=== PATIENT | female | born 1950 | race Caucasian/White ===

== ENCOUNTER 2016-11-13 09:57 | Inpatient (IN) | payer MEDICARE, OTHER ==
[~2016-11-13] VITALS: Ht 162.6 cm; Wt 57.5 kg
[~2016-11-13 09:57] MED LIST: ESOM20CA PO; FURO40TA4 PO; LEVO100T96 PO; LIPA1CAP6 PO; POTA20TA96 PO; RANI150T5 PO; ULT50 PO
[2016-11-13] MEDS ORDERED: ONDANSETRON 4 MG INJ IV STA (10:35)
[2016-11-13] MEDS ORDERED: morphine 2 MG INJ IV STA (10:35)
[2016-11-13 11:01] LABS: HEMATOCRIT 30.7 % (37.0-47.0); HEMOGLOBIN 10.1 g/dl (12.0-16.0); MEAN CORPUSCULAR HEMOGLOBIN 28.5 pg (29.0-33.0); MEAN CORPUSCULAR HGB CONC 32.8 g/dl (32.0-37.0); MEAN CORPUSCULAR VOLUME 86.9 fl (82.0-101.0); MEAN PLATELET VOLUME 8.4 fl (7.4-10.4); PLATELET COUNT 119 10^3/UL (140-440); RED BLOOD COUNT 3.53 10^6/ul (4.20-5.40); RED CELL DISTRIBUTION WIDTH 18.9 % (11.5-14.5); UNCORRECTED WBC 20.5 10^3/ul (4.8-10.8); WHITE BLOOD COUNT 20.5 10^3/ul (4.8-10.8)
[2016-11-13 11:10] LABS: ALBUMIN 1.7 g/dl (3.3-4.9)
[2016-11-13 11:11] LABS: CHLORIDE 99 mmol/L (97-110); POTASSIUM 3.6 mmol/L (3.5-5.1); SODIUM 133 mmol/L (135-144)
[2016-11-13 11:12] LABS: INR 1.78; PARTIAL THROMBOPLASTIN TIME 35.1 Sec (25.0-35.0); PROTIME 20.9 Sec (12.2-14.2); PT RATIO 1.6
[2016-11-13 11:13] LABS: ALKALINE PHOSPHATASE 147 IU/L (42-121); ANION GAP 15 (8-16); ASPARTATE AMINO TRANSFERASE 36 IU/L (15-46); BILIRUBIN,INDIRECT 0.4 mg/dl (0-1.1); BILIRUBIN,TOTAL 0.4 mg/dl (0.2-1.3); BLOOD UREA NITROGEN 21 mg/dl (7-20); CARBON DIOXIDE 23 mmol/L (21-31); CREATININE 0.85 mg/dl (0.44-1.00); TOTAL PROTEIN 4.5 g/dl (6.1-8.1)
[2016-11-13 11:14] LABS: ALANINE AMINOTRANSFERASE 30 IU/L (13-69); CALCIUM 7.3 mg/dl (8.4-10.2); GLUCOSE 122 mg/dl (70-220)
[2016-11-13 11:16] LABS: CONDITION 1; LH ANALYZER COMMENTS 1; SUSPECT 1
[2016-11-13 11:46] LABS: LYMPHOCYTES # 0.2 10^3/ul (0.8-2.9); MONOCYTE # 0.4 10^3/ul (0.3-0.9); NEUTROPHIL # 18.5 10^3/ul (1.6-7.5)
[2016-11-13 11:47] LABS: ANISOCYTOSIS 2+; HYPOCHROMASIA 1+; PLATELET ESTIMATE PLT APPEAR DECREASED
[2016-11-13] MEDS ORDERED: LIDOCAINE 1% (MPF) 5 ML VIAL ONE (12:50)
[2016-11-13 13:41] LABS: FLUID GLUCOSE 108 mg/dl; FLUID TOTAL PROTEIN < 2.0 g/dl; FLUID TYPE PARACENTESIS FLUID
[2016-11-13 13:54] LABS: FLUID TYPE PARACENTHESIS
[2016-11-13 13:55] LABS: FLUID APPEARANCE SLIGHTLY CLOUDY; FLUID RBC EST 1+; FLUID WBC'S 218 /cmm
--- NOTE | 2016-11-13 14:22 | RADRPT ---
PROCEDURE: Ultrasound guided paracentesis. CLINICAL INDICATION: Ascites and shortness of breath. COMPARISON: No prior studies are available for comparison. TECHNIQUE: The risks, benefits, and alternatives were explained to the patient, including but not limited to bl eeding, infection, pain, visceral or vascular damage, shock, and . The patient understood the risks and the alternatives and wished to proceed with the procedure. Informed written consent was o btained. A procedural time out was performed. The patient's name, date of , and procedure to b e performed were verified. Utilizing ultrasound guidance, optimal location for entry to the peritoneal cavity was ascertained. The overlying skin was prepped and draped in the usual sterile fashion. Approximately 10 ml of 1% Xylocaine was injected locally for pain control. Using ultrasound guidance, an 8 German catheter wa s introduced into the peritoneal cavity in the right lower quadrant without difficulty. FINDINGS: Initial images demonstrate ascites. Approximately 2.8 liters of serous fluid was aspirated and sent for laboratory analysis. The patient tolerated the procedure well without complication. IMPRESSION: 1. Successful ultrasound-guided paracentesis. RPTAT: QQ .Jacob Smiley MD, Date Time Electronically viewed and signed by .Jacob Smiley MD, MD on 11/13/2016 14:22 .R/
[2016-11-13] MEDS ORDERED: VANCOMYCIN 1 GM (PMX) 250 ML IVPB SCH (14:30)
[2016-11-13] MEDS ORDERED: CEFTRIAXONE 1 GM/50 ML (PMX) 50 ML IVPB ONE (14:30)
--- NOTE | 2016-11-13 14:35 | RADRPT ---
PROCEDURE: XR Chest. CLINICAL INDICATION: chest pain, sepsis TECHNIQUE: Single frontal view of the chest was obtained COMPARISON: 11/02/2016 FINDINGS: The heart and mediastinum are within normal limits. There is a right chest wall port in place. There is elevation of the right diaphragm with right lower lobe atelectasis. The lungs are otherwise clear. There is no pleural effusion or pneumothorax. RPTAT: AA IMPRESSION: No acute disease. Unchanged elevation of the right diaphragm with right lower lobe atelectasis. .Addison Duncan MD, MD Date Time Electronically viewed and signed by .Addison Duncan MD, on 11/13/2016 14:35 .S/
[2016-11-13 14:43] LABS: FLUID LYMPHOCYTES 7 %; FLUID MONOCYTES 10 %
[2016-11-13 14:44] LABS: FLUID NEUTROPHILS 80 %
--- NOTE | 2016-11-13 14:56 | ERA ---
ER Documentation Chief Complaint Date/Time DATE: 11/13/16 TIME: 1030 Chief Complaint has back pain, ascites, hx of pancreatic CA HPI 65-year-old female presents to the emergency department with her family for evaluation of abdominal distention. Patient has history of pancreatic cancer. She had a recent therapeutic paracentesis at an outside facility. She returns to the emergency department today with her family complaining of increased fluid in her abdomen. This is causing her discomfort around her right flank. She reports no fevers, chills, difficulty breathing, urinary symptoms. She has no other complaints. She currently reports her discomfort is 0/10. She reports no melena vomiting or any other complaints. ROS All systems reviewed and are negative except as per history of present illness. Medications Home Meds Active Scripts Tramadol HCl (Tramadol HCl) 50 Mg Tablet, 50 MG PO Q4H Y for PAIN, #60 TAB 1 Refill Prov:NAINA MIRAMONTES 11/04/16 Reported Medications Furosemide* (Furosemide*) 40 Mg Tablet, 40 MG PO DAILY, TAB 11/01/16 Esomeprazole Mag Trihydrate (Nexium) 20 Mg Capsule.dr, 20 MG PO DAILY, #30 CAP 11/01/16 Potassium Chloride* (Potassium Chloride*) 20 Meq Tablet.er, 20 MEQ PO DAILY, TAB.SA 11/01/16 Ranitidine Hcl* (Ranitidine Hcl*) 150 Mg Tablet, 150 MG PO HS, #30 TAB 11/01/16 Levothyroxine Sodium* (Synthroid*) 100 Mcg Tablet, 100 MCG PO BEFORE BREAKFAST, #30 TAB 11/01/16 Bgvvkd-Irlzdjjj-Bsquamo* (Creon DR* 24,000) 24,000 L-76,000-120,000 Unit Capsule.dr, 1 CAP PO WITH MEALS, CAP 05/25/16 Discontinued Scripts Furosemide* (Furosemide*) 40 Mg Tablet, 40 MG PO BID DIURETICS, #90 TAB 1 Refill Prov:NAINA MIRAMONTES 11/04/16 Allergies Allergies: Coded Allergies: methylisothiazolinone (Verified Allergy, Unknown, 11/13/16) PMhx/Soc Medical and Surgical Hx: pt denies Medical Hx, pt denies Surgical Hx History of Surgery: Yes Anesthesia Reaction: No Hx Neurological Disorder: No Hx Respiratory Disorders: No Hx Cardiac Disorders: No Hx Psychiatric Problems: No Hx Miscellaneous Medical Probl: No Hx Alcohol Use: No Hx Substance Use: No Hx Tobacco Use: No Smoking Status: Never smoker FmHx Noncontributory for chief complaint Physical Exam Vitals Vital Signs Date Time Temp Pulse Resp B/P Pulse Ox O2 Delivery O2 Flow Rate FiO2 11/13/16 10:06 98.8 110 18 109/58 100 Physical Exam GENERAL: Patient is cachectic, chronically as well as acutely ill-appearing. HEENT: Pupils equal, round, and reactive to light. EOMI. There is no scleral icterus. Temporal muscles are wasted NECK: C-spine is soft and supple, there is no meningismus. There is no cervical lymphadenopathy. LUNGS: Clear to auscultation bilaterally. There are no rales, wheezes or rhonchi. HEART: Regular rate and rhythm, no murmurs, clicks, rubs or gallops. ABDOMEN: Soft and distended with a fluid wave consistent with ascites. No significant tenderness to palpation. No obvious masses. EXTREMITIES: There is no peripheral cyanosis or edema. No focal swelling or erythema. NEURO: The patient moves all four extremities with 5/5 strength. Cranial nerves II - XII are intact. Normal gait. Alert and oriented SKIN: There is no apparent rash or petechiae. HEME/LYMPHATIC: There is no evidence of excessive bruising or lymphedema. PSYCHIATRIC: The patient does not appear anxious or depressed. Result Diagram: 11/13/16 1043 11/13/16 1043 Results 24 hrs Laboratory Tests Test 11/13/16 10:43 11/13/16 12:15 Activated Partial Thromboplast Time 35.1Sec Alanine Aminotransferase (ALT/SGPT) 30IU/L Albumin 1.7g/dl Albumin/Globulin Ratio 0.60 Alkaline Phosphatase 147IU/L Anion Gap 15 Anisocytosis 2+ Aspartate Amino Transf (AST/SGOT) 36IU/L Band Neutrophils % 7.0% Basophils # 10^3/ul Basophils % % Blood Morphology Comment Blood Urea Nitrogen 21mg/dl Calcium Level 7.3mg/dl Carbon Dioxide Level 23mmol/L Chloride Level 99mmol/L Creatinine 0.85mg/dl Direct Bilirubin 0.00mg/dl Eosinophils # 10^3/ul Eosinophils % % Globulin 2.80g/dl Glucose Level 122mg/dl Hematocrit 30.7% Hemoglobin 10.1g/dl Hypochromasia 1+ INR International Normalized Ratio 1.78 Indirect Bilirubin 0.4mg/dl Lipase < 10U/L Lymphocytes # 0.210^3/ul Lymphocytes % 1.0% Mean Corpuscular Hemoglobin 28.5pg Mean Corpuscular Hemoglobin Concent 32.8g/dl Mean Corpuscular Volume 86.9fl Mean Platelet Volume 8.4fl Monocytes # 0.410^3/ul Monocytes % 2.0% Neutrophils # 18.510^3/ul Neutrophils % 90.0% Nucleated Red Blood Cells # 10^3/ul Nucleated Red Blood Cells % /100WBC Platelet Count 86984^3/UL Platelet Estimate PLT APPEAR DECREASED Potassium Level 3.6mmol/L Prothrombin Time 20.9Sec Prothrombin Time Ratio 1.6 Red Blood Count 3.5310^6/ul Red Cell Distribution Width 18.9% Sodium Level 133mmol/L Total Bilirubin 0.4mg/dl Total Protein 4.5g/dl White Blood Count 20.510^3/ul Body Fluid Appearance SLIGHTLY CLOUDY Body Fluid Color YELLOW Body Fluid Glucose 108mg/dl Body Fluid Lymphocytes (%) 7% Body Fluid Monocytes % 10% Body Fluid Neutrophils % 80% Body Fluid Other Cells (%) 3% Body Fluid RBC 1+ Body Fluid Total Protein < 2.0g/dl Body Fluid Type PARACENTESIS FLUID Body Fluid Volume 1000.0ml Body Fluid WBC 218/cmm Current Medications Medications (Trade) Dose Ordered Sig/Gabe Route PRN Reason Start Time Stop Time Status Last Admin Dose Admin Morphine Sulfate (morphine) 2 mg ONCE STAT IV 11/13/16 10:35 11/13/16 10:37 DC 11/13/16 11:03 Ondansetron HCl (Zofran Inj) 4 mg ONCE STAT IV 11/13/16 10:35 11/13/16 10:37 DC 11/13/16 11:03 Lidocaine 5 ml 5 ml STK-MED ONCE .ROUTE 11/13/16 12:50 11/13/16 12:51 DC Ceftriaxone Sodium 50 ml @ 100 mls/hr ONCE ONCE IVPB 11/13/16 14:30 11/13/16 14:59 Vancomycin HCl (Vancocin) 250 ml @ 125 mls/hr ONCE IVPB 11/13/16 14:30 11/13/16 16:29 Procedures/MDM Patient was taken to a room, seen and evaluated. Comfort measures were initiated. Diagnostic tests were ordered and reviewed. 3 LEAD RHYTHM STRIP: Normal sinus rhythm without ectopy 12 lead EKG interpreted by myself: Rate/rhythm: Normal sinus rhythm, low voltages [place]/intervals: Normal Ischemia: Nonspecific ST and T-wave changes with no ST elevation Impression: Nonspecific EKG RADIOLOGY: reviewed with the radiologist CONSULTATION: hospitalist was notified for admission REEVALUATION: Patient remained hemodynamically stable and felt much better after paracentesis MEDICAL DECISION MAKIN-year-old presents to the emergency department with ascites. Initially, this appeared to be a reaccumulation of what is likely her malignant ascites. However, she has an elevated white blood cell count of concern. No other source of infection with urinalysis pending. She shows no signs of pneumonia on clinical examination or chest x-ray. She does have an elevated white blood cell count on her peritoneal fluids and I am concerned may have a peritonitis related to either SBP, or the procedure. I have covered with antibiotics. Lactate and cultures of the urine and blood are pending. At this time, given her significant cachectic and ill appearance, she will require admission to the hospital for observation and monitoring, IV antibiotics, further review of her diagnostic tests as well as her cultures and further treatment. Departure Diagnosis: Primary Impression: Pancreatic cancer Additional Impressions: Ascites SBP (spontaneous bacterial peritonitis) SEVERINO JEAN Nov 13, 2016 14:56
[2016-11-13] MEDS ORDERED: ONDANSETRON 4 MG INJ IV PRN ×2 (15:30→16:00)
[2016-11-13] MEDS ORDERED: ACETAMINOPHEN 325 MG TAB PO PRN ×2 (15:30→16:00)
[2016-11-13] MEDS ORDERED: NITROGLYCERIN (SL) 0.4 MG TAB SL PRN (16:00)
[2016-11-13] MEDS ORDERED: NACL 0.9% 3 ML SYG IV SCH (16:00)
[2016-11-13] MEDS ORDERED: LORAZEPAM 2 MG INJ IV PRN (16:00)
[2016-11-13] MEDS ORDERED: hydrALAzine 20 MG INJ IV PRN (16:00)
[2016-11-13] MEDS ORDERED: morphine 2 MG INJ IV PRN (16:00)
[2016-11-13] MEDS ORDERED: DOCUSATE SODIUM 100 MG CAP PO PRN (16:00)
[2016-11-13] MEDS ORDERED: HYDROCODONE/APAP (5/325) TAB PO PRN (16:00)
[2016-11-13] MEDS ORDERED: ALBUTEROL/IPRATROPIUM (NEB) 3 ML AMP HHN PRN (16:00)
[2016-11-13] MEDS ORDERED: MAGNESIUM HYDROXIDE 30ML CUP PO PRN (16:00)
[2016-11-13] MEDS ORDERED: CEFOTAXIME 2 GM/50 ML (PMX) 50 ML IVPB SCH (16:00)
[2016-11-13] MEDS ORDERED: NA PHOSPHATE/BIPHOS 133 ML ENEMA PR PRN (16:00)
[2016-11-13 17:00] VITALS: TEMP 98.6
--- NOTE | 2016-11-13 17:30 | HP ---
DATE OF ADMISSION: 11/13/2016 CHIEF COMPLAINT: Abdominal distention. HISTORY OF PRESENT ILLNESS: A 65-year-old female with past medical history of pancreatic cancer, ad vanced locally, status post neoadjuvant FOLFIRINOX therapy x6, now followed at [facility], also, prior history of surgical resection attempt of the mass, anemia, high cholesterol, hypoth yroidism, type 2 diabetes, who presents with abdominal distention. The patient has also been having some very scant lower GI bleeding as well, but no fevers or chills. No diarrhea, no constipation. No headaches or dizziness or loss of consciousness. No hematuria or dysuria. She has been initial ly having difficulty urinating, but that occurred a few days ago, but now has been having adequate u rine output. Her last paracentesis was performed last Saturday at [facility] at [facility] and she sees a Dr. Bang there and has a scheduled appointment this Saturday for peritoneal catheter pl acement. In any event, when she came in today, she had a white count of 20,000 and she had a parac entesis performed by the ER staff today as well. There were concerns of SBP and she was given antib iotics as well. PAST MEDICAL HISTORY: As stated above. ALLERGIES: METHYLISOTHIAZOLINONE. HOME MEDICATIONS: Include: 1. Lasix 40 mg daily. 2. Tramadol 50 mg q.4h. p.r.n. 3. Potassium chloride 20 mEq daily. 4. Nexium [address] 24,000 one capsule p.o. with meals. 6. Ranitidine 150 mg at bedtime. 5. Synthroid 100 mcg before breakfast. PAST SURGICAL HISTORY: Whipple procedure, cholecystectomy, tubal ligation, and placement of duodena l stent. SOCIAL HISTORY: Negative for smoking, drinking, or IV drug abuse presently. FAMILY HISTORY: Noncontributory. PHYSICAL EXAMINATION: VITAL SIGNS: Temperature max 98.8, pulse 110, respirations 18, blood pressure 109/58, saturating 10 0% on room air. GENERAL: The patient is lying in bed, family members at the bedside. She is answering questions ap propriately. No acute distress. HEENT: Pupils equal, round, reactive to light. Extraocular muscles intact. There is no scleral ic terus, but there is some temporal muscle wasting as well. NECK: No thyromegaly. LUNGS: Clear to auscultation bilaterally. CARDIOVASCULAR: S1, S2 heard. No rubs or gallops. ABDOMEN: Soft and distended, positive fluid wave consistent with ascites, but nontender. No reboun d or guarding. MUSCULOSKELETAL: She has got 3+ pitting edema bilateral lower extremities to the knees. NEUROLOGIC: No focal deficits. PSYCHIATRIC: Normal mood and affect. LABORATORIES: WBC 20.5, hemoglobin 10.1, hematocrit 30.7, platelets 118. Sodium 133, potassium 3.6 , chloride 99, CO2 of 23, BUN 21, creatinine 0.85, glucose 122. IMAGING: Again, she had a chest x-ray today that shows no acute disease. Unchanged elevation of th e right diaphragm with right lower lobe atelectasis. Again, she had an ultrasound-guided paracentes is today where there was 2.8 liters of serous fluid removed and sent to the lab for analysis. ASSESSMENT AND PLAN: A 65-year-old female coming in with abdominal distention with signs of possibl e spontaneous bacterial peritonitis with a prior history of pancreatic cancer, presently followed at [facility] for treatment. 1. Abdominal distention again secondary to ascites and possible SBP given her elevated white blood cell count. We will put her on cefotaxime 2 grams IV q.8h., get an ID consult as well. Follow up f luid analysis studies including culture and amylase and other protein studies, glucose, LDH, WBC cou nt, etc. Check TSH, A1c and lipid panel as well. We will also get a GI consult as well. Zofran p. r.n. for nausea, vomiting. Petrolia p.r.n. abdominal pain. 2. Questionable lower GI bleed. Again, she is complaining of some very small amounts of dark stool over the last few days. Apparently, the family says she was scheduled to have an EGD and colonosco py at the [facility] at [facility] recently, but because of possible GI bleeding they waited on t his. Her hemoglobin today is 10.1. No signs of any current bleeding. We will check a stool occult test and get a GI consult as well. No signs of any overt upper or lower GI bleeding presently. 3. Metastatic pancreatic cancer. Again, continue to monitor for now. She has follow up with chemo therapy at [facility]. Continue Creon as well and tramadol. 4. Lower extremity swelling. Again, secondary to most likely the pancreatic cancer. Continue Lasi x for now. 5. High cholesterol. Check lipid panel. Continue to monitor for now. 6. Hypothyroidism. Continue to monitor for now. Consider checking thyroid studies and continue Sy nthroid. 7. Gastrointestinal prophylaxis. H2 chasity. 8. Deep venous thrombosis prophylaxis. Sequential compression devices. Dictated By: KENYON TURNER Conf#: [id number] DID#: [id number]
[2016-11-13] MEDS ORDERED: SOD CHLORIDE 0.9% 1,000 ML IV STA (17:45)
--- NOTE | 2016-11-13 19:31 | CONS ---
Date/Time of Note Date/Time of Note DATE: 11/13/16 TIME: 19:26 Assessment/Plan Assessment/Plan Additional Assessment/Plan Abdominal pain/nausea/vomiting, evaluate for UGIB versus SBP * Paracentesis as needed as needed * Review paracentesis culture and treat accordingly * Continue Lasix and add Aldactone BID * Stool OB 1 * Start PPI twice daily * Monitor H&H every 6 hours, transfuse 2 units for hemoglobin less than 7.5 * Request ID consult if culture positive * Further recommendations depend on clinical course Consultation Date/Type/Reason Admit Date/Time Type of Consultation: Gastroenterology Reason for Consultation Ascites Hx of Present Illness Patient presented to the ED today with complaints of diffuse upper abdominal pain, increase in abdominal girth, nausea, and nonbloody bilious vomiting 2 days. Patient also reports a few episodes of melena stools. Patient denies diarrhea, constipation, fevers, chills, SOB, syncope, or dizziness. Patient with history of pancreatic neoplasm and EGD with duodenal stent placement in May 2016. Patient currently being treated at [facility] for pancreatic cancer. Past Medical History Medical History: GI bleed, other (Pancreatic cancer) Past Surgical History Past Surgical Hx: other Social History Alcohol Use: none Smoking Status: Never smoker Exam/Review of Systems Vital Signs Vitals Vital Signs Date Time Temp Pulse Resp B/P Pulse Ox O2 Delivery O2 Flow Rate FiO2 11/13/16 19:15 86 18 91/58 100 Nasal Cannula 2.0 11/13/16 17:00 98.6 Exam Constitutional: alert, frail, oriented Psych: nl mood/affect Head: normocephalic Eyes: EOMI Respiratory: clear to auscultation, normal air movement Cardiovascular: regular rate and rhythm Gastrointestinal: soft, tender (Diffuse upper abdominal) Neurological: [employer] CONSULTANT II-XII intact Results Result Diagram: 11/13/16 1043 11/13/16 1043 Results 24 hrs Laboratory Tests Test 11/13/16 10:43 11/13/16 12:15 11/13/16 17:10 Activated Partial Thromboplast Time 35.1 H Alanine Aminotransferase (ALT/SGPT) 30 Albumin 1.7 L Albumin/Globulin Ratio 0.60 Alkaline Phosphatase 147 H Anion Gap 15 Anisocytosis 2+ Aspartate Amino Transf (AST/SGOT) 36 Band Neutrophils % 7.0 H Basophils # Basophils % Blood Morphology Comment Blood Urea Nitrogen 21 H Calcium Level 7.3 L Carbon Dioxide Level 23 Chloride Level 99 Creatinine 0.85 Direct Bilirubin 0.00 Eosinophils # Eosinophils % Globulin 2.80 Glucose Level 122 Hematocrit 30.7 L Hemoglobin 10.1 L Hypochromasia 1+ INR International Normalized Ratio 1.78 Indirect Bilirubin 0.4 Lipase < 10 L Lymphocytes # 0.2 L Lymphocytes % 1.0 L Mean Corpuscular Hemoglobin 28.5 L Mean Corpuscular Hemoglobin Concent 32.8 Mean Corpuscular Volume 86.9 Mean Platelet Volume 8.4 Monocytes # 0.4 Monocytes % 2.0 Neutrophils # 18.5 H Neutrophils % 90.0 H Nucleated Red Blood Cells # Nucleated Red Blood Cells % Platelet Count 119 #L Platelet Estimate PLT APPEAR DECREASED Potassium Level 3.6 Prothrombin Time 20.9 #H Prothrombin Time Ratio 1.6 Red Blood Count 3.53 L Red Cell Distribution Width 18.9 H Sodium Level 133 L Total Bilirubin 0.4 Total Protein 4.5 L White Blood Count 20.5 #H Body Fluid Appearance SLIGHTLY CLOUDY Body Fluid Color YELLOW Body Fluid Glucose 108 Body Fluid Lymphocytes (%) 7 Body Fluid Monocytes % 10 Body Fluid Neutrophils % 80 Body Fluid Other Cells (%) 3 Body Fluid RBC 1+ Body Fluid Total Protein < 2.0 Body Fluid Type PARACENTESIS FLUID Body Fluid Volume 1000.0 Body Fluid WBC 218 Lactic Acid Level 1.7 Medications Medications Current Medications Ondansetron HCl (Zofran Inj) 4 mg Q6H PRN IV NAUSEA AND/OR VOMITING; Start 11/13 at 16:00 Acetaminophen (Tylenol Tab) 650 mg Q6H PRN PO PAIN LEVEL 1-3 OR FEVER; Start at 16:00 Acetaminophen/ Hydrocodone Bitart ([place] (5/325)) 1 tab Q6H PRN PO MODERATE PAIN LEVEL 4-6; Start 11/13/16 at 16:00 Morphine Sulfate (morphine) 2 mg Q4H PRN IV SEVERE PAIN LEVEL 7-10; Start at 16:00 Docusate Sodium (Colace) 100 mg Q12H PRN PO CONSTIPATION; Start 11/13/16 at 16: 00 Magnesium Hydroxide (Milk Of Mag) 30 ml DAILY PRN PO CONSTIPATION; Start at 16:00 Sodium Biphosphate/ Sodium Phosphate (Fleet Enema) 133 ml DAILY PRN PA CONSTIPATION; Start 11/13/16 at 16:00 Lorazepam (Ativan) 0.5 mg Q6H PRN IV ANXIETY; Start 11/13/16 at 16:00 Hydralazine HCl (Apresoline) 10 mg Q6H PRN IV ELEVATED BLOOD PRESSURE; Start at 16:00 Clonidine (Catapres) 0.1 mg Q6H PRN PO ELEVATED BLOOD PRESSURE; Start 11/13/16 at 16:00 Nitroglycerin (Nitroglycerin (Sl Tab) 0.4 Mg) 1 tab Q5M PRN SL ANGINA; Start at 16:00 Furosemide (Lasix) 40 mg DAILY PO ; Start 11/14/16 at 09:00 Potassium Chloride (Klor-Con 20) 20 meq DAILY PO ; Start 11/14/16 at 09:00 Ranitidine HCl (Zantac) 150 mg HS PO ; Start 11/13/16 at 21:00 Tramadol HCl 50 mg 50 mg Q4H PRN PO PAIN; Start 11/13/16 at 16:00 Cefotaxime Sodium/ Dextrose (Claforan 2gm/50 ml (Pmx)) 50 ml @ 100 mls/hr Q8 IVPB ; Start 11/13/16 at 16:00 VIVI PEDERSON MD Nov 13, 2016 19:31
[2016-11-13 20:05] VITALS: BP 87/53; RESP 17
--- NOTE | 2016-11-13 21:30 | CONS ---
DATE OF ADMISSION: 11/13/2016 DATE OF CONSULTATION: 11/13/2016 TYPE OF CONSULTATION: Infectious disease. REASON FOR CONSULTATION: Antibiotic management. HISTORY OF PRESENT ILLNESS: 1. Kiki Sanchez is a 65-year-old female with a history of pancreatic cancer who comes in with a bdominal distention and is being seen for antibiotic management. She has pancreatic cancer advanced locally, status post neoadjuvant therapy with Folfirinox x6 courses. [facility] She had prior surgical resection attempt at the mass. 2. Hypercholesterolemia. 3. Hypothyroidism. 4. Adult-onset diabetes mellitus. 5. Anemia of chronic disease. She now presents to [facility] with abdominal distention. She has had very scant lower GI bleeding as well. No fever or chills. No hematuria or dysuria. She was having difficulty urinatin g that occurred a few days ago and now she has no problem. Her last paracentesis was performed last Saturday at [facility] and has a scheduled appointment for this Saturday for peritoneal ca theter placement. She came in today with a white count of 20,000 and she had a paracentesis perform ed by the ER. There were concerns for spontaneous bacterial peritonitis and she was given antibioti cs as well. PAST MEDICAL HISTORY AND OPERATIONS: As outlined. FAMILY HISTORY: Noncontributory. PAST SURGICAL HISTORY: Status post Whipple procedure, status post cholecystectomy, status post tuba l ligation, and placement of a duodenal stent. SOCIAL HISTORY: She does not smoke, drink, or abuse drugs. FAMILY HISTORY: Noncontributory. ALLERGIES: METHYLISOTHIAZOLINONE. PHYSICAL EXAMINATION: GENERAL: The patient is a well-developed, well-nourished female who appears chronically ill, in no acute distress. VITAL SIGNS: Stable. She is afebrile. SKIN: Without generalized rash. HEENT: Within normal limits. NECK: Supple. LYMPH NODES: None palpable. CHEST: Decreased breath sounds at the bases. HEART: Without murmur or gallop. ABDOMEN: Soft, distended. There is a positive fluid wave. She is nontender. There is no organosp lenomegaly or masses. No rebound or guarding. MUSCULOSKELETAL: She has 3+ pitting edema bilateral lower extremities to the knees. RECTAL AND GENITAL: Deferred. NEUROLOGIC: No focal neurological abnormalities. LABORATORY DATA: As noted, her white count was 20.5, H and H 10.1 and 30.7, platelet count 118. BU N and creatinine 21/0.85. Chest x-ray shows no acute disease. Elevation of the right diaphragm wit h right lower lobe atelectasis. Serous fluid, 2.8 L, were removed from her ascites and sent to the lab. She was seen in consultation by Dr. Cooley. She was placed on cefotaxime for possible SBP. A lkaline phosphatase 147, total protein 4.5, albumin 1.7. Paracentesis showed 218 white cells with 8 0% neutrophils, total protein was greater than 2. I do not have an LDH. IMPRESSION AND PLAN: Kiki Sanchez is a very unfortunate 65-year-old female with pancreatic canc er status post cholecystectomy and biliary stent placement, now comes in with possible spontaneous b acterial peritonitis. She is on ceftriaxone and will await her culture reports. I will dictate my findings to the hospitalist and to Dr. Cooley. Dictated By: FAB MEYER MD, JD/NILSA Conf#: [id number] DID#: [id number] CC: KATHLEEN CARDONA MD;*EndCC*
[2016-11-13] MEDS: RANITIDINE 150 MG TAB PO SCH (21:44)
[2016-11-13] MEDS: CREON (24K-76K-120K) 1 CAP PO SCH (21:44)
[2016-11-13 22:54] VITALS: BP 87/53; PULSE 84; RESP 17
[2016-11-13 22:59] VITALS: Ht 162.6 cm; Wt 57.5 kg
[2016-11-14] MEDS: CEFOTAXIME 2 GM in SOD CHLORIDE 0.9% 50 ML IVPB SCH ×2 (00:11→06:15)
[2016-11-14 05:42] LABS: CHOL/HDL RATIO 5.3 RATIO
[2016-11-14 06:13] LABS: THYROID STIMULATING HORMONE 21.3 MIU/L (0.465-4.680)
[2016-11-14] MEDS: LEVOTHYROXINE 100 MCG TAB PO SCH (06:15)
[2016-11-14 06:27] LABS: EOSINOPHILS % 0.2 % (0.0-7.0); HEMATOCRIT 31.8 % (37.0-47.0); HEMOGLOBIN 10.6 g/dl (12.0-16.0); LYMPHOCYTES # 0.2 10^3/ul (0.8-2.9); LYMPHOCYTES % 1.3 % (15.0-51.0); MEAN CORPUSCULAR HEMOGLOBIN 28.8 pg (29.0-33.0); MEAN CORPUSCULAR HGB CONC 33.3 g/dl (32.0-37.0); MEAN CORPUSCULAR VOLUME 86.4 fl (82.0-101.0); MONOCYTE # 1.2 10^3/ul (0.3-0.9); MONOCYTES % 6.8 % (0.0-11.0); NEUTROPHIL # 16.6 10^3/ul (1.6-7.5); NEUTROPHILS % 91.7 % (39.0-77.0); PLATELET COUNT 113 10^3/UL (140-440); RED BLOOD COUNT 3.67 10^6/ul (4.20-5.40); UNCORRECTED WBC 18.1 10^3/ul (4.8-10.8); WHITE BLOOD COUNT 18.1 10^3/ul (4.8-10.8)
[2016-11-14 06:41] LABS: CONDITION 1; LH ANALYZER COMMENTS 1; SUSPECT 1
[2016-11-14 07:02] LABS: POTASSIUM 3.5 mmol/L (3.5-5.1)
[2016-11-14 07:04] LABS: CREATININE 0.71 mg/dl (0.44-1.00)
[2016-11-14 07:05] LABS: CALCIUM 7.4 mg/dl (8.4-10.2); PHOSPHORUS 3.6 mg/dl (2.5-4.9)
[2016-11-14 07:06] LABS: MAGNESIUM 1.9 mg/dl (1.7-2.5)
[2016-11-14 07:42] VITALS: BP 99/57; RESP 16
[2016-11-14] MEDS: FUROSEMIDE 40 MG TAB PO SCH (09:00)
[2016-11-14] MEDS: CREON (24K-76K-120K) 1 CAP PO SCH ×3 (09:14→17:56)
[2016-11-14] MEDS: POTASSIUM CHLORIDE (SR) 20 MEQ TAB PO SCH (09:14)
--- NOTE | 2016-11-14 10:31 | PN ---
Date/Time of Note Date/Time of Note DATE: 11/14/16 TIME: 10:25 Assessment/Plan VTE Prophylaxis VTE Prophylaxis Intervention: SCD's Lines/Catheters IV Catheter Type (from Nrs): [id number] Assessment/Plan Chief Complaint/Hosp Course ASSESSMENT AND PLAN: 65-year-old female coming in with abdominal distention with signs of possible spontaneous bacterial peritonitis with a prior history of pancreatic cancer, presently followed at [facility] for treatment. 1. Abdominal distention - again secondary to ascites and possible SBP given her elevated white blood cell count. WBC slightly improved today (20 -> 18) - continue cefotaxime 2 grams IV q.8h., - f/u ID and GI rec's. - Follow up fluid analysis studies including culture and amylase and other protein studies, glucose, LDH, WBC count, etc. - F/u TSH, A1c and lipid panel as well. - f/u Zofran p.r.n. for nausea, vomiting. - [place] p.r.n. abdominal pain. 2. Questionable lower GI bleed. Again, she is complaining of some very small amounts of dark stool over the last few days. Apparently, the family says she was scheduled to have an EGD and colonoscopy at the [facility] at [facility] recently, but because of possible GI bleeding they waited on this. Her hemoglobin today is 10.1. No signs of any current bleeding. - f/u stool occult test, GI consult recs as well. No signs of any overt upper or lower GI bleeding presently. 3. Metastatic pancreatic cancer. She has follow up with chemotherapy at [facility]. - Continue Creon as well and tramadol. - Again, continue to monitor for now. 4. Lower extremity swelling. Again, secondary to most likely the pancreatic cancer. - Continue Lasix for now, add aldactone 5. High cholesterol - lipid panel. Continue to monitor for now. 6. Hypothyroidism. Continue to monitor for now. - f/u thyroid studies and continue Synthroid. 7. Gastrointestinal prophylaxis. H2 chasity. 8. Deep venous thrombosis prophylaxis. Sequential compression devices. Problems: Subjective 24 Hr Interval Summary Free Text/Dictation Pt has less abd pain. No fevers overnight. Seen by GI and ID teams. Exam/Review of Systems Vital Signs Vitals Vital Signs Date Time Temp Pulse Resp B/P Pulse Ox O2 Delivery O2 Flow Rate FiO2 11/14/16 07:42 98.3 98 16 99/57 99 11/13/16 22:54 Room Air 11/13/16 19:15 2.0 Intake and Output 11/13/16 11/13/16 11/14/16 15:00 23:00 07:00 Intake Total 350 ml Balance 350 ml Exam GENERAL: The patient is lying in bed, family members at the bedside. She is answering questions appropriately. No acute distress. HEENT: Pupils equal, round, reactive to light. Extraocular muscles intact. There is no scleral icterus, but there is some temporal muscle wasting as well. NECK: No thyromegaly. LUNGS: Clear to auscultation bilaterally. CARDIOVASCULAR: S1, S2 heard. No rubs or gallops. ABDOMEN: Soft and distended, positive fluid wave consistent with ascites, but nontender. No rebound or guarding. MUSCULOSKELETAL: She has got 2+ pitting edema bilateral lower extremities to the knees. NEUROLOGIC: No focal deficits. PSYCHIATRIC: Normal mood and affect. Results Result Diagram: 11/14/16 0450 11/14/16 0450 Results 24 hrs Laboratory Tests Test 11/13/16 10:43 11/13/16 12:15 11/13/16 16:00 11/13/16 17:10 Activated Partial Thromboplast Time 35.1 H Alanine Aminotransferase (ALT/SGPT) 30 Albumin 1.7 L Albumin/Globulin Ratio 0.60 Alkaline Phosphatase 147 H Anion Gap 15 Anisocytosis 2+ Aspartate Amino Transf (AST/SGOT) 36 Band Neutrophils % 7.0 H Basophils # Basophils % Blood Morphology Comment Blood Urea Nitrogen 21 H Calcium Level 7.3 L Carbon Dioxide Level 23 Chloride Level 99 Creatinine 0.85 Direct Bilirubin 0.00 Eosinophils # Eosinophils % Globulin 2.80 Glucose Level 122 Hematocrit 30.7 L Hemoglobin 10.1 L Hypochromasia 1+ INR International Normalized Ratio 1.78 Indirect Bilirubin 0.4 Lipase < 10 L Lymphocytes # 0.2 L Lymphocytes % 1.0 L Mean Corpuscular Hemoglobin 28.5 L Mean Corpuscular Hemoglobin Concent 32.8 Mean Corpuscular Volume 86.9 Mean Platelet Volume 8.4 Monocytes # 0.4 Monocytes % 2.0 Neutrophils # 18.5 H Neutrophils % 90.0 H Nucleated Red Blood Cells # Nucleated Red Blood Cells % Platelet Count 119 #L Platelet Estimate PLT APPEAR DECREASED Potassium Level 3.6 Prothrombin Time 20.9 #H Prothrombin Time Ratio 1.6 Red Blood Count 3.53 L Red Cell Distribution Width 18.9 H Sodium Level 133 L Total Bilirubin 0.4 Total Protein 4.5 L White Blood Count 20.5 #H Body Fluid Appearance SLIGHTLY CLOUDY Body Fluid Color YELLOW Body Fluid Glucose 108 Body Fluid Lymphocytes (%) 7 Body Fluid Monocytes % 10 Body Fluid Neutrophils % 80 Body Fluid Other Cells (%) 3 Body Fluid RBC 1+ Body Fluid Total Protein < 2.0 Body Fluid Type PARACENTESIS FLUID Body Fluid Volume 1000.0 Body Fluid WBC 218 Free Thyroxine 1.60 Lactic Acid Level 1.7 Test 11/14/16 04:50 Anion Gap 12 Basophils # 0.0 Basophils % 0.0 Blood Morphology Comment Blood Urea Nitrogen 20 Calcium Level 7.4 L Carbon Dioxide Level 23 Chloride Level 104 Cholesterol Level 86 L Cholesterol/HDL Ratio 5.3 Creatinine 0.71 Eosinophils # 0.0 Eosinophils % 0.2 Glucose Level 62 #L HDL Cholesterol 16 L Hematocrit 31.8 L Hemoglobin 10.6 L Hemoglobin A1c 5.1 LDL Cholesterol, Calculated 52 Lymphocytes # 0.2 L Lymphocytes % 1.3 L Magnesium Level 1.9 Mean Corpuscular Hemoglobin 28.8 L Mean Corpuscular Hemoglobin Concent 33.3 Mean Corpuscular Volume 86.4 Mean Platelet Volume 9.0 Monocytes # 1.2 H Monocytes % 6.8 Neutrophils # 16.6 H Neutrophils % 91.7 H Nucleated Red Blood Cells # 0.0 Nucleated Red Blood Cells % 0.0 Phosphorus Level 3.6 Platelet Count 113 L Potassium Level 3.5 Red Blood Count 3.67 L Red Cell Distribution Width 19.0 H Sodium Level 135 Thyroid Stimulating Hormone (TSH) 21.300 H Triglycerides Level 89 White Blood Count 18.1 H Medications Medications Current Medications Ondansetron HCl (Zofran Inj) 4 mg Q6H PRN IV NAUSEA AND/OR VOMITING; Start 11/13 at 16:00 Acetaminophen (Tylenol Tab) 650 mg Q6H PRN PO PAIN LEVEL 1-3 OR FEVER; Start at 16:00 Acetaminophen/ Hydrocodone Bitart ([place] (5/325)) 1 tab Q6H PRN PO MODERATE PAIN LEVEL 4-6; Start 11/13/16 at 16:00 Morphine Sulfate (morphine) 2 mg Q4H PRN IV SEVERE PAIN LEVEL 7-10 Last administered on 11/13/16 20:29; Admin Dose 2 MG; Start 11/13/16 at 16:00 Docusate Sodium (Colace) 100 mg Q12H PRN PO CONSTIPATION; Start 11/13/16 at 16: 00 Magnesium Hydroxide (Milk Of Mag) 30 ml DAILY PRN PO CONSTIPATION; Start at 16:00 Sodium Biphosphate/ Sodium Phosphate (Fleet Enema) 133 ml DAILY PRN [place] CONSTIPATION; Start 11/13/16 at 16:00 Lorazepam (Ativan) 0.5 mg Q6H PRN IV ANXIETY; Start 11/13/16 at 16:00 Hydralazine HCl (Apresoline) 10 mg Q6H PRN IV ELEVATED BLOOD PRESSURE; Start at 16:00 Clonidine (Catapres) 0.1 mg Q6H PRN PO ELEVATED BLOOD PRESSURE; Start 11/13/16 at 16:00 Nitroglycerin (Nitroglycerin (Sl Tab) 0.4 Mg) 1 tab Q5M PRN SL ANGINA; Start at 16:00 Furosemide (Lasix) 40 mg DAILY PO ; Start 11/14/16 at 09:00 Potassium Chloride (Klor-Con 20) 20 meq DAILY PO Last administered on 11/14/16 09:14; Admin Dose 20 MEQ; Start 11/14/16 at 09:00 Ranitidine HCl (Zantac) 150 mg HS PO Last administered on 11/13/16 21:44; Admin Dose 150 MG; Start 11/13/16 at 21:00 Tramadol HCl 50 mg 50 mg Q4H PRN PO PAIN; Start 11/13/16 at 16:00 Cefotaxime Sodium/ Sodium Chloride (Claforan/NS) 50 ml @ 100 mls/hr Q8 IVPB Last administered on 11/14/16 06:15; Admin Dose 100 MLS/HR; Start 11/13/16 at 22: 30 Pantoprazole (Protonix Iv) 40 mg BID@06,18 IV ; Start 11/14/16 at 18:00; Status KENYON ROSSI Nov 14, 2016 10:31
--- NOTE | 2016-11-14 12:08 | PN ---
DATE: 11/14/2016 SUBJECTIVE: No acute events overnight. The patient is alert, lying comfortably in bed, family at [facility]. No fevers. WBC 18.1, platelets 113, neutrophils 91.7, no bands. BUN 20, creatinine 0.71. MICROBIOLOGY: Blood culture growing gram-negative rods. ANTIMICROBIALS: Cefotaxime. PHYSICAL EXAMINATION: GENERAL: This is a fragile, cachectic elderly woman who is awake, in no distress. HEENT: Head atraumatic, normocephalic. Sclerae anicteric. Buccal mucosa dry. NECK: Supple, trachea midline. CHEST: Rise symmetrical. Breath sounds diminished to bases. HEART: S1, S2. ABDOMEN: Distended, soft. Bowel tones hypoactive. EXTREMITIES: Without cyanosis. ASSESSMENT: 1. Septicemia with blood culture growing gram-negative rods, possibly secondary to urinary tract in fection. 2. Status post Escherichia coli extended-spectrum beta-lactamase urinary tract infection in 10/2016 . 3. Ascites status post thoracentesis. So far, peritoneal fluid cultures are negative. 4. Diabetes. 5. Pancreatic CA, locally advanced. PLAN: We are going to change cefotaxime to imipenem. Await for blood culture results and peritonea l fluid cultures. Send urine for culture and follow gastroenterology recommendations. Above was di scussed with patient and family at bedside. Dictated By: MIKE BRYSON SALAD MAKER for F[employer] STOUT/NILSA Conf#: [id number] DID#: [id number]
[2016-11-14] MEDS: PANTOPRAZOLE 40 MG INJ IV SCH ×2 (12:15→17:56)
[2016-11-14] MEDS: SPIRONOLACTONE 50 MG TAB PO SCH ×2 (12:17→17:56)
[2016-11-14] MEDS: IMIPENEM-CILAST 500MG IV (PMX) 100 ML IVPB SCH ×2 (14:00→21:28)
--- NOTE | 2016-11-14 16:17 | CONS ---
Date/Time of Note Date/Time of Note DATE: 11/14/16 TIME: 16:13 Assessment/Plan Assessment/Plan Additional Assessment/Plan Abdominal pain/nausea/vomiting, evaluate for UGIB versus SBP * Paracentesis as needed as needed * Review paracentesis culture and treat accordingly * Continue Lasix and add Aldactone BID * Stool OB 1 * Start PPI twice daily * Monitor H&H every 6 hours, transfuse 2 units for hemoglobin less than 7.5 * Request ID consult if culture positive Further recommendations depend on clinical course Patient seen in collaboration with Dr. Cooley Consultation Date/Type/Reason Admit Date/Time Nov 13, 2016 at 15:10 Initial Consult Date Type of Consultation: Gastroenterology 24 HR Interval Summary Free Text/Dictation Patient states pain improved with paracentesis Tolerating soft diet Culture with no growth after 1 day Stool OB in process Exam/Review of Systems Vital Signs Vitals Vital Signs Date Time Temp Pulse Resp B/P Pulse Ox O2 Delivery O2 Flow Rate FiO2 11/14/16 07:42 98.3 98 16 99/57 99 11/14/16 07:40 21 11/13/16 22:54 Room Air 11/13/16 19:15 2.0 Intake and Output 11/13/16 11/13/16 11/14/16 15:00 23:00 07:00 Intake Total 350 ml Balance 350 ml Exam Constitutional: alert, frail, oriented Psych: nl mood/affect Head: normocephalic Eyes: EOMI Respiratory: clear to auscultation, normal air movement Cardiovascular: regular rate and rhythm Gastrointestinal: soft, tender (Diffuse upper abdominal) Neurological: MEMBER CERTIFICATION MANAGER II-XII intact Results Result Diagram: 11/14/16 0450 11/14/16 0450 Results 24 hrs Laboratory Tests Test 11/13/16 17:10 11/14/16 04:50 Lactic Acid Level 1.7 Anion Gap 12 Basophils # 0.0 Basophils % 0.0 Blood Morphology Comment Blood Urea Nitrogen 20 Calcium Level 7.4 L Carbon Dioxide Level 23 Chloride Level 104 Cholesterol Level 86 L Cholesterol/HDL Ratio 5.3 Creatinine 0.71 Eosinophils # 0.0 Eosinophils % 0.2 Glucose Level 62 #L HDL Cholesterol 16 L Hematocrit 31.8 L Hemoglobin 10.6 L Hemoglobin A1c 5.1 LDL Cholesterol, Calculated 52 Lymphocytes # 0.2 L Lymphocytes % 1.3 L Magnesium Level 1.9 Mean Corpuscular Hemoglobin 28.8 L Mean Corpuscular Hemoglobin Concent 33.3 Mean Corpuscular Volume 86.4 Mean Platelet Volume 9.0 Monocytes # 1.2 H Monocytes % 6.8 Neutrophils # 16.6 H Neutrophils % 91.7 H Nucleated Red Blood Cells # 0.0 Nucleated Red Blood Cells % 0.0 Phosphorus Level 3.6 Platelet Count 113 L Potassium Level 3.5 Red Blood Count 3.67 L Red Cell Distribution Width 19.0 H Sodium Level 135 Thyroid Stimulating Hormone (TSH) 21.300 H Triglycerides Level 89 White Blood Count 18.1 H Medications Medications Current Medications Ondansetron HCl (Zofran Inj) 4 mg Q6H PRN IV NAUSEA AND/OR VOMITING; Start 11/13 at 16:00 Acetaminophen (Tylenol Tab) 650 mg Q6H PRN PO PAIN LEVEL 1-3 OR FEVER; Start at 16:00 Acetaminophen/ Hydrocodone Bitart ([place] (5/325)) 1 tab Q6H PRN PO MODERATE PAIN LEVEL 4-6; Start 11/13/16 at 16:00 Morphine Sulfate (morphine) 2 mg Q4H PRN IV SEVERE PAIN LEVEL 7-10 Last administered on 11/13/16t 20:29; Admin Dose 2 MG; Start 11/13/16 at 16:00 Docusate Sodium (Colace) 100 mg Q12H PRN PO CONSTIPATION; Start 11/13/16 at 16: 00 Magnesium Hydroxide (Milk Of Mag) 30 ml DAILY PRN PO CONSTIPATION; Start at 16:00 Sodium Biphosphate/ Sodium Phosphate (Fleet Enema) 133 ml DAILY PRN [place] CONSTIPATION; Start 11/13/16 at 16:00 Lorazepam (Ativan) 0.5 mg Q6H PRN IV ANXIETY; Start 11/13/16 at 16:00 Hydralazine HCl (Apresoline) 10 mg Q6H PRN IV ELEVATED BLOOD PRESSURE; Start at 16:00 Clonidine (Catapres) 0.1 mg Q6H PRN PO ELEVATED BLOOD PRESSURE; Start 11/13/16 at 16:00 Nitroglycerin (Nitroglycerin (Sl Tab) 0.4 Mg) 1 tab Q5M PRN SL ANGINA; Start at 16:00 Furosemide (Lasix) 40 mg DAILY PO ; Start 11/14/16 at 09:00 Potassium Chloride (Klor-Con 20) 20 meq DAILY PO Last administered on 11/14/16 09:14; Admin Dose 20 MEQ; Start 11/14/16 at 09:00 Ranitidine HCl (Zantac) 150 mg HS PO Last administered on 11/13/16 21:44; Admin Dose 150 MG; Start 11/13/16 at 21:00 Tramadol HCl (Ultram) 50 mg Q4H PRN PO PAIN; Start 11/13/16 at 16:00 Pantoprazole 40 mg 40 mg BID@06,18 IV Last administered on 11/14/16 12:15; Admin Dose 40 MG; Start 11/14/16 at 11:00 Imipenem/ Cilastatin Sodium (Primaxin 500 Mg/ 100 ml (Pmx)) 100 ml @ 100 mls/ hr Q8 IVPB Last administered on 11/14/16 14:00; Admin Dose 100 MLS/HR; Start at 14:00 GILDARDO LAST Nov 14, 2016 16:16
[2016-11-14] MEDS: traMADol 50 MG TAB PO PRN (17:06)
[2016-11-14 17:52] LABS: ADD UMIC YES; URINE BILIRUBIN (Dip) NEGATIVE (NEGATIVE); URINE BLOOD (Dip) 2+ (NEGATIVE); URINE COLOR YELLOW (YELLOW); URINE GLUCOSE (Dip) NEGATIVE (NEGATIVE); URINE KETONES (Dip) NEGATIVE (NEGATIVE); URINE LEUKOCYTE ESTERASE (Dip) 1+ (NEGATIVE); URINE NITRITE (Dip) NEGATIVE (NEGATIVE); URINE TOTAL PROTEIN (Dip) NEGATIVE (NEGATIVE); URINE UROBILINOGEN (Dip) 0.2 E.U./dL (0.1-1.0)
[2016-11-14 18:03] LABS: SQUAMOUS EPITHELIAL CELL,UR RARE; URINE RBCS 0-2 /HPF (0)
[2016-11-14 19:45] VITALS: BP 100/57; RESP 20
[2016-11-14] MEDS: RANITIDINE 150 MG TAB PO SCH (21:29)
[2016-11-15] MEDS: traMADol 50 MG TAB PO PRN (04:57)
[2016-11-15] MEDS: SPIRONOLACTONE 50 MG TAB PO SCH ×2 (06:22→18:13)
[2016-11-15] MEDS: PANTOPRAZOLE 40 MG INJ IV SCH ×2 (06:22→18:17)
[2016-11-15] MEDS: IMIPENEM-CILAST 500MG IV (PMX) 100 ML IVPB SCH ×3 (06:22→21:15)
[2016-11-15] MEDS: LEVOTHYROXINE 100 MCG TAB PO SCH ×2 (06:22→09:11)
[2016-11-15 07:33] LABS: EOSINOPHILS # 0.1 10^3/ul (0.0-0.5); EOSINOPHILS % 0.3 % (0.0-7.0); HEMATOCRIT 30.3 % (37.0-47.0); HEMOGLOBIN 10.2 g/dl (12.0-16.0); LYMPHOCYTES # 0.4 10^3/ul (0.8-2.9); LYMPHOCYTES % 2.3 % (15.0-51.0); MEAN CORPUSCULAR HEMOGLOBIN 28.9 pg (29.0-33.0); MEAN CORPUSCULAR HGB CONC 33.6 g/dl (32.0-37.0); MEAN CORPUSCULAR VOLUME 85.9 fl (82.0-101.0); MEAN PLATELET VOLUME 8.9 fl (7.4-10.4); MONOCYTE # 1.5 10^3/ul (0.3-0.9); MONOCYTES % 8.8 % (0.0-11.0); NEUTROPHIL # 15.2 10^3/ul (1.6-7.5); NEUTROPHILS % 88.6 % (39.0-77.0); PLATELET COUNT 109 10^3/UL (140-440); RED BLOOD COUNT 3.53 10^6/ul (4.20-5.40); RED CELL DISTRIBUTION WIDTH 18.7 % (11.5-14.5); UNCORRECTED WBC 17.2 10^3/ul (4.8-10.8); WHITE BLOOD COUNT 17.2 10^3/ul (4.8-10.8)
[2016-11-15 08:03] VITALS: BP 109/68; RESP 20
[2016-11-15 08:07] LABS: CONDITION 1; LH ANALYZER COMMENTS 1; POTASSIUM 3.7 mmol/L (3.5-5.1); SUSPECT 1
[2016-11-15 08:10] LABS: CREATININE 0.72 mg/dl (0.44-1.00)
[2016-11-15] MEDS: POTASSIUM CHLORIDE (SR) 20 MEQ TAB PO SCH (09:11)
[2016-11-15] MEDS: CREON (24K-76K-120K) 1 CAP PO SCH ×3 (09:11→18:13)
[2016-11-15] MEDS: FUROSEMIDE 40 MG TAB PO SCH (09:11)
--- NOTE | 2016-11-15 09:51 | PN ---
Date/Time of Note Date/Time of Note DATE: 11/15/16 TIME: 09:44 Assessment/Plan VTE Prophylaxis VTE Prophylaxis Intervention: SCD's Lines/Catheters IV Catheter Type (from Nrsg): [place] Assessment/Plan Chief Complaint/Hosp Course ASSESSMENT AND PLAN: 65-year-old female coming in with abdominal distention with signs of possible spontaneous bacterial peritonitis with a prior history of pancreatic cancer, presently followed at [facility] for treatment. 1. Abdominal distention - again secondary to ascites and possible SBP given her elevated white blood cell count. WBC improving, but still elevated (20 -> 18 ->17). Blood cx + gram (-) rods as well (pt has Hx of prior ESBL ecoli infx in past) - continue Imipenim per ID rec's, f/u final blood cx results - f/u ID and GI rec's. - Follow up fluid analysis studies including culture and amylase and other protein studies, glucose, LDH, WBC count, etc. - f/u Zofran p.r.n. for nausea, vomiting. - [place] p.r.n. abdominal pain. - aldactone and lasix 2. Questionable lower GI bleed. Again, she is complaining of some very small amounts of dark stool over the last few days. Apparently, the family says she was scheduled to have an EGD and colonoscopy at the [facility] at [facility] recently, but because of possible GI bleeding they waited on this. Her hemoglobin today is 10.1. No signs of any current bleeding. Occult test is positive. - f/u GI consult recs as well - pt may need colonscopy 3. Metastatic pancreatic cancer. She has follow up with chemotherapy at [facility]. - Continue Creon as well and tramadol. - Again, continue to monitor for now. 4. Lower extremity swelling. Again, secondary to most likely the pancreatic cancer + ascities - Continue Lasix + aldactone 5. High cholesterol - lipid panel. Continue to monitor for now. 6. Hypothyroidism. Continue to monitor for now. - f/u thyroid studies and continue Synthroid. 7. Gastrointestinal prophylaxis. H2 chasity. 8. Deep venous thrombosis prophylaxis. Sequential compression devices. Problems: Subjective 24 Hr Interval Summary Free Text/Dictation Pt has less abd pain, n/v. Seen by GI and ID teams. Exam/Review of Systems Vital Signs Vitals Vital Signs Date Time Temp Pulse Resp B/P Pulse Ox O2 Delivery O2 Flow Rate FiO2 11/15/16 08:03 98.2 77 20 109/68 95 11/14/16 07:40 21 11/13/16 22:54 Room Air 11/13/16 19:15 2.0 Intake and Output 11/14/16 11/14/16 11/15/16 15:00 23:00 07:00 Intake Total 680 ml 300 ml Output Total 400 ml Balance 680 ml -100 ml Exam GENERAL: The patient is lying in bed, family members at the bedside. She is answering questions appropriately. No acute distress. HEENT: Pupils equal, round, reactive to light. Extraocular muscles intact. There is no scleral icterus, but there is some temporal muscle wasting as well. NECK: No thyromegaly. LUNGS: Clear to auscultation bilaterally. CARDIOVASCULAR: S1, S2 heard. No rubs or gallops. ABDOMEN: Soft and distended, positive fluid wave consistent with ascites, but nontender. No rebound or guarding. MUSCULOSKELETAL: 2+ pitting edema bilateral lower extremities to the knees. NEUROLOGIC: No focal deficits. PSYCHIATRIC: Normal mood and affect. Results Result Diagram: 11/15/16 0659 11/15/16 0659 Results 24 hrs Laboratory Tests Test 11/15/16 06:59 Anion Gap 11 Basophils # Pending Basophils % Pending Blood Morphology Comment Blood Urea Nitrogen 19 Calcium Level 7.0 L Carbon Dioxide Level 22 Chloride Level 102 Creatinine 0.72 Eosinophils # Pending Eosinophils % Pending Glucose Level 76 Hematocrit 30.3 L Hemoglobin 10.2 L Lymphocytes # Pending Lymphocytes % Pending Mean Corpuscular Hemoglobin 28.9 L Mean Corpuscular Hemoglobin Concent 33.6 Mean Corpuscular Volume 85.9 Mean Platelet Volume 8.9 Monocytes # Pending Monocytes % Pending Neutrophils # Pending Neutrophils % Pending Nucleated Red Blood Cells # Pending Nucleated Red Blood Cells % Pending Platelet Count 109 L Potassium Level 3.7 Red Blood Count 3.53 L Red Cell Distribution Width 18.7 H Sodium Level 131 L White Blood Count 17.2 H Medications Medications Current Medications Ondansetron HCl (Zofran Inj) 4 mg Q6H PRN IV NAUSEA AND/OR VOMITING; Start 11/13 at 16:00 Acetaminophen (Tylenol Tab) 650 mg Q6H PRN PO PAIN LEVEL 1-3 OR FEVER; Start at 16:00 Acetaminophen/ Hydrocodone Bitart ([place] (5/325)) 1 tab Q6H PRN PO MODERATE PAIN LEVEL 4-6; Start 11/13/16 at 16:00 Morphine Sulfate (morphine) 2 mg Q4H PRN IV SEVERE PAIN LEVEL 7-10 Last administered on 11/13/16 20:29; Admin Dose 2 MG; Start 11/13/16 at 16:00 Docusate Sodium (Colace) 100 mg Q12H PRN PO CONSTIPATION; Start 11/13/16 at 16: 00 Magnesium Hydroxide (Milk Of Mag) 30 ml DAILY PRN PO CONSTIPATION; Start at 16:00 Sodium Biphosphate/ Sodium Phosphate (Fleet Enema) 133 ml DAILY PRN [place] CONSTIPATION; Start 11/13/16 at 16:00 Lorazepam (Ativan) 0.5 mg Q6H PRN IV ANXIETY; Start 11/13/16 at 16:00 Hydralazine HCl (Apresoline) 10 mg Q6H PRN IV ELEVATED BLOOD PRESSURE; Start at 16:00 Clonidine (Catapres) 0.1 mg Q6H PRN PO ELEVATED BLOOD PRESSURE; Start 11/13/16 at 16:00 Nitroglycerin (Nitroglycerin (Sl Tab) 0.4 Mg) 1 tab Q5M PRN SL ANGINA; Start at 16:00 Furosemide (Lasix) 40 mg DAILY PO Last administered on 11/15/16 09:11; Admin Dose 40 MG; Start 11/14/16 at 09:00 Potassium Chloride (Klor-Con 20) 20 meq DAILY PO Last administered on 11/15/16 09:11; Admin Dose 20 MEQ; Start 11/14/16 at 09:00 Ranitidine HCl (Zantac) 150 mg HS PO Last administered on 11/14/16 21:29; Admin Dose 150 MG; Start 11/13/16 at 21:00 Tramadol HCl (Ultram) 50 mg Q4H PRN PO PAIN Last administered on 11/15/16 04:57 ; Admin Dose 50 MG; Start 11/13/16 at 16:00 Pantoprazole 40 mg 40 mg BID@18 IV Last administered on 11/15/16 06:22; Admin Dose 40 MG; Start 11/14/16 at 11:00 Imipenem/ Cilastatin Sodium (Primaxin 500 Mg/ 100 ml (Pmx)) 100 ml @ 100 mls/ hr Q8 IVPB Last administered on 11/15/16 06:22; Admin Dose 100 MLS/HR; Start at 14:00 KENYON OROZCO Nov 15, 2016 09:50
--- NOTE | 2016-11-15 12:30 | CONS ---
Date/Time of Note Date/Time of Note DATE: 11/15/16 TIME: 12:28 Consult Date/Type/Reason Admit Date/Time Nov 13, 2016 at 15:10 Initial Consult Date Type of Consultation: ID Subjective no acute changes, sleeping, nad, no fevers Objective Vital Signs Date Time Temp Pulse Resp B/P Pulse Ox O2 Delivery O2 Flow Rate FiO2 11/15/16 08:03 98.2 77 20 109/68 95 11/14/16 07:40 21 11/13/16 22:54 Room Air 11/13/16 19:15 2.0 Intake and Output 11/14/16 11/14/16 11/15/16 15:00 23:00 07:00 Intake Total 680 ml 300 ml Output Total 400 ml Balance 680 ml -100 ml Results/Medications Result Diagram: 11/15/16 0659 11/15/16 0659 Results 24 hrs Laboratory Tests Test 11/15/16 06:59 Anion Gap 11 Basophils # 0.0 Basophils % 0.0 Blood Morphology Comment Blood Urea Nitrogen 19 Calcium Level 7.0 L Carbon Dioxide Level 22 Chloride Level 102 Creatinine 0.72 Differential Comment AUTO w/SCAN Eosinophils # 0.1 Eosinophils % 0.3 Glucose Level 76 Hematocrit 30.3 L Hemoglobin 10.2 L Lymphocytes # 0.4 L Lymphocytes % 2.3 L Mean Corpuscular Hemoglobin 28.9 L Mean Corpuscular Hemoglobin Concent 33.6 Mean Corpuscular Volume 85.9 Mean Platelet Volume 8.9 Monocytes # 1.5 H Monocytes % 8.8 Neutrophils # 15.2 H Neutrophils % 88.6 H Nucleated Red Blood Cells # 0.0 Nucleated Red Blood Cells % 0.0 Platelet Count 109 L Potassium Level 3.7 Red Blood Count 3.53 L Red Cell Distribution Width 18.7 H Sodium Level 131 L White Blood Count 17.2 H Medications Current Medications Ondansetron HCl (Zofran Inj) 4 mg Q6H PRN IV NAUSEA AND/OR VOMITING; Start 11/13 at 16:00 Acetaminophen (Tylenol Tab) 650 mg Q6H PRN PO PAIN LEVEL 1-3 OR FEVER; Start at 16:00 Acetaminophen/ Hydrocodone Bitart ([place] (5/325)) 1 tab Q6H PRN PO MODERATE PAIN LEVEL 4-6; Start 11/13/16 at 16:00 Morphine Sulfate (morphine) 2 mg Q4H PRN IV SEVERE PAIN LEVEL 7-10 Last administered on 11/13/16 20:29; Admin Dose 2 MG; Start 11/13/16 at 16:00 Docusate Sodium (Colace) 100 mg Q12H PRN PO CONSTIPATION; Start 11/13/16 at 16: 00 Magnesium Hydroxide (Milk Of Mag) 30 ml DAILY PRN PO CONSTIPATION; Start at 16:00 Sodium Biphosphate/ Sodium Phosphate (Fleet Enema) 133 ml DAILY PRN [place] CONSTIPATION; Start 11/13/16 at 16:00 Lorazepam (Ativan) 0.5 mg Q6H PRN IV ANXIETY; Start 11/13/16 at 16:00 Hydralazine HCl (Apresoline) 10 mg Q6H PRN IV ELEVATED BLOOD PRESSURE; Start at 16:00 Clonidine (Catapres) 0.1 mg Q6H PRN PO ELEVATED BLOOD PRESSURE; Start 11/13/16 at 16:00 Nitroglycerin (Nitroglycerin (Sl Tab) 0.4 Mg) 1 tab Q5M PRN SL ANGINA; Start at 16:00 Furosemide (Lasix) 40 mg DAILY PO Last administered on 11/15/16 09:11; Admin Dose 40 MG; Start 11/14/16 at 09:00 Potassium Chloride (Klor-Con 20) 20 meq DAILY PO Last administered on 11/15/16 09:11; Admin Dose 20 MEQ; Start 11/14/16 at 09:00 Ranitidine HCl (Zantac) 150 mg HS PO Last administered on 11/14/16 21:29; Admin Dose 150 MG; Start 11/13/16 at 21:00 Tramadol HCl (Ultram) 50 mg Q4H PRN PO PAIN Last administered on 11/15/16 04:57 ; Admin Dose 50 MG; Start 11/13/16 at 16:00 Pantoprazole 40 mg 40 mg BID@06,18 IV Last administered on 11/15/16 06:22; Admin Dose 40 MG; Start 11/14/16 at 11:00 Imipenem/ Cilastatin Sodium (Primaxin 500 Mg/ 100 ml (Pmx)) 100 ml @ 100 mls/ hr Q8 IVPB Last administered on 11/15/16 06:22; Admin Dose 100 MLS/HR; Start at 14:00 Assessment/Plan Chief Complaint/Hosp Course MICROBIOLOGY: Blood culture growing gram-negative rods. ANTIMICROBIALS: Primaxin PHYSICAL EXAMINATION: GENERAL: This is a fragile, cachectic elderly woman who is awake, in no distress. HEENT: Head atraumatic, normocephalic. Sclerae anicteric. Buccal mucosa dry. NECK: Supple, trachea midline. CHEST: Rise symmetrical. Breath sounds diminished to bases. HEART: S1, S2. ABDOMEN: Distended, soft. Bowel tones hypoactive. EXTREMITIES: Without cyanosis. ASSESSMENT: 1. Bacteremia with blood culture growing gram-negative rods, possibly secondary to urinary tract infection. 2. Status post Escherichia coli extended-spectrum beta-lactamase urinary tract infection in 10/2016. 3. Ascites status post thoracentesis. So far, peritoneal fluid cultures are negative. 4. Diabetes. 5. Pancreatic CA, locally advanced. PLAN: Clinically stable, continue abx, f/u final cx's, GI rec-s DW staff Problems: MIKE BRYSON NP Nov 15, 2016 12:30
--- NOTE | 2016-11-15 15:37 | CONS ---
Date/Time of Note Date/Time of Note DATE: 11/15/16 TIME: 15:30 Assessment/Plan Assessment/Plan Additional Assessment/Plan Abdominal pain/nausea/vomiting, evaluate for UGIB versus SBP * Paracentesis as needed as needed * Review paracentesis culture and treat accordingly, currently negative for AFB * Continue Lasix and add Aldactone BID * Stool OB positive * Continue PPI twice daily * Monitor H&H every 6 hours, transfuse 2 units for hemoglobin less than 7.5 * ID following Hx of Metastatic pancreatic cancer. * s/p EGD 06/06/2016: IMPRESSION: Duodenal obstruction bridged with 10 x 120-mm duodenal wall stent proximal opening in gastric antrum distal opening and 3rd portion of the duodenum. 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 Further recommendations depend on clinical course Patient seen in collaboration with Dr. Cooley Consultation Date/Type/Reason Admit Date/Time Nov 13, 2016 at 15:10 Type of Consultation: Gastroenterology Reason for Consultation Abdominal distention 24 HR Interval Summary Free Text/Dictation Tolerating diet, but little p.o. intake Stool OB positive, will continue to monitor, no procedures planned Complaints of additional abdominal girth, will order repeat ultrasound Exam/Review of Systems Vital Signs Vitals Vital Signs Date Time Temp Pulse Resp B/P Pulse Ox O2 Delivery O2 Flow Rate FiO2 11/15/16 08:03 98.2 77 20 109/68 95 11/14/16 07:40 21 11/13/16 22:54 Room Air 11/13/16 19:15 2.0 Intake and Output 11/14/16 11/14/16 11/15/16 15:00 23:00 07:00 Intake Total 680 ml 300 ml Output Total 400 ml Balance 680 ml -100 ml Exam Constitutional: alert, frail, oriented Psych: nl mood/affect Head: normocephalic Eyes: EOMI Respiratory: clear to auscultation, normal air movement Cardiovascular: regular rate and rhythm Gastrointestinal: soft, tender (Diffuse upper abdominal) Neurological: SUPPLEMENTAL NURSE II-XII intact Results Result Diagram: 11/15/16 0659 11/15/16 0659 Results 24 hrs Laboratory Tests Test 11/15/16 06:59 Anion Gap 11 Basophils # 0.0 Basophils % 0.0 Blood Morphology Comment Blood Urea Nitrogen 19 Calcium Level 7.0 L Carbon Dioxide Level 22 Chloride Level 102 Creatinine 0.72 Differential Comment AUTO w/SCAN Eosinophils # 0.1 Eosinophils % 0.3 Glucose Level 76 Hematocrit 30.3 L Hemoglobin 10.2 L Lymphocytes # 0.4 L Lymphocytes % 2.3 L Mean Corpuscular Hemoglobin 28.9 L Mean Corpuscular Hemoglobin Concent 33.6 Mean Corpuscular Volume 85.9 Mean Platelet Volume 8.9 Monocytes # 1.5 H Monocytes % 8.8 Neutrophils # 15.2 H Neutrophils % 88.6 H Nucleated Red Blood Cells # 0.0 Nucleated Red Blood Cells % 0.0 Platelet Count 109 L Potassium Level 3.7 Red Blood Count 3.53 L Red Cell Distribution Width 18.7 H Sodium Level 131 L White Blood Count 17.2 H Medications Medications Current Medications Ondansetron HCl (Zofran Inj) 4 mg Q6H PRN IV NAUSEA AND/OR VOMITING; Start 11/13 at 16:00 Acetaminophen (Tylenol Tab) 650 mg Q6H PRN PO PAIN LEVEL 1-3 OR FEVER; Start at 16:00 Acetaminophen/ Hydrocodone Bitart ([place] (5/325)) 1 tab Q6H PRN PO MODERATE PAIN LEVEL 4-6; Start 11/13/16 at 16:00 Morphine Sulfate (morphine) 2 mg Q4H PRN IV SEVERE PAIN LEVEL 7-10 Last administered on 11/13/16t 20:29; Admin Dose 2 MG; Start 11/13/16 at 16:00 Docusate Sodium (Colace) 100 mg Q12H PRN PO CONSTIPATION; Start 11/13/16 at 16: 00 Magnesium Hydroxide (Milk Of Mag) 30 ml DAILY PRN PO CONSTIPATION; Start at 16:00 Sodium Biphosphate/ Sodium Phosphate (Fleet Enema) 133 ml DAILY PRN [place] CONSTIPATION; Start 11/13/16 at 16:00 Lorazepam (Ativan) 0.5 mg Q6H PRN IV ANXIETY; Start 11/13/16 at 16:00 Hydralazine HCl (Apresoline) 10 mg Q6H PRN IV ELEVATED BLOOD PRESSURE; Start at 16:00 Clonidine (Catapres) 0.1 mg Q6H PRN PO ELEVATED BLOOD PRESSURE; Start 11/13/16 at 16:00 Nitroglycerin (Nitroglycerin (Sl Tab) 0.4 Mg) 1 tab Q5M PRN SL ANGINA; Start at 16:00 Furosemide (Lasix) 40 mg DAILY PO Last administered on 11/15/16 09:11; Admin Dose 40 MG; Start 11/14/16 at 09:00 Potassium Chloride (Klor-Con 20) 20 meq DAILY PO Last administered on 11/15/16 09:11; Admin Dose 20 MEQ; Start 11/14/16 at 09:00 Ranitidine HCl (Zantac) 150 mg HS PO Last administered on 11/14/16 21:29; Admin Dose 150 MG; Start 11/13/16 at 21:00 Tramadol HCl (Ultram) 50 mg Q4H PRN PO PAIN Last administered on 11/15/16 04:57 ; Admin Dose 50 MG; Start 11/13/16 at 16:00 Pantoprazole 40 mg 40 mg BID@06,18 IV Last administered on 11/15/16 06:22; Admin Dose 40 MG; Start 11/14/16 at 11:00 Imipenem/ Cilastatin Sodium (Primaxin 500 Mg/ 100 ml (Pmx)) 100 ml @ 100 mls/ hr Q8 IVPB Last administered on 11/15/16 14:52; Admin Dose 100 MLS/HR; Start at 14:00 GILDARDO LAST Nov 15, 2016 15:37
--- NOTE | 2016-11-15 17:41 | RADRPT ---
PROCEDURE: US Abdomen (limited). CLINICAL INDICATION: Abdominal pain and distension. TECHNIQUE: Multiple real-time longitudinal and transverse images of the four quadrants of the abdo men were acquired utilizing a curved array transducer. Images were reviewed on a high-resolution PAC S workstation. COMPARISON: Images from paracentesis dated 11/13/2016. FINDINGS: There is moderate ascites throughout the abdomen and pelvis. IMPRESSION: 1. Moderate ascites throughout the abdomen and pelvis. RPTAT: QQ .Jacob Smiley MD, MD Date Time Electronically viewed and signed by .Jacob Smiley MD, on 11/15/2016 17:40 .R/
[2016-11-15 20:10] VITALS: BP 138/71; RESP 16
[2016-11-15] MEDS: RANITIDINE 150 MG TAB PO SCH (21:15)
[2016-11-16] MEDS: IMIPENEM-CILAST 500MG IV (PMX) 100 ML IVPB SCH ×3 (05:48→21:40)
[2016-11-16] MEDS: PANTOPRAZOLE 40 MG INJ IV SCH ×2 (05:48→17:11)
[2016-11-16] MEDS: SPIRONOLACTONE 50 MG TAB PO SCH ×2 (05:48→17:11)
[2016-11-16 07:06] LABS: EOSINOPHILS # 0.1 10^3/ul (0.0-0.5); EOSINOPHILS % 0.3 % (0.0-7.0); HEMATOCRIT 30.7 % (37.0-47.0); HEMOGLOBIN 10.3 g/dl (12.0-16.0); LYMPHOCYTES # 0.4 10^3/ul (0.8-2.9); LYMPHOCYTES % 2.2 % (15.0-51.0); MEAN CORPUSCULAR HEMOGLOBIN 29.1 pg (29.0-33.0); MEAN CORPUSCULAR HGB CONC 33.7 g/dl (32.0-37.0); MEAN CORPUSCULAR VOLUME 86.3 fl (82.0-101.0); MEAN PLATELET VOLUME 8.8 fl (7.4-10.4); MONOCYTE # 2.2 10^3/ul (0.3-0.9); MONOCYTES % 11.2 % (0.0-11.0); NEUTROPHIL # 16.6 10^3/ul (1.6-7.5); NEUTROPHILS % 86.3 % (39.0-77.0); PLATELET COUNT 118 10^3/UL (140-440); RED BLOOD COUNT 3.55 10^6/ul (4.20-5.40); RED CELL DISTRIBUTION WIDTH 18.8 % (11.5-14.5); UNCORRECTED WBC 19.2 10^3/ul (4.8-10.8); WHITE BLOOD COUNT 19.2 10^3/ul (4.8-10.8)
[2016-11-16 07:20] LABS: CONDITION 1; LH ANALYZER COMMENTS 1; SUSPECT 1
[2016-11-16 07:24] LABS: POTASSIUM 3.9 mmol/L (3.5-5.1)
[2016-11-16 07:27] LABS: CREATININE 0.67 mg/dl (0.44-1.00)
[2016-11-16] MEDS: traMADol 50 MG TAB PO PRN ×2 (07:33→21:45)
[2016-11-16 07:59] VITALS: BP 108/56; RESP 16
[2016-11-16] MEDS: POTASSIUM CHLORIDE (SR) 20 MEQ TAB PO SCH (08:22)
[2016-11-16] MEDS: FUROSEMIDE 40 MG TAB PO SCH (08:22)
[2016-11-16] MEDS: CREON (24K-76K-120K) 1 CAP PO SCH ×3 (08:22→17:11)
--- NOTE | 2016-11-16 11:03 | PN ---
Date/Time of Note Date/Time of Note DATE: 11/16/16 TIME: 10:56 Assessment/Plan VTE Prophylaxis VTE Prophylaxis Intervention: SCD's Lines/Catheters IV Catheter Type (from Nrs): Saline Lock Assessment/Plan Chief Complaint/Hosp Course ASSESSMENT AND PLAN: 65-year-old female coming in with abdominal distention with signs of possible spontaneous bacterial peritonitis with a prior history of pancreatic cancer, presently followed at [facility] for treatment. 1. Abdominal distention - again secondary to ascites and possible SBP given her elevated white blood cell count. WBC improving, but still elevated (20 -> 18 ->17). Blood cx +for 2/2 bottles ESBL ecoli infx (has had this in the past as well) - continue Imipenim per ID rec's - f/u ID and GI rec's. - Follow up fluid analysis studies including culture and amylase and other protein studies, glucose, LDH, WBC count, etc. - f/u Zofran p.r.n. for nausea, vomiting. - [place] p.r.n. abdominal pain. - aldactone and lasix 2. Questionable lower GI bleed. Again, she is complaining of some very small amounts of dark stool over the last few days. Apparently, the family says she was scheduled to have an EGD and colonoscopy at the [facility] at [facility] recently, but because of possible GI bleeding they waited on this. Her hemoglobin today is 10.1. No signs of any current bleeding. Occult test is positive. - f/u GI consult recs as well - EGD results from May 2016 noted. 3. Metastatic pancreatic cancer. She has follow up with chemotherapy at [facility]. - Continue Creon as well and tramadol. - Again, continue to monitor for now. 4. Lower extremity swelling. Again, secondary to most likely the pancreatic cancer + ascities - Continue Lasix + aldactone 5. High cholesterol - lipid panel. Continue to monitor for now. 6. Hypothyroidism. Continue to monitor for now. - f/u thyroid studies and continue Synthroid. 7. Gastrointestinal prophylaxis. H2 chasity. 8. Deep venous thrombosis prophylaxis. Sequential compression devices. Problems: Subjective 24 Hr Interval Summary Free Text/Dictation No acute events overnight, seen by GI and ID teams. No fevers. + blood cx for ESBL ecoli, on abx. Exam/Review of Systems Vital Signs Vitals Vital Signs Date Time Temp Pulse Resp B/P Pulse Ox O2 Delivery O2 Flow Rate FiO2 11/16/16 07:59 98.1 84 16 108/56 94 11/14/16 07:40 21 11/13/16 22:54 Room Air 11/13/16 19:15 2.0 Intake and Output 11/15/16 11/15/16 11/16/16 15:00 23:00 07:00 Intake Total 100 ml 1160 ml 700 ml Output Total 400 ml Balance 100 ml 760 ml 700 ml Exam GENERAL: The patient is lying in bed, family members at the bedside. She is answering questions appropriately. No acute distress. HEENT: Pupils equal, round, reactive to light. Extraocular muscles intact. There is no scleral icterus, but there is some temporal muscle wasting as well. NECK: No thyromegaly. LUNGS: Clear to auscultation bilaterally. CARDIOVASCULAR: S1, S2 heard. No rubs or gallops. ABDOMEN: Soft and distended, positive fluid wave consistent with ascites, but nontender. No rebound or guarding. MUSCULOSKELETAL: 2+ pitting edema bilateral lower extremities to the knees. NEUROLOGIC: No focal deficits. PSYCHIATRIC: Normal mood and affect. Results Result Diagram: 11/16/16 0625 11/16/16 0625 Results 24 hrs Laboratory Tests Test 11/16/16 06:25 Anion Gap 10 Basophils # 0.0 Basophils % 0.0 Blood Morphology Comment Blood Urea Nitrogen 17 Calcium Level 7.0 L Carbon Dioxide Level 22 Chloride Level 101 Creatinine 0.67 Eosinophils # 0.1 Eosinophils % 0.3 Glucose Level 78 Hematocrit 30.7 L Hemoglobin 10.3 L Lymphocytes # 0.4 L Lymphocytes % 2.2 L Mean Corpuscular Hemoglobin 29.1 Mean Corpuscular Hemoglobin Concent 33.7 Mean Corpuscular Volume 86.3 Mean Platelet Volume 8.8 Monocytes # 2.2 H Monocytes % 11.2 H Neutrophils # 16.6 H Neutrophils % 86.3 H Nucleated Red Blood Cells # 0.0 Nucleated Red Blood Cells % 0.0 Platelet Count 118 L Potassium Level 3.9 Red Blood Count 3.55 L Red Cell Distribution Width 18.8 H Sodium Level 129 L White Blood Count 19.2 H Medications Medications Current Medications Ondansetron HCl (Zofran Inj) 4 mg Q6H PRN IV NAUSEA AND/OR VOMITING; Start 11/13 at 16:00 Acetaminophen (Tylenol Tab) 650 mg Q6H PRN PO PAIN LEVEL 1-3 OR FEVER; Start at 16:00 Acetaminophen/ Hydrocodone Bitart ([place] (5/325)) 1 tab Q6H PRN PO MODERATE PAIN LEVEL 4-6; Start 11/13/16 at 16:00 Morphine Sulfate (morphine) 2 mg Q4H PRN IV SEVERE PAIN LEVEL 7-10 Last administered on 11/13/16 20:29; Admin Dose 2 MG; Start 11/13/16 at 16:00 Docusate Sodium (Colace) 100 mg Q12H PRN PO CONSTIPATION; Start 11/13/16 at 16: 00 Magnesium Hydroxide (Milk Of Mag) 30 ml DAILY PRN PO CONSTIPATION; Start at 16:00 Sodium Biphosphate/ Sodium Phosphate (Fleet Enema) 133 ml DAILY PRN [place] CONSTIPATION; Start 11/13/16 at 16:00 Lorazepam (Ativan) 0.5 mg Q6H PRN IV ANXIETY; Start 11/13/16 at 16:00 Hydralazine HCl (Apresoline) 10 mg Q6H PRN IV ELEVATED BLOOD PRESSURE; Start at 16:00 Clonidine (Catapres) 0.1 mg Q6H PRN PO ELEVATED BLOOD PRESSURE; Start 11/13/16 at 16:00 Nitroglycerin (Nitroglycerin (Sl Tab) 0.4 Mg) 1 tab Q5M PRN SL ANGINA; Start at 16:00 Furosemide (Lasix) 40 mg DAILY PO Last administered on 11/16/16 08:22; Admin Dose 40 MG; Start 11/14/16 at 09:00 Potassium Chloride (Klor-Con 20) 20 meq DAILY PO Last administered on 11/16/16 08:22; Admin Dose 20 MEQ; Start 11/14/16 at 09:00 Ranitidine HCl (Zantac) 150 mg HS PO Last administered on 11/15/16 21:15; Admin Dose 150 MG; Start 11/13/16 at 21:00 Tramadol HCl (Ultram) 50 mg Q4H PRN PO PAIN Last administered on 11/16/16 07:33 ; Admin Dose 50 MG; Start 11/13/16 at 16:00 Pantoprazole 40 mg 40 mg BID@06,18 IV Last administered on 11/16/16 05:48; Admin Dose 40 MG; Start 11/14/16 at 11:00 Imipenem/ Cilastatin Sodium (Primaxin 500 Mg/ 100 ml (Pmx)) 100 ml @ 100 mls/ hr Q8 IVPB Last administered on 11/16/16 05:48; Admin Dose 100 MLS/HR; Start at 14:00 KENYON OROZCO Nov 16, 2016 11:03
--- NOTE | 2016-11-16 13:36 | CONS ---
Date/Time of Note Date/Time of Note DATE: 11/16/16 TIME: 13:34 Consult Date/Type/Reason Admit Date/Time Nov 13, 2016 at 15:10 Type of Consultation: ID Subjective awake, feels better, no fevers, nad Objective Vital Signs Date Time Temp Pulse Resp B/P Pulse Ox O2 Delivery O2 Flow Rate FiO2 11/16/16 07:59 98.1 84 16 108/56 94 11/14/16 07:40 21 11/13/16 22:54 Room Air 11/13/16 19:15 2.0 Intake and Output 11/15/16 11/15/16 11/16/16 15:00 23:00 07:00 Intake Total 100 ml 1160 ml 700 ml Output Total 400 ml Balance 100 ml 760 ml 700 ml Results/Medications Result Diagram: 11/16/1625 11/16/16 0625 Results 24 hrs Laboratory Tests Test 11/16/16 06:25 Anion Gap 10 Basophils # 0.0 Basophils % 0.0 Blood Morphology Comment Blood Urea Nitrogen 17 Calcium Level 7.0 L Carbon Dioxide Level 22 Chloride Level 101 Creatinine 0.67 Eosinophils # 0.1 Eosinophils % 0.3 Glucose Level 78 Hematocrit 30.7 L Hemoglobin 10.3 L Lymphocytes # 0.4 L Lymphocytes % 2.2 L Mean Corpuscular Hemoglobin 29.1 Mean Corpuscular Hemoglobin Concent 33.7 Mean Corpuscular Volume 86.3 Mean Platelet Volume 8.8 Monocytes # 2.2 H Monocytes % 11.2 H Neutrophils # 16.6 H Neutrophils % 86.3 H Nucleated Red Blood Cells # 0.0 Nucleated Red Blood Cells % 0.0 Platelet Count 118 L Potassium Level 3.9 Red Blood Count 3.55 L Red Cell Distribution Width 18.8 H Sodium Level 129 L White Blood Count 19.2 H Medications Current Medications Ondansetron HCl (Zofran Inj) 4 mg Q6H PRN IV NAUSEA AND/OR VOMITING; Start 11/13 at 16:00 Acetaminophen (Tylenol Tab) 650 mg Q6H PRN PO PAIN LEVEL 1-3 OR FEVER; Start at 16:00 Acetaminophen/ Hydrocodone Bitart ([place] (5/325)) 1 tab Q6H PRN PO MODERATE PAIN LEVEL 4-6; Start 11/13/16 at 16:00 Morphine Sulfate (morphine) 2 mg Q4H PRN IV SEVERE PAIN LEVEL 7-10 Last administered on 11/13/16 20:29; Admin Dose 2 MG; Start 11/13/16 at 16:00 Docusate Sodium (Colace) 100 mg Q12H PRN PO CONSTIPATION; Start 11/13/16 at 16: 00 Magnesium Hydroxide (Milk Of Mag) 30 ml DAILY PRN PO CONSTIPATION; Start at 16:00 Sodium Biphosphate/ Sodium Phosphate (Fleet Enema) 133 ml DAILY PRN [place] CONSTIPATION; Start 11/13/16 at 16:00 Lorazepam (Ativan) 0.5 mg Q6H PRN IV ANXIETY; Start 11/13/16 at 16:00 Hydralazine HCl (Apresoline) 10 mg Q6H PRN IV ELEVATED BLOOD PRESSURE; Start at 16:00 Clonidine (Catapres) 0.1 mg Q6H PRN PO ELEVATED BLOOD PRESSURE; Start 11/13/16 at 16:00 Nitroglycerin (Nitroglycerin (Sl Tab) 0.4 Mg) 1 tab Q5M PRN SL ANGINA; Start at 16:00 Furosemide (Lasix) 40 mg DAILY PO Last administered on 11/16/16 08:22; Admin Dose 40 MG; Start 11/14/16 at 09:00 Potassium Chloride (Klor-Con 20) 20 meq DAILY PO Last administered on 11/16/16 08:22; Admin Dose 20 MEQ; Start 11/14/16 at 09:00 Ranitidine HCl (Zantac) 150 mg HS PO Last administered on 11/15/16 21:15; Admin Dose 150 MG; Start 11/13/16 at 21:00 Tramadol HCl (Ultram) 50 mg Q4H PRN PO PAIN Last administered on 11/16/16 07:33 ; Admin Dose 50 MG; Start 11/13/16 at 16:00 Pantoprazole 40 mg 40 mg BID@06,18 IV Last administered on 11/16/16 05:48; Admin Dose 40 MG; Start 11/14/16 at 11:00 Imipenem/ Cilastatin Sodium (Primaxin 500 Mg/ 100 ml (Pmx)) 100 ml @ 100 mls/ hr Q8 IVPB Last administered on 11/16/16 05:48; Admin Dose 100 MLS/HR; Start at 14:00 Assessment/Plan Chief Complaint/Hosp Course MICROBIOLOGY: Blood culture growing E coli ESBL, urine cx growing gram- negative rods. ANTIMICROBIALS: Primaxin PHYSICAL EXAMINATION: GENERAL: This is a fragile, cachectic elderly woman who is awake, in no distress. HEENT: Head atraumatic, normocephalic. Sclerae anicteric. Buccal mucosa dry. NECK: Supple, trachea midline. CHEST: Rise symmetrical. Breath sounds diminished to bases. HEART: S1, S2. ABDOMEN: Distended, soft. Bowel tones hypoactive. EXTREMITIES: Without cyanosis. ASSESSMENT: 1. E coli ESBL bacteremia secondary to urinary tract infection. 2. Status post Escherichia coli extended-spectrum beta-lactamase urinary tract infection in 10/2016. 3. Ascites status post thoracentesis. So far, peritoneal fluid cultures are negative. 4. Diabetes. 5. Pancreatic CA, locally advanced. PLAN: Clinically stable, continue abx, check PVR and straight cath prn LANE staff Problems: MIKE BRYSON NP Nov 16, 2016 13:35
[2016-11-16 19:00] VITALS: BP 104/55; RESP 16
[2016-11-16] MEDS: RANITIDINE 150 MG TAB PO SCH (21:40)
[2016-11-17] MEDS: PANTOPRAZOLE 40 MG INJ IV SCH ×2 (05:54→18:32)
[2016-11-17] MEDS: SPIRONOLACTONE 50 MG TAB PO SCH ×2 (05:55→18:32)
[2016-11-17] MEDS: IMIPENEM-CILAST 500MG IV (PMX) 100 ML IVPB SCH (05:55)
[2016-11-17] MEDS: LEVOTHYROXINE 100 MCG TAB PO SCH (06:01)
[2016-11-17] MEDS: traMADol 50 MG TAB PO PRN ×2 (06:02→20:21)
[2016-11-17 07:26] VITALS: BP 107/62; RESP 18
[2016-11-17 07:53] LABS: EOSINOPHILS # 0.1 10^3/ul (0.0-0.5); EOSINOPHILS % 0.7 % (0.0-7.0); HEMOGLOBIN 10.1 g/dl (12.0-16.0); LYMPHOCYTES # 0.5 10^3/ul (0.8-2.9); LYMPHOCYTES % 3.9 % (15.0-51.0); MEAN CORPUSCULAR HGB CONC 33.8 g/dl (32.0-37.0); MEAN CORPUSCULAR VOLUME 85.7 fl (82.0-101.0); MEAN PLATELET VOLUME 8.8 fl (7.4-10.4); MONOCYTE # 2.2 10^3/ul (0.3-0.9); MONOCYTES % 16.1 % (0.0-11.0); NEUTROPHILS % 79.3 % (39.0-77.0); PLATELET COUNT 136 10^3/UL (140-440); UNCORRECTED WBC 13.8 10^3/ul (4.8-10.8); WHITE BLOOD COUNT 13.8 10^3/ul (4.8-10.8)
[2016-11-17 07:55] LABS: CONDITION 1; LH ANALYZER COMMENTS 1
[2016-11-17 08:09] LABS: POTASSIUM 4.1 mmol/L (3.5-5.1)
[2016-11-17 08:12] LABS: CALCIUM 6.8 mg/dl (8.4-10.2); CREATININE 0.63 mg/dl (0.44-1.00)
[2016-11-17] MEDS: FUROSEMIDE 40 MG TAB PO SCH (08:19)
[2016-11-17] MEDS: CREON (24K-76K-120K) 1 CAP PO SCH ×3 (08:19→18:32)
[2016-11-17] MEDS: POTASSIUM CHLORIDE (SR) 20 MEQ TAB PO SCH (08:20)
--- NOTE | 2016-11-17 10:05 | CONS ---
Date/Time of Note Date/Time of Note DATE: 11/17/16 TIME: 10:02 Assessment/Plan Assessment/Plan Additional Assessment/Plan Abdominal pain/nausea/vomiting, evaluate for UGIB versus SBP * Paracentesis as needed as needed * Review paracentesis culture and treat accordingly, currently negative for AFB * Continue Lasix and add Aldactone BID * Stool OB positive, hemoglobin stable, no EGD planned * Continue PPI twice daily * Monitor H&H every 6 hours, transfuse 2 units for hemoglobin less than 7.5 * ID following Hx of Metastatic pancreatic cancer. * s/p EGD 06/06/2016: IMPRESSION: Duodenal obstruction bridged with 10 x 120-mm duodenal wall stent proximal opening in gastric antrum distal opening and 3rd portion of the duodenum. 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 Recommendations depend on clinical course Patient seen in collaboration with Dr. Cooley Consultation Date/Type/Reason Admit Date/Time Nov 13, 2016 at 15:10 Type of Consultation: Gastroenterology Reason for Consultation Ascites 24 HR Interval Summary Free Text/Dictation Patient reports less abdominal pain after straight cath No growth from paracentesis fluid Moderate ascites on ultrasound but patient asymptomatic Continue Lasix and start Aldactone 50mg twice daily Exam/Review of Systems Vital Signs Vitals Vital Signs Date Time Temp Pulse Resp B/P Pulse Ox O2 Delivery O2 Flow Rate FiO2 11/17/16 07:26 97.8 81 18 107/62 100 11/14/16 07:40 21 11/13/16 22:54 Room Air 11/13/16 19:15 2.0 Intake and Output 11/16/16 11/16/16 11/17/16 15:00 23:00 07:00 Intake Total 1520 ml 440 ml Output Total 1150 ml 450 ml Balance 370 ml -10 ml Exam Constitutional: alert, frail, oriented Psych: nl mood/affect Head: normocephalic Eyes: EOMI Respiratory: clear to auscultation, normal air movement Cardiovascular: regular rate and rhythm Gastrointestinal: soft, non-tender Neurological: BLANKET WASHER II-XII intact Results Result Diagram: 11/17/16 0707 11/17/16 0707 Results 24 hrs Laboratory Tests Test 11/17/16 07:07 Anion Gap 12 Basophils # 0.0 Basophils % 0.0 Blood Morphology Comment Blood Urea Nitrogen 14 Calcium Level 6.8 L Carbon Dioxide Level 23 Chloride Level 98 Creatinine 0.63 Eosinophils # 0.1 Eosinophils % 0.7 Glucose Level 76 Hematocrit 30.0 L Hemoglobin 10.1 L Lymphocytes # 0.5 L Lymphocytes % 3.9 L Mean Corpuscular Hemoglobin 29.0 Mean Corpuscular Hemoglobin Concent 33.8 Mean Corpuscular Volume 85.7 Mean Platelet Volume 8.8 Monocytes # 2.2 H Monocytes % 16.1 H Neutrophils # 11.0 H Neutrophils % 79.3 H Nucleated Red Blood Cells # 0.0 Nucleated Red Blood Cells % 0.0 Platelet Count 136 L Potassium Level 4.1 Red Blood Count 3.50 L Red Cell Distribution Width 19.0 H Sodium Level 129 L White Blood Count 13.8 #H Medications Medications Current Medications Ondansetron HCl (Zofran Inj) 4 mg Q6H PRN IV NAUSEA AND/OR VOMITING; Start 11/13 at 16:00 Acetaminophen (Tylenol Tab) 650 mg Q6H PRN PO PAIN LEVEL 1-3 OR FEVER; Start at 16:00 Acetaminophen/ Hydrocodone Bitart ([place] (5/325)) 1 tab Q6H PRN PO MODERATE PAIN LEVEL 4-6; Start 11/13/16 at 16:00 Morphine Sulfate (morphine) 2 mg Q4H PRN IV SEVERE PAIN LEVEL 7-10 Last administered on 11/13/16t 20:29; Admin Dose 2 MG; Start 11/13/16 at 16:00 Docusate Sodium (Colace) 100 mg Q12H PRN PO CONSTIPATION; Start 11/13/16 at 16: 00 Magnesium Hydroxide (Milk Of Mag) 30 ml DAILY PRN PO CONSTIPATION; Start at 16:00 Sodium Biphosphate/ Sodium Phosphate (Fleet Enema) 133 ml DAILY PRN [place] CONSTIPATION; Start 11/13/16 at 16:00 Lorazepam (Ativan) 0.5 mg Q6H PRN IV ANXIETY; Start 11/13/16 at 16:00 Hydralazine HCl (Apresoline) 10 mg Q6H PRN IV ELEVATED BLOOD PRESSURE; Start at 16:00 Clonidine (Catapres) 0.1 mg Q6H PRN PO ELEVATED BLOOD PRESSURE; Start 11/13/16 at 16:00 Nitroglycerin (Nitroglycerin (Sl Tab) 0.4 Mg) 1 tab Q5M PRN SL ANGINA; Start at 16:00 Furosemide (Lasix) 40 mg DAILY PO Last administered on 11/17/16 08:19; Admin Dose 40 MG; Start 11/14/16 at 09:00 Potassium Chloride (Klor-Con 20) 20 meq DAILY PO Last administered on 11/17/16 08:20; Admin Dose 20 MEQ; Start 11/14/16 at 09:00 Ranitidine HCl (Zantac) 150 mg HS PO Last administered on 11/16/16 21:40; Admin Dose 150 MG; Start 11/13/16 at 21:00 Tramadol HCl (Ultram) 50 mg Q4H PRN PO PAIN Last administered on 11/17/16 06:02 ; Admin Dose 50 MG; Start 11/13/16 at 16:00 Pantoprazole 40 mg 40 mg BID@06,18 IV Last administered on 11/17/16 05:54; Admin Dose 40 MG; Start 11/14/16 at 11:00 Imipenem/ Cilastatin Sodium (Primaxin 500 Mg/ 100 ml (Pmx)) 100 ml @ 100 mls/ hr Q8 IVPB Last administered on 11/17/16 05:55; Admin Dose 100 MLS/HR; Start at 14:00 GILDARDO LAST Nov 17, 2016 10:05
--- NOTE | 2016-11-17 13:23 | PN ---
Date/Time of Note Date/Time of Note DATE: 11/17/16 TIME: 13:20 Assessment/Plan VTE Prophylaxis VTE Prophylaxis Intervention: SCD's Lines/Catheters IV Catheter Type (from Nrs): Saline Lock Urinary Cath still in place: Yes Reason Cath still needed: urinary retention Assessment/Plan Chief Complaint/Hosp Course ASSESSMENT AND PLAN: 65-year-old female coming in with abdominal distention with signs of possible spontaneous bacterial peritonitis with a prior history of pancreatic cancer, presently followed at [facility] for treatment. 1. Abdominal distention - again secondary to ascites and possible SBP given her elevated white blood cell count. WBC improving, but still elevated (20 -> 18 ->17). Blood cx +for 2/2 bottles ESBL ecoli infx, as well as Ucx this admission (has had this in the past as well) - continue Imipenim per ID rec's- per them will need 2 wks treatment, consider PICC placement. - f/u ID and GI rec's. - Follow up fluid analysis studies including culture and amylase and other protein studies, glucose, LDH, WBC count, etc. - f/u Zofran p.r.n. for nausea, vomiting. - [place] p.r.n. abdominal pain. - aldactone and lasix 2. Questionable lower GI bleed. Again, she is complaining of some very small amounts of dark stool over the last few days. Apparently, the family says she was scheduled to have an EGD and colonoscopy at the [facility] at [facility] recently, but because of possible GI bleeding they waited on this. Her hemoglobin today is 10.1. No signs of any current bleeding. Occult test is positive. - f/u GI consult recs as well - EGD results from May 2016 noted - monitor for now. 3. Metastatic pancreatic cancer. She has follow up with chemotherapy at [facility]. - Continue Creon as well and tramadol. - Again, continue to monitor for now. 4. Lower extremity swelling. Again, secondary to most likely the pancreatic cancer + ascities - Continue Lasix + aldactone 5. High cholesterol - lipid panel. Continue to monitor for now. 6. Hypothyroidism. Continue to monitor for now. - f/u thyroid studies and continue Synthroid. 7. Gastrointestinal prophylaxis. H2 chasity. 8. Deep venous thrombosis prophylaxis. Sequential compression devices. Problems: Subjective 24 Hr Interval Summary Free Text/Dictation Pt had some PVR yesterday, [place] inserted. WBC improved today, no acute events overnight. Exam/Review of Systems Vital Signs Vitals Vital Signs Date Time Temp Pulse Resp B/P Pulse Ox O2 Delivery O2 Flow Rate FiO2 11/17/16 07:26 97.8 81 18 107/62 100 11/14/16 07:40 21 11/13/16 22:54 Room Air 11/13/16 19:15 2.0 Intake and Output 11/16/16 11/16/16 11/17/16 15:00 23:00 07:00 Intake Total 1520 ml 440 ml Output Total 1150 ml 450 ml Balance 370 ml -10 ml Exam GENERAL: The patient is sitting up in bed, friend at bedside. She is answering questions appropriately. No acute distress. HEENT: Pupils equal, round, reactive to light. Extraocular muscles intact. There is no scleral icterus, but there is some temporal muscle wasting as well. NECK: No thyromegaly. LUNGS: Clear to auscultation bilaterally. CARDIOVASCULAR: S1, S2 heard. No rubs or gallops. ABDOMEN: Soft and distended, positive fluid wave consistent with ascites, but nontender. No rebound or guarding. MUSCULOSKELETAL: 2+ pitting edema bilateral lower extremities to the knees. NEUROLOGIC: No focal deficits. PSYCHIATRIC: Normal mood and affect. Results Result Diagram: 11/17/1670611/17/16 0707 Results 24 hrs Laboratory Tests Test 11/17/16 07:07 Anion Gap 12 Basophils # 0.0 Basophils % 0.0 Blood Morphology Comment Blood Urea Nitrogen 14 Calcium Level 6.8 L Carbon Dioxide Level 23 Chloride Level 98 Creatinine 0.63 Eosinophils # 0.1 Eosinophils % 0.7 Glucose Level 76 Hematocrit 30.0 L Hemoglobin 10.1 L Lymphocytes # 0.5 L Lymphocytes % 3.9 L Mean Corpuscular Hemoglobin 29.0 Mean Corpuscular Hemoglobin Concent 33.8 Mean Corpuscular Volume 85.7 Mean Platelet Volume 8.8 Monocytes # 2.2 H Monocytes % 16.1 H Neutrophils # 11.0 H Neutrophils % 79.3 H Nucleated Red Blood Cells # 0.0 Nucleated Red Blood Cells % 0.0 Platelet Count 136 L Potassium Level 4.1 Red Blood Count 3.50 L Red Cell Distribution Width 19.0 H Sodium Level 129 L White Blood Count 13.8 #H Medications Medications Current Medications Ondansetron HCl (Zofran Inj) 4 mg Q6H PRN IV NAUSEA AND/OR VOMITING; Start 11/13 at 16:00 Acetaminophen (Tylenol Tab) 650 mg Q6H PRN PO PAIN LEVEL 1-3 OR FEVER; Start at 16:00 Acetaminophen/ Hydrocodone Bitart ([place] (5/325)) 1 tab Q6H PRN PO MODERATE PAIN LEVEL 4-6; Start 11/13/16 at 16:00 Morphine Sulfate (morphine) 2 mg Q4H PRN IV SEVERE PAIN LEVEL 7-10 Last administered on 11/13/16 20:29; Admin Dose 2 MG; Start 11/13/16 at 16:00 Docusate Sodium (Colace) 100 mg Q12H PRN PO CONSTIPATION; Start 11/13/16 at 16: 00 Magnesium Hydroxide (Milk Of Mag) 30 ml DAILY PRN PO CONSTIPATION; Start at 16:00 Sodium Biphosphate/ Sodium Phosphate (Fleet Enema) 133 ml DAILY PRN [place] CONSTIPATION; Start 11/13/16 at 16:00 Lorazepam (Ativan) 0.5 mg Q6H PRN IV ANXIETY; Start 11/13/16 at 16:00 Hydralazine HCl (Apresoline) 10 mg Q6H PRN IV ELEVATED BLOOD PRESSURE; Start at 16:00 Clonidine (Catapres) 0.1 mg Q6H PRN PO ELEVATED BLOOD PRESSURE; Start 11/13/16 at 16:00 Nitroglycerin (Nitroglycerin (Sl Tab) 0.4 Mg) 1 tab Q5M PRN SL ANGINA; Start at 16:00 Furosemide (Lasix) 40 mg DAILY PO Last administered on 11/17/16 08:19; Admin Dose 40 MG; Start 11/14/16 at 09:00 Potassium Chloride (Klor-Con 20) 20 meq DAILY PO Last administered on 11/17/16 08:20; Admin Dose 20 MEQ; Start 11/14/16 at 09:00 Tramadol HCl (Ultram) 50 mg Q4H PRN PO PAIN Last administered on 11/17/16 06:02 ; Admin Dose 50 MG; Start 11/13/16 at 16:00 Pantoprazole 40 mg 40 mg BID@06,18 IV Last administered on 11/17/16 05:54; Admin Dose 40 MG; Start 11/14/16 at 11:00 Imipenem/ Cilastatin Sodium (Primaxin 500 Mg/ 100 ml (Pmx)) 100 ml @ 100 mls/ hr Q8 IVPB Last administered on 11/17/16 05:55; Admin Dose 100 MLS/HR; Start at 14:00 KENYON OROZCO Nov 17, 2016 13:23
[2016-11-17] MEDS ORDERED: LIDOCAINE 1% (MDV) 20 ML INJ SC ONE (13:30)
--- NOTE | 2016-11-17 14:00 | CONS ---
Date/Time of Note Date/Time of Note DATE: 11/17/16 TIME: 13:58 Consult Date/Type/Reason Admit Date/Time Nov 13, 2016 at 15:10 Type of Consultation: ID Subjective alert, feels good, no fevers nad Objective Vital Signs Date Time Temp Pulse Resp B/P Pulse Ox O2 Delivery O2 Flow Rate FiO2 11/17/16 07:26 97.8 81 18 107/62 100 11/14/16 07:40 21 11/13/16 22:54 Room Air 11/13/16 19:15 2.0 Intake and Output 11/16/16 11/16/16 11/17/16 15:00 23:00 07:00 Intake Total 1520 ml 440 ml Output Total 1150 ml 450 ml Balance 370 ml -10 ml Results/Medications Result Diagram: 11/17/16 0707 11/17/16 0707 Results 24 hrs Laboratory Tests Test 11/17/16 07:07 Anion Gap 12 Basophils # 0.0 Basophils % 0.0 Blood Morphology Comment Blood Urea Nitrogen 14 Calcium Level 6.8 L Carbon Dioxide Level 23 Chloride Level 98 Creatinine 0.63 Eosinophils # 0.1 Eosinophils % 0.7 Glucose Level 76 Hematocrit 30.0 L Hemoglobin 10.1 L Lymphocytes # 0.5 L Lymphocytes % 3.9 L Mean Corpuscular Hemoglobin 29.0 Mean Corpuscular Hemoglobin Concent 33.8 Mean Corpuscular Volume 85.7 Mean Platelet Volume 8.8 Monocytes # 2.2 H Monocytes % 16.1 H Neutrophils # 11.0 H Neutrophils % 79.3 H Nucleated Red Blood Cells # 0.0 Nucleated Red Blood Cells % 0.0 Platelet Count 136 L Potassium Level 4.1 Red Blood Count 3.50 L Red Cell Distribution Width 19.0 H Sodium Level 129 L White Blood Count 13.8 #H Medications Current Medications Ondansetron HCl (Zofran Inj) 4 mg Q6H PRN IV NAUSEA AND/OR VOMITING; Start 11/13 at 16:00 Acetaminophen (Tylenol Tab) 650 mg Q6H PRN PO PAIN LEVEL 1-3 OR FEVER; Start at 16:00 Acetaminophen/ Hydrocodone Bitart ([place] (5/325)) 1 tab Q6H PRN PO MODERATE PAIN LEVEL 4-6; Start 11/13/16 at 16:00 Morphine Sulfate (morphine) 2 mg Q4H PRN IV SEVERE PAIN LEVEL 7-10 Last administered on 11/13/16 20:29; Admin Dose 2 MG; Start 11/13/16 at 16:00 Docusate Sodium (Colace) 100 mg Q12H PRN PO CONSTIPATION; Start 11/13/16 at 16: 00 Magnesium Hydroxide (Milk Of Mag) 30 ml DAILY PRN PO CONSTIPATION; Start at 16:00 Sodium Biphosphate/ Sodium Phosphate (Fleet Enema) 133 ml DAILY PRN [place] CONSTIPATION; Start 11/13/16 at 16:00 Lorazepam (Ativan) 0.5 mg Q6H PRN IV ANXIETY; Start 11/13/16 at 16:00 Hydralazine HCl (Apresoline) 10 mg Q6H PRN IV ELEVATED BLOOD PRESSURE; Start at 16:00 Clonidine (Catapres) 0.1 mg Q6H PRN PO ELEVATED BLOOD PRESSURE; Start 11/13/16 at 16:00 Nitroglycerin (Nitroglycerin (Sl Tab) 0.4 Mg) 1 tab Q5M PRN SL ANGINA; Start at 16:00 Furosemide (Lasix) 40 mg DAILY PO Last administered on 11/17/16 08:19; Admin Dose 40 MG; Start 11/14/16 at 09:00 Potassium Chloride (Klor-Con 20) 20 meq DAILY PO Last administered on 11/17/16 08:20; Admin Dose 20 MEQ; Start 11/14/16 at 09:00 Tramadol HCl (Ultram) 50 mg Q4H PRN PO PAIN Last administered on 11/17/16 06:02 ; Admin Dose 50 MG; Start 11/13/16 at 16:00 Pantoprazole 40 mg 40 mg BID@06,18 IV Last administered on 11/17/16 05:54; Admin Dose 40 MG; Start 11/14/16 at 11:00 Imipenem/ Cilastatin Sodium (Primaxin 500 Mg/ 100 ml (Pmx)) 100 ml @ 100 mls/ hr Q8 IVPB Last administered on 11/17/16 05:55; Admin Dose 100 MLS/HR; Start at 14:00 Assessment/Plan Chief Complaint/Hosp Course MICROBIOLOGY: Blood and urine culture growing E coli ESBL ANTIMICROBIALS: Primaxin PHYSICAL EXAMINATION: GENERAL: This is a fragile, cachectic elderly woman who is awake, in no distress. HEENT: Head atraumatic, normocephalic. Sclerae anicteric. Buccal mucosa dry. NECK: Supple, trachea midline. CHEST: Rise symmetrical. Breath sounds diminished to bases. HEART: S1, S2. ABDOMEN: Distended, soft. Bowel tones hypoactive. EXTREMITIES: Without cyanosis. ASSESSMENT: 1. E coli ESBL bacteremia secondary to urinary tract infection. 2. Status post Escherichia coli extended-spectrum beta-lactamase urinary tract infection in 10/2016. 3. Ascites status post paracentesis==>peritoneal fluid cultures are negative. 4. Diabetes. 5. Pancreatic CA, locally advanced. 6. Urinary retention PLAN: Clinically stable, change abx to Invanz, repeat bld cx, start Flomax, anticipate treating with [address] weeks IV abx [address] [facility] Problems: MIKE BRYSON NP Nov 17, 2016 14:00
[2016-11-17] MEDS: ERTAPENEM SODIUM 1 GM in SOD CHLORIDE 0.9% 100 ML IVPB SCH (15:43)
[2016-11-17 20:16] VITALS: BP 105/60; RESP 18
[2016-11-17] MEDS: TAMSULOSIN (SR) 0.4 MG CAP PO SCH (20:21)
[2016-11-18] MEDS: LEVOTHYROXINE 100 MCG TAB PO SCH (06:04)
[2016-11-18] MEDS: SPIRONOLACTONE 50 MG TAB PO SCH ×2 (06:04→18:23)
[2016-11-18] MEDS: PANTOPRAZOLE 40 MG INJ IV SCH ×2 (06:04→18:22)
[2016-11-18] MEDS: traMADol 50 MG TAB PO PRN ×2 (06:07→20:05)
[2016-11-18 07:14] VITALS: BP 96/55; RESP 20
--- NOTE | 2016-11-18 08:06 | CONS ---
Date/Time of Note Date/Time of Note DATE: 11/18/16 TIME: 08:05 Assessment/Plan Assessment/Plan Additional Assessment/Plan Abdominal pain/nausea/vomiting, evaluate for UGIB versus SBP * Paracentesis as needed as needed * Review paracentesis culture and treat accordingly, currently negative for AFB * Continue Lasix and add Aldactone BID * Stool OB positive, hemoglobin stable, no EGD planned * Continue PPI twice daily * Monitor H&H every 6 hours, transfuse 2 units for hemoglobin less than 7.5 * ID following Hx of Metastatic pancreatic cancer. * s/p EGD 06/06/2016: IMPRESSION: Duodenal obstruction bridged with 10 x 120-mm duodenal wall stent proximal opening in gastric antrum distal opening and 3rd portion of the duodenum. 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 Recommendations depend on clinical course Patient seen in collaboration with Dr. Cooley Consultation Date/Type/Reason Admit Date/Time Nov 13, 2016 at 15:10 Type of Consultation: ID 24 HR Interval Summary Free Text/Dictation Tolerating diet Denies nausea, vomiting, abdominal pain Exam/Review of Systems Vital Signs Vitals Vital Signs Date Time Temp Pulse Resp B/P Pulse Ox O2 Delivery O2 Flow Rate FiO2 11/18/16 07:14 98.4 97 20 96/55 100 11/14/16 07:40 21 Intake and Output 11/17/16 11/17/16 11/18/16 15:00 23:00 07:00 Intake Total 1120 ml 720 ml Output Total 1100 ml 1400 ml Balance 20 ml -680 ml Exam Constitutional: alert, frail, oriented Psych: nl mood/affect Head: normocephalic Eyes: EOMI Respiratory: clear to auscultation, normal air movement Cardiovascular: regular rate and rhythm Gastrointestinal: soft, non-tender Neurological: NORMALIZER II-XII intact Results Result Diagram: 11/17/16 0707 11/17/16 0707 Medications Medications Current Medications Ondansetron HCl (Zofran Inj) 4 mg Q6H PRN IV NAUSEA AND/OR VOMITING; Start 11/13 at 16:00 Acetaminophen (Tylenol Tab) 650 mg Q6H PRN PO PAIN LEVEL 1-3 OR FEVER; Start at 16:00 Acetaminophen/ Hydrocodone Bitart ([place] (5/325)) 1 tab Q6H PRN PO MODERATE PAIN LEVEL 4-6; Start 11/13/16 at 16:00 Morphine Sulfate (morphine) 2 mg Q4H PRN IV SEVERE PAIN LEVEL 7-10 Last administered on 11/13/16 20:29; Admin Dose 2 MG; Start 11/13/16 at 16:00 Docusate Sodium (Colace) 100 mg Q12H PRN PO CONSTIPATION; Start 11/13/16 at 16: 00 Magnesium Hydroxide (Milk Of Mag) 30 ml DAILY PRN PO CONSTIPATION; Start at 16:00 Sodium Biphosphate/ Sodium Phosphate (Fleet Enema) 133 ml DAILY PRN [place] CONSTIPATION; Start 11/13/16 at 16:00 Lorazepam (Ativan) 0.5 mg Q6H PRN IV ANXIETY; Start 11/13/16 at 16:00 Hydralazine HCl (Apresoline) 10 mg Q6H PRN IV ELEVATED BLOOD PRESSURE; Start at 16:00 Clonidine (Catapres) 0.1 mg Q6H PRN PO ELEVATED BLOOD PRESSURE; Start 11/13/16 at 16:00 Nitroglycerin (Nitroglycerin (Sl Tab) 0.4 Mg) 1 tab Q5M PRN SL ANGINA; Start at 16:00 Furosemide (Lasix) 40 mg DAILY PO Last administered on 11/17/16 08:19; Admin Dose 40 MG; Start 11/14/16 at 09:00 Potassium Chloride (Klor-Con 20) 20 meq DAILY PO Last administered on 11/17/16 08:20; Admin Dose 20 MEQ; Start 11/14/16 at 09:00 Tramadol HCl (Ultram) 50 mg Q4H PRN PO PAIN Last administered on 11/18/16 06:07 ; Admin Dose 50 MG; Start 11/13/16 at 16:00 Pantoprazole 40 mg 40 mg BID@06,18 IV Last administered on 11/18/16 06:04; Admin Dose 40 MG; Start 11/14/16 at 11:00 Ertapenem/Sodium Chloride (Invanz/NS) 100 ml @ 200 mls/hr Q24H IVPB Last administered on 11/17/16 15:43; Admin Dose 200 MLS/HR; Start 11/17/16 at 15:30 Tamsulosin HCl (Flomax) 0.4 mg HS PO Last administered on 11/17/16 20:21; Admin Dose 0.4 MG; Start 11/17/16 at 21:00 GILDARDO LAST Nov 18, 2016 08:05
[2016-11-18 08:19] LABS: BASOPHILS % 0.4 % (0.0-2.0); EOSINOPHILS # 0.1 10^3/ul (0.0-0.5); EOSINOPHILS % 0.9 % (0.0-7.0); HEMATOCRIT 29.1 % (37.0-47.0); HEMOGLOBIN 9.9 g/dl (12.0-16.0); LYMPHOCYTES # 0.5 10^3/ul (0.8-2.9); LYMPHOCYTES % 4.9 % (15.0-51.0); MEAN CORPUSCULAR HGB CONC 34.1 g/dl (32.0-37.0); MEAN PLATELET VOLUME 8.2 fl (7.4-10.4); MONOCYTE # 1.4 10^3/ul (0.3-0.9); MONOCYTES % 13.5 % (0.0-11.0); NEUTROPHIL # 8.5 10^3/ul (1.6-7.5); NEUTROPHILS % 80.3 % (39.0-77.0); PLATELET COUNT 166 10^3/UL (140-440); RED BLOOD COUNT 3.42 10^6/ul (4.20-5.40); RED CELL DISTRIBUTION WIDTH 18.4 % (11.5-14.5); UNCORRECTED WBC 10.6 10^3/ul (4.8-10.8); WHITE BLOOD COUNT 10.6 10^3/ul (4.8-10.8)
[2016-11-18 08:25] LABS: POTASSIUM 4.5 mmol/L (3.5-5.1)
[2016-11-18 08:27] LABS: CONDITION 1; LH ANALYZER COMMENTS 1
[2016-11-18 08:28] LABS: CREATININE 0.62 mg/dl (0.44-1.00)
[2016-11-18 08:29] LABS: CALCIUM 6.9 mg/dl (8.4-10.2)
[2016-11-18] MEDS: FUROSEMIDE 40 MG TAB PO SCH (08:30)
[2016-11-18] MEDS: POTASSIUM CHLORIDE (SR) 20 MEQ TAB PO SCH (08:30)
[2016-11-18] MEDS: CREON (24K-76K-120K) 1 CAP PO SCH ×3 (08:30→18:23)
--- NOTE | 2016-11-18 09:20 | PN ---
Date/Time of Note Date/Time of Note DATE: 11/18/16 TIME: 09:15 Assessment/Plan VTE Prophylaxis VTE Prophylaxis Intervention: SCD's Lines/Catheters IV C[facility]ter Type (from [facility] Urinary Cath still in place: No Assessment/Plan Chief Complaint/Hosp Course ASSESSMENT AND PLAN: 65-year-old female coming in with abdominal distention with signs of possible spontaneous bacterial peritonitis with a prior history of pancreatic cancer, presently followed at [facility] for treatment. 1. Abdominal distention - again secondary to ascites and possible SBP given her elevated white blood cell count. WBC improving, (20 -> 18 ->17 ->10). Blood cx +for 2/2 bottles ESBL ecoli infx, as well as Ucx this admission (has had this in the past as well) - continue Imipenem per ID rec's- per them will need 2 wks treatment, awaiting PICC placement. - f/u ID and GI rec's. - Follow up fluid analysis studies including culture and amylase and other protein studies, glucose, LDH, WBC count, etc. - f/u Zofran p.r.n. for nausea, vomiting. - [place] p.r.n. abdominal pain. - Aldactone and lasix 2. Questionable lower GI bleed. Again, she is complaining of some very small amounts of dark stool over the last few days. Apparently, the family says she was scheduled to have an EGD and colonoscopy at the [facility] at [facility] recently, but because of possible GI bleeding they waited on this. Her hemoglobin today is 10.1. No signs of any current bleeding. Occult test is positive. - f/u GI consult recs as well - EGD results from May 2016 noted - monitor for now. - per GI, no EGD planned for now 3. Metastatic pancreatic cancer. She has follow up with chemotherapy at [facility]. - Continue Creon as well and tramadol. - Again, continue to monitor for now. 4. Lower extremity swelling. Again, secondary to most likely the pancreatic cancer + ascities - Continue Lasix + aldactone 5. High cholesterol - lipid panel. Continue to monitor for now. 6. Hypothyroidism. Continue to monitor for now. - f/u thyroid studies and continue Synthroid. 7. Gastrointestinal prophylaxis. H2 chasity. 8. Deep venous thrombosis prophylaxis. Sequential compression devices. Problems: Subjective 24 Hr Interval Summary Free Text/Dictation Pt still waiting for PICC placement. No acute events overnight. Exam/Review of Systems Vital Signs Vitals Vital Signs Date Time Temp Pulse Resp B/P Pulse Ox O2 Delivery O2 Flow Rate FiO2 11/18/16 07:14 98.4 97 20 96/55 100 11/14/16 07:40 21 Intake and Output 11/17/16 11/17/16 11/18/16 15:00 23:00 07:00 Intake Total 1120 ml 720 ml Output Total 1100 ml 1400 ml Balance 20 ml -680 ml Exam GENERAL: The patient is sleeping, no acute distress. HEENT: Pupils equal, round, reactive to light. Extraocular muscles intact. There is no scleral icterus, but there is some temporal muscle wasting as well. NECK: No thyromegaly. LUNGS: Clear to auscultation bilaterally. CARDIOVASCULAR: S1, S2 heard. No rubs or gallops. ABDOMEN: Soft and distended, positive fluid wave consistent with ascites, but nontender. No rebound or guarding. MUSCULOSKELETAL: 2+ pitting edema bilateral lower extremities to the knees. NEUROLOGIC: No focal deficits. PSYCHIATRIC: Normal mood and affect. Results Result Diagram: 11/18/16 0745 11/18/16 0745 Results 24 hrs Laboratory Tests Test 11/18/16 07:45 Anion Gap 12 Basophils # 0.0 Basophils % 0.4 Blood Morphology Comment Blood Urea Nitrogen 12 Calcium Level 6.9 L Carbon Dioxide Level 23 Chloride Level 97 Creatinine 0.62 Eosinophils # 0.1 Eosinophils % 0.9 Glucose Level 88 Hematocrit 29.1 L Hemoglobin 9.9 L Lymphocytes # 0.5 L Lymphocytes % 4.9 L Mean Corpuscular Hemoglobin 29.0 Mean Corpuscular Hemoglobin Concent 34.1 Mean Corpuscular Volume 85.0 Mean Platelet Volume 8.2 Monocytes # 1.4 H Monocytes % 13.5 H Neutrophils # 8.5 H Neutrophils % 80.3 H Nucleated Red Blood Cells # 0.0 Nucleated Red Blood Cells % 0.0 Platelet Count 166 # Potassium Level 4.5 Red Blood Count 3.42 L Red Cell Distribution Width 18.4 H Sodium Level 127 L White Blood Count 10.6 # Medications Medications Current Medications Ondansetron HCl (Zofran Inj) 4 mg Q6H PRN IV NAUSEA AND/OR VOMITING; Start 11/13 at 16:00 Acetaminophen (Tylenol Tab) 650 mg Q6H PRN PO PAIN LEVEL 1-3 OR FEVER; Start at 16:00 Acetaminophen/ Hydrocodone Bitart ([place] (5/325)) 1 tab Q6H PRN PO MODERATE PAIN LEVEL 4-6; Start 11/13/16 at 16:00 Morphine Sulfate (morphine) 2 mg Q4H PRN IV SEVERE PAIN LEVEL 7-10 Last administered on 11/13/16 20:29; Admin Dose 2 MG; Start 11/13/16 at 16:00 Docusate Sodium (Colace) 100 mg Q12H PRN PO CONSTIPATION; Start 11/13/16 at 16: 00 Magnesium Hydroxide (Milk Of Mag) 30 ml DAILY PRN PO CONSTIPATION; Start at 16:00 Sodium Biphosphate/ Sodium Phosphate (Fleet Enema) 133 ml DAILY PRN [place] CONSTIPATION; Start 11/13/16 at 16:00 Lorazepam (Ativan) 0.5 mg Q6H PRN IV ANXIETY; Start 11/13/16 at 16:00 Hydralazine HCl (Apresoline) 10 mg Q6H PRN IV ELEVATED BLOOD PRESSURE; Start at 16:00 Clonidine (Catapres) 0.1 mg Q6H PRN PO ELEVATED BLOOD PRESSURE; Start 11/13/16 at 16:00 Nitroglycerin (Nitroglycerin (Sl Tab) 0.4 Mg) 1 tab Q5M PRN SL ANGINA; Start at 16:00 Furosemide (Lasix) 40 mg DAILY PO Last administered on 11/18/16 08:30; Admin Dose 40 MG; Start 11/14/16 at 09:00 Potassium Chloride (Klor-Con 20) 20 meq DAILY PO Last administered on 11/18/16 08:30; Admin Dose 20 MEQ; Start 11/14/16 at 09:00 Tramadol HCl (Ultram) 50 mg Q4H PRN PO PAIN Last administered on 11/18/16 06:07 ; Admin Dose 50 MG; Start 11/13/16 at 16:00 Pantoprazole 40 mg 40 mg BID@,18 IV Last administered on 11/18/16 06:04; Admin Dose 40 MG; Start 11/14/16 at 11:00 Ertapenem/Sodium Chloride (Invanz/NS) 100 ml @ 200 mls/hr Q24H IVPB Last administered on 11/17/16 15:43; Admin Dose 200 MLS/HR; Start 11/17/16 at 15:30 Tamsulosin HCl (Flomax) 0.4 mg HS PO Last administered on 11/17/16 20:21; Admin Dose 0.4 MG; Start 11/17/16 at 21:00 KENYON OROZCO Nov 18, 2016 09:20
--- NOTE | 2016-11-18 14:04 | CONS ---
Date/Time of Note Date/Time of Note DATE: 11/18/16 TIME: 14:02 Consult Date/Type/Reason Admit Date/Time Nov 13, 2016 at 15:10 Type of Consultation: ID Subjective no acute changes, no fevers, sleeping, family at bedside, nad Objective Vital Signs Date Time Temp Pulse Resp B/P Pulse Ox O2 Delivery O2 Flow Rate FiO2 11/18/16 07:14 98.4 97 20 96/55 100 11/14/16 07:40 21 Intake and Output 11/17/16 11/17/16 11/18/16 15:00 23:00 07:00 Intake Total 1120 ml 720 ml Output Total 1100 ml 1400 ml Balance 20 ml -680 ml Results/Medications Result Diagram: 11/18/1645 11/18/16 0745 Results 24 hrs Laboratory Tests Test 11/18/16 07:45 Anion Gap 12 Basophils # 0.0 Basophils % 0.4 Blood Morphology Comment Blood Urea Nitrogen 12 Calcium Level 6.9 L Carbon Dioxide Level 23 Chloride Level 97 Creatinine 0.62 Eosinophils # 0.1 Eosinophils % 0.9 Glucose Level 88 Hematocrit 29.1 L Hemoglobin 9.9 L Lymphocytes # 0.5 L Lymphocytes % 4.9 L Mean Corpuscular Hemoglobin 29.0 Mean Corpuscular Hemoglobin Concent 34.1 Mean Corpuscular Volume 85.0 Mean Platelet Volume 8.2 Monocytes # 1.4 H Monocytes % 13.5 H Neutrophils # 8.5 H Neutrophils % 80.3 H Nucleated Red Blood Cells # 0.0 Nucleated Red Blood Cells % 0.0 Platelet Count 166 # Potassium Level 4.5 Red Blood Count 3.42 L Red Cell Distribution Width 18.4 H Sodium Level 127 L White Blood Count 10.6 # Medications Current Medications Ondansetron HCl (Zofran Inj) 4 mg Q6H PRN IV NAUSEA AND/OR VOMITING; Start 11/13 at 16:00 Acetaminophen (Tylenol Tab) 650 mg Q6H PRN PO PAIN LEVEL 1-3 OR FEVER; Start at 16:00 Acetaminophen/ Hydrocodone Bitart ([place] (5/325)) 1 tab Q6H PRN PO MODERATE PAIN LEVEL 4-6; Start 11/13/16 at 16:00 Morphine Sulfate (morphine) 2 mg Q4H PRN IV SEVERE PAIN LEVEL 7-10 Last administered on 11/13/16 20:29; Admin Dose 2 MG; Start 11/13/16 at 16:00 Docusate Sodium (Colace) 100 mg Q12H PRN PO CONSTIPATION; Start 11/13/16 at 16: 00 Magnesium Hydroxide (Milk Of Mag) 30 ml DAILY PRN PO CONSTIPATION; Start at 16:00 Sodium Biphosphate/ Sodium Phosphate (Fleet Enema) 133 ml DAILY PRN [place] CONSTIPATION; Start 11/13/16 at 16:00 Lorazepam (Ativan) 0.5 mg Q6H PRN IV ANXIETY; Start 11/13/16 at 16:00 Hydralazine HCl (Apresoline) 10 mg Q6H PRN IV ELEVATED BLOOD PRESSURE; Start at 16:00 Clonidine (Catapres) 0.1 mg Q6H PRN PO ELEVATED BLOOD PRESSURE; Start 11/13/16 at 16:00 Nitroglycerin (Nitroglycerin (Sl Tab) 0.4 Mg) 1 tab Q5M PRN SL ANGINA; Start at 16:00 Furosemide (Lasix) 40 mg DAILY PO Last administered on 11/18/16 08:30; Admin Dose 40 MG; Start 11/14/16 at 09:00 Potassium Chloride (Klor-Con 20) 20 meq DAILY PO Last administered on 11/18/16 08:30; Admin Dose 20 MEQ; Start 11/14/16 at 09:00 Tramadol HCl (Ultram) 50 mg Q4H PRN PO PAIN Last administered on 11/18/16 06:07 ; Admin Dose 50 MG; Start 11/13/16 at 16:00 Pantoprazole 40 mg 40 mg BID@06,18 IV Last administered on 11/18/16 06:04; Admin Dose 40 MG; Start 11/14/16 at 11:00 Ertapenem/Sodium Chloride (Invanz/NS) 100 ml @ 200 mls/hr Q24H IVPB Last administered on 11/17/16 15:43; Admin Dose 200 MLS/HR; Start 11/17/16 at 15:30 Tamsulosin HCl (Flomax) 0.4 mg HS PO Last administered on 11/17/16 20:21; Admin Dose 0.4 MG; Start 11/17/16 at 21:00 Assessment/Plan Chief Complaint/Hosp Course MICROBIOLOGY: Blood and urine culture growing E coli ESBL ANTIMICROBIALS: [place] PHYSICAL EXAMINATION: GENERAL: This is a fragile, cachectic elderly woman who is in no distress. HEENT: Head atraumatic, normocephalic. Sclerae anicteric. Buccal mucosa dry. NECK: Supple, trachea midline. CHEST: Rise symmetrical. Breath sounds diminished to bases. HEART: S1, S2. ABDOMEN: Distended, soft. Bowel tones hypoactive. EXTREMITIES: Without cyanosis. ASSESSMENT: 1. E coli ESBL bacteremia secondary to urinary tract infection. 2. Status post Escherichia coli extended-spectrum beta-lactamase urinary tract infection in 10/2016. 3. Ascites status post paracentesis==>peritoneal fluid cultures are negative. 4. Diabetes. 5. Pancreatic CA, locally advanced. 6. Urinary retention PLAN: Clinically stable, pending repeat bld cx, pending dc planning, abx for 2 weeks ==> Candace Fuller Problems: MIKE BRYSON NP Nov 18, 2016 14:04
[2016-11-18] MEDS: ERTAPENEM SODIUM 1 GM in SOD CHLORIDE 0.9% 100 ML IVPB SCH (16:50)
--- NOTE | 2016-11-18 18:23 | RADRPT ---
PROCEDURE: US guidance for PICC line CLINICAL INDICATION: PICC line placement TECHNIQUE: Multiple real-time images were acquired of the patient's arm utilizing a high resolutio n transducer. This was performed by the PICC line nurse for venous access. COMPARISON: None FINDINGS: Ultrasound guidance for PICC line placement. IMPRESSION: Ultrasound guidance for PICC line placement. RPTAT: AA .Addison Duncan MD, MD Date Time Electronically viewed and signed by .Addison Duncan MD, on 11/18/2016 18:23 .S/
--- NOTE | 2016-11-18 18:53 | RADRPT ---
PROCEDURE: XR Chest. CLINICAL INDICATION: PICC placement TECHNIQUE: Single frontal view of the chest was obtained COMPARISON: 11/13/2016 FINDINGS: There is interval placement of a left PICC with the tip appearing to curve into the azygos vein. The heart and mediastinum are within normal limits. There is a right chest wall port in place. There is elevation of the right diaphragm with right lower lobe atelectasis. The lungs are otherwise berenice ar. There is no pleural effusion or pneumothorax. IMPRESSION: 1. Interval placement of left PICC with the tip appearing to extend into the azygos vein. 2. Unchanged elevation of the right diaphragm with right lower lobe atelectasis. RPTAT: QQ .Giorgio López MD, MD Date Time Electronically viewed and signed by .Giorgio López MD, on 11/18/2016 18:53 .A/
--- NOTE | 2016-11-18 18:57 | RADRPT ---
PROCEDURE: XR Chest. CLINICAL INDICATION: PICC placement TECHNIQUE: Single frontal view of the chest was obtained COMPARISON: 11/18/2016 at 05:43 p.m. FINDINGS: There is interval adjustment of the left PICC with the tip now in the superior vena cava. The hear t and mediastinum are within normal limits. There is a right chest wall port in place. There is e levation of the right diaphragm with right lower lobe atelectasis. The lungs are otherwise clear. There is no pleural effusion or pneumothorax. IMPRESSION: 1. Interval adjustment of the left PICC with the tip mal in the superior vena cava. 2. Right Port-A-Cath tip within right atrium, possibly extending into the tricuspid valve. Recomme nd retraction by approximately 4-5 cm. 2. Unchanged elevation of the right diaphragm with right lower lobe atelectasis. RPTAT: QQ .Giorgio López MD, MD Date Time Electronically viewed and signed by .Giorgio López MD, on 11/18/2016 18:57 .A/
[2016-11-18 19:53] VITALS: BP 99/59; RESP 16
[2016-11-18] MEDS: TAMSULOSIN (SR) 0.4 MG CAP PO SCH (20:05)
[2016-11-19 06:10] LABS: BASOPHILS % 0.2 % (0.0-2.0); EOSINOPHILS # 0.1 10^3/ul (0.0-0.5); EOSINOPHILS % 0.6 % (0.0-7.0); HEMOGLOBIN 8.5 g/dl (12.0-16.0); LYMPHOCYTES # 0.6 10^3/ul (0.8-2.9); LYMPHOCYTES % 6.6 % (15.0-51.0); MEAN CORPUSCULAR HEMOGLOBIN 28.9 pg (29.0-33.0); MEAN CORPUSCULAR HGB CONC 33.9 g/dl (32.0-37.0); MEAN CORPUSCULAR VOLUME 85.2 fl (82.0-101.0); MONOCYTES % 11.1 % (0.0-11.0); NEUTROPHIL # 7.5 10^3/ul (1.6-7.5); NEUTROPHILS % 81.5 % (39.0-77.0); PLATELET COUNT 198 10^3/UL (140-440); RED BLOOD COUNT 2.94 10^6/ul (4.20-5.40); RED CELL DISTRIBUTION WIDTH 18.5 % (11.5-14.5); UNCORRECTED WBC 9.1 10^3/ul (4.8-10.8); WHITE BLOOD COUNT 9.1 10^3/ul (4.8-10.8)
[2016-11-19 06:14] LABS: CONDITION 1; LH ANALYZER COMMENTS 1
[2016-11-19] MEDS: traMADol 50 MG TAB PO PRN ×2 (06:17→20:57)
[2016-11-19] MEDS: PANTOPRAZOLE 40 MG INJ IV SCH ×2 (06:17→17:34)
[2016-11-19] MEDS: LEVOTHYROXINE 100 MCG TAB PO SCH (06:17)
[2016-11-19 06:20] LABS: POTASSIUM 4.7 mmol/L (3.5-5.1)
[2016-11-19 06:22] LABS: CREATININE 0.69 mg/dl (0.44-1.00)
[2016-11-19] MEDS: SPIRONOLACTONE 50 MG TAB PO SCH ×2 (06:46→17:46)
[2016-11-19 07:44] VITALS: BP 112/67; RESP 20
[2016-11-19 08:30] VITALS: BP 94/62; PULSE 116
[2016-11-19] MEDS: POTASSIUM CHLORIDE (SR) 20 MEQ TAB PO SCH (08:32)
[2016-11-19] MEDS: CREON (24K-76K-120K) 1 CAP PO SCH ×3 (08:32→17:36)
[2016-11-19 10:31] VITALS: BP 96/62; PULSE 99
[2016-11-19] MEDS: FUROSEMIDE 40 MG TAB PO SCH (10:31)
--- NOTE | 2016-11-19 11:24 | CONS ---
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 * s/p EGD 06/06/2016: IMPRESSION: Duodenal obstruction bridged with 10 x 120-mm duodenal wall stent proximal opening in gastric antrum distal opening and 3rd portion of the duodenum. 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 Recommendations depend on clinical course Patient seen in collaboration with Dr. Cooley Consultation Date/Type/Reason Admit Date/Time Nov 13, 2016 at 15:10 Type of Consultation: Gastroenterology Reason for Consultation Ascites 24 HR Interval Summary Free Text/Dictation Patient reporting left side abdominal pain and increased abdominal girth Request repeat paracentesis Exam/Review of Systems Vital Signs Vitals Vital Signs Date Time Temp Pulse Resp B/P Pulse Ox O2 Delivery O2 Flow Rate FiO2 11/19/16 10:31 99 96/62 11/19/16 07:44 98.5 20 96 Intake and Output 11/18/16 11/18/16 11/19/16 15:00 23:00 07:00 Intake Total 1320 ml 780 ml Output Total 1050 ml Balance 270 ml 780 ml Exam Constitutional: alert, frail, oriented Psych: nl mood/affect Head: normocephalic Eyes: EOMI Respiratory: clear to auscultation, normal air movement Cardiovascular: regular rate and rhythm Gastrointestinal: soft, non-tender Neurological: SOLID WASTE COLLECTOR II-XII intact Results Result Diagram: 11/19/16 0524 11/19/16 0524 Results 24 hrs Laboratory Tests Test 11/19/16 05:24 Anion Gap 11 Basophils # 0.0 Basophils % 0.2 Blood Morphology Comment Blood Urea Nitrogen 12 Calcium Level 7.0 L Carbon Dioxide Level 24 Chloride Level 97 Creatinine 0.69 Eosinophils # 0.1 Eosinophils % 0.6 Glucose Level 79 Hematocrit 25.0 L Hemoglobin 8.5 L Lymphocytes # 0.6 L Lymphocytes % 6.6 L Mean Corpuscular Hemoglobin 28.9 L Mean Corpuscular Hemoglobin Concent 33.9 Mean Corpuscular Volume 85.2 Mean Platelet Volume 8.0 Monocytes # 1.0 H Monocytes % 11.1 H Neutrophils # 7.5 Neutrophils % 81.5 H Nucleated Red Blood Cells # 0.0 Nucleated Red Blood Cells % 0.0 Platelet Count 198 Potassium Level 4.7 Red Blood Count 2.94 L Red Cell Distribution Width 18.5 H Sodium Level 127 L White Blood Count 9.1 Medications Medications Current Medications Ondansetron HCl (Zofran Inj) 4 mg Q6H PRN IV NAUSEA AND/OR VOMITING; Start 11/13 at 16:00 Acetaminophen (Tylenol Tab) 650 mg Q6H PRN PO PAIN LEVEL 1-3 OR FEVER; Start at 16:00 Acetaminophen/ Hydrocodone Bitart ([place] (5/325)) 1 tab Q6H PRN PO MODERATE PAIN LEVEL 4-6; Start 11/13/16 at 16:00 Morphine Sulfate (morphine) 2 mg Q4H PRN IV SEVERE PAIN LEVEL 7-10 Last administered on 11/13/16t 20:29; Admin Dose 2 MG; Start 11/13/16 at 16:00 Docusate Sodium (Colace) 100 mg Q12H PRN PO CONSTIPATION; Start 11/13/16 at 16: 00 Magnesium Hydroxide (Milk Of Mag) 30 ml DAILY PRN PO CONSTIPATION; Start at 16:00 Sodium Biphosphate/ Sodium Phosphate (Fleet Enema) 133 ml DAILY PRN [place] CONSTIPATION; Start 11/13/16 at 16:00 Lorazepam (Ativan) 0.5 mg Q6H PRN IV ANXIETY; Start 11/13/16 at 16:00 Hydralazine HCl (Apresoline) 10 mg Q6H PRN IV ELEVATED BLOOD PRESSURE; Start at 16:00 Clonidine (Catapres) 0.1 mg Q6H PRN PO ELEVATED BLOOD PRESSURE; Start 11/13/16 at 16:00 Nitroglycerin (Nitroglycerin (Sl Tab) 0.4 Mg) 1 tab Q5M PRN SL ANGINA; Start at 16:00 Furosemide (Lasix) 40 mg DAILY PO Last administered on 11/19/16 10:31; Admin Dose 40 MG; Start 11/14/16 at 09:00 Potassium Chloride (Klor-Con 20) 20 meq DAILY PO Last administered on 11/19/16 08:32; Admin Dose 20 MEQ; Start 11/14/16 at 09:00 Tramadol HCl (Ultram) 50 mg Q4H PRN PO PAIN Last administered on 11/19/16 06:17 ; Admin Dose 50 MG; Start 11/13/16 at 16:00 Pantoprazole 40 mg 40 mg BID@06,18 IV Last administered on 11/19/16 06:17; Admin Dose 40 MG; Start 11/14/16 at 11:00 Ertapenem/Sodium Chloride (Invanz/NS) 100 ml @ 200 mls/hr Q24H IVPB Last administered on 11/18/16 16:50; Admin Dose 200 MLS/HR; Start 11/17/16 at 15:30 Tamsulosin HCl (Flomax) 0.4 mg HS PO Last administered on 11/18/16 20:05; Admin Dose 0.4 MG; Start 11/17/16 at 21:00 GILDARDO LAST Nov 19, 2016 11:24
--- NOTE | 2016-11-19 11:46 | CONS ---
Date/Time of Note Date/Time of Note DATE: 11/19/16 TIME: 11:44 Consult Date/Type/Reason Admit Date/Time Nov 13, 2016 at 15:10 Type of Consultation: ID Subjective alert, feels good, no fevers, nad Objective Vital Signs Date Time Temp Pulse Resp B/P Pulse Ox O2 Delivery O2 Flow Rate FiO2 11/19/16 10:31 99 96/62 11/19/16 07:44 98.5 20 96 Intake and Output 11/18/16 11/18/16 11/19/16 15:00 23:00 07:00 Intake Total 1320 ml 780 ml Output Total 1050 ml Balance 270 ml 780 ml Results/Medications Result Diagram: 11/19/1624 11/19/1624 Results 24 hrs Laboratory Tests Test 11/19/16 05:24 Anion Gap 11 Basophils # 0.0 Basophils % 0.2 Blood Morphology Comment Blood Urea Nitrogen 12 Calcium Level 7.0 L Carbon Dioxide Level 24 Chloride Level 97 Creatinine 0.69 Eosinophils # 0.1 Eosinophils % 0.6 Glucose Level 79 Hematocrit 25.0 L Hemoglobin 8.5 L Lymphocytes # 0.6 L Lymphocytes % 6.6 L Mean Corpuscular Hemoglobin 28.9 L Mean Corpuscular Hemoglobin Concent 33.9 Mean Corpuscular Volume 85.2 Mean Platelet Volume 8.0 Monocytes # 1.0 H Monocytes % 11.1 H Neutrophils # 7.5 Neutrophils % 81.5 H Nucleated Red Blood Cells # 0.0 Nucleated Red Blood Cells % 0.0 Platelet Count 198 Potassium Level 4.7 Red Blood Count 2.94 L Red Cell Distribution Width 18.5 H Sodium Level 127 L White Blood Count 9.1 Medications Current Medications Ondansetron HCl (Zofran Inj) 4 mg Q6H PRN IV NAUSEA AND/OR VOMITING; Start 11/13 at 16:00 Acetaminophen (Tylenol Tab) 650 mg Q6H PRN PO PAIN LEVEL 1-3 OR FEVER; Start at 16:00 Acetaminophen/ Hydrocodone Bitart ([place] (5/325)) 1 tab Q6H PRN PO MODERATE PAIN LEVEL 4-6; Start 11/13/16 at 16:00 Morphine Sulfate (morphine) 2 mg Q4H PRN IV SEVERE PAIN LEVEL 7-10 Last administered on 11/13/16t 20:29; Admin Dose 2 MG; Start 11/13/16 at 16:00 Docusate Sodium (Colace) 100 mg Q12H PRN PO CONSTIPATION; Start 11/13/16 at 16: 00 Magnesium Hydroxide (Milk Of Mag) 30 ml DAILY PRN PO CONSTIPATION; Start at 16:00 Sodium Biphosphate/ Sodium Phosphate (Fleet Enema) 133 ml DAILY PRN [place] CONSTIPATION; Start 11/13/16 at 16:00 Lorazepam (Ativan) 0.5 mg Q6H PRN IV ANXIETY; Start 11/13/16 at 16:00 Hydralazine HCl (Apresoline) 10 mg Q6H PRN IV ELEVATED BLOOD PRESSURE; Start at 16:00 Clonidine (Catapres) 0.1 mg Q6H PRN PO ELEVATED BLOOD PRESSURE; Start 11/13/16 at 16:00 Nitroglycerin (Nitroglycerin (Sl Tab) 0.4 Mg) 1 tab Q5M PRN SL ANGINA; Start at 16:00 Furosemide (Lasix) 40 mg DAILY PO Last administered on 11/19/16 10:31; Admin Dose 40 MG; Start 11/14/16 at 09:00 Potassium Chloride (Klor-Con 20) 20 meq DAILY PO Last administered on 11/19/16 08:32; Admin Dose 20 MEQ; Start 11/14/16 at 09:00 Tramadol HCl (Ultram) 50 mg Q4H PRN PO PAIN Last administered on 11/19/16 06:17 ; Admin Dose 50 MG; Start 11/13/16 at 16:00 Pantoprazole 40 mg 40 mg BID@06,18 IV Last administered on 11/19/16 06:17; Admin Dose 40 MG; Start 11/14/16 at 11:00 Ertapenem/Sodium Chloride (Invanz/NS) 100 ml @ 200 mls/hr Q24H IVPB Last administered on 11/18/16 16:50; Admin Dose 200 MLS/HR; Start 11/17/16 at 15:30 Tamsulosin HCl (Flomax) 0.4 mg HS PO Last administered on 11/18/16 20:05; Admin Dose 0.4 MG; Start 11/17/16 at 21:00 Assessment/Plan Chief Complaint/Hosp Course MICROBIOLOGY: Blood and urine culture growing E coli ESBL ANTIMICROBIALS: Candace PHYSICAL EXAMINATION: GENERAL: This is a fragile, cachectic elderly woman who is in no distress. HEENT: Head atraumatic, normocephalic. Sclerae anicteric. Buccal mucosa dry. NECK: Supple, trachea midline. CHEST: Rise symmetrical. Breath sounds diminished to bases. HEART: S1, S2. ABDOMEN: Distended, soft. Bowel tones hypoactive. EXTREMITIES: Without cyanosis. ASSESSMENT: 1. E coli ESBL bacteremia secondary to urinary tract infection. 2. Status post Escherichia coli extended-spectrum beta-lactamase urinary tract infection in 10/2016. 3. Ascites status post paracentesis==>peritoneal fluid cultures are negative. 4. Diabetes. 5. Pancreatic CA, locally advanced. 6. Urinary retention PLAN: Clinically stable, s/p PICC, pending dc planning, abx for 9 more days == > Candace SHERMAN staff/pt/family Problems: MIKE BRYSON NP Nov 19, 2016 11:45
[2016-11-19] MEDS ORDERED: SOD CHLORIDE 0.9% 250 ML IV* ONE (12:38)
--- NOTE | 2016-11-19 16:02 | RADRPT ---
PROCEDURE: US Abdomen (limited). CLINICAL INDICATION: Abdominal pain and distension. TECHNIQUE: Multiple real-time longitudinal and transverse images of the four quadrants of the abdo men were acquired utilizing a curved array transducer. Images were reviewed on a high-resolution PAC S workstation. COMPARISON: None FINDINGS: There is a small amount of ascites throughout the 4 quadrants of the abdomen. There is not of free fluid to safely aspirate. Paracentesis was not performed. IMPRESSION: 1. Small amount of ascites. Paracentesis was not performed. RPTAT: QQ .Jacob Smiley MD, MD Date Time Electronically viewed and signed by .Jacob Smiley MD, on 11/19/2016 16:02 .R/
[2016-11-19] MEDS: ERTAPENEM SODIUM 1 GM in SOD CHLORIDE 0.9% 100 ML IVPB SCH (16:27)
--- NOTE | 2016-11-19 17:02 | PN ---
Date/Time of Note Date/Time of Note DATE: 11/19/16 TIME: 16:44 Assessment/Plan VTE Prophylaxis VTE Prophylaxis Intervention: SCD's Lines/Catheters IV Catheter Type (from Nrsg): PICC Line Central line still needed: Yes Urinary Cath still in place: No Assessment/Plan Assessment/Plan 5-year-old female coming in with abdominal distention and discomfortwith signs of possible spontaneous bacterial peritonitis with a prior history of pancreatic cancer, presently followed at [facility] for treatment. 1. Recurrent Ascites - Ascites is likely malignant in origin / Patient is requiring recurrent paracentesis / Ascitic fluid cultures have been negative so far - Patient has been offered option of a permanent catheter at cancer center, and family will followup on this at discharge. - Continue Aldactone and lasix 2. ESBL Ecoli UTI and bacteremia: -PICC line placed / patient is to complete 2weeks of Invanz therapy 3. Recurrent anemia 2/ 2 GI bleed: chronic and likely 2/2 to mass -s/p EGD 06/06/2016: IMPRESSION: Duodenal obstruction bridged with 10 x 120- mm duodenal wall stent proximal opening in gastric antrum distal opening and 3rd portion of the duodenum -No further acute intervention per GI / serial hgb monitoring / transfuse PRN 4. Metastatic pancreatic cancer. - currently cared for at [facility] and is on chemo (she has had radiation in the past) - Continue Creon as well and tramadol. 4. Lower extremity swelling. Again, secondary to most likely the pancreatic cancer + ascites - Continue Lasix + aldactone -hypoalbuminemia noted / replace 5. High cholesterol - cont statin 6. Hypothyroidism - continue Synthroid. 7. Chronic cachexia / malnutrition from cancer and chemo dietary supplementation DISPO: Possible d/c in am when better optimized for close outpt monitoring at [facility]. Gastrointestinal prophylaxis. H2 chasity. Deep venous thrombosis prophylaxis. Sequential compression devices. Subjective 24 Hr Interval Summary Free Text/Dictation Patient seen and examined. no new issues, abd pain and distention improved Planned for repeat Paracentesis today per GI Exam/Review of Systems Vital Signs Vitals Vital Signs Date Time Temp Pulse Resp B/P Pulse Ox O2 Delivery O2 Flow Rate FiO2 11/19/16 10:31 99 96/62 11/19/16 07:44 98.5 20 96 Intake and Output 11/18/16 11/18/16 11/19/16 15:00 23:00 07:00 Intake Total 1320 ml 780 ml Output Total 1050 ml Balance 270 ml 780 ml Exam GENERAL: The patient is in no acute distress / cachectic from chronic disease HEENT: Pupils equal, round, reactive to light. Extraocular muscles intact. There is no scleral icterus NECK: No thyromegaly. LUNGS: Clear to auscultation bilaterally. CARDIOVASCULAR: S1, S2 heard. No rubs or gallops. ABDOMEN: Soft and still moderately distended, positive fluid wave consistent with ascites, but nontender. No rebound or guarding. MUSCULOSKELETAL: 2+ pitting edema bilateral lower extremities to the knees. chronic msc wasting NEUROLOGIC: No focal deficits. PSYCHIATRIC: calm Results Result Diagram: 11/19/16 0511/19/16 0524 Results 24 hrs Laboratory Tests Test 11/19/16 05:24 Anion Gap 11 Basophils # 0.0 Basophils % 0.2 Blood Morphology Comment Blood Urea Nitrogen 12 Calcium Level 7.0 L Carbon Dioxide Level 24 Chloride Level 97 Creatinine 0.69 Eosinophils # 0.1 Eosinophils % 0.6 Glucose Level 79 Hematocrit 25.0 L Hemoglobin 8.5 L Lymphocytes # 0.6 L Lymphocytes % 6.6 L Mean Corpuscular Hemoglobin 28.9 L Mean Corpuscular Hemoglobin Concent 33.9 Mean Corpuscular Volume 85.2 Mean Platelet Volume 8.0 Monocytes # 1.0 H Monocytes % 11.1 H Neutrophils # 7.5 Neutrophils % 81.5 H Nucleated Red Blood Cells # 0.0 Nucleated Red Blood Cells % 0.0 Platelet Count 198 Potassium Level 4.7 Red Blood Count 2.94 L Red Cell Distribution Width 18.5 H Sodium Level 127 L White Blood Count 9.1 Medications Medications Current Medications Ondansetron HCl (Zofran Inj) 4 mg Q6H PRN IV NAUSEA AND/OR VOMITING; Start 11/13 at 16:00 Acetaminophen (Tylenol Tab) 650 mg Q6H PRN PO PAIN LEVEL 1-3 OR FEVER; Start at 16:00 Acetaminophen/ Hydrocodone Bitart ([place] (5/325)) 1 tab Q6H PRN PO MODERATE PAIN LEVEL 4-6; Start 11/13/16 at 16:00 Morphine Sulfate (morphine) 2 mg Q4H PRN IV SEVERE PAIN LEVEL 7-10 Last administered on 11/13/16 20:29; Admin Dose 2 MG; Start 11/13/16 at 16:00 Docusate Sodium (Colace) 100 mg Q12H PRN PO CONSTIPATION; Start 11/13/16 at 16: 00 Magnesium Hydroxide (Milk Of Mag) 30 ml DAILY PRN PO CONSTIPATION; Start at 16:00 Sodium Biphosphate/ Sodium Phosphate (Fleet Enema) 133 ml DAILY PRN [place] CONSTIPATION; Start 11/13/16 at 16:00 Lorazepam (Ativan) 0.5 mg Q6H PRN IV ANXIETY; Start 11/13/16 at 16:00 Hydralazine HCl (Apresoline) 10 mg Q6H PRN IV ELEVATED BLOOD PRESSURE; Start at 16:00 Clonidine (Catapres) 0.1 mg Q6H PRN PO ELEVATED BLOOD PRESSURE; Start 11/13/16 at 16:00 Nitroglycerin (Nitroglycerin (Sl Tab) 0.4 Mg) 1 tab Q5M PRN SL ANGINA; Start at 16:00 Furosemide (Lasix) 40 mg DAILY PO Last administered on 11/19/16 10:31; Admin Dose 40 MG; Start 11/14/16 at 09:00 Potassium Chloride (Klor-Con 20) 20 meq DAILY PO Last administered on 11/19/16 08:32; Admin Dose 20 MEQ; Start 11/14/16 at 09:00 Tramadol HCl (Ultram) 50 mg Q4H PRN PO PAIN Last administered on 11/19/16 06:17 ; Admin Dose 50 MG; Start 11/13/16 at 16:00 Pantoprazole 40 mg 40 mg BID@06,18 IV Last administered on 11/19/16 06:17; Admin Dose 40 MG; Start 11/14/16 at 11:00 Ertapenem/Sodium Chloride (Invanz/NS) 100 ml @ 200 mls/hr Q24H IVPB Last administered on 11/19/16 16:27; Admin Dose 200 MLS/HR; Start 11/17/16 at 15:30 Tamsulosin HCl (Flomax) 0.4 mg HS PO Last administered on 11/18/16 20:05; Admin Dose 0.4 MG; Start 11/17/16 at 21:00 NARAYAN GOLDMAN Nov 19, 2016 16:56
[2016-11-19] MEDS: ALBUMIN HUMAN 25% 100 ML IV SCH (17:36)
[2016-11-19 17:46] VITALS: BP 97/64; PULSE 95
[2016-11-19 20:09] VITALS: BP 93/58; RESP 18
[2016-11-19] MEDS: TAMSULOSIN (SR) 0.4 MG CAP PO SCH (20:57)
[2016-11-20] MEDS: ALBUMIN HUMAN 25% 100 ML IV SCH ×2 (01:45→08:41)
[2016-11-20] MEDS: traMADol 50 MG TAB PO PRN ×2 (01:50→18:29)
[2016-11-20] MEDS: SPIRONOLACTONE 50 MG TAB PO SCH ×2 (06:00→18:00)
[2016-11-20] MEDS: LEVOTHYROXINE 100 MCG TAB PO SCH (06:03)
[2016-11-20] MEDS: PANTOPRAZOLE 40 MG INJ IV SCH ×2 (06:03→18:21)
[2016-11-20 06:44] LABS: BASOPHILS % 0.4 % (0.0-2.0); EOSINOPHILS # 0.1 10^3/ul (0.0-0.5); EOSINOPHILS % 0.8 % (0.0-7.0); HEMATOCRIT 19.9 % (37.0-47.0); LYMPHOCYTES # 0.4 10^3/ul (0.8-2.9); LYMPHOCYTES % 6.4 % (15.0-51.0); MEAN CORPUSCULAR HGB CONC 33.9 g/dl (32.0-37.0); MEAN CORPUSCULAR VOLUME 85.7 fl (82.0-101.0); MEAN PLATELET VOLUME 7.6 fl (7.4-10.4); MONOCYTE # 0.8 10^3/ul (0.3-0.9); MONOCYTES % 11.9 % (0.0-11.0); NEUTROPHIL # 5.5 10^3/ul (1.6-7.5); NEUTROPHILS % 80.5 % (39.0-77.0); PLATELET COUNT 184 10^3/UL (140-440); RED BLOOD COUNT 2.33 10^6/ul (4.20-5.40); RED CELL DISTRIBUTION WIDTH 18.6 % (11.5-14.5); UNCORRECTED WBC 6.8 10^3/ul (4.8-10.8); WHITE BLOOD COUNT 6.8 10^3/ul (4.8-10.8)
[2016-11-20 06:50] LABS: CONDITION 1; HEMOGLOBIN 6.8 g/dl (12.0-16.0); LH ANALYZER COMMENTS 1
[2016-11-20 06:52] LABS: POTASSIUM 4.4 mmol/L (3.5-5.1)
[2016-11-20 06:55] LABS: CREATININE 0.66 mg/dl (0.44-1.00)
[2016-11-20 06:56] LABS: CALCIUM 7.5 mg/dl (8.4-10.2)
[2016-11-20 07:34] VITALS: BP 89/55; RESP 18
[2016-11-20 08:20] LABS: BASOPHILS % 0.1 % (0.0-2.0); EOSINOPHILS # 0.1 10^3/ul (0.0-0.5); EOSINOPHILS % 0.8 % (0.0-7.0); HEMATOCRIT 20.3 % (37.0-47.0); HEMOGLOBIN 7.1 g/dl (12.0-16.0); LYMPHOCYTES # 0.5 10^3/ul (0.8-2.9); LYMPHOCYTES % 6.9 % (15.0-51.0); MEAN CORPUSCULAR HEMOGLOBIN 29.5 pg (29.0-33.0); MEAN CORPUSCULAR HGB CONC 34.7 g/dl (32.0-37.0); MEAN CORPUSCULAR VOLUME 85.1 fl (82.0-101.0); MEAN PLATELET VOLUME 7.6 fl (7.4-10.4); MONOCYTE # 0.8 10^3/ul (0.3-0.9); MONOCYTES % 11.6 % (0.0-11.0); NEUTROPHIL # 5.4 10^3/ul (1.6-7.5); NEUTROPHILS % 80.6 % (39.0-77.0); PLATELET COUNT 188 10^3/UL (140-440); RED BLOOD COUNT 2.39 10^6/ul (4.20-5.40); RED CELL DISTRIBUTION WIDTH 19.1 % (11.5-14.5); UNCORRECTED WBC 6.7 10^3/ul (4.8-10.8); WHITE BLOOD COUNT 6.7 10^3/ul (4.8-10.8)
[2016-11-20 08:28] LABS: CONDITION 1; LH ANALYZER COMMENTS 1
[2016-11-20] MEDS: CREON (24K-76K-120K) 1 CAP PO SCH ×3 (08:40→18:21)
[2016-11-20] MEDS: FUROSEMIDE 40 MG TAB PO SCH (08:40)
[2016-11-20] MEDS: POTASSIUM CHLORIDE (SR) 20 MEQ TAB PO SCH (08:40)
[2016-11-20] MEDS ORDERED: LIPA1CAP6 PO (11:32)
[2016-11-20] MEDS ORDERED: FURO40TA4 PO (11:32)
[2016-11-20] MEDS ORDERED: SPIR25TA76 PO (11:32)
[2016-11-20] MEDS ORDERED: DOCU-144 PO (11:34)
[2016-11-20] MEDS ORDERED: ULT50 PO (11:34)
[2016-11-20] MEDS ORDERED: ERTA1VIA IV (11:34)
[2016-11-20] MEDS ORDERED: FUROSEMIDE 20 MG INJ IV SCH (12:00)
[2016-11-20 12:19] LABS: INR 1.62; PROTIME 19.4 Sec (12.2-14.2); PT RATIO 1.5
[2016-11-20 12:20] LABS: PARTIAL THROMBOPLASTIN TIME 35.3 Sec (25.0-35.0)
--- NOTE | 2016-11-20 13:15 | CONS ---
Date/Time of Note Date/Time of Note DATE: 11/20/16 TIME: 13:14 Consult Date/Type/Reason Admit Date/Time Nov 13, 2016 at 15:10 Type of Consultation: ID Subjective no acute changes, alert, eating lunch, no fevers, nad Objective Vital Signs Date Time Temp Pulse Resp B/P Pulse Ox O2 Delivery O2 Flow Rate FiO2 11/20/16 07:34 97.1 91 18 89/55 98 Intake and Output 11/19/16 11/19/16 11/20/16 15:00 23:00 07:00 Intake Total 1470 ml 780 ml Output Total 3 ml Balance 1470 ml 777 ml Results/Medications Result Diagram: 11/20/16 0715 11/20/16 0601 Results 24 hrs Laboratory Tests Test 11/20/16 06:01 11/20/16 07:15 11/20/16 12:00 Anion Gap 11 Basophils # 0.0 0.0 Basophils % 0.4 0.1 Blood Morphology Comment Blood Urea Nitrogen 10 Calcium Level 7.5 L Carbon Dioxide Level 25 Chloride Level 96 L Creatinine 0.66 Eosinophils # 0.1 0.1 Eosinophils % 0.8 0.8 Glucose Level 70 Hematocrit 19.9 #L 20.3 L Hemoglobin 6.8 *L 7.1 L Lymphocytes # 0.4 L 0.5 L Lymphocytes % 6.4 L 6.9 L Mean Corpuscular Hemoglobin 29.0 29.5 Mean Corpuscular Hemoglobin Concent 33.9 34.7 Mean Corpuscular Volume 85.7 85.1 Mean Platelet Volume 7.6 7.6 Monocytes # 0.8 0.8 Monocytes % 11.9 H 11.6 H Neutrophils # 5.5 5.4 Neutrophils % 80.5 H 80.6 H Nucleated Red Blood Cells # 0.0 0.0 Nucleated Red Blood Cells % 0.0 0.0 Platelet Count 184 188 Potassium Level 4.4 Red Blood Count 2.33 #L 2.39 L Red Cell Distribution Width 18.6 H 19.1 H Sodium Level 128 L White Blood Count 6.8 # 6.7 Activated Partial Thromboplast Time 35.3 H INR International Normalized Ratio 1.62 Prothrombin Time 19.4 H Prothrombin Time Ratio 1.5 Medications Current Medications Ondansetron HCl (Zofran Inj) 4 mg Q6H PRN IV NAUSEA AND/OR VOMITING; Start 11/13 at 16:00 Acetaminophen (Tylenol Tab) 650 mg Q6H PRN PO PAIN LEVEL 1-3 OR FEVER; Start at 16:00 Acetaminophen/ Hydrocodone Bitart ([place] (5/325)) 1 tab Q6H PRN PO MODERATE PAIN LEVEL 4-6; Start 11/13/16 at 16:00 Morphine Sulfate (morphine) 2 mg Q4H PRN IV SEVERE PAIN LEVEL 7-10 Last administered on 11/13/16 20:29; Admin Dose 2 MG; Start 11/13/16 at 16:00 Docusate Sodium (Colace) 100 mg Q12H PRN PO CONSTIPATION; Start 11/13/16 at 16: 00 Magnesium Hydroxide (Milk Of Mag) 30 ml DAILY PRN PO CONSTIPATION; Start at 16:00 Sodium Biphosphate/ Sodium Phosphate (Fleet Enema) 133 ml DAILY PRN [place] CONSTIPATION; Start 11/13/16 at 16:00 Lorazepam (Ativan) 0.5 mg Q6H PRN IV ANXIETY; Start 11/13/16 at 16:00 Hydralazine HCl (Apresoline) 10 mg Q6H PRN IV ELEVATED BLOOD PRESSURE; Start at 16:00 Clonidine (Catapres) 0.1 mg Q6H PRN PO ELEVATED BLOOD PRESSURE; Start 11/13/16 at 16:00 Nitroglycerin (Nitroglycerin (Sl Tab) 0.4 Mg) 1 tab Q5M PRN SL ANGINA; Start at 16:00 Furosemide (Lasix) 40 mg DAILY PO Last administered on 11/19/16 10:31; Admin Dose 40 MG; Start 11/14/16 at 09:00 Potassium Chloride (Klor-Con 20) 20 meq DAILY PO Last administered on 08:40; Admin Dose 20 MEQ; Start 11/14/16 at 09:00 Tramadol HCl (Ultram) 50 mg Q4H PRN PO PAIN Last administered on 11/20/16 01: 50; Admin Dose 50 MG; Start 11/13/16 at 16:00 Pantoprazole 40 mg 40 mg BID@18 IV Last administered on 11/20/16 06:03; Admin Dose 40 MG; Start 11/14/16 at 11:00 Ertapenem/Sodium Chloride (Invanz/NS) 100 ml @ 200 mls/hr Q24H IVPB Last administered on 11/19/16 16:27; Admin Dose 200 MLS/HR; Start 11/17/16 at 15:30 Tamsulosin HCl (Flomax) 0.4 mg HS PO Last administered on 11/19/16 20:57; Admin Dose 0.4 MG; Start 11/17/16 at 21:00 Furosemide (Lasix) 20 mg ONCE IV ; Start 11/20/16 at 12:00; Stop 11/20/16 at 16: 00 Assessment/Plan Chief Complaint/Hosp Course MICROBIOLOGY: Blood and urine culture growing E coli ESBL, repeat bld cx negative ANTIMICROBIALS: Invanz PHYSICAL EXAMINATION: GENERAL: This is a fragile, cachectic elderly woman who is in no distress. HEENT: Head atraumatic, normocephalic. Sclerae anicteric. Buccal mucosa dry. NECK: Supple, trachea midline. CHEST: Rise symmetrical. Breath sounds diminished to bases. HEART: S1, S2. ABDOMEN: Distended, soft. Bowel tones hypoactive. EXTREMITIES: Without cyanosis. ASSESSMENT: 1. E coli ESBL bacteremia secondary to urinary tract infection. 2. Status post Escherichia coli extended-spectrum beta-lactamase urinary tract infection in 10/2016. 3. Ascites status post paracentesis==>peritoneal fluid cultures are negative. 4. Diabetes. 5. Pancreatic CA, locally advanced. 6. Urinary retention PLAN: Clinically stable, s/p PICC, pending dc planning, abx for 8 more days [facility] staff/pt/family Problems: MIKE BRYSON NP Nov 20, 2016 13:15
[2016-11-20] MEDS: ERTAPENEM SODIUM 1 GM in SOD CHLORIDE 0.9% 100 ML IVPB SCH (14:10)
--- NOTE | 2016-11-20 14:40 | CONS ---
Date/Time of Note Date/Time of Note DATE: 11/20/16 TIME: 14:36 Assessment/Plan Assessment/Plan Additional Assessment/Plan Anemia * Transfuse to keep hemoglobin above 7.5 * Positive stool bili likely secondary to large obstructing and friable malignant neoplasm in the second portion of the duodenum * Repeat IP EGD only recommended if precipitous drop in hemoglobin occurs Abdominal pain/nausea/vomiting, improving * Paracentesis as needed as needed * Review paracentesis culture and treat accordingly, currently negative for AFB * Continue Lasix and add Aldactone BID * Stool OB positive, hemoglobin stable, no EGD planned * Continue PPI twice daily * Monitor H&H every 6 hours, transfuse 2 units for hemoglobin less than 7.5 * ID following Hx of Metastatic pancreatic cancer. * s/p EGD 06/06/2016: IMPRESSION: Duodenal obstruction bridged with 10 x 120-mm duodenal wall stent proximal opening in gastric antrum distal opening and 3rd portion of the duodenum. 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 Recommendations depend on clinical course Patient seen in collaboration with Dr. Cooley Consultation Date/Type/Reason Admit Date/Time Nov 13, 2016 at 15:10 Type of Consultation: GI 24 HR Interval Summary Free Text/Dictation Tolerating diet Drop in hemoglobin, 2 units PRBCs planned transfusion Plan on transfer to [facility] today or in a.m. tomorrow We will defer EGD to [facility] if they deem appropriate Exam/Review of Systems Vital Signs Vitals Vital Signs Date Time Temp Pulse Resp B/P Pulse Ox O2 Delivery O2 Flow Rate FiO2 11/20/16 07:34 97.1 91 18 89/55 98 Intake and Output 11/19/16 11/19/16 11/20/16 15:00 23:00 07:00 Intake Total 1470 ml 780 ml Output Total 3 ml Balance 1470 ml 777 ml Exam Constitutional: alert, frail, oriented Psych: nl mood/affect Head: normocephalic Eyes: EOMI Respiratory: clear to auscultation, normal air movement Cardiovascular: regular rate and rhythm Gastrointestinal: soft, non-tender 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 Results Result Diagram: 11/20/16 0715 11/20/16 0601 Results 24 hrs Laboratory Tests Test 11/20/16 06:01 11/20/16 07:15 11/20/16 12:00 Anion Gap 11 Basophils # 0.0 0.0 Basophils % 0.4 0.1 Blood Morphology Comment Blood Urea Nitrogen 10 Calcium Level 7.5 L Carbon Dioxide Level 25 Chloride Level 96 L Creatinine 0.66 Eosinophils # 0.1 0.1 Eosinophils % 0.8 0.8 Glucose Level 70 Hematocrit 19.9 #L 20.3 L Hemoglobin 6.8 *L 7.1 L Lymphocytes # 0.4 L 0.5 L Lymphocytes % 6.4 L 6.9 L Mean Corpuscular Hemoglobin 29.0 29.5 Mean Corpuscular Hemoglobin Concent 33.9 34.7 Mean Corpuscular Volume 85.7 85.1 Mean Platelet Volume 7.6 7.6 Monocytes # 0.8 0.8 Monocytes % 11.9 H 11.6 H Neutrophils # 5.5 5.4 Neutrophils % 80.5 H 80.6 H Nucleated Red Blood Cells # 0.0 0.0 Nucleated Red Blood Cells % 0.0 0.0 Platelet Count 184 188 Potassium Level 4.4 Red Blood Count 2.33 #L 2.39 L Red Cell Distribution Width 18.6 H 19.1 H Sodium Level 128 L White Blood Count 6.8 # 6.7 Activated Partial Thromboplast Time 35.3 H INR International Normalized Ratio 1.62 Prothrombin Time 19.4 H Prothrombin Time Ratio 1.5 Medications Medications Current Medications Ondansetron HCl (Zofran Inj) 4 mg Q6H PRN IV NAUSEA AND/OR VOMITING; Start 11/13 at 16:00 Acetaminophen (Tylenol Tab) 650 mg Q6H PRN PO PAIN LEVEL 1-3 OR FEVER; Start at 16:00 Acetaminophen/ Hydrocodone Bitart ([place] (5/325)) 1 tab Q6H PRN PO MODERATE PAIN LEVEL 4-6; Start 11/13/16 at 16:00 Morphine Sulfate (morphine) 2 mg Q4H PRN IV SEVERE PAIN LEVEL 7-10 Last administered on 11/13/16t 20:29; Admin Dose 2 MG; Start 11/13/16 at 16:00 Docusate Sodium (Colace) 100 mg Q12H PRN PO CONSTIPATION; Start 11/13/16 at 16: 00 Magnesium Hydroxide (Milk Of Mag) 30 ml DAILY PRN PO CONSTIPATION; Start at 16:00 Sodium Biphosphate/ Sodium Phosphate (Fleet Enema) 133 ml DAILY PRN [place] CONSTIPATION; Start 11/13/16 at 16:00 Lorazepam (Ativan) 0.5 mg Q6H PRN IV ANXIETY; Start 11/13/16 at 16:00 Hydralazine HCl (Apresoline) 10 mg Q6H PRN IV ELEVATED BLOOD PRESSURE; Start at 16:00 Clonidine (Catapres) 0.1 mg Q6H PRN PO ELEVATED BLOOD PRESSURE; Start 11/13/16 at 16:00 Nitroglycerin (Nitroglycerin (Sl Tab) 0.4 Mg) 1 tab Q5M PRN SL ANGINA; Start at 16:00 Furosemide (Lasix) 40 mg DAILY PO Last administered on 11/19/16 10:31; Admin Dose 40 MG; Start 11/14/16 at 09:00 Potassium Chloride (Klor-Con 20) 20 meq DAILY PO Last administered on 08:40; Admin Dose 20 MEQ; Start 11/14/16 at 09:00 Tramadol HCl (Ultram) 50 mg Q4H PRN PO PAIN Last administered on 11/20/16 01: 50; Admin Dose 50 MG; Start 11/13/16 at 16:00 Pantoprazole 40 mg 40 mg BID@06,18 IV Last administered on 11/20/16 06:03; Admin Dose 40 MG; Start 11/14/16 at 11:00 Ertapenem/Sodium Chloride (Invanz/NS) 100 ml @ 200 mls/hr Q24H IVPB Last administered on 11/20/16 14:10; Admin Dose 200 MLS/HR; Start 11/17/16 at 15:30 Tamsulosin HCl (Flomax) 0.4 mg HS PO Last administered on 11/19/16 20:57; Admin Dose 0.4 MG; Start 11/17/16 at 21:00 Furosemide (Lasix) 20 mg ONCE IV ; Start 11/20/16 at 12:00; Stop 11/20/16 at 16: 00 GILDARDO LAST Nov 20, 2016 14:40
[2016-11-20 17:00] VITALS: BP 90/55; PULSE 72; RESP 15
[2016-11-20] MEDS ORDERED: SOD CHLORIDE 0.9% 500 ML IV ONE (17:00)
--- NOTE | 2016-11-20 17:28 | PN ---
Date/Time of Note Date/Time of Note DATE: 11/20/16 TIME: 17:19 Assessment/Plan VTE Prophylaxis VTE Prophylaxis Intervention: SCD's VTE Contraindication Reason: bleeding Lines/Catheters IV Catheter Type (from Nrsg): PICC Line Central line still needed: Yes Urinary Cath still in place: No Assessment/Plan Assessment/Plan -year-old female coming in with abdominal distention and discomfortwith signs of possible spontaneous bacterial peritonitis with a prior history of pancreatic cancer, presently followed at [facility] for treatment. 1. Malignant Ascites - Ascites is likely malignant in origin / Ascitic fluid cultures have been negative so far - Patient has been offered option of a permanent catheter at cancer center, and family will followup on this at discharge. - Continue Aldactone and lasix as bp tolerates 2. ESBL Ecoli UTI and bacteremia: -PICC line placed / patient is to complete 2 weeks of Invanz therapy 3. Recurrent anemia 2/ 2 GI bleed: chronic and likely 2/2 to mass -s/p EGD 06/06/2016: IMPRESSION: Duodenal obstruction bridged with 10 x 120- mm duodenal wall stent proximal opening in gastric antrum distal opening and 3rd portion of the duodenum -No further acute intervention per GI / serial hgb monitoring / transfuse PRN 4. Metastatic pancreatic cancer. - currently cared for at [facility] and is on chemo (she has had radiation in the past) - Continue Creon as well and tramadol. 4. Lower extremity swelling. Again, secondary to most likely the pancreatic cancer + ascites - Continue Lasix + aldactone -hypoalbuminemia noted / replace 5. High cholesterol - cont statin 6. Hypothyroidism - continue Synthroid. 7. Chronic cachexia / malnutrition from cancer and chemo dietary supplementation DISPO: will transfuse to optimize patient. I have contacted [facility] for a possible transfer as patient is not likely to be stable enough to followup as outpatient d/t recurrent ascites, and recurrent need for transfusion from ongoing GI bleed. Patient also gets hypotensive and unfortunately cannot tolerate diuresis. Continue aggressive monitoring and mgt at this time. Gastrointestinal prophylaxis. H2 chasity. Deep venous thrombosis prophylaxis. Sequential compression devices. Subjective 24 Hr Interval Summary Free Text/Dictation Patient seen and examined. still c/o abd fullness and ?discomfort, patient uses the term "Inflammation" Exam/Review of Systems Vital Signs Vitals Vital Signs Date Time Temp Pulse Resp B/P Pulse Ox O2 Delivery O2 Flow Rate FiO2 11/20/16 17:00 72 15 90/55 11/20/16 07:34 97.1 98 Intake and Output 11/19/16 11/19/16 11/20/16 15:00 23:00 07:00 Intake Total 1470 ml 780 ml Output Total 3 ml Balance 1470 ml 777 ml Exam GENERAL: The patient is in no acute distress / cachectic from chronic disease HEENT: Pupils equal, round, reactive to light. Extraocular muscles intact. There is no scleral icterus NECK: No thyromegaly. LUNGS: Clear to auscultation bilaterally. CARDIOVASCULAR: S1, S2 heard. No rubs or gallops. ABDOMEN: Soft and still moderately distended, but not overtly tender. No rebound or guarding. MUSCULOSKELETAL: 2+ pitting edema bilateral lower extremities to the knees. chronic msc wasting NEUROLOGIC: No focal deficits. PSYCHIATRIC: calm Results Result Diagram: 11/20/16 0715 11/20/16 0601 Results 24 hrs Laboratory Tests Test 11/20/16 06:01 11/20/16 07:15 11/20/16 12:00 Anion Gap 11 Basophils # 0.0 0.0 Basophils % 0.4 0.1 Blood Morphology Comment Blood Urea Nitrogen 10 Calcium Level 7.5 L Carbon Dioxide Level 25 Chloride Level 96 L Creatinine 0.66 Eosinophils # 0.1 0.1 Eosinophils % 0.8 0.8 Glucose Level 70 Hematocrit 19.9 #L 20.3 L Hemoglobin 6.8 *L 7.1 L Lymphocytes # 0.4 L 0.5 L Lymphocytes % 6.4 L 6.9 L Mean Corpuscular Hemoglobin 29.0 29.5 Mean Corpuscular Hemoglobin Concent 33.9 34.7 Mean Corpuscular Volume 85.7 85.1 Mean Platelet Volume 7.6 7.6 Monocytes # 0.8 0.8 Monocytes % 11.9 H 11.6 H Neutrophils # 5.5 5.4 Neutrophils % 80.5 H 80.6 H Nucleated Red Blood Cells # 0.0 0.0 Nucleated Red Blood Cells % 0.0 0.0 Platelet Count 184 188 Potassium Level 4.4 Red Blood Count 2.33 #L 2.39 L Red Cell Distribution Width 18.6 H 19.1 H Sodium Level 128 L White Blood Count 6.8 # 6.7 Activated Partial Thromboplast Time 35.3 H INR International Normalized Ratio 1.62 Prothrombin Time 19.4 H Prothrombin Time Ratio 1.5 Medications Medications Current Medications Ondansetron HCl (Zofran Inj) 4 mg Q6H PRN IV NAUSEA AND/OR VOMITING; Start 11/13 at 16:00 Acetaminophen (Tylenol Tab) 650 mg Q6H PRN PO PAIN LEVEL 1-3 OR FEVER; Start at 16:00 Acetaminophen/ Hydrocodone Bitart ([place] (5/325)) 1 tab Q6H PRN PO MODERATE PAIN LEVEL 4-6; Start 11/13/16 at 16:00 Morphine Sulfate (morphine) 2 mg Q4H PRN IV SEVERE PAIN LEVEL 7-10 Last administered on 11/13/16 20:29; Admin Dose 2 MG; Start 11/13/16 at 16:00 Docusate Sodium (Colace) 100 mg Q12H PRN PO CONSTIPATION; Start 11/13/16 at 16: 00 Magnesium Hydroxide (Milk Of Mag) 30 ml DAILY PRN PO CONSTIPATION; Start at 16:00 Sodium Biphosphate/ Sodium Phosphate (Fleet Enema) 133 ml DAILY PRN IN CONSTIPATION; Start 11/13/16 at 16:00 Lorazepam (Ativan) 0.5 mg Q6H PRN IV ANXIETY; Start 11/13/16 at 16:00 Hydralazine HCl (Apresoline) 10 mg Q6H PRN IV ELEVATED BLOOD PRESSURE; Start at 16:00 Clonidine (Catapres) 0.1 mg Q6H PRN PO ELEVATED BLOOD PRESSURE; Start 11/13/16 at 16:00 Nitroglycerin (Nitroglycerin (Sl Tab) 0.4 Mg) 1 tab Q5M PRN SL ANGINA; Start at 16:00 Furosemide (Lasix) 40 mg DAILY PO Last administered on 11/19/16 10:31; Admin Dose 40 MG; Start 11/14/16 at 09:00 Potassium Chloride (Klor-Con 20) 20 meq DAILY PO Last administered on 08:40; Admin Dose 20 MEQ; Start 11/14/16 at 09:00 Tramadol HCl (Ultram) 50 mg Q4H PRN PO PAIN Last administered on 11/20/16 01: 50; Admin Dose 50 MG; Start 11/13/16 at 16:00 Pantoprazole 40 mg 40 mg BID@06,18 IV Last administered on 11/20/16 06:03; Admin Dose 40 MG; Start 11/14/16 at 11:00 Ertapenem/Sodium Chloride (Invanz/NS) 100 ml @ 200 mls/hr Q24H IVPB Last administered on 11/20/16 14:10; Admin Dose 200 MLS/HR; Start 11/17/16 at 15:30 Tamsulosin HCl 0.4 mg 0.4 mg HS PO Last administered on 11/19/16 20:57; Admin Dose 0.4 MG; Start 11/17/16 at 21:00 Sodium Chloride (NS) 500 ml @ 500 mls/hr Q1H ONCE IV Last administered on 11/20 17:00; Admin Dose 500 MLS/HR; Start 11/20/16 at 17:00; Stop 11/20/16 at 17 :59 Procedures Procedures PROCEDURE: US Abdomen (limited). CLINICAL INDICATION: Abdominal pain and distension. TECHNIQUE: Multiple real-time longitudinal and transverse images of the four quadrants of the abdomen were acquired utilizing a curved array transducer. Images were reviewed on a high-resolution PACS workstation. COMPARISON: None FINDINGS: There is a small amount of ascites throughout the 4 quadrants of the abdomen. There is not of free fluid to safely aspirate. Paracentesis was not performed. IMPRESSION: 1. Small amount of ascites. Paracentesis was not performed. RPTAT: QQ .Jacob Smiley MD, MD Date Time Electronically viewed and signed by .Jacob Smiley MD, on 11/19/2016 16:02 .NARAYAN GAONA Nov 20, 2016 17:28
[2016-11-20 19:00] VITALS: BP 99/61; RESP 18
[2016-11-20] MEDS: TAMSULOSIN (SR) 0.4 MG CAP PO SCH (20:48)
[2016-11-21] MEDS: SPIRONOLACTONE 50 MG TAB PO SCH (05:54)
[2016-11-21] MEDS: LEVOTHYROXINE 100 MCG TAB PO SCH (05:54)
[2016-11-21] MEDS: PANTOPRAZOLE 40 MG INJ IV SCH (05:54)
[2016-11-21 06:37] LABS: INR 1.57; PROTIME 18.9 Sec (12.2-14.2); PT RATIO 1.5
[2016-11-21 06:38] LABS: PARTIAL THROMBOPLASTIN TIME 32.5 Sec (25.0-35.0)
[2016-11-21 08:02] VITALS: BP 108/65; RESP 20
[2016-11-21] MEDS: traMADol 50 MG TAB PO PRN (08:13)
--- NOTE | 2016-11-21 20:44 | TS ---
DATE OF ADMISSION: 11/13/2016 DATE OF DISCHARGE: 11/21/2016 FINAL DIAGNOSES: This is a 66-year-old female who had originally come in with abdominal distention and discomfort and concerns for possible spontaneous bacterial peritonitis with a history of locally invasive pancreatic cancer, managed as follows: 1. Malignant ascites, which seems to be recurrent. Ascites are likely malignant in origin. Asciti c fluid cultures were negative inhouse. The patient had been offered the option of a permanent abdo allyson catheter at [facility] and she will follow up on this while there. 2. Extended-spectrum beta-lactamase Escherichia coli urinary tract infection and bacteremia. The p atient continues on Invanz therapy for this. She is to complete 2 weeks. 3. Recurrent anemia secondary to gastrointestinal bleed. The patient had been transfused 2 times w ithin 6 days on this admission because of ongoing to continue gastrointestinal bleed secondary to ma ss in her gastrointestinal tract. 4. Metastatic pancreatic cancer. She is currently cared for at [facility] and is being transferred to their care. 5. Lower extremity swelling and discomfort, likely secondary to pancreatic cancer and ascites. The patient is also noted some hypoalbuminemia and has been treated with albumin therapy. Unfortunatel y, cannot tolerate diuresis due to low blood pressure. 6. Symptomatic hypotension. The patient's systolic blood pressure stays in the 80s and 90s and pat ient does have dizziness with ambulation or sitting up. Hopefully this will improve with the recurr ing transfusion. 7. Dyslipidemia. On statin. 8. Hypothyroidism. On Synthroid. 9. Chronic malnutrition/cachexia from cancer and chemo. On supplementation. DISPOSITION: The patient is being transferred to [facility] under the care of her oncologist for fu rther management. HOSPITAL COURSE: Full detail are available in the chart for review. In summary, this patient had p resented to our emergency room with abdominal pain and discomfort, as well as left lower extremity s welling in the setting of history of metastatic pancreatic cancer. For a week she had had radiation in the past what sounds like palliative chemo [facility]. The patient admitted was admitted and man aged. She was found to have ESBL E. coli UTI and bacteremia, and she was treated with antibiotics. There were concerns for spontaneous bacterial peritonitis because she had significant ascites and s ome abdominal discomfort. She did undergo a paracentesis on admission and ascitic fluid was sent fo r cultures. These have been negative so far, however. The patient also noted to be severely anemic upon admission and she was transfused with improvement in her hemoglobin to 10. However, during e course of her hospitalization, she continued to feel dizzy and continued to complain of abdominal discomfort. However, her WBC count improved with antibiotic therapy. Six days into admission, [place]ott[place], she required a repeat paracentesis, as well as a repeat blood transfusion. Paracentesis did no t reveal much, but patient continued to feel distended and continued to complain of abdominal discom fort. Based on this, a decision was made to contact her oncologist at [facility] for possible transfer for possib le chemo because the patient is not likely to be discharged home stable enough to stay home for any prolonged period of time. I spoke with the patient's son and this was a concern her verbalized as marycruz green. The likelihood is that because of the mass in her GI tract, the patient will continually bleed and require a transfusion every 5 to 6 days. Her abdominal distention also is persistent and she h as required at least 2 abdominal taps in the last 6 days. Based on this fact, [facility] was contacted and her oncologist has accepted the patient for transfer. I believe at this time, the patient is sta e for transfer. I think at this point further chemotherapy is warranted and quite important. If no t, we will just keep chasing our tails trying to manage her symptoms. The patient has of thi s plan and she is in agreement. DISCHARGE MEDICATIONS: For a complete list of medications at the time of transfer, please review e patient's chart and record. I have spoken with the patient. I have spoken with accepting annalise y. Overall evaluation time has been about 40 minutes. Dictated By: NARAYAN GOLDMAN MD BA/NTS Conf#: [id number] DID#: [id number]
[2016-11-27] MEDS ORDERED: FURO20TA PO (12:02)
== END 2016-11-21 08:45 | disposition short-term general hospital (02) | DRG 871 ==
LOC: E/R 09:57 → MS2 15:10
PROVIDERS: ADMIT Family Medicine; ATTEND Family Medicine
PROC: 0W9G3ZX Drainage of Peritoneal Cavity, Percutaneous Approach, Diagnostic (ICD-10-PCS; principal; 2016-11-13)
PROC: 02HV33Z Insertion of Infusion Device into Superior Vena Cava, Percutaneous Approach (ICD-10-PCS; 2016-11-18)
PROC: B548ZZA Ultrasonography of Superior Vena Cava, Guidance (ICD-10-PCS; 2016-11-18)
PROC: 30233N1 Transfusion of Nonautologous Red Blood Cells into Peripheral Vein, Percutaneous Approach (ICD-10-PCS; 2016-11-20)
DX: A41.9 Sepsis, unspecified organism (principal); K65.2 Spontaneous bacterial peritonitis; R18.0 Malignant ascites; R64 Cachexia; E46 Unspecified protein-calorie malnutrition; C25.9 Malignant neoplasm of pancreas, unspecified; C78.4 Secondary malignant neoplasm of small intestine; K92.2 Gastrointestinal hemorrhage, unspecified; N39.0 Urinary tract infection, site not specified; E03.9 Hypothyroidism, unspecified; E78.5 Hyperlipidemia, unspecified; M79.89 Other specified soft tissue disorders; E11.9 Type 2 diabetes mellitus without complications; D63.8 Anemia in other chronic diseases classified elsewhere; I95.1 Orthostatic hypotension; B96.20 Unspecified Escherichia coli [E. coli] as the cause of diseases classified elsewhere; Z16.11 Resistance to penicillins; Z16.23 Resistance to quinolones and fluoroquinolones; R33.9 Retention of urine, unspecified; Z68.21 Body mass index [BMI] 21.0-21.9, adult; Z79.4 Long term (current) use of insulin; Z98.51 Tubal ligation status; Z90.49 Acquired absence of other specified parts of digestive tract
CPT/HCPCS: 36415; 36430; 36569; 71010; 76705; 76937; 80048; 80053; 80061; 81001; 81003; 82270; 82945; 83036; 83605; 83690; 83735; 84100; 84157; 84439; 84443; 85025; 85610; 85730; 86850; 86900; 86901; 86920; 87040; 87070; 87086; 87102; 87116; 89050; 93005; 96374; 96375; 97110; 97116; 97162; 97530; A4310; C9113; J0696; J0698; J0743; J1335; J2270; J2405; J3370; J7030; J7040; P9016; P9047

== ENCOUNTER 2016-11-27 11:19 | Inpatient (IN) | payer MEDICARE, OTHER ==
[~2016-11-27] VITALS: Ht 157.5 cm; Wt 46.8 kg
[~2016-11-27 11:19] MED LIST changes: +DOCU-144 PO; +ERTA1VIA IV; -LEVO100T96 PO; -POTA20TA96 PO; +SPIR25TA PO; +SYN1 PO; +TRAM50TA2 PO; -ULT50 PO
[2016-11-27] MEDS ORDERED: SODIUM CHLORIDE 0.9% 1L BAG IV* STA (11:20)
[2016-11-27 11:59] LABS: BASOPHILS % 0.1 % (0.0-2.0); EOSINOPHILS % 0.2 % (0.0-7.0); HEMATOCRIT 22.9 % (37.0-47.0); HEMOGLOBIN 7.7 g/dl (12.0-16.0); LYMPHOCYTES # 0.7 10^3/ul (0.8-2.9); LYMPHOCYTES % 7.7 % (15.0-51.0); MEAN CORPUSCULAR HEMOGLOBIN 29.5 pg (29.0-33.0); MEAN CORPUSCULAR HGB CONC 33.4 g/dl (32.0-37.0); MEAN CORPUSCULAR VOLUME 88.3 fl (82.0-101.0); MEAN PLATELET VOLUME 7.4 fl (7.4-10.4); MONOCYTE # 0.6 10^3/ul (0.3-0.9); MONOCYTES % 7.3 % (0.0-11.0); NEUTROPHIL # 7.4 10^3/ul (1.6-7.5); NEUTROPHILS % 84.7 % (39.0-77.0); PLATELET COUNT 231 10^3/UL (140-440); RED BLOOD COUNT 2.59 10^6/ul (4.20-5.40); RED CELL DISTRIBUTION WIDTH 17.8 % (11.5-14.5); UNCORRECTED WBC 8.7 10^3/ul (4.8-10.8); WHITE BLOOD COUNT 8.7 10^3/ul (4.8-10.8)
[2016-11-27] MEDS ORDERED: LEVO112T42 PO (12:01)
[2016-11-27] MEDS ORDERED: FURO-110 PO (12:02)
[2016-11-27 12:05] LABS: ALBUMIN 2.4 g/dl (3.3-4.9)
[2016-11-27] MEDS ORDERED: MEGE800O PO (12:05)
[2016-11-27 12:06] LABS: CHLORIDE 99 mmol/L (97-110); INR 1.39; POTASSIUM 3.8 mmol/L (3.5-5.1); PROTIME 17.1 Sec (12.2-14.2); PT RATIO 1.3; SODIUM 135 mmol/L (135-144)
[2016-11-27] MEDS ORDERED: POTA20TA96 PO (12:06)
[2016-11-27 12:07] LABS: PARTIAL THROMBOPLASTIN TIME 33.7 Sec (25.0-35.0)
[2016-11-27 12:08] LABS: ANION GAP 12 (8-16); ASPARTATE AMINO TRANSFERASE 41 IU/L (15-46); CARBON DIOXIDE 28 mmol/L (21-31); CREATININE 0.51 mg/dl (0.44-1.00)
[2016-11-27 12:09] LABS: ALANINE AMINOTRANSFERASE 36 IU/L (13-69); ALBUMIN/GLOBULIN RATIO 0.77; ALKALINE PHOSPHATASE 181 IU/L (42-121); BLOOD UREA NITROGEN 21 mg/dl (7-20); CALCIUM 7.8 mg/dl (8.4-10.2); GLUCOSE 94 mg/dl (70-220)
--- NOTE | 2016-11-27 12:09 | RADRPT ---
PROCEDURE: Chest Radiograph. CLINICAL INDICATION: Sepsis TECHNIQUE: Single frontal chest radiograph. COMPARISON: Chest radiograph 11/18/2016 FINDINGS: A right chest wall port infusion catheter and left upper extremity PICC are in stable and radiograph ically appropriate position. The patient is rotated. Heart size is poorly evaluated. Lung volumes are markedly decreased in there is mild basilar atelectasis. There is stable elevation of the righ t hemidiaphragm. No infiltrate or effusion is seen. The bones are intact. IMPRESSION: 1. Low lung volumes with basilar atelectasis. RPTAT: AA .Ceferino Cooper MD, MD Date Time Electronically viewed and signed by .Ceferino Cooper MD, on 11/27/2016 12:09 .B/
[2016-11-27 12:14] LABS: BILIRUBIN,INDIRECT 0.2 mg/dl (0-1.1); BILIRUBIN,TOTAL 0.2 mg/dl (0.2-1.3); TOTAL PROTEIN 5.5 g/dl (6.1-8.1)
[2016-11-27 12:15] LABS: CONDITION 1; LH ANALYZER COMMENTS 1
[2016-11-27 12:21] LABS: TROPONIN-I < 0.010 ng/ml (0.00-0.12)
--- NOTE | 2016-11-27 12:56 | RADRPT ---
PROCEDURE: CT Brain without. CLINICAL INDICATION: Altered mental status. TECHNIQUE: A CT of the brain was performed on multidetector high-resolution CT scanner utilizing a xial sections from the skull base through the vertex without contrast. The scan was reviewed in sof t tissue brain and high frequency resolution bone algorithm windows. Images were reviewed on a high -resolution PACS workstation. One or more the following does reduction techniques were utilized: Aut omated exposure control, adjustment of the mA/ or kV according to patient's size, or use of iterativ e reconstruction technique. The exam CTDI = 44.81 mGy and the DLP = 630.2 mGy-cm. COMPARISON: None available. FINDINGS: The ventricles and sulci are mildly prominent indicative of volume loss. There is no intracranial he morrhage, mass effect or midline shift. No abnormal intra-axial or extra-axial fluid collections ar e seen. The tran/white matter differentiation is preserved. There are mild scattered foci of hypoattenuation in the white matter, which are nonspecific in etiol ogy but likely reflect chronic small vessel ischemic changes. There are mild intracranial vascular calcifications consistent with atherosclerosis. The visualized paranasal sinuses are essentially berenice ar. IMPRESSION: 1. No acute intracranial hemorrhage, transcortical infarction or mass effect. 2. Mild intracranial atherosclerosis and chronic small vessel ischemic changes. 3. Mild generalized cerebral volume loss. RPTAT: QQ .Elvi Varela MD, MD Date Time Electronically viewed and signed by .Elvi Varela MD, MD on 11/27/2016 12:56 .N/
[2016-11-27 12:58] LABS: ADD UMIC NO; URINE BILIRUBIN (Dip) NEGATIVE (NEGATIVE); URINE BLOOD (Dip) NEGATIVE (NEGATIVE); URINE COLOR LT. YELLOW (YELLOW); URINE GLUCOSE (Dip) NEGATIVE (NEGATIVE); URINE KETONES (Dip) NEGATIVE (NEGATIVE); URINE LEUKOCYTE ESTERASE (Dip) NEGATIVE (NEGATIVE); URINE NITRITE (Dip) NEGATIVE (NEGATIVE); URINE TOTAL PROTEIN (Dip) NEGATIVE (NEGATIVE); URINE UROBILINOGEN (Dip) 0.2 E.U./dL (0.1-1.0)
[2016-11-27] MEDS ORDERED: SOD CHLORIDE 0.9% 1,000 ML IV SCH (13:18)
--- NOTE | 2016-11-27 13:24 | ERA ---
ER Documentation Chief Complaint Date/Time DATE: 11/27/16 TIME: 13:24 Chief Complaint AMS HPI This is a 65-year-old female who presents to the emergency room with family members for evaluation of weakness, and altered mental status. History is obtained from family members as patient is unable to give a history secondary to her clinical condition. This patient does have a history of pancreatic cancer, and frequent urinary tract infections. According to family member she has been feeling weak over the past 2 days. And today there was concern because her weakness had now resolved and they brought the patient to the ER. Family members state that this patient has had infectious was have caused altered mental status in the past. Family denies any fevers in this patient and brought the patient in for evaluation. This patient does have a PICC line and is receiving IV antibiotics for treatment of urinary tract infection ROS All systems reviewed and are negative except as per history of present illness. Medications Home Meds Active Scripts Ertapenem Sodium (Invanz) 1 Gm Vial.port, 1 GM IV Q24H for 8 Days Prov:NARAYAN GOLDMAN 11/20/16 Tramadol HCl (Tramadol HCl) 50 Mg Tablet, 50 MG PO Q4H Y for PAIN, #60 TAB 1 Refill Prov:NARAYAN GOLDMAN 11/20/16 Hfilmo-Gohfmqne-Uiyvhrq* (Bridget PINO* 24,000) 24,000 L-76,000-120,000 Unit Capsule.dr, 1 CAP PO WITH MEALS for 30 Days, CAP 1 Refill Prov:NARAYAN GOLDMAN 11/20/16 Reported Medications Potassium Chloride* (Potassium Chloride*) 20 Meq Tablet.er, 20 MEQ PO DAILY, TAB.SA 11/27/16 Megestrol Acetate* (Megestrol Acetate*) 800 Mg/20 Ml Oral.susp, 800 MG PO DAILY , ML 11/27/16 Furosemide* (Lasix*) 20 Mg Tablet, 40 MG PO BID, TAB 11/27/16 Levothyroxine Sodium* (Levoxyl*) 112 Mcg Tablet, 112 MCG PO BEFORE BREAKFAST, # 30 TAB 11/27/16 Discontinued Reported Medications Esomeprazole Mag Trihydrate (Nexium) 20 Mg Capsule.dr, 20 MG PO DAILY, #30 CAP 11/01/16 Ranitidine Hcl* (Ranitidine Hcl*) 150 Mg Tablet, 150 MG PO HS, #30 TAB 11/01/16 Levothyroxine Sodium* (Synthroid*) 100 Mcg Tablet, 100 MCG PO BEFORE BREAKFAST, #30 TAB 11/01/16 Potassium Chloride* (Potassium Chloride*) 20 Meq Tablet.er, 20 MEQ PO DAILY, TAB.SA 11/01/16 Discontinued Scripts Docusate Sodium* (Colace*) 100 Mg Capsule, 100 MG PO Q12H for 30 Days, CAP DON'T TAKE IF YOU'RE HAVING WATERY STOOLS Prov:NARAYAN GOLDMAN. 11/20/16 Spironolactone* (Aldactone*) 25 Mg Tablet, 12.5 MG PO BID, #60 TAB DON'T TAKE IF YOUR SYSTOLIC BLOOD PRESSURE IS 100mmhG OR LESS Prov:NARAYAN GOLDMAN. 11/20/16 Furosemide* (Furosemide*) 40 Mg Tablet, 20 MG PO DAILY for 30 Days, TAB 0 Refills Prov:NARAYAN GOLDMAN. 11/20/16 Allergies Allergies: Coded Allergies: methylisothiazolinone (Verified Allergy, Unknown, 11/27/16) PMhx/Soc History of Surgery: Yes (gallblader removal) Anesthesia Reaction: No Hx Neurological Disorder: No Hx Respiratory Disorders: No Hx Cardiac Disorders: No Hx Psychiatric Problems: No Hx Alcohol Use: No Hx Substance Use: No Hx Tobacco Use: No Smoking Status: Never smoker Physical Exam Vitals Vital Signs Date Time Temp Pulse Resp B/P Pulse Ox O2 Delivery O2 Flow Rate FiO2 11/27/16 11:39 98.2 80 15 115/75 100 11/27/16 11:39 Nasal Cannula 2 Physical Exam INITIAL VITAL SIGNS: Reviewed by me GENERAL: The patient is frail, cachectic appearing elderly female HEENT: Dry mucous membranes, pupils equal, round, and reactive to light. EOMI. There is no scleral icterus. NECK: C-spine is soft and supple, there is no meningismus. There is no cervical lymphadenopathy. LUNGS: Clear to auscultation bilaterally. There are no rales, wheezes or rhonchi. HEART: Regular rate and rhythm, no murmurs, clicks, rubs or gallops. ABDOMEN: Abdominal drain right portion of abdomen, soft, non-tender, non- distended. There are bowel sounds in all four quadrants. No rebound or guarding. EXTREMITIES: There is no peripheral cyanosis or edema. No focal swelling or erythema. NEUROLOGICAL: The patient moves all four extremities with 5/5 strength. SKIN: There is no apparent rash or petechiae. HEME/LYMPHATIC: There is no evidence of excessive bruising or lymphedema. PSYCHIATRIC: The patient does not appear anxious or depressed. Result Diagram: 11/27/16 1130 11/27/16 1130 Results 24 hrs Laboratory Tests Test 11/27/16 11:30 11/27/16 12:15 Activated Partial Thromboplast Time 33.7Sec Alanine Aminotransferase (ALT/SGPT) 36IU/L Albumin 2.4g/dl Albumin/Globulin Ratio 0.77 Alkaline Phosphatase 181IU/L Anion Gap 12 Aspartate Amino Transf (AST/SGOT) 41IU/L Basophils # 0.010^3/ul Basophils % 0.1% Blood Morphology Comment Blood Urea Nitrogen 21mg/dl Calcium Level 7.8mg/dl Carbon Dioxide Level 28mmol/L Chloride Level 99mmol/L Creatinine 0.51mg/dl Direct Bilirubin 0.00mg/dl Eosinophils # 0.010^3/ul Eosinophils % 0.2% Globulin 3.10g/dl Glucose Level 94mg/dl Hematocrit 22.9% Hemoglobin 7.7g/dl INR International Normalized Ratio 1.39 Indirect Bilirubin 0.2mg/dl Lactic Acid Level 1.3mmol/L Lymphocytes # 0.710^3/ul Lymphocytes % 7.7% Mean Corpuscular Hemoglobin 29.5pg Mean Corpuscular Hemoglobin Concent 33.4g/dl Mean Corpuscular Volume 88.3fl Mean Platelet Volume 7.4fl Monocytes # 0.610^3/ul Monocytes % 7.3% Neutrophils # 7.410^3/ul Neutrophils % 84.7% Nucleated Red Blood Cells # 0.010^3/ul Nucleated Red Blood Cells % 0.0/100WBC Platelet Count 29415^3/UL Potassium Level 3.8mmol/L Prothrombin Time 17.1Sec Prothrombin Time Ratio 1.3 Red Blood Count 2.5910^6/ul Red Cell Distribution Width 17.8% Sodium Level 135mmol/L Total Bilirubin 0.2mg/dl Total Protein 5.5g/dl Troponin I < 0.010ng/ml White Blood Count 8.710^3/ul Urine Bilirubin NEGATIVE Urine Clarity CLEAR Urine Color LT. YELLOW Urine Glucose NEGATIVE% Urine Hemoglobin NEGATIVE Urine Ketones NEGATIVE Urine Leukocyte Esterase NEGATIVE Urine Nitrite NEGATIVE Urine Specific [place] 1.010 Urine Total Protein NEGATIVE Urine Urobilinogen 0.2 E.U./dL Urine pH 6.0 Current Medications Medications (Trade) Dose Ordered Sig/Gabe Route PRN Reason Start Time Stop Time Status Last Admin Dose Admin Sodium Chloride 2000 ml 2,000 ml BOLUS OVER 2 HOURS STAT IV* 11/27/16 11:20 11/27/16 11:22 DC 11/27/16 11:53 Sodium Chloride (NS) 1,000 ml @ 80 mls/hr [id number] IV 11/27/16 13:18 11/28/16 01:47 Ondansetron HCl (Zofran Inj) 4 mg BRIDGE ORDER PRN IV NAUSEA AND/OR VOMITING 11/27/16 13:30 11/28/16 13:29 Acetaminophen (Tylenol Tab) 650 mg ER BRIDGE PRN PO MILD PAIN/FEVER 11/27/16 13:30 11/28/16 13:29 Procedures/MDM EKG: Rate/Rhythm: [Normal Sinus Rhythm] QRS, ST, T-waves: [No changes consistent w/ acute ischemia] Impression: [No evidence of ischemia or arrhythmia] Chest X-ray 1V Interpreted by me: Soft Tissue: No acute abnormalities Bones: No acute abnormalities Mediastinum/Cardiac Silhouette/Lungs: [No acute abnormalities] CT head without: 1. No acute intracranial hemorrhage, transcortical infarction or mass effect. 2. Mild intracranial atherosclerosis and chronic small vessel ischemic changes. 3. Mild generalized cerebral volume loss This 65-year-old female presents to the emergency room for evaluation of weakness and altered mental status. This patient was responsive on my examination, she is protecting her airway. She did appear mildly dehydrated and visibly weak on my examination. Did obtain a septic workup including blood and urine cultures which does not show any signs of leukocytosis. CT of the head is also normal at this time as well as urinalysis and chest x-ray. This patient is on Ivanz for frequent urinary tract infections and she is receiving treatment as an outpatient through her PICC line which is in the left upper extremity. This patient has no focal neurological deficits. This patient does appear to be continuously weak and will be placed in for admission at this time. She is also found to have a hemoglobin of 7.7. She has been lower than in the past and I did do a rectal exam which confirmed brown stool which was heme positive. She will be admitted to her panel physician at this time Departure Diagnosis: Primary Impression: Upper GI bleed Additional Impressions: Altered level of consciousness Normocytic anemia Condition: Stable WILLIE LUCOI DO Nov 27, 2016 13:24
[2016-11-27] MEDS ORDERED: ACETAMINOPHEN 325 MG TAB PO PRN ×2 (13:30→14:30)
[2016-11-27] MEDS ORDERED: ONDANSETRON 4 MG INJ IV PRN ×2 (13:30→14:30)
[2016-11-27 14:16] VITALS: TEMP 98.4
[2016-11-27] MEDS ORDERED: SOD CHLORIDE 0.9% 250 ML IV* ONE (14:19)
[2016-11-27] MEDS ORDERED: NA PHOSPHATE/BIPHOS 133 ML ENEMA PR PRN (14:30)
[2016-11-27] MEDS ORDERED: DOCUSATE SODIUM 100 MG CAP PO PRN (14:30)
[2016-11-27] MEDS ORDERED: HYDROCODONE/APAP (5/325) TAB PO PRN (14:30)
[2016-11-27] MEDS ORDERED: NITROGLYCERIN (SL) 0.4 MG TAB SL PRN (14:30)
[2016-11-27] MEDS ORDERED: ERTAPENEM SODIUM 1 GM IV SCH (14:30)
[2016-11-27] MEDS ORDERED: hydrALAzine 20 MG INJ IV PRN (14:30)
[2016-11-27] MEDS ORDERED: NACL 0.9% 3 ML SYG IV SCH (14:30)
[2016-11-27] MEDS ORDERED: LORAZEPAM 2 MG INJ IV PRN (14:30)
[2016-11-27] MEDS ORDERED: MAGNESIUM HYDROXIDE 30ML CUP PO PRN (14:30)
[2016-11-27] MEDS ORDERED: ALBUTEROL/IPRATROPIUM (NEB) 3 ML AMP HHN PRN (14:30)
[2016-11-27] MEDS ORDERED: ERTAPENEM SODIUM 1 GM in SOD CHLORIDE 0.9% 100 ML IVPB SCH (15:00)
[2016-11-27 15:06] VITALS: Ht 157.5 cm; Wt 46.8 kg
[2016-11-27 15:07] VITALS: BP 118/67; PULSE 83; RESP 14
--- NOTE | 2016-11-27 15:11 | HP ---
DATE OF ADMISSION: 11/27/2016 This is a 65-year-old female. CHIEF COMPLAINT: Altered mental status and weakness. HISTORY OF PRESENT ILLNESS: A 65-year-old female with past medical history of pancreatic cancer, ad vanced locally, status post neoadjuvant Florinex therapy x6 in the past followed at [facility]. Prior history of surgical resection attempt of the mass, anemia, high cholesterol, hypoth yroidism, ESBL Escherichia coli infection and bacteremia, type 2 diabetes, who presents with altered mental status and weakness for the last 2 days. The patient was recently at our hospital here from 11/13/2016 to 11/20/2016 before being transferred over to [facility] at that time. At that time, she was diagnosed with ESBL infection as mentioned above and was sent over to the other hospital with Invanz IV antibiotics for treatment. She followed up at [facility], was there and discharged 4 days ago, but not before getting peritoneal catheter placement in her abdomen for a history of ascites from her pancr eatic cancer. Per family, for the last 2 days at home, he has been having some chills and decreased ambulation and just feeling weak overall, l also had appeared more confused, per the son. She also vomited once last night, which is unclear if it was dark or nonbilious, nonbloody. She also in the ER today, had a dark stool and this was tested by the ER doctor, was positive occult test as well, and her hemoglobin today is 7.7. No apparent loss of consciousness. No significant chest pain or s hortness of breath. The family has said that in the last 2 days they have had to do 2 home paracent eses from the peritoneal catheter as well. PAST MEDICAL HISTORY: As stated above. ALLERGIES: METHYLISOTHIAZOLINONE. HOME MEDICINES: 1. Invanz 1 gram IV q.24h. 2. Megace 800 mg daily. 3. Tramadol 50 mg q.4 p.r.n. 4. Lasix 40 mg p.o. b.i.d. 5. Potassium chloride 20 mEq daily[address] 6[address] 24,000, one capsule with meals. 7. Levothyroxine 112 mcg every morning. PAST SURGICAL HISTORY: Whipple procedure in the past, cholecystectomy, tubal ligation, placement of duodenal stent in the past. SOCIAL HISTORY: Negative for smoking, drinking, or IV drug abuse. FAMILY HISTORY: Noncontributory. PHYSICAL EXAMINATION: VITAL SIGNS: T-max 98.2, pulse 80, respirations 15, blood pressure 115/75, saturating 100% on 2 lit ers nasal cannula. GENERAL: The patient is lying in bed, appears frail and cachectic, but otherwise alert. Son is at the bedside. HEENT: Pupils equal, round, react to light. There are some dry mucous membranes, but otherwise, ex traocular muscles are intact. NECK: Supple, no thyromegaly. LUNGS: Clear to auscultation bilaterally. No wheezes. CARDIOVASCULAR: S1, S2 heard. No rubs or gallops. ABDOMEN: Soft. There is abdominal drain in the right portion of the abdomen, nontender, nondistend ed. Normal bowel sounds. No rebound or guarding. MUSCULOSKELETAL: No lower extremity edema bilaterally. NEUROLOGIC: No focal deficits. LABORATORIES: WBC 8.7, hemoglobin 7.7, hematocrit 22.9, platelets 231. Comprehensive metabolic noble el is normal. Calcium is 7.8. The UA shows negative nitrites, negative leukocyte esterase. Head C T showed no acute intracranial hemorrhages or transcortical infarctions or mass effects. Chest x-ra y: Low lung volumes with basilar atelectasis. ASSESSMENT AND PLAN: This is a 65-year-old female coming in with weakness and altered mental status and possible lower GI bleeding over the last 2 days with a history of pancreatic cancer followed at [facility] and recent beta-lactamase Escherichia coli E. bacteremia and urinary tract infection. 1. Altered mental status, weakness. Again, could be secondary to the patient's prior sepsis from b lood infection. There is also concern that the cancer could be contributing to the patient's overal l weakness and mental status. Family states the patient has not had any further chemotherapy or rad iation, this was indicated by the [facility] team, cannot be performed until the infections have cleared so for now we will get an ID consult, GI consult, will consider low dose IV fluids. Continue to monit or for now. Check TSH, A1c, lipid panel. Continue patient's Invanz for now and talk to ID about ma frank switching the antibiotics as well and make sure is not a side effect to the Invanz medication. 2. Anemia. Again, the hemoglobin is 7.7. There is a questionable episode of lower GI bleeding. W ill order for a unit of PRBC transfusion and get a GI consult. The patient may benefit from EGD or colonoscopy or both. 3. History of metastatic pancreatic cancer again, with prior abdominal distention. Continue to mon itor for now, get a GI consult, as mentioned, will continue Creon and tramadol and continue patient' s home Lasix and Megace for now, and potassium chloride. 4. High cholesterol. Follow up lipid panel. Continue to monitor for now. 5. Hypothyroidism. Continue thyroid medicine, Synthroid. 6. GI, thrombosis prophylaxis, PPI and continue prophylactic SCDs. Dictated By: KENYON CASTANEDA/NILSA Conf#: [id number] DID#: [id number]
[2016-11-27 15:41] LABS: HEMATOCRIT 22.2 % (37.0-47.0); HEMOGLOBIN 7.4 g/dl (12.0-16.0)
--- NOTE | 2016-11-27 16:08 | CONS ---
DATE OF ADMISSION: 11/27/2016 DATE OF CONSULTATION: 11/27/2016 TYPE OF CONSULTATION: Infectious Disease. REASON FOR CONSULTATION: Antibiotic management. HISTORY OF PRESENT ILLNESS: Kiki Sanchez is a 65-year-old female well known to us from previous admissions, who comes in now with altered mental status and weakness. Her past problems are: Panc reatic cancer, advanced, status post neoadjuvant Florinef therapy x6 in the past and is followed at [facility]. She had prior history of surgical resection attempt of the mass. She is anemic. She has hypercholesterolemia, hypothyroidism, history of ESBL Escherichia coli infection and bacte remia, diabetes mellitus and numerous other problems. She presents with weakness and altered mental status. She was recently hospitalized from 11/13/2016 through 11/20/2016 before being transferred to [facility]. She was diagnosed with ESBL infection and was sent to another hospital with IV Invanz for treatment. She was discharged from [facility] 4 days ago, but not before getting peritoneal catheter placement in her abdomen for history of ascites from her noble creatic cancer. Over the last 2 days at home, she has been having chills, decreased ambulation and just feeling weak overall. She also was more confused. On admission, her white count was 8.7, H an d H 7.7 and 22.9, platelet count 231,000. Urinalysis showed negative nitrites and negative leukocyt e esterase. CT scan of the head showed no acute intracranial hemorrhages or transcortical infarctio ns or mass effects. Chest x-ray showed low lung volumes with basilar atelectasis. PAST MEDICAL HISTORY: Operations as outlined. FAMILY HISTORY: Noncontributory. SOCIAL HISTORY: She does not smoke, drink or abuse drugs. PAST SURGICAL HISTORY: She had a Whipple procedure, cholecystectomy, tubal ligation, and placement of a duodenal stent in the past. ALLERGIES: SHE IS ALLERGIC TO METHYLISOTHIAZOLINONE. REVIEW OF SYSTEMS: As per HPI. PHYSICAL EXAMINATION: GENERAL: The patient is a frail, cachectic female who is alert with the son at the bedside in no ac nooksack distress. VITAL SIGNS: Stable. She is afebrile. SKIN: Without generalized rash. HEENT: Within normal limits. NECK: Supple. LYMPH NODES: None palpable. CHEST: Decreased breath sounds at the bases. HEART: Without murmur or gallop. ABDOMEN: Soft. She has an abdominal drain in the right portion of the abdomen for dialysis. EXTREMITIES: Without cyanosis, clubbing, or edema. RECTAL AND GENITAL: Deferred. NEUROLOGIC: No focal neurological deficits. IMPRESSION AND PLAN: 1. The patient has altered mental status. She has a recent beta lactamase Escherichia coli bactere earlene and urinary tract infection. She was started on ertapenem and Invanz or continued on that. 2. Her chest x-ray shows low lung volumes with basilar atelectasis. We could also be dealing with spontaneous bacterial peritonitis and she may benefit from addition of gram positive antibiotic such as vancomycin. I will dictate my findings to the hospitalist. Dictated By: FAB MEYER MD, JD/NILSA Conf#: [id number] DID#: [id number]
--- NOTE | 2016-11-27 17:35 | CONS ---
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 * s/p EGD 06/06/2016: IMPRESSION: Duodenal obstruction bridged with 10 x 120-mm duodenal wall stent proximal opening in gastric antrum distal opening and 3rd portion of the duodenum. 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 Further recommendations depend on clinical course Consultation Date/Type/Reason Admit Date/Time Nov 27, 2016 at 13:19 Type of Consultation: Gastroenterology Reason for Consultation Anemia Hx of Present Illness 65-year-old female presented to ED with complaints of weakness and change in mentation. Patient has history of pancreatic mass, status post duodenal stenting. Patient recently evaluated for SBP and treatment for recurrent ascites. Patient was discharged to [facility] on November 21, 2016. Per daughter at bedside, abdominal drain was placed to treat recurrent ascites. Patient was to follow-up in a few weeks with provider at [facility]. Per daughter, last chemo treatment was in October. Daughter unaware of prognosis of disease. At bedside, patient denies abdominal pain and vomiting. Patient does feel nauseous. Hemoglobin at 7.4 and 1 unit plan to be transfused. If EGD is deemed necessary, R/B/A of procedure explained to patient and daughter and they are both agreeable to proceed. Past Medical History Medical History: other (Pancreatic cancer) Past Surgical History Past Surgical Hx: other Social History Smoking Status: Never smoker Exam/Review of Systems Vital Signs Vitals Vital Signs Date Time Temp Pulse Resp B/P Pulse Ox O2 Delivery O2 Flow Rate FiO2 11/27/16 15:07 98.7 83 14 118/67 100 Nasal Cannula 11/27/16 14:16 2.0 Exam Constitutional: alert, frail, oriented Psych: nl mood/affect Head: normocephalic Eyes: EOMI, nl conjunctiva, nl lids, nl sclera ENMT: nl external ears & nose, nl lips & teeth, nl nasal mucosa & septum Respiratory: normal air movement Cardiovascular: regular rate and rhythm Gastrointestinal: ascites, soft Neurological: PERMIT REVIEW ASSISTANT II-XII intact Results Result Diagram: 11/27/16 1520 11/27/16 1130 Results 24 hrs Laboratory Tests Test 11/27/16 11:30 11/27/16 12:15 11/27/16 15:20 Activated Partial Thromboplast Time 33.7 Alanine Aminotransferase (ALT/SGPT) 36 Albumin 2.4 L Albumin/Globulin Ratio 0.77 Alkaline Phosphatase 181 H Anion Gap 12 Aspartate Amino Transf (AST/SGOT) 41 Basophils # 0.0 Basophils % 0.1 Blood Morphology Comment Blood Urea Nitrogen 21 H Calcium Level 7.8 L Carbon Dioxide Level 28 Chloride Level 99 Creatinine 0.51 Direct Bilirubin 0.00 Eosinophils # 0.0 Eosinophils % 0.2 Globulin 3.10 Glucose Level 94 Hematocrit 22.9 L 22.2 L Hemoglobin 7.7 L 7.4 L INR International Normalized Ratio 1.39 Indirect Bilirubin 0.2 Lactic Acid Level 1.3 1.1 Lymphocytes # 0.7 L Lymphocytes % 7.7 L Mean Corpuscular Hemoglobin 29.5 Mean Corpuscular Hemoglobin Concent 33.4 Mean Corpuscular Volume 88.3 Mean Platelet Volume 7.4 Monocytes # 0.6 Monocytes % 7.3 Neutrophils # 7.4 Neutrophils % 84.7 H Nucleated Red Blood Cells # 0.0 Nucleated Red Blood Cells % 0.0 Platelet Count 231 # Potassium Level 3.8 Prothrombin Time 17.1 H Prothrombin Time Ratio 1.3 Red Blood Count 2.59 L Red Cell Distribution Width 17.8 H Sodium Level 135 Total Bilirubin 0.2 Total Protein 5.5 L Troponin I < 0.010 White Blood Count 8.7 # Urine Bilirubin NEGATIVE Urine Clarity CLEAR Urine Color LT. YELLOW Urine Glucose NEGATIVE Urine Hemoglobin NEGATIVE Urine Ketones NEGATIVE Urine Leukocyte Esterase NEGATIVE Urine Nitrite NEGATIVE Urine Specific [place] 1.010 Urine Total Protein NEGATIVE Urine Urobilinogen 0.2 E.U./dL Urine pH 6.0 Ammonia 88 H Free Thyroxine 0.82 Medications Medications Current Medications Sodium Chloride (NS) 1,000 ml @ 80 mls/hr [id number] IV Last administered on 11/27 15:50; Admin Dose 80 MLS/HR; Start 11/27/16 at 13:18; Stop 11/28/16 at 01: 47 Ondansetron HCl (Zofran Inj) 4 mg Q6H PRN IV NAUSEA AND/OR VOMITING; Start at 14:30 Acetaminophen (Tylenol Tab) 650 mg Q6H PRN PO PAIN LEVEL 1-3 OR FEVER; Start at 14:30 Acetaminophen/ Hydrocodone Bitart ([place] (5/325)) 1 tab Q6H PRN PO MODERATE PAIN LEVEL 4-6; Start 11/27/16 at 14:30 Morphine Sulfate (morphine) 2 mg Q4H PRN IV SEVERE PAIN LEVEL 7-10; Start 11/27 at 14:30 Docusate Sodium (Colace) 100 mg Q12H PRN PO CONSTIPATION; Start 11/27/16 at 14: 30 Magnesium Hydroxide (Milk Of Mag) 30 ml DAILY PRN PO CONSTIPATION; Start at 14:30 Sodium Biphosphate/ Sodium Phosphate (Fleet Enema) 133 ml DAILY PRN PA CONSTIPATION; Start 11/27/16 at 14:30 Pantoprazole (Protonix Iv) 40 mg DAILY@06 IV ; Start 11/28/16 at 06:00 Lorazepam (Ativan) 0.5 mg Q6H PRN IV ANXIETY; Start 11/27/16 at 14:30 Hydralazine HCl (Apresoline) 10 mg Q6H PRN IV ELEVATED BLOOD PRESSURE; Start at 14:30 Nitroglycerin (Nitroglycerin (Sl Tab) 0.4 Mg) 1 tab Q5M PRN SL ANGINA; Start at 14:30 Megestrol Acetate (Megace Susp) 800 mg DAILY PO ; Start 11/28/16 at 09:00 Potassium Chloride (Klor-Con 20) 20 meq DAILY PO ; Start 11/28/16 at 09:00 Tramadol HCl 50 mg 50 mg Q4H PRN PO PAIN; Start 11/27/16 at 14:30 Ertapenem/Sodium Chloride (Invanz/NS) 100 ml @ 200 mls/hr Q24H IVPB Last administered on 1/17/17at 16:53; Admin Dose 200 MLS/HR; Start 11/27/16 at 15:00 VIVI PEDERSON MD Nov 27, 2016 17:35
[2016-11-27] MEDS: CREON (24K-76K-120K) 1 CAP PO SCH (18:00)
[2016-11-27] MEDS: FUROSEMIDE 20 MG TAB PO SCH (18:00)
[2016-11-27 18:35] LABS: ADD UMIC NO; URINE BILIRUBIN (Dip) NEGATIVE (NEGATIVE); URINE BLOOD (Dip) NEGATIVE (NEGATIVE); URINE COLOR LT. YELLOW (YELLOW); URINE GLUCOSE (Dip) NEGATIVE (NEGATIVE); URINE KETONES (Dip) NEGATIVE (NEGATIVE); URINE LEUKOCYTE ESTERASE (Dip) NEGATIVE (NEGATIVE); URINE NITRITE (Dip) NEGATIVE (NEGATIVE); URINE TOTAL PROTEIN (Dip) NEGATIVE (NEGATIVE); URINE UROBILINOGEN (Dip) 0.2 E.U./dL (0.1-1.0)
[2016-11-27] MEDS: LACTULOSE 30ML CUP PO SCH (20:49)
[2016-11-27] MEDS: traMADol 50 MG TAB PO PRN (23:22)
[2016-11-28] MEDS: LACTULOSE 30ML CUP PO SCH ×4 (02:23→17:42)
[2016-11-28 06:33] LABS: CHOL/HDL RATIO 4.2 RATIO
[2016-11-28] MEDS: PANTOPRAZOLE 40 MG INJ IV SCH (06:45)
[2016-11-28 06:56] LABS: BASOPHILS % 0.2 % (0.0-2.0); EOSINOPHILS % 0.2 % (0.0-7.0); HEMATOCRIT 26.6 % (37.0-47.0); LYMPHOCYTES # 0.6 10^3/ul (0.8-2.9); LYMPHOCYTES % 8.1 % (15.0-51.0); MEAN CORPUSCULAR HEMOGLOBIN 29.7 pg (29.0-33.0); MEAN CORPUSCULAR HGB CONC 33.8 g/dl (32.0-37.0); MEAN CORPUSCULAR VOLUME 87.8 fl (82.0-101.0); MEAN PLATELET VOLUME 7.7 fl (7.4-10.4); MONOCYTE # 0.7 10^3/ul (0.3-0.9); MONOCYTES % 8.8 % (0.0-11.0); NEUTROPHIL # 6.6 10^3/ul (1.6-7.5); NEUTROPHILS % 82.7 % (39.0-77.0); PLATELET COUNT 197 10^3/UL (140-440); RED BLOOD COUNT 3.03 10^6/ul (4.20-5.40); RED CELL DISTRIBUTION WIDTH 17.2 % (11.5-14.5); UNCORRECTED WBC 7.9 10^3/ul (4.8-10.8); WHITE BLOOD COUNT 7.9 10^3/ul (4.8-10.8)
[2016-11-28 07:01] LABS: CONDITION 1; LH ANALYZER COMMENTS 1
[2016-11-28 07:05] LABS: THYROID STIMULATING HORMONE 79.1 MIU/L (0.465-4.680)
[2016-11-28 07:20] VITALS: BP 110/63; RESP 18
[2016-11-28 07:36] LABS: POTASSIUM 3.5 mmol/L (3.5-5.1)
[2016-11-28 07:39] LABS: CREATININE 0.47 mg/dl (0.44-1.00)
[2016-11-28 07:40] LABS: CALCIUM 7.6 mg/dl (8.4-10.2); MAGNESIUM 2.1 mg/dl (1.7-2.5)
[2016-11-28] MEDS: LEVOTHYROXINE 112 MCG TAB PO SCH (07:41)
[2016-11-28] MEDS: FUROSEMIDE 20 MG TAB PO SCH ×2 (07:42→17:57)
[2016-11-28] MEDS: CREON (24K-76K-120K) 1 CAP PO SCH ×3 (08:15→17:45)
[2016-11-28] MEDS ORDERED: BARIUM SULFATE 135 ML (E-Z HD) PO ONE (08:35)
[2016-11-28] MEDS ORDERED: POTASSIUM CHLORIDE (SR) 20 MEQ TAB PO SCH (09:00)
[2016-11-28] MEDS: MEGESTROL (40 MG/ML) 10ML CUP PO SCH ×2 (09:00→12:39)
--- NOTE | 2016-11-28 09:56 | PN ---
Date/Time of Note Date/Time of Note DATE: 11/28/16 TIME: 09:46 Assessment/Plan VTE Prophylaxis VTE Prophylaxis Intervention: SCD's Lines/Catheters IV Catheter Type (from Nrsg): PICC Line Central line still needed: Yes Urinary Cath still in place: Yes Reason Cath still needed: urinary retention Assessment/Plan Chief Complaint/Hosp Course ASSESSMENT AND PLAN: 65-year-old female coming in with weakness and altered mental status and possible lower GI bleeding over the last 2 days with a history of pancreatic cancer followed at [facility] and recent beta-lactamase Escherichia coli E. bacteremia and urinary tract infection. 1. Altered mental status, weakness. Again, could be secondary to the patient' s prior sepsis from blood infection, as well as pt's worsening cancer could be contributing to the patient's overall weakness and mental status. Family states the patient has not had any further chemotherapy or radiation since Oct, this was indicated by the [facility] team, cannot be performed until the infections have cleared. HE a component as well (NH3 = 88 -> 52) after lactulose added yesterday. - continue lactulose - Continue to monitor for now, f/u TSH, A1c, lipid panel. - Continue Ertapenem for now per ID rec's 2. Anemia. Again, the hemoglobin is 7.7. There is a questionable episode of lower GI bleeding. S/P 1 unit PRBC transfusion yesterday, Hgb = 9.0 today - per GI consult rec's, no plan for EGD for now, repeat EGD only recommended if precipitous drop in hemoglobin occurs or to evaluate patency of duodenal stent if symptoms do not improve - continue PPI twice daily 3. History of metastatic pancreatic cancer again, with prior abdominal distention. On EGD in May = large obstructing and friable malignant neoplasm in the second portion of the duodenum likely pancreatic carcinoma extension or invasion with imminent obstruction. Duodenal stent placed as well that time. - Continue to monitor for now, f/u GI consult rec's. - continue Creon and tramadol and continue patient's home Lasix and Megace for now, and potassium chloride. - will add aldactone BID. - will also get palliative care consult. 4. High cholesterol. Follow up lipid panel. Continue to monitor for now. 5. Hypothyroidism. Continue thyroid medicine, Synthroid. 6. GI, thrombosis prophylaxis, PPI and continue prophylactic SCDs. Problems: Subjective 24 Hr Interval Summary Free Text/Dictation Pt seen by GI and ID teams, ST as well. Taking lactulose, awaiting swallow testing as well. Still weak overall, but slightly more alert today. Exam/Review of Systems Vital Signs Vitals Vital Signs Date Time Temp Pulse Resp B/P Pulse Ox O2 Delivery O2 Flow Rate FiO2 11/28/16 07:20 98.2 89 18 110/63 100 11/27/16 21:30 Nasal Cannula 11/27/16 14:16 2.0 Intake and Output 11/27/16 11/27/16 11/28/16 15:00 23:00 07:00 Intake Total 500 ml 520 ml Output Total 1000 ml 550 ml Balance -500 ml -30 ml Exam GENERAL: The patient is lying in bed, appears frail and cachectic, but otherwise alert. at bedside. HEENT: Pupils equal, round, react to light. There are some dry mucous membranes, but otherwise, extraocular muscles are intact. NECK: Supple, no thyromegaly. LUNGS: Clear to auscultation bilaterally. No wheezes. CARDIOVASCULAR: S1, S2 heard. No rubs or gallops. ABDOMEN: Soft. There is abdominal drain in the right portion of the abdomen, nontender, nondistended. Normal bowel sounds. No rebound or guarding. MUSCULOSKELETAL: No lower extremity edema bilaterally. NEUROLOGIC: No focal deficits. Results Result Diagram: 11/28/16 0515 11/28/16 0515 Results 24 hrs Laboratory Tests Test 11/27/16 11:30 11/27/16 12:15 11/27/16 15:20 11/27/16 18:15 Activated Partial Thromboplast Time 33.7 Alanine Aminotransferase (ALT/SGPT) 36 Albumin 2.4 L Albumin/Globulin Ratio 0.77 Alkaline Phosphatase 181 H Anion Gap 12 Aspartate Amino Transf (AST/SGOT) 41 Basophils # 0.0 Basophils % 0.1 Blood Morphology Comment Blood Urea Nitrogen 21 H Calcium Level 7.8 L Carbon Dioxide Level 28 Chloride Level 99 Creatinine 0.51 Direct Bilirubin 0.00 Eosinophils # 0.0 Eosinophils % 0.2 Globulin 3.10 Glucose Level 94 Hematocrit 22.9 L 22.2 L Hemoglobin 7.7 L 7.4 L INR International Normalized Ratio 1.39 Indirect Bilirubin 0.2 Lactic Acid Level 1.3 1.1 Lymphocytes # 0.7 L Lymphocytes % 7.7 L Mean Corpuscular Hemoglobin 29.5 Mean Corpuscular Hemoglobin Concent 33.4 Mean Corpuscular Volume 88.3 Mean Platelet Volume 7.4 Monocytes # 0.6 Monocytes % 7.3 Neutrophils # 7.4 Neutrophils % 84.7 H Nucleated Red Blood Cells # 0.0 Nucleated Red Blood Cells % 0.0 Platelet Count 231 # Potassium Level 3.8 Prothrombin Time 17.1 H Prothrombin Time Ratio 1.3 Red Blood Count 2.59 L Red Cell Distribution Width 17.8 H Sodium Level 135 Total Bilirubin 0.2 Total Protein 5.5 L Troponin I < 0.010 White Blood Count 8.7 # Urine Bilirubin NEGATIVE NEGATIVE Urine Clarity CLEAR CLEAR Urine Color LT. YELLOW LT. YELLOW Urine Glucose NEGATIVE NEGATIVE Urine Hemoglobin NEGATIVE NEGATIVE Urine Ketones NEGATIVE NEGATIVE Urine Leukocyte Esterase NEGATIVE NEGATIVE Urine Nitrite NEGATIVE NEGATIVE Urine Specific [place] 1.010 1.010 Urine Total Protein NEGATIVE NEGATIVE Urine Urobilinogen 0.2 E.U./dL 0.2 E.U./dL Urine pH 6.0 8.0 Ammonia 88 H Free Thyroxine 0.82 Test 11/27/16 18:50 11/28/16 05:15 11/28/16 07:30 Lactic Acid Level 1.9 Anion Gap 14 Basophils # 0.0 Basophils % 0.2 Blood Morphology Comment Blood Urea Nitrogen 18 Calcium Level 7.6 L Carbon Dioxide Level 23 Chloride Level 108 Cholesterol Level 81 L Cholesterol/HDL Ratio 4.2 Creatinine 0.47 Eosinophils # 0.0 Eosinophils % 0.2 Glucose Level 81 HDL Cholesterol 19 L Hematocrit 26.6 L Hemoglobin 9.0 #L Hemoglobin A1c 5.1 LDL Cholesterol, Calculated 51 Lymphocytes # 0.6 L Lymphocytes % 8.1 L Magnesium Level 2.1 Mean Corpuscular Hemoglobin 29.7 Mean Corpuscular Hemoglobin Concent 33.8 Mean Corpuscular Volume 87.8 Mean Platelet Volume 7.7 Monocytes # 0.7 Monocytes % 8.8 Neutrophils # 6.6 Neutrophils % 82.7 H Nucleated Red Blood Cells # 0.0 Nucleated Red Blood Cells % 0.0 Phosphorus Level 4.0 Platelet Count 197 Potassium Level 3.5 Red Blood Count 3.03 L Red Cell Distribution Width 17.2 H Sodium Level 141 Thyroid Stimulating Hormone (TSH) 79.100 H Triglycerides Level 57 White Blood Count 7.9 Ammonia 52 H Medications Medications Current Medications Ondansetron HCl (Zofran Inj) 4 mg Q6H PRN IV NAUSEA AND/OR VOMITING; Start at 14:30 Acetaminophen (Tylenol Tab) 650 mg Q6H PRN PO PAIN LEVEL 1-3 OR FEVER; Start at 14:30 Acetaminophen/ Hydrocodone Bitart ([place] (5/325)) 1 tab Q6H PRN PO MODERATE PAIN LEVEL 4-6; Start 11/27/16 at 14:30 Morphine Sulfate (morphine) 2 mg Q4H PRN IV SEVERE PAIN LEVEL 7-10; Start 11/27 at 14:30 Docusate Sodium (Colace) 100 mg Q12H PRN PO CONSTIPATION; Start 11/27/16 at 14: 30 Magnesium Hydroxide (Milk Of Mag) 30 ml DAILY PRN PO CONSTIPATION; Start at 14:30 Sodium Biphosphate/ Sodium Phosphate (Fleet Enema) 133 ml DAILY PRN [place] CONSTIPATION; Start 11/27/16 at 14:30 Pantoprazole (Protonix Iv) 40 mg DAILY@06 IV Last administered on 11/28/16 06: 45; Admin Dose 40 MG; Start 11/28/16 at 06:00 Lorazepam (Ativan) 0.5 mg Q6H PRN IV ANXIETY; Start 11/27/16 at 14:30 Hydralazine HCl (Apresoline) 10 mg Q6H PRN IV ELEVATED BLOOD PRESSURE; Start at 14:30 Nitroglycerin (Nitroglycerin (Sl Tab) 0.4 Mg) 1 tab Q5M PRN SL ANGINA; Start at 14:30 Megestrol Acetate (Megace Susp) 800 mg DAILY PO ; Start 11/28/16 at 09:00 Potassium Chloride (Klor-Con 20) 20 meq DAILY PO ; Start 11/28/16 at 09:00 Tramadol HCl 50 mg 50 mg Q4H PRN PO PAIN Last administered on 11/27/16 23:22; Admin Dose 50 MG; Start 11/27/16 at 14:30 Ertapenem/Sodium Chloride (Invanz/NS) 100 ml @ 200 mls/hr Q24H IVPB Last administered on 11/27/16 16:53; Admin Dose 200 MLS/HR; Start 1/17/17 at 15:00 Lactulose (Enulose) 30 gm Q6 PO Last administered on 11/28/16t 07:41; Admin Dose 30 GM; Start 11/27/16 at 20:00 KENYON OROZCO Nov 28, 2016 09:56
--- NOTE | 2016-11-28 11:32 | RADRPT ---
PROCEDURE: Upper GI series. CLINICAL INDICATION: Abdomen pain. The duodenal stent. TECHNIQUE: Barium was administered orally and limited radiographs were obtained. COMPARISON: No prior study is available for comparison. FINDINGS: This is an incomplete study as the patient was uncooperative. On the preliminary age, a surgical drain is present in the right side of abdomen and extends into th e pelvis. A duodenal stent is present. Surgical clips are present in the right upper quadrant. Th ere is probable undigested fluid in the gastric fundus. Only a small amount of barium was swallowed which is in the gastric fundus. The patient refused to turn on her right side to evaluate duodenal stent patency. IMPRESSION: 1. Extremely limited study. 2. Duodenal stent patency could not be evaluated as the patient was unable to cooperate. RPTAT: QQ .Jacob Smiley MD, Date Time Electronically viewed and signed by .Jacob Smiley MD, on 11/28/2016 11:32 .R/
[2016-11-28] MEDS: SPIRONOLACTONE 50 MG TAB PO SCH ×2 (12:39→18:04)
[2016-11-28] MEDS: morphine 2 MG INJ IV PRN (12:56)
--- NOTE | 2016-11-28 14:13 | CONS ---
Date/Time of Note Date/Time of Note DATE: 11/28/16 TIME: 14:10 Assessment/Plan Assessment/Plan Additional Assessment/Plan Anemia * Monitor H&H every 6 hours, transfuse 2 units for hemoglobin less than 7.5 * Likely secondary to large obstructing and friable malignant neoplasm in the second portion of the duodenum * Repeat IP EGD only recommended if precipitous drop in hemoglobin occurs * PPI twice daily Nausea and vomiting * May need repeat EGD to evaluate patency of duodenal stent if symptoms do not improve History of ascites * Status post abdominal drain placement at [facility] to treat recurrent ascites * Start Aldactone BID * ID following Hx of Metastatic pancreatic cancer. * s/p EGD 06/06/2016: IMPRESSION: Duodenal obstruction bridged with 10 x 120-mm duodenal wall stent proximal opening in gastric antrum distal opening and 3rd portion of the duodenum. 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 Further recommendations depend on clinical course Consultation Date/Type/Reason Admit Date/Time Nov 27, 2016 at 13:19 Initial Consult Date Type of Consultation: Gastroenterology 24 HR Interval Summary Free Text/Dictation Patient unable to complete UGI series because she could not tolerate a large volume of contrast Patient ate 50% of lunch No reports of nausea vomiting Palliative consult in process Presently EGD not recommended Hemoglobin stable status post 1 unit PRBC Exam/Review of Systems Vital Signs Vitals Vital Signs Date Time Temp Pulse Resp B/P Pulse Ox O2 Delivery O2 Flow Rate FiO2 11/28/16 07:20 98.2 89 18 110/63 100 11/27/16 21:30 Nasal Cannula 11/27/16 14:16 2.0 Intake and Output 11/27/16 11/27/16 11/28/16 15:00 23:00 07:00 Intake Total 500 ml 520 ml Output Total 1000 ml 550 ml Balance -500 ml -30 ml Exam Constitutional: alert, frail, oriented Psych: nl mood/affect Head: normocephalic Eyes: EOMI, nl conjunctiva, nl lids, nl sclera ENMT: nl external ears & nose, nl lips & teeth, nl nasal mucosa & septum Respiratory: normal air movement Cardiovascular: regular rate and rhythm Gastrointestinal: ascites, soft Neurological: ICING MAKER II-XII intact Results Result Diagram: 11/28/16 0515 11/28/16 0515 Results 24 hrs Laboratory Tests Test 11/27/16 15:20 11/27/16 18:15 11/27/16 18:50 11/28/16 05:15 Ammonia 88 H Free Thyroxine 0.82 Hematocrit 22.2 L 26.6 L Hemoglobin 7.4 L 9.0 #L Lactic Acid Level 1.1 1.9 Urine Bilirubin NEGATIVE Urine Clarity CLEAR Urine Color LT. YELLOW Urine Glucose NEGATIVE Urine Hemoglobin NEGATIVE Urine Ketones NEGATIVE Urine Leukocyte Esterase NEGATIVE Urine Nitrite NEGATIVE Urine Specific [place] 1.010 Urine Total Protein NEGATIVE Urine Urobilinogen 0.2 E.U./dL Urine pH 8.0 Anion Gap 14 Basophils # 0.0 Basophils % 0.2 Blood Morphology Comment Blood Urea Nitrogen 18 Calcium Level 7.6 L Carbon Dioxide Level 23 Chloride Level 108 Cholesterol Level 81 L Cholesterol/HDL Ratio 4.2 Creatinine 0.47 Eosinophils # 0.0 Eosinophils % 0.2 Glucose Level 81 HDL Cholesterol 19 L Hemoglobin A1c 5.1 LDL Cholesterol, Calculated 51 Lymphocytes # 0.6 L Lymphocytes % 8.1 L Magnesium Level 2.1 Mean Corpuscular Hemoglobin 29.7 Mean Corpuscular Hemoglobin Concent 33.8 Mean Corpuscular Volume 87.8 Mean Platelet Volume 7.7 Monocytes # 0.7 Monocytes % 8.8 Neutrophils # 6.6 Neutrophils % 82.7 H Nucleated Red Blood Cells # 0.0 Nucleated Red Blood Cells % 0.0 Phosphorus Level 4.0 Platelet Count 197 Potassium Level 3.5 Red Blood Count 3.03 L Red Cell Distribution Width 17.2 H Sodium Level 141 Thyroid Stimulating Hormone (TSH) 79.100 H Triglycerides Level 57 White Blood Count 7.9 Test 11/28/16 07:30 Ammonia 52 H Medications Medications Current Medications Ondansetron HCl (Zofran Inj) 4 mg Q6H PRN IV NAUSEA AND/OR VOMITING; Start at 14:30 Acetaminophen (Tylenol Tab) 650 mg Q6H PRN PO PAIN LEVEL 1-3 OR FEVER; Start at 14:30 Acetaminophen/ Hydrocodone Bitart ([place] (5/325)) 1 tab Q6H PRN PO MODERATE PAIN LEVEL 4-6; Start 11/27/16 at 14:30 Morphine Sulfate (morphine) 2 mg Q4H PRN IV SEVERE PAIN LEVEL 7-10 Last administered on 11/28/16 12:56; Admin Dose 2 MG; Start 11/27/16 at 14:30 Docusate Sodium (Colace) 100 mg Q12H PRN PO CONSTIPATION; Start 11/27/16 at 14: 30 Magnesium Hydroxide (Milk Of Mag) 30 ml DAILY PRN PO CONSTIPATION; Start at 14:30 Sodium Biphosphate/ Sodium Phosphate (Fleet Enema) 133 ml DAILY PRN [place] CONSTIPATION; Start 11/27/16 at 14:30 Pantoprazole (Protonix Iv) 40 mg DAILY@06 IV Last administered on 11/28/16 06: 45; Admin Dose 40 MG; Start 11/28/16 at 06:00 Lorazepam (Ativan) 0.5 mg Q6H PRN IV ANXIETY; Start 11/27/16 at 14:30 Hydralazine HCl (Apresoline) 10 mg Q6H PRN IV ELEVATED BLOOD PRESSURE; Start at 14:30 Nitroglycerin (Nitroglycerin (Sl Tab) 0.4 Mg) 1 tab Q5M PRN SL ANGINA; Start at 14:30 Megestrol Acetate (Megace Susp) 800 mg DAILY PO Last administered on 11/28/16 12:39; Admin Dose 800 MG; Start 11/28/16 at 09:00 Potassium Chloride (Klor-Con 20) 20 meq DAILY PO ; Start 11/28/16 at 09:00 Tramadol HCl (Ultram) 50 mg Q4H PRN PO PAIN Last administered on 11/27/16 23: 22; Admin Dose 50 MG; Start 11/27/16 at 14:30 Lactulose (Enulose) 30 gm Q6 PO Last administered on 11/28/16 12:39; Admin Dose 30 GM; Start 11/27/16 at 20:00 GILDARDO LAST Nov 28, 2016 14:13
[2016-11-28] MEDS ORDERED: METOCLOPRAMIDE 10 MG INJ IV PRN (14:30)
--- NOTE | 2016-11-28 15:28 | PN ---
DATE: 11/28/2016 INFECTIOUS DISEASE PROGRESS NOTE SUBJECTIVE: The patient is more lethargic, however arousable and in no distress. Family at bedside . No fevers. WBC 7.9, neutrophils 82.7. No bands. BUN 18, creatinine 0.47. Urinalysis was essen tially negative. MICROBIOLOGY: Blood and urine culture negative. DIAGNOSTICS: CT of the brain revealed no acute intracranial pathology. Chest x-ray revealed bibasi lar atelectasis. OBJECTIVE: GENERAL: This is a cachectic elderly woman who is in no distress. HEENT: Head atraumatic, normocephalic. Sclerae anicteric. Buccal mucosa dry. NECK: Supple, trachea midline. CHEST: Rise symmetrical. Breath sounds diminished to bases. HEART: S1, S2. ABDOMEN: Distended, soft. Bowel tones present. EXTREMITIES: Without cyanosis. ASSESSMENT: 1. Acute encephalopathy, likely secondary to elevated ammonia, so far no evidence for any infectiou s process, although could be SBP as the patient had paracentesis on Saturday. 2. Status post Escherichia coli extended-spectrum beta-lactamase urinary tract infection with bacte remia, completed 14 days of treatment. 3. Recurrent ascites. 4. Diabetes. 5. Pancreatic cancer. 6. Cachexia. PLAN: The patient is clinically stable. Again, cultures negative. Chest x-ray negative. Her ammo alessandra on admission was elevated at 88, this morning decreased to 52. The patient is afebrile. We are going to discontinue Invanz and observe her. If she spikes fever, we will panculture her again. W e will order chest x-ray in a.m. Follow GI recommendations. May need to repeat EGD to evaluate pat ency of duodenal stent. Dictated By: MIKE BRYSON CLIENT LIAISON for FAB STOUT/NTS Conf#: [id number] DID#: [id number]
[2016-11-28 19:21] LABS: HEMATOCRIT 26.1 % (37.0-47.0); HEMOGLOBIN 8.8 g/dl (12.0-16.0)
[2016-11-28 19:24] VITALS: BP 114/63; RESP 20
[2016-11-29] MEDS: morphine 2 MG INJ IV PRN (00:06)
[2016-11-29] MEDS: PANTOPRAZOLE 40 MG INJ IV SCH (05:36)
[2016-11-29] MEDS: LACTULOSE 30ML CUP PO SCH ×5 (05:36→23:12)
[2016-11-29] MEDS: SPIRONOLACTONE 50 MG TAB PO SCH ×2 (05:39→18:03)
[2016-11-29] MEDS: FUROSEMIDE 20 MG TAB PO SCH ×2 (05:40→18:04)
[2016-11-29 06:23] LABS: BASOPHILS % 0.2 % (0.0-2.0); EOSINOPHILS % 0.6 % (0.0-7.0); HEMATOCRIT 26.3 % (37.0-47.0); HEMOGLOBIN 8.8 g/dl (12.0-16.0); LYMPHOCYTES # 0.6 10^3/ul (0.8-2.9); LYMPHOCYTES % 8.6 % (15.0-51.0); MEAN CORPUSCULAR HEMOGLOBIN 29.6 pg (29.0-33.0); MEAN CORPUSCULAR HGB CONC 33.5 g/dl (32.0-37.0); MEAN CORPUSCULAR VOLUME 88.3 fl (82.0-101.0); MEAN PLATELET VOLUME 7.6 fl (7.4-10.4); MONOCYTE # 0.6 10^3/ul (0.3-0.9); MONOCYTES % 8.3 % (0.0-11.0); NEUTROPHILS % 82.3 % (39.0-77.0); PLATELET COUNT 223 10^3/UL (140-440); RED BLOOD COUNT 2.98 10^6/ul (4.20-5.40); RED CELL DISTRIBUTION WIDTH 17.3 % (11.5-14.5); UNCORRECTED WBC 7.3 10^3/ul (4.8-10.8); WHITE BLOOD COUNT 7.3 10^3/ul (4.8-10.8)
[2016-11-29 06:27] LABS: CONDITION 1; LH ANALYZER COMMENTS 1
[2016-11-29] MEDS: LEVOTHYROXINE 112 MCG TAB PO SCH (06:41)
[2016-11-29 07:02] LABS: POTASSIUM 3.3 mmol/L (3.5-5.1)
[2016-11-29 07:05] LABS: CREATININE 0.5 mg/dl (0.44-1.00)
[2016-11-29 07:06] LABS: CALCIUM 7.6 mg/dl (8.4-10.2)
[2016-11-29 08:00] VITALS: BP 113/64; RESP 22
[2016-11-29] MEDS: MEGESTROL (40 MG/ML) 10ML CUP PO SCH (09:36)
[2016-11-29] MEDS: CREON (24K-76K-120K) 1 CAP PO SCH ×3 (09:36→18:03)
[2016-11-29] MEDS: POTASSIUM CHLORIDE 20 MEQ POWDER FOR ORAL SOLN PO SCH (09:39)
--- NOTE | 2016-11-29 10:51 | PN ---
Date/Time of Note Date/Time of Note DATE: 11/29/16 TIME: 10:47 Assessment/Plan VTE Prophylaxis VTE Prophylaxis Intervention: SCD's Lines/Catheters IV Catheter Type (from Nrsg): PICC Line Central line still needed: Yes Urinary Cath still in place: Yes Reason Cath still needed: urinary retention Assessment/Plan Chief Complaint/Hosp Course ASSESSMENT AND PLAN: 65-year-old female coming in with weakness and altered mental status and possible lower GI bleeding over the last 2 days with a history of pancreatic cancer followed at [facility] and recent beta-lactamase Escherichia coli E. bacteremia and urinary tract infection. 1. Altered mental status, weakness. Slowly improved. HE a component as well, but improving (NH3 = 88 -> 52 -> 22) with lactulose. Patient's prior sepsis from blood infection, as well as pt's worsening cancer could be contributing to the patient's overall weakness and mental status as well. Family states the patient has not had any further chemotherapy or radiation since Oct, this was indicated by the [facility] team, cannot be performed until the infections have cleared. - continue lactulose - Continue Ertapenem for now per ID rec's 2. Anemia - H/H stable after pRBC transfusion. - per GI consult rec's, no plan for EGD for now, repeat EGD only recommended if precipitous drop in hemoglobin occurs or to evaluate patency of duodenal stent if symptoms do not improve - continue PPI twice daily 3. History of metastatic pancreatic cancer again, with prior abdominal distention. On EGD in May = large obstructing and friable malignant neoplasm in the second portion of the duodenum likely pancreatic carcinoma extension or invasion with imminent obstruction. Duodenal stent placed as well that time. - Continue to monitor for now, f/u GI consult rec's. - continue Creon and tramadol and continue patient's home Lasix and Megace for now, and potassium chloride. - continue aldactone BID. - will also get palliative care consult ,and Heme Onc consult 4. High cholesterol. Follow up lipid panel. Continue to monitor for now. 5. Hypothyroidism. Continue thyroid medicine, Synthroid. 6. GI, thrombosis prophylaxis, PPI and continue prophylactic SCDs. Problems: Subjective 24 Hr Interval Summary Free Text/Dictation Pt had UGI series, but results were incomplete. Pt slightly improved, less lethargy, but still present. Taking lactulose. Exam/Review of Systems Vital Signs Vitals Vital Signs Date Time Temp Pulse Resp B/P Pulse Ox O2 Delivery O2 Flow Rate FiO2 11/29/16 08:00 98.8 86 22 113/64 100 11/28/16 21:51 2.0 11/28/16 08:10 Nasal Cannula Intake and Output 11/28/16 11/28/16 11/29/16 15:00 23:00 07:00 Intake Total 600 ml 120 ml Output Total 450 ml 300 ml Balance 150 ml -180 ml Exam GENERAL: The patient is lying in bed, appears frail and cachectic, but otherwise alert. Daughter at bedside - updated HEENT: Pupils equal, round, react to light. There are some dry mucous membranes, but otherwise, extraocular muscles are intact. NECK: Supple, no thyromegaly. LUNGS: Clear to auscultation bilaterally. No wheezes. CARDIOVASCULAR: S1, S2 heard. No rubs or gallops. ABDOMEN: Soft. There is abdominal drain in the right portion of the abdomen, nontender, nondistended. Normal bowel sounds. No rebound or guarding. MUSCULOSKELETAL: No lower extremity edema bilaterally. NEUROLOGIC: No focal deficits. Results Result Diagram: 11/29/16 0535 11/29/16 0535 Results 24 hrs Laboratory Tests Test 11/28/16 17:09 11/29/16 05:35 Hematocrit 26.1 L 26.3 L Hemoglobin 8.8 L 8.8 L Ammonia 22 # Anion Gap 12 Basophils # 0.0 Basophils % 0.2 Blood Morphology Comment Blood Urea Nitrogen 16 Calcium Level 7.6 L Carbon Dioxide Level 22 Chloride Level 109 Creatinine 0.50 Eosinophils # 0.0 Eosinophils % 0.6 Glucose Level 117 Lymphocytes # 0.6 L Lymphocytes % 8.6 L Mean Corpuscular Hemoglobin 29.6 Mean Corpuscular Hemoglobin Concent 33.5 Mean Corpuscular Volume 88.3 Mean Platelet Volume 7.6 Monocytes # 0.6 Monocytes % 8.3 Neutrophils # 6.0 Neutrophils % 82.3 H Nucleated Red Blood Cells # 0.0 Nucleated Red Blood Cells % 0.0 Platelet Count 223 Potassium Level 3.3 L Red Blood Count 2.98 L Red Cell Distribution Width 17.3 H Sodium Level 140 White Blood Count 7.3 Medications Medications Current Medications Ondansetron HCl (Zofran Inj) 4 mg Q6H PRN IV NAUSEA AND/OR VOMITING; Start at 14:30 Acetaminophen (Tylenol Tab) 650 mg Q6H PRN PO PAIN LEVEL 1-3 OR FEVER; Start at 14:30 Acetaminophen/ Hydrocodone Bitart ([place] (5/325)) 1 tab Q6H PRN PO MODERATE PAIN LEVEL 4-6; Start 11/27/16 at 14:30 Morphine Sulfate (morphine) 2 mg Q4H PRN IV SEVERE PAIN LEVEL 7-10 Last administered on 11/29/16 00:06; Admin Dose 2 MG; Start 11/27/16 at 14:30 Docusate Sodium (Colace) 100 mg Q12H PRN PO CONSTIPATION; Start 11/27/16 at 14: 30 Magnesium Hydroxide (Milk Of Mag) 30 ml DAILY PRN PO CONSTIPATION; Start at 14:30 Sodium Biphosphate/ Sodium Phosphate (Fleet Enema) 133 ml DAILY PRN [place] CONSTIPATION; Start 11/27/16 at 14:30 Pantoprazole (Protonix Iv) 40 mg DAILY@06 IV Last administered on 11/29/16 05: 36; Admin Dose 40 MG; Start 11/28/16 at 06:00 Lorazepam (Ativan) 0.5 mg Q6H PRN IV ANXIETY; Start 11/27/16 at 14:30 Hydralazine HCl (Apresoline) 10 mg Q6H PRN IV ELEVATED BLOOD PRESSURE; Start at 14:30 Nitroglycerin (Nitroglycerin (Sl Tab) 0.4 Mg) 1 tab Q5M PRN SL ANGINA; Start at 14:30 Megestrol Acetate (Megace Susp) 800 mg DAILY PO Last administered on 11/29/16 09:36; Admin Dose 800 MG; Start 11/28/16 at 09:00 Tramadol HCl (Ultram) 50 mg Q4H PRN PO PAIN Last administered on 11/27/16 23: 22; Admin Dose 50 MG; Start 11/27/16 at 14:30 Lactulose (Enulose) 30 gm Q6 PO Last administered on 11/29/16 05:36; Admin Dose 30 GM; Start 11/27/16 at 20:00 Metoclopramide HCl (Reglan) 10 mg Q6H PRN IV VOMITTING; Start 11/28/16 at 14:30 Potassium Chloride (Potassium Chloride Pwd/Soln) 20 meq DAILY PO Last administered on 11/29/16t 09:39; Admin Dose 20 MEQ; Start 11/29/16 at 09:30 KENYON OROZCO Nov 29, 2016 10:51
--- NOTE | 2016-11-29 12:52 | CONS ---
Date/Time of Note Date/Time of Note DATE: 11/29/16 TIME: 12:49 Assessment/Plan Assessment/Plan Additional Assessment/Plan Anemia * Monitor H&H every 6 hours, transfuse 2 units for hemoglobin less than 7.5 * Likely secondary to large obstructing and friable malignant neoplasm in the second portion of the duodenum * Repeat IP EGD only recommended if precipitous drop in hemoglobin occurs * PPI twice daily Nausea and vomiting * May need repeat EGD to evaluate patency of duodenal stent if symptoms do not improve History of ascites * Status post abdominal drain placement at [facility] to treat recurrent ascites * Start Aldactone BID * ID following Hx of Metastatic pancreatic cancer. * s/p EGD 06/06/2016: IMPRESSION: Duodenal obstruction bridged with 10 x 120-mm duodenal wall stent proximal opening in gastric antrum distal opening and 3rd portion of the duodenum. 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 Further recommendations depend on clinical course Consultation Date/Type/Reason Admit Date/Time Nov 27, 2016 at 13:19 Type of Consultation: Gastroenterology 24 HR Interval Summary Free Text/Dictation Hemoglobin stable Tolerating diet CT abdomen ordered to assess possible metastases to liver Exam/Review of Systems Vital Signs Vitals Vital Signs Date Time Temp Pulse Resp B/P Pulse Ox O2 Delivery O2 Flow Rate FiO2 11/29/16 12:40 2.0 11/29/16 08:00 98.8 86 22 113/64 100 11/28/16 08:10 Nasal Cannula Intake and Output 11/28/16 11/28/16 11/29/16 15:00 23:00 07:00 Intake Total 600 ml 120 ml Output Total 450 ml 300 ml Balance 150 ml -180 ml Exam Constitutional: alert, frail, oriented Psych: nl mood/affect Head: normocephalic Eyes: EOMI, nl conjunctiva, nl lids, nl sclera ENMT: nl external ears & nose, nl lips & teeth, nl nasal mucosa & septum Respiratory: normal air movement Cardiovascular: regular rate and rhythm Gastrointestinal: ascites, soft Neurological: BI LEAD II-XII intact Results Result Diagram: 11/29/16 0535 11/29/16 0535 Results 24 hrs Laboratory Tests Test 11/28/16 17:09 11/29/16 05:35 Hematocrit 26.1 L 26.3 L Hemoglobin 8.8 L 8.8 L Ammonia 22 # Anion Gap 12 Basophils # 0.0 Basophils % 0.2 Blood Morphology Comment Blood Urea Nitrogen 16 Calcium Level 7.6 L Carbon Dioxide Level 22 Chloride Level 109 Creatinine 0.50 Eosinophils # 0.0 Eosinophils % 0.6 Glucose Level 117 Lymphocytes # 0.6 L Lymphocytes % 8.6 L Mean Corpuscular Hemoglobin 29.6 Mean Corpuscular Hemoglobin Concent 33.5 Mean Corpuscular Volume 88.3 Mean Platelet Volume 7.6 Monocytes # 0.6 Monocytes % 8.3 Neutrophils # 6.0 Neutrophils % 82.3 H Nucleated Red Blood Cells # 0.0 Nucleated Red Blood Cells % 0.0 Platelet Count 223 Potassium Level 3.3 L Red Blood Count 2.98 L Red Cell Distribution Width 17.3 H Sodium Level 140 White Blood Count 7.3 Medications Medications Current Medications Ondansetron HCl (Zofran Inj) 4 mg Q6H PRN IV NAUSEA AND/OR VOMITING; Start at 14:30 Acetaminophen (Tylenol Tab) 650 mg Q6H PRN PO PAIN LEVEL 1-3 OR FEVER; Start at 14:30 Acetaminophen/ Hydrocodone Bitart ([place] (5/325)) 1 tab Q6H PRN PO MODERATE PAIN LEVEL 4-6; Start 11/27/16 at 14:30 Morphine Sulfate (morphine) 2 mg Q4H PRN IV SEVERE PAIN LEVEL 7-10 Last administered on 11/29/16 00:06; Admin Dose 2 MG; Start 11/27/16 at 14:30 Docusate Sodium (Colace) 100 mg Q12H PRN PO CONSTIPATION; Start 11/27/16 at 14: 30 Magnesium Hydroxide (Milk Of Mag) 30 ml DAILY PRN PO CONSTIPATION; Start at 14:30 Sodium Biphosphate/ Sodium Phosphate (Fleet Enema) 133 ml DAILY PRN [place] CONSTIPATION; Start 11/27/16 at 14:30 Pantoprazole (Protonix Iv) 40 mg DAILY@06 IV Last administered on 11/29/16 05: 36; Admin Dose 40 MG; Start 11/28/16 at 06:00 Lorazepam (Ativan) 0.5 mg Q6H PRN IV ANXIETY; Start 11/27/16 at 14:30 Hydralazine HCl (Apresoline) 10 mg Q6H PRN IV ELEVATED BLOOD PRESSURE; Start at 14:30 Nitroglycerin (Nitroglycerin (Sl Tab) 0.4 Mg) 1 tab Q5M PRN SL ANGINA; Start at 14:30 Megestrol Acetate (Megace Susp) 800 mg DAILY PO Last administered on 11/29/16 09:36; Admin Dose 800 MG; Start 11/28/16 at 09:00 Tramadol HCl (Ultram) 50 mg Q4H PRN PO PAIN Last administered on 11/27/16 23: 22; Admin Dose 50 MG; Start 11/27/16 at 14:30 Lactulose (Enulose) 30 gm Q6 PO Last administered on 11/29/16 05:36; Admin Dose 30 GM; Start 11/27/16 at 20:00 Metoclopramide HCl (Reglan) 10 mg Q6H PRN IV VOMITTING; Start 11/28/16 at 14:30 Potassium Chloride (Potassium Chloride Pwd/Soln) 20 meq DAILY PO Last administered on 11/29/16 09:39; Admin Dose 20 MEQ; Start 11/29/16 at 09:30 GILDARDO LAST Nov 29, 2016 12:51
--- NOTE | 2016-11-29 13:29 | CONS ---
Date/Time of Note Date/Time of Note DATE: 11/29/16 TIME: 13:26 Consult Date/Type/Reason Admit Date/Time Nov 27, 2016 at 13:19 Initial Consult Date Type of Consultation: ID Subjective no acute changes, weak, looks comfortable, no fevers Objective Vital Signs Date Time Temp Pulse Resp B/P Pulse Ox O2 Delivery O2 Flow Rate FiO2 11/29/16 12:40 2.0 11/29/16 08:00 98.8 86 22 113/64 100 11/28/16 08:10 Nasal Cannula Intake and Output 11/28/16 11/28/16 11/29/16 15:00 23:00 07:00 Intake Total 600 ml 120 ml Output Total 450 ml 300 ml Balance 150 ml -180 ml Results/Medications Result Diagram: 11/29/16 0535 11/29/16 0535 Results 24 hrs Laboratory Tests Test 11/28/16 17:09 11/29/16 05:35 Hematocrit 26.1 L 26.3 L Hemoglobin 8.8 L 8.8 L Ammonia 22 # Anion Gap 12 Basophils # 0.0 Basophils % 0.2 Blood Morphology Comment Blood Urea Nitrogen 16 Calcium Level 7.6 L Carbon Dioxide Level 22 Chloride Level 109 Creatinine 0.50 Eosinophils # 0.0 Eosinophils % 0.6 Glucose Level 117 Lymphocytes # 0.6 L Lymphocytes % 8.6 L Mean Corpuscular Hemoglobin 29.6 Mean Corpuscular Hemoglobin Concent 33.5 Mean Corpuscular Volume 88.3 Mean Platelet Volume 7.6 Monocytes # 0.6 Monocytes % 8.3 Neutrophils # 6.0 Neutrophils % 82.3 H Nucleated Red Blood Cells # 0.0 Nucleated Red Blood Cells % 0.0 Platelet Count 223 Potassium Level 3.3 L Red Blood Count 2.98 L Red Cell Distribution Width 17.3 H Sodium Level 140 White Blood Count 7.3 Medications Current Medications Ondansetron HCl (Zofran Inj) 4 mg Q6H PRN IV NAUSEA AND/OR VOMITING; Start at 14:30 Acetaminophen (Tylenol Tab) 650 mg Q6H PRN PO PAIN LEVEL 1-3 OR FEVER; Start at 14:30 Acetaminophen/ Hydrocodone Bitart ([place] (5/325)) 1 tab Q6H PRN PO MODERATE PAIN LEVEL 4-6; Start 11/27/16 at 14:30 Morphine Sulfate (morphine) 2 mg Q4H PRN IV SEVERE PAIN LEVEL 7-10 Last administered on 11/29/16 00:06; Admin Dose 2 MG; Start 11/27/16 at 14:30 Docusate Sodium (Colace) 100 mg Q12H PRN PO CONSTIPATION; Start 11/27/16 at 14: 30 Magnesium Hydroxide (Milk Of Mag) 30 ml DAILY PRN PO CONSTIPATION; Start at 14:30 Sodium Biphosphate/ Sodium Phosphate (Fleet Enema) 133 ml DAILY PRN [place] CONSTIPATION; Start 11/27/16 at 14:30 Pantoprazole (Protonix Iv) 40 mg DAILY@06 IV Last administered on 11/29/16 05: 36; Admin Dose 40 MG; Start 11/28/16 at 06:00 Lorazepam (Ativan) 0.5 mg Q6H PRN IV ANXIETY; Start 11/27/16 at 14:30 Hydralazine HCl (Apresoline) 10 mg Q6H PRN IV ELEVATED BLOOD PRESSURE; Start at 14:30 Nitroglycerin (Nitroglycerin (Sl Tab) 0.4 Mg) 1 tab Q5M PRN SL ANGINA; Start at 14:30 Megestrol Acetate (Megace Susp) 800 mg DAILY PO Last administered on 11/29/16 09:36; Admin Dose 800 MG; Start 11/28/16 at 09:00 Tramadol HCl (Ultram) 50 mg Q4H PRN PO PAIN Last administered on 11/27/16 23: 22; Admin Dose 50 MG; Start 11/27/16 at 14:30 Lactulose (Enulose) 30 gm Q6 PO Last administered on 11/29/16 13:23; Admin Dose 30 GM; Start 11/27/16 at 20:00 Metoclopramide HCl (Reglan) 10 mg Q6H PRN IV VOMITTING; Start 11/28/16 at 14:30 Potassium Chloride (Potassium Chloride Pwd/Soln) 20 meq DAILY PO Last administered on 11/29/16 09:39; Admin Dose 20 MEQ; Start 11/29/16 at 09:30 Assessment/Plan Chief Complaint/Hosp Course OBJECTIVE: GENERAL: This is a cachectic elderly woman who is in no distress. HEENT: Head atraumatic, normocephalic. Sclerae anicteric. Buccal mucosa dry. NECK: Supple, trachea midline. CHEST: Rise symmetrical. Breath sounds diminished to bases. HEART: S1, S2. ABDOMEN: Distended, soft. Bowel tones present. EXTREMITIES: Without cyanosis. ASSESSMENT: 1. Acute encephalopathy, likely secondary to elevated ammonia, so far no evidence for any infectious process, although could be SBP as the patient had paracentesis on Saturday. 2. Status post Escherichia coli extended-spectrum beta-lactamase urinary tract infection with bacteremia, completed 14 days of treatment. 3. Recurrent ascites. 4. Diabetes. 5. Pancreatic cancer. 6. Cachexia. PLAN: The patient is clinically stable, all cultures negative. Chest x-ray negative. She is seen by GI, continue observing off abx. DW staff Problems: MIKE BRYSON NP Nov 29, 2016 13:29
--- NOTE | 2016-11-29 14:58 | CONS ---
DATE OF ADMISSION: 11/27/2016 DATE OF CONSULTATION: 11/29/2016 TYPE OF CONSULTATION: Oncology. REFERRING PHYSICIAN: Dr. Fuller HISTORY OF PRESENT ILLNESS: Ms. Sanchez is a 65-year-old woman whose history is primarily obtain ed from a daughter. The patient has apparently presented with a pancreatic cancer about a year and half ago and it sound s as if she had an attempt at surgical resection, but they were unable to resect the tumor and she h as been subsequently treated with radiation and some types of chemotherapy. The daughter believes th at the last treatment program was with 5-FU and Leucovorin, the last treatment was given in early . The patient has had problems subsequently with recurring ascites and infections and has not received any chemotherapy since that early October time period. She has had a catheter placed in the abdomen for draining the ascites for comfort and she also has a PICC line for getting treatments . The daughter is not sure whether the patient is progressing. She says that they have been unable t o keep appointments with the oncologist there. Other medical history includes hypothyroidism, anemia, dyslipidemia, ESBL E coli infection, type 2 d iabetes, and she was recently here at the beginning of the month she was transferred to [facility] and now once again is here again for altered mental status felt to be due to another infection. MEDICATIONS: The patient's medication at home included: 1. Invanz. 2. Megace. 3. Tramadol. 4. Lasix. 5. Potassium. 6. Creon DRAbraham 7. Levothyroxine. ALLERGIES: SHE HAS A POSSIBLE ALLERGY TO METHYLISOTHIAZOLINONE. PAST SURGICAL HISTORY: Notable for the [place] a year and a half ago, cholecystectomy, tubal ligatio n and a duodenal stent placement in the past. SOCIAL HISTORY: She denies smoking or alcoholism. PHYSICAL EXAMINATION GENERAL: The patient is a cachectic woman, but she is alert and conversant. HEAD: Atraumatic. EYES: Show no jaundice. Mouth is dry, but without mucositis. LUNGS: Show no wheezing. There are decreased breath sounds. CARDIAC: Examination reveals a regular rhythm without murmurs or gallops. ABDOMEN: Notable for the catheter that was placed at [facility]. She has no edema presently but her abdom en is distended. There are no obvious masses on physical examination. LABORATORY STUDIES: From this morning showed a white count of 7.3, hemoglobin 8.8, platelet count o f 223,000. Her INR from November 27 was 1.4 with a PTT of 34 seconds. The electrolytes were normal today except for a potassium slightly low at 3.3. BUN and creatinine are 16 and 0.5 respectively, c alcium is 7.6. Ammonia was 52 yesterday but 22 today. IMAGING STUDIES: Notable for a brain CT done on November 27 which showed no intracranial hemorrhag e or tumor. The patient also had an upper GI series done on November 28 which was limited and the duodenal stent patency could not be evaluated, as the patient was unable to cooperate. IMPRESSION: In summary, this is an unfortunate 65-year-old woman who has about a year and a half hi story of pancreatic cancer. She has been treated over this time period by the oncologist at [facility]. I think it would make the most sense to stabilize her and after her infections are treated allow her to be followed there. We do not have any of the records and do not have her treatment history or th e exact extent of her disease. The daughter says they have not done anything recently to perhaps exp edite this, I will order a CA19-9 which presumably has been monitored over the course of her treatme nt program, but judging her clinically she is very malnourished and debilitated. I would not regard her as a good candidate for further chemotherapy even if it were desired. I encouraged the daughter to talk candidly with the oncologist at [facility] about whether or not further therapy is appropriate, or whether comfort care would be the most appropriate avenue. Thank you very much for including me in the care of altered mental status. Sanchez. I will follo w her here and as I said, I will order the CA19-9. Dictated By: RICKY BISWAS/NILSA Conf#: [id number] DID#: [id number]
[2016-11-29] MEDS ORDERED: SOD CHLORIDE 0.9% 100 ML ONE (15:06)
[2016-11-29] MEDS ORDERED: IODIXANOL LOCM 100 ML BTL ONE (15:06)
[2016-11-29] MEDS: traMADol 50 MG TAB PO PRN ×2 (16:48→23:12)
[2016-11-29 18:03] VITALS: BP 108/70; PULSE 92
[2016-11-29 20:31] VITALS: BP 104/67; RESP 16
--- NOTE | 2016-11-29 23:29 | RADRPT ---
PROCEDURE: CT Abdomen and Pelvis with contrast. CLINICAL INDICATION: Abdomen and pelvis pain. History of pancreatic mass. TECHNIQUE: CT scan of the abdomen and pelvis with contrast was performed. The patient was scanned following the uncomplicated intravenous administration of 100 cc of Omnipaque-300. Coronal and sag ittal reformatted images were obtained from the axial source images. Images were reviewed on a high- resolution PACS workstation. Total exam DLP is 403.09 mGy-cm. CTDIvol is 7.14 mGy. One or more of the following dose reduction techniques were used: Automated exposure control, adjustment of the mA and/or kV according to patient size, use of iterative reconstruction technique. COMPARISON: CT scan of the abdomen and pelvis dated 11 02:16. FINDINGS: As seen previously, there are several small nodules in the lung bases with the largest in the superi or segment of the right lower lobe posteriorly measuring 0.6 cm. The lung bases are otherwise isrrael l. There is a small left pleural effusion. There is no right pleural effusion or pericardial effus ion. The heart size is normal. There is a central line with the tip in the right atrium. The liver is normal in size and attenuation. There is no focal hepatic lesion. The gallbladder is surgically absent with clips noted in the gallbladder bed. There is diffuse bili xi dilatation. The spleen is normal in size. There is no focal splenic lesion. Both adrenals are normal with no enlargement or mass. There is a 2 cm in diameter metallic stent extending from the pylorus to the third part of the duode num. A small amount of contrast remains within the stent from the prior upper GI series. However, most of the contrast is now in the colon. There is a probable mass in the head of the pancreas whic h is not well seen. Both kidneys demonstrate normal contrast enhancement. There is no renal mass or hydronephrosis. The abdominal aorta is not dilated. There is calcification in the aorta consistent with atheroscler osis. There is no retroperitoneal lymphadenopathy or mass. There is no pelvic lymphadenopathy or mass. There is a Ivory catheter in the urinary bladder. The periappendiceal region is unremarkable with no evidence of appendicitis. There is extensive artifact throughout the pelvis related to the dense contrast in the rectosigmoid. There is a large amount of ascites. There is no free air. There is a tunneled catheter extending fr om the right anterior abdominal wall to the left paracolic gutter, new when compared with the prior study. There are mild degenerative changes of the lower thoracic spine. There is no fracture or lytic lesi on. IMPRESSION: 1. Small nodules at the lung bases, suspicious for neoplasm. 2. New small left pleural effusion. 3. Central line tip in the right atrium. 4. Status post cholecystectomy. 5. Diffuse biliary dilatation. 6. A 2 cm in diameter metallic stent in the pylorus extending to the third part of the duodenum. 7. Most of the contrast which was previously in the stomach is now in the colon causing artifact in the pelvis. 8. Atherosclerosis. 9. Ivory catheter in the bladder. 10. Tunneled catheter within the peritoneum. 11. Large amount of ascites. 12. Mild degenerative changes of the lower thoracic spine. RPTAT: QQ .Jacob Smiley MD, Date Time Electronically viewed and signed by .Jacob Smiley MD, on 11/29/2016 23:28 .R/
[2016-11-30] MEDS: PANTOPRAZOLE 40 MG INJ IV SCH (05:45)
[2016-11-30] MEDS: LACTULOSE 30ML CUP PO SCH ×3 (05:49→18:12)
[2016-11-30] MEDS: SPIRONOLACTONE 50 MG TAB PO SCH ×2 (05:54→18:13)
[2016-11-30] MEDS: FUROSEMIDE 20 MG TAB PO SCH ×2 (05:54→18:13)
[2016-11-30] MEDS: LEVOTHYROXINE 112 MCG TAB PO SCH (06:01)
[2016-11-30 06:38] LABS: ALANINE AMINOTRANSFERASE 34 IU/L (13-69); ASPARTATE AMINO TRANSFERASE 42 IU/L (15-46)
[2016-11-30 06:40] LABS: BASOPHILS % 0.1 % (0.0-2.0); EOSINOPHILS # 0.1 10^3/ul (0.0-0.5); HEMATOCRIT 25.3 % (37.0-47.0); HEMOGLOBIN 8.6 g/dl (12.0-16.0); LYMPHOCYTES # 0.5 10^3/ul (0.8-2.9); LYMPHOCYTES % 6.8 % (15.0-51.0); MEAN CORPUSCULAR HEMOGLOBIN 30.6 pg (29.0-33.0); MEAN CORPUSCULAR HGB CONC 34.2 g/dl (32.0-37.0); MEAN CORPUSCULAR VOLUME 89.5 fl (82.0-101.0); MEAN PLATELET VOLUME 7.7 fl (7.4-10.4); MONOCYTE # 0.6 10^3/ul (0.3-0.9); MONOCYTES % 8.4 % (0.0-11.0); NEUTROPHIL # 6.1 10^3/ul (1.6-7.5); NEUTROPHILS % 82.7 % (39.0-77.0); PLATELET COUNT 197 10^3/UL (140-440); RED BLOOD COUNT 2.83 10^6/ul (4.20-5.40); RED CELL DISTRIBUTION WIDTH 17.3 % (11.5-14.5); UNCORRECTED WBC 7.4 10^3/ul (4.8-10.8); WHITE BLOOD COUNT 7.4 10^3/ul (4.8-10.8)
[2016-11-30 06:48] LABS: CREATININE 0.56 mg/dl (0.44-1.00)
[2016-11-30 06:49] LABS: CALCIUM 7.6 mg/dl (8.4-10.2)
[2016-11-30 06:57] LABS: CONDITION 1; LH ANALYZER COMMENTS 1
[2016-11-30 08:06] VITALS: BP 111/68; RESP 18
[2016-11-30] MEDS: CREON (24K-76K-120K) 1 CAP PO SCH ×3 (09:05→18:13)
[2016-11-30] MEDS: POTASSIUM CHLORIDE 20 MEQ POWDER FOR ORAL SOLN PO SCH (09:05)
[2016-11-30] MEDS: MEGESTROL (40 MG/ML) 10ML CUP PO SCH (09:05)
[2016-11-30 10:01] LABS: IRON 26 ug/dl (35-150)
[2016-11-30 10:11] LABS: TOTAL IRON BINDING CAPACITY 166 ug/dl (241-421)
--- NOTE | 2016-11-30 10:54 | PN ---
Date/Time of Note Date/Time of Note DATE: 11/30/16 TIME: 10:51 Assessment/Plan VTE Prophylaxis VTE Prophylaxis Intervention: SCD's Lines/Catheters IV Catheter Type (from Nrsg): PICC Line Central line still needed: Yes Urinary Cath still in place: Yes Reason Cath still needed: urinary retention Assessment/Plan Chief Complaint/Hosp Course ASSESSMENT AND PLAN: 65-year-old female coming in with weakness and altered mental status and possible lower GI bleeding over the last 2 days with a history of pancreatic cancer followed at [facility] and recent beta-lactamase Escherichia coli E. bacteremia and urinary tract infection. 1. Altered mental status, weakness. Slowly improved. HE -(NH3 = 88 -> 52 -> 22 ) with lactulose. Patient's prior sepsis from blood infection, as well as pt's worsening cancer could be contributing to the patient's overall weakness and mental status as well. Family states the patient has not had any further chemotherapy or radiation since Oct, this was indicated by the [facility] team, cannot be performed until the infections have cleared. - continue lactulose - off Ertapenem for now per ID rec's 2. Anemia - H/H stable after pRBC transfusion. - per GI consult rec's, no plan for EGD for now, repeat EGD only recommended if precipitous drop in hemoglobin occurs or to evaluate patency of duodenal stent if symptoms do not improve - continue PPI twice daily 3. History of metastatic pancreatic cancer again, with prior abdominal distention. On EGD in May = large obstructing and friable malignant neoplasm in the second portion of the duodenum likely pancreatic carcinoma extension or invasion with imminent obstruction. Duodenal stent placed as well that time. - Continue to monitor for now, f/u GI consult rec's. - continue Creon and tramadol and continue patient's home Lasix and Megace for now, and potassium chloride. - continue aldactone BID. - f/u palliative care consult rec's, appreciate Heme Onc consult rec's 4. High cholesterol. Follow up lipid panel. Continue to monitor for now. 5. Hypothyroidism. Continue thyroid medicine, Synthroid. 6. GI, thrombosis prophylaxis, PPI and continue prophylactic SCDs. Problems: Subjective 24 Hr Interval Summary Free Text/Dictation Pt still weak, but more alert, seen by Heme Onc team yesterday. Working with PT now. Exam/Review of Systems Vital Signs Vitals Vital Signs Date Time Temp Pulse Resp B/P Pulse Ox O2 Delivery O2 Flow Rate FiO2 11/30/16 08:06 98.4 85 18 111/68 98 11/29/16 12:40 2.0 11/28/16 08:10 Nasal Cannula Intake and Output 11/29/16 11/29/16 11/30/16 15:00 23:00 07:00 Intake Total 660 ml Output Total 650 ml Balance 10 ml Exam GENERAL: The patient is ambulating with FWW with PT, NAD HEENT: Pupils equal, round, react to light. There are some dry mucous membranes, but otherwise, extraocular muscles are intact. NECK: Supple, no thyromegaly. LUNGS: Clear to auscultation bilaterally. No wheezes. CARDIOVASCULAR: S1, S2 heard. No rubs or gallops. ABDOMEN: Soft. There is abdominal drain in the right portion of the abdomen, nontender, nondistended. Normal bowel sounds. No rebound or guarding. MUSCULOSKELETAL: No lower extremity edema bilaterally. NEUROLOGIC: No focal deficits. Results Result Diagram: 11/30/16 0555 11/30/16 0555 Results 24 hrs Laboratory Tests Test 11/30/16 05:51 11/30/16 05:55 Alanine Aminotransferase (ALT/SGPT) 34 Aspartate Amino Transf (AST/SGOT) 42 Anion Gap 11 Basophils # 0.0 Basophils % 0.1 Blood Morphology Comment Blood Urea Nitrogen 12 CA 19-9 Antigen 2980.0 H Calcium Level 7.6 L Carbon Dioxide Level 21 Chloride Level 106 Creatinine 0.56 Eosinophils # 0.1 Eosinophils % 2.0 Ferritin 188.0 Glucose Level 74 # Hematocrit 25.3 L Hemoglobin 8.6 L Iron Level 26 L Lymphocytes # 0.5 L Lymphocytes % 6.8 L Mean Corpuscular Hemoglobin 30.6 Mean Corpuscular Hemoglobin Concent 34.2 Mean Corpuscular Volume 89.5 Mean Platelet Volume 7.7 Monocytes # 0.6 Monocytes % 8.4 Neutrophils # 6.1 Neutrophils % 82.7 H Nucleated Red Blood Cells # 0.0 Nucleated Red Blood Cells % 0.0 Percent Iron Saturation 16 L Platelet Count 197 Potassium Level 4.0 Red Blood Count 2.83 L Red Cell Distribution Width 17.3 H Sodium Level 134 L Total Iron Binding Capacity 166 L White Blood Count 7.4 Medications Medications Current Medications Ondansetron HCl (Zofran Inj) 4 mg Q6H PRN IV NAUSEA AND/OR VOMITING; Start at 14:30 Acetaminophen (Tylenol Tab) 650 mg Q6H PRN PO PAIN LEVEL 1-3 OR FEVER; Start at 14:30 Acetaminophen/ Hydrocodone Bitart ([place] (5/325)) 1 tab Q6H PRN PO MODERATE PAIN LEVEL 4-6; Start 11/27/16 at 14:30 Morphine Sulfate (morphine) 2 mg Q4H PRN IV SEVERE PAIN LEVEL 7-10 Last administered on 11/29/16 00:06; Admin Dose 2 MG; Start 11/27/16 at 14:30 Docusate Sodium (Colace) 100 mg Q12H PRN PO CONSTIPATION; Start 11/27/16 at 14: 30 Magnesium Hydroxide (Milk Of Mag) 30 ml DAILY PRN PO CONSTIPATION; Start at 14:30 Sodium Biphosphate/ Sodium Phosphate (Fleet Enema) 133 ml DAILY PRN [place] CONSTIPATION; Start 11/27/16 at 14:30 Pantoprazole (Protonix Iv) 40 mg DAILY@06 IV Last administered on 11/30/16 05: 45; Admin Dose 40 MG; Start 11/28/16 at 06:00 Lorazepam (Ativan) 0.5 mg Q6H PRN IV ANXIETY; Start 11/27/16 at 14:30 Hydralazine HCl (Apresoline) 10 mg Q6H PRN IV ELEVATED BLOOD PRESSURE; Start at 14:30 Nitroglycerin (Nitroglycerin (Sl Tab) 0.4 Mg) 1 tab Q5M PRN SL ANGINA; Start at 14:30 Megestrol Acetate (Megace Susp) 800 mg DAILY PO Last administered on 11/30/16 09:05; Admin Dose 800 MG; Start 11/28/16 at 09:00 Tramadol HCl (Ultram) 50 mg Q4H PRN PO PAIN Last administered on 11/29/16 23: 12; Admin Dose 50 MG; Start 11/27/16 at 14:30 Lactulose (Enulose) 30 gm Q6 PO Last administered on 11/30/16 05:49; Admin Dose 30 GM; Start 11/27/16 at 20:00 Metoclopramide HCl (Reglan) 10 mg Q6H PRN IV VOMITTING; Start 11/28/16 at 14:30 Potassium Chloride (Potassium Chloride Pwd/Soln) 20 meq DAILY PO Last administered on 11/30/16t 09:05; Admin Dose 20 MEQ; Start 11/29/16 at 09:30 KENYON OROZCO Nov 30, 2016 10:54
--- NOTE | 2016-11-30 11:23 | PN ---
DATE: 11/30/2016 SUBJECTIVE: Ms. Sanchez states that she is feeling well this morning. She has received recent a nalgesia and is not having any pain. The patient has apparently received 1 unit of packed red blood cells. Her CBC has been stable. Toda y, white count is 7400, hemoglobin 8.6, hematocrit 25.3 with MCV of 89.5 and platelet count is 197,0 00. Sodium 134, potassium 4, creatinine 0.56, BUN 12. There are no iron studies available. PHYSICAL EXAMINATION: GENERAL: Patient is a well-developed chronically ill-appearing female who seems to be resting comfo rtably in bed. VITAL SIGNS: Temperature 98.4 orally, pulse 85 per minute and regular, respirations 18, blood press ure is 111/68 and pulse oximetry is 98% on 2 liters of oxygen SKIN: Fair skin turgor. There are no ecchymoses or rashes. HEENT: Normocephalic. No evidence of trauma. The pupils are equal, round, react to light and acco mmodation. Sclerae nonicteric. Oral mucosa is dry, but without lesions. Tongue is well papillated . No gingival hyperplasia, no hypertrophy of Waldeyer's ring. NECK: Supple, no jugular venous distention or thyroid enlargement. No carotid bruits. There is th e subcutaneous catheter from Port-A-Cath easily seen coursing over the right clavicle. CHEST: Clear to auscultation and percussion. No rhonchi, wheezes, rales or rubs. There is a Port- A-Cath in the right anterior chest wall in the subclavicular area. HEART: Regular sinus rhythm, no S3, S4 or murmurs. ABDOMEN: Firm and somewhat distended. There is a peritoneal drainage catheter in the right abdomen . No evidence of infection at the insertion site. EXTREMITIES: No clubbing or cyanosis. No palpable cords. NEUROLOGIC: No asterixis. At this time, I would agree with administering supportive care only. I will obtain iron studies as I feel this patient has been experiencing chronic blood loss. She states that she was transfused pr eviously at [facility] approximately 2 months ago. She has had intermittent melanotic stools since that ti me. The patient may benefit from parenteral iron replacement. Dictated By: SANJAY MONDRAGON MD SR/NTS Conf#: [id number] DID#: [id number]
[2016-11-30] MEDS ORDERED: SOD FERRIC GLUC COMPLX 125 MG in SOD CHLORIDE 0.9% 100 ML IVPB ONE (12:00)
--- NOTE | 2016-11-30 12:23 | PQ ---
Date/Time of Note Date/Time of Note DATE: 11/30/16 TIME: 12:18 Physician Query Documentation Clarification Dear Dr. Orozco, A review of the medical record found a need for documentation clarification. progress note - 1. Altered mental status, weakness. Slowly improved. HE -(NH3 = 88 -> 52 -> 22) with lactulose. Patient's prior sepsis from blood infection, as well as pt's worsening cancer could be contributing to the patient's overall weakness and mental status as well. ID consult -Acute encephalopathy, likely secondary to elevated ammonia, so far no evidence for any infectious process, Please clarify a diagnosis being treated. To facilitate accurate and complete coding, please clarissa ( x ) the suspected diagnosis that apply: ( x ) Metabolic Encephalopathy ( ICD10 G93.41 ) ( x ) Toxic Encephalopathy ( ICD10 G92 ) ( ) Encephalopathy, unspecified ( ICD10 G93.40 ) ( ) Clinically undetermined ( ) Please provide your response by clicking edit document, making your choice ( x ), click ok and finally click sign. You may also document your response on your progress notes. Thank you for your time. Bhupendra Patino, RN, BSN, CCS, CCDS Clinical Calculation Clerk Health Information Management, CDI and Coding Services [phone] Room # 1525 - [address]~ [address] BHUPENDRA PATINO Nov 30, 2016 12:23 KENYON OROZCO Nov 30, 2016 16:06
--- NOTE | 2016-11-30 12:49 | PN ---
DATE: 11/30/2016 INFECTIOUS DISEASE PROGRESS NOTE SUBJECTIVE: Patient is alert, looks comfortable. No fevers. Vital signs stable. She is off antibi otics. WBC 7.4, neutrophils 82.7, BUN 12, creatinine 0.56. PHYSICAL EXAMINATION: GENERAL: This is a cachectic, fragile, elderly woman, who is awake, in no distress. HEENT: Head atraumatic, normocephalic. Sclerae anicteric. Buccal mucosa dry. NECK: Supple. CHEST: Chest rise is symmetrical. Breath sounds clear. HEART: S1, S2. ABDOMEN: Soft, bowel tones present. EXTREMITIES: Without cyanosis. ASSESSMENT: 1. Status post acute encephalopathy, likely secondary to elevated ammonia level. Improved. 2. Status post Escherichia coli extended-spectrum beta-lactamase urinary tract infection with bacte remia. Completed 2 weeks of treatment with Invanz. 3. Diabetes. 4. Pancreatic cancer. 5. Cachexia. PLAN: The patient remains stable, followed by multiple consultants. There is no acute infectious p rocess at this point. Continue the present care. Panculture p.r.n. Dictated By: MIKE BRYSON AUTOMOTIVE ACCESSORY INSTALLER for FAB MEYER MD NI/NTS Conf#: [id number] DID#: [id number]
[2016-11-30] MEDS: traMADol 50 MG TAB PO PRN (18:20)
--- NOTE | 2016-11-30 18:51 | PN ---
Date/Time of Note Date/Time of Note DATE: 11/30/16 TIME: 18:48 Assessment/Plan VTE Prophylaxis VTE Prophylaxis Intervention: contraindicated Lines/Catheters IV Catheter Type (from Nrs): PICC Line Central line still needed: Yes Urinary Cath still in place: Yes Reason Cath still needed: urinary retention Assessment/Plan Chief Complaint/Hosp Course 65-year-old female presented to ED with complaints of weakness and change in mentation. Patient has history of pancreatic mass, status post duodenal stenting. Patient recently evaluated for SBP and treatment for recurrent ascites. Patient was discharged to [facility] on November 21, 2016. Per daughter at bedside, abdominal drain was placed to treat recurrent ascites. Patient was to follow-up in a few weeks with provider at [facility]. Per daughter, last chemo treatment was in October. Daughter unaware of prognosis of disease. At bedside, patient denies abdominal pain and vomiting. Patient does feel nauseous. Hemoglobin at 7.4 and 1 unit plan to be transfused. If EGD is deemed necessary, R/B/A of procedure explained to patient and daughter and they are both agreeable to proceed. Problems: Assessment/Plan Anemia * Monitor H&H every 6 hours, transfuse 2 units for hemoglobin less than 7.5 * Likely secondary to large obstructing and friable malignant neoplasm in the second portion of the duodenum * Repeat IP EGD only recommended if precipitous drop in hemoglobin occurs * PPI twice daily Nausea and vomiting * May need repeat EGD to evaluate patency of duodenal stent if symptoms do not improve History of ascites * Status post abdominal drain placement at [facility] to treat recurrent ascites * Start Aldactone BID * ID following Hx of Metastatic pancreatic cancer. * s/p EGD 06/06/2016: IMPRESSION: Duodenal obstruction bridged with 10 x 120-mm duodenal wall stent proximal opening in gastric antrum distal opening and 3rd portion of the duodenum. 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 Further recommendations depend on clinical course Subjective 24 Hr Interval Summary Free Text/Dictation Course reviewed with nursing staff Patient reports no abdominal pain, no nausea Tolerating diet No overt GI bleeding Exam/Review of Systems Vital Signs Vitals Vital Signs Date Time Temp Pulse Resp B/P Pulse Ox O2 Delivery O2 Flow Rate FiO2 11/30/16 08:06 98.4 85 18 111/68 98 11/29/16 12:40 2.0 11/28/16 08:10 Nasal Cannula Intake and Output 11/29/16 11/29/16 11/30/16 15:00 23:00 07:00 Intake Total 660 ml Output Total 650 ml Balance 10 ml Exam Constitutional: alert, oriented, well developed (Poorly nourished/cachectic) Head: atraumatic, normocephalic Neck: non-tender, supple Respiratory: clear to auscultation, normal air movement Cardiovascular: nl pulses, regular rate and rhythm Gastrointestinal: ascites (Small amount), distended (Soft), tender (Minimally diffuse tenderness), No rebound or guarding Results Result Diagram: 11/30/1655411/30/16 0555 Results 24 hrs Laboratory Tests Test 11/30/16 05:51 11/30/16 05:55 Alanine Aminotransferase (ALT/SGPT) 34 Aspartate Amino Transf (AST/SGOT) 42 Anion Gap 11 Basophils # 0.0 Basophils % 0.1 Blood Morphology Comment Blood Urea Nitrogen 12 CA 19-9 Antigen 2980.0 H Calcium Level 7.6 L Carbon Dioxide Level 21 Chloride Level 106 Creatinine 0.56 Eosinophils # 0.1 Eosinophils % 2.0 Ferritin 188.0 Glucose Level 74 # Hematocrit 25.3 L Hemoglobin 8.6 L Iron Level 26 L Lymphocytes # 0.5 L Lymphocytes % 6.8 L Mean Corpuscular Hemoglobin 30.6 Mean Corpuscular Hemoglobin Concent 34.2 Mean Corpuscular Volume 89.5 Mean Platelet Volume 7.7 Monocytes # 0.6 Monocytes % 8.4 Neutrophils # 6.1 Neutrophils % 82.7 H Nucleated Red Blood Cells # 0.0 Nucleated Red Blood Cells % 0.0 Percent Iron Saturation 16 L Platelet Count 197 Potassium Level 4.0 Red Blood Count 2.83 L Red Cell Distribution Width 17.3 H Sodium Level 134 L Total Iron Binding Capacity 166 L White Blood Count 7.4 Medications Medications Current Medications Ondansetron HCl (Zofran Inj) 4 mg Q6H PRN IV NAUSEA AND/OR VOMITING; Start at 14:30 Acetaminophen (Tylenol Tab) 650 mg Q6H PRN PO PAIN LEVEL 1-3 OR FEVER; Start at 14:30 Acetaminophen/ Hydrocodone Bitart ([place] (5/325)) 1 tab Q6H PRN PO MODERATE PAIN LEVEL 4-6; Start 11/27/16 at 14:30 Morphine Sulfate (morphine) 2 mg Q4H PRN IV SEVERE PAIN LEVEL 7-10 Last administered on 11/29/16 00:06; Admin Dose 2 MG; Start 11/27/16 at 14:30 Docusate Sodium (Colace) 100 mg Q12H PRN PO CONSTIPATION; Start 11/27/16 at 14: 30 Magnesium Hydroxide (Milk Of Mag) 30 ml DAILY PRN PO CONSTIPATION; Start at 14:30 Sodium Biphosphate/ Sodium Phosphate (Fleet Enema) 133 ml DAILY PRN [place] CONSTIPATION; Start 11/27/16 at 14:30 Pantoprazole (Protonix Iv) 40 mg DAILY@06 IV Last administered on 11/30/16 05: 45; Admin Dose 40 MG; Start 11/28/16 at 06:00 Lorazepam (Ativan) 0.5 mg Q6H PRN IV ANXIETY; Start 11/27/16 at 14:30 Hydralazine HCl (Apresoline) 10 mg Q6H PRN IV ELEVATED BLOOD PRESSURE; Start at 14:30 Nitroglycerin (Nitroglycerin (Sl Tab) 0.4 Mg) 1 tab Q5M PRN SL ANGINA; Start at 14:30 Megestrol Acetate (Megace Susp) 800 mg DAILY PO Last administered on 11/30/16 09:05; Admin Dose 800 MG; Start 11/28/16 at 09:00 Tramadol HCl (Ultram) 50 mg Q4H PRN PO PAIN Last administered on 11/30/16 18: 20; Admin Dose 50 MG; Start 11/27/16 at 14:30 Lactulose (Enulose) 30 gm Q6 PO Last administered on 11/30/16 18:12; Admin Dose 30 GM; Start 11/27/16 at 20:00 Metoclopramide HCl (Reglan) 10 mg Q6H PRN IV VOMITTING; Start 11/28/16 at 14:30 Potassium Chloride (Potassium Chloride Pwd/Soln) 20 meq DAILY PO Last administered on 11/30/16 09:05; Admin Dose 20 MEQ; Start 11/29/16 at 09:30 Ferrous Sulfate (Ferrous Sulfate (Ec)) 325 mg BID PO ; Start 11/30/16 at 21:00 VIVI PEDERSON MD Nov 30, 2016 18:51
[2016-11-30 19:48] VITALS: BP 105/64; RESP 16
[2016-11-30] MEDS: FERROUS SULFATE (EC) 325 MG TAB PO SCH (21:25)
[2016-12-01] MEDS: LACTULOSE 30ML CUP PO SCH ×4 (00:44→20:42)
[2016-12-01] MEDS: PANTOPRAZOLE 40 MG INJ IV SCH (06:17)
[2016-12-01] MEDS: SPIRONOLACTONE 50 MG TAB PO SCH ×2 (06:18→18:05)
[2016-12-01] MEDS: LEVOTHYROXINE 112 MCG TAB PO SCH (06:18)
[2016-12-01] MEDS: FUROSEMIDE 20 MG TAB PO SCH ×2 (06:21→18:05)
[2016-12-01 08:00] VITALS: BP 110/61; RESP 16
--- NOTE | 2016-12-01 08:41 | CONS ---
Date/Time of Note Date/Time of Note DATE: 12/01/16 TIME: 08:40 Assessment/Plan Assessment/Plan Additional Assessment/Plan Anemia * Monitor H&H every 6 hours, transfuse 2 units for hemoglobin less than 7.5 * Likely secondary to large obstructing and friable malignant neoplasm in the second portion of the duodenum * Repeat IP EGD only recommended if precipitous drop in hemoglobin occurs * PPI twice daily Nausea and vomiting * May need repeat EGD to evaluate patency of duodenal stent if symptoms do not improve History of ascites * Status post abdominal drain placement at [facility] to treat recurrent ascites * Start Aldactone BID * ID following Hx of Metastatic pancreatic cancer. * s/p EGD 06/06/2016: IMPRESSION: Duodenal obstruction bridged with 10 x 120-mm duodenal wall stent proximal opening in gastric antrum distal opening and 3rd portion of the duodenum. 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 Further recommendations depend on clinical course Consultation Date/Type/Reason Admit Date/Time Nov 27, 2016 at 13:19 Type of Consultation: Gastroenterology 24 HR Interval Summary Free Text/Dictation Patient tolerating diet, however little p.o. intake H&H in process Denies abdominal pain, nausea, vomiting Exam/Review of Systems Vital Signs Vitals Vital Signs Date Time Temp Pulse Resp B/P Pulse Ox O2 Delivery O2 Flow Rate FiO2 11/30/16 20:00 Nasal Cannula 2.0 11/30/16 19:48 98.7 91 16 105/64 97 Intake and Output 11/30/16 11/30/16 12/01/16 15:00 23:00 07:00 Intake Total 100 ml 960 ml 200 ml Output Total 900 ml 600 ml Balance 100 ml 60 ml -400 ml Exam Constitutional: alert, oriented, well developed (Poorly nourished/cachectic) Head: atraumatic, normocephalic Neck: non-tender, supple Respiratory: clear to auscultation, normal air movement Cardiovascular: nl pulses, regular rate and rhythm Gastrointestinal: ascites (Small amount), distended (Soft), tender (Minimally diffuse tenderness), No rebound or guarding Results Result Diagram: 11/30/16 0555 11/30/16 0555 Medications Medications Current Medications Ondansetron HCl (Zofran Inj) 4 mg Q6H PRN IV NAUSEA AND/OR VOMITING; Start at 14:30 Acetaminophen (Tylenol Tab) 650 mg Q6H PRN PO PAIN LEVEL 1-3 OR FEVER; Start at 14:30 Acetaminophen/ Hydrocodone Bitart ([place] (5/325)) 1 tab Q6H PRN PO MODERATE PAIN LEVEL 4-6; Start 11/27/16 at 14:30 Morphine Sulfate (morphine) 2 mg Q4H PRN IV SEVERE PAIN LEVEL 7-10 Last administered on 11/29/16 00:06; Admin Dose 2 MG; Start 11/27/16 at 14:30 Docusate Sodium (Colace) 100 mg Q12H PRN PO CONSTIPATION; Start 11/27/16 at 14: 30 Magnesium Hydroxide (Milk Of Mag) 30 ml DAILY PRN PO CONSTIPATION; Start at 14:30 Sodium Biphosphate/ Sodium Phosphate (Fleet Enema) 133 ml DAILY PRN [place] CONSTIPATION; Start 11/27/16 at 14:30 Pantoprazole (Protonix Iv) 40 mg DAILY@06 IV Last administered on 12/01/16 06: 17; Admin Dose 40 MG; Start 11/28/16 at 06:00 Lorazepam (Ativan) 0.5 mg Q6H PRN IV ANXIETY; Start 11/27/16 at 14:30 Hydralazine HCl (Apresoline) 10 mg Q6H PRN IV ELEVATED BLOOD PRESSURE; Start at 14:30 Nitroglycerin (Nitroglycerin (Sl Tab) 0.4 Mg) 1 tab Q5M PRN SL ANGINA; Start at 14:30 Megestrol Acetate (Megace Susp) 800 mg DAILY PO Last administered on 11/30/16 09:05; Admin Dose 800 MG; Start 11/28/16 at 09:00 Tramadol HCl (Ultram) 50 mg Q4H PRN PO PAIN Last administered on 11/30/16 18: 20; Admin Dose 50 MG; Start 11/27/16 at 14:30 Lactulose (Enulose) 30 gm Q6 PO Last administered on 12/01/16 06:18; Admin Dose 30 GM; Start 11/27/16 at 20:00 Metoclopramide HCl (Reglan) 10 mg Q6H PRN IV VOMITTING; Start 11/28/16 at 14:30 Potassium Chloride (Potassium Chloride Pwd/Soln) 20 meq DAILY PO Last administered on 11/30/16 09:05; Admin Dose 20 MEQ; Start 11/29/16 at 09:30 Ferrous Sulfate (Ferrous Sulfate (Ec)) 325 mg BID PO Last administered on 21:25; Admin Dose 325 MG; Start 11/30/16 at 21:00 GILDARDO LAST Dec 01, 2016 08:41
--- NOTE | 2016-12-01 08:46 | CONS ---
Date/Time of Note Date/Time of Note DATE: 12/01/16 TIME: 08:37 Consult Date/Type/Reason Admit Date/Time Nov 27, 2016 at 13:19 Initial Consult Date Type of Consultation: ID Subjective Pt complains of liquid draining from right peritoneal PleurX catheter. Abdomen distended. She is having bowel small movements. No confusion. Eating some. No fevers or chills overnight. Objective Vital Signs Date Time Temp Pulse Resp B/P Pulse Ox O2 Delivery O2 Flow Rate FiO2 11/30/16 20:00 Nasal Cannula 2.0 11/30/16 19:48 98.7 91 16 105/64 97 Intake and Output 11/30/16 11/30/16 12/01/16 15:00 23:00 07:00 Intake Total 100 ml 960 ml 200 ml Output Total 900 ml 600 ml Balance 100 ml 60 ml -400 ml NAD/A&Ox3 Thin/Cachexia OP clear RRR no m/g/r CTA aside from decreased breath sounds at the bases Distended abdomen, +fluid wave, umbilical hernia-reducible Right PleurX catheter placed. Some liquid present around the insertion site No c/c/e Neuro exam: non-focal Results/Medications Result Diagram: 11/30/16 0555 11/30/16 0555 Medications Current Medications Ondansetron HCl (Zofran Inj) 4 mg Q6H PRN IV NAUSEA AND/OR VOMITING; Start at 14:30 Acetaminophen (Tylenol Tab) 650 mg Q6H PRN PO PAIN LEVEL 1-3 OR FEVER; Start at 14:30 Acetaminophen/ Hydrocodone Bitart ([place] (5/325)) 1 tab Q6H PRN PO MODERATE PAIN LEVEL 4-6; Start 11/27/16 at 14:30 Morphine Sulfate (morphine) 2 mg Q4H PRN IV SEVERE PAIN LEVEL 7-10 Last administered on 11/29/16t 00:06; Admin Dose 2 MG; Start 11/27/16 at 14:30 Docusate Sodium (Colace) 100 mg Q12H PRN PO CONSTIPATION; Start 11/27/16 at 14: 30 Magnesium Hydroxide (Milk Of Mag) 30 ml DAILY PRN PO CONSTIPATION; Start at 14:30 Sodium Biphosphate/ Sodium Phosphate (Fleet Enema) 133 ml DAILY PRN [place] CONSTIPATION; Start 11/27/16 at 14:30 Pantoprazole (Protonix Iv) 40 mg DAILY@06 IV Last administered on 12/01/16 06: 17; Admin Dose 40 MG; Start 11/28/16 at 06:00 Lorazepam (Ativan) 0.5 mg Q6H PRN IV ANXIETY; Start 11/27/16 at 14:30 Hydralazine HCl (Apresoline) 10 mg Q6H PRN IV ELEVATED BLOOD PRESSURE; Start at 14:30 Nitroglycerin (Nitroglycerin (Sl Tab) 0.4 Mg) 1 tab Q5M PRN SL ANGINA; Start at 14:30 Megestrol Acetate (Megace Susp) 800 mg DAILY PO Last administered on 11/30/16 09:05; Admin Dose 800 MG; Start 11/28/16 at 09:00 Tramadol HCl (Ultram) 50 mg Q4H PRN PO PAIN Last administered on 11/30/16 18: 20; Admin Dose 50 MG; Start 11/27/16 at 14:30 Lactulose (Enulose) 30 gm Q6 PO Last administered on 12/01/16 06:18; Admin Dose 30 GM; Start 11/27/16 at 20:00 Metoclopramide HCl (Reglan) 10 mg Q6H PRN IV VOMITTING; Start 11/28/16 at 14:30 Potassium Chloride (Potassium Chloride Pwd/Soln) 20 meq DAILY PO Last administered on 11/30/16 09:05; Admin Dose 20 MEQ; Start 11/29/16 at 09:30 Ferrous Sulfate (Ferrous Sulfate (Ec)) 325 mg BID PO Last administered on 21:25; Admin Dose 325 MG; Start 11/30/16 at 21:00 Assessment/Plan Problems: (1) Pancreatitis (2) Acute febrile illness (3) Anemia (4) Abdominal pain (5) Pancreatic cancer (6) Normocytic anemia (7) Upper GI bleed (8) Altered level of consciousness Additional Assessment/Plan Pt has advanced pancreatic cancer with malignant ascites. 1. Met pancreatic cancer: f/u with outside oncologist but has poor performance status and does not appear be a great candidate for additional therapy. 2. Anemia secondary to chronic disease (advanced cancer). Hb stable today. Iron levels are adequate but can consider IV iron and epo if Hb drops. Otherwise , can tx if Hb less than 7.5 or 7g/dl. No active bleeding. 3. Leakage around right peritoneal catheter-have asked nurse to place a colostomy bag over the catheter to prevent further leakage. If ongoing problem, then consider placement of suture to tighten the catheter in place. DONY MONTIEL Dec 01, 2016 08:46
[2016-12-01] MEDS: MEGESTROL (40 MG/ML) 10ML CUP PO SCH (08:47)
[2016-12-01] MEDS: FERROUS SULFATE (EC) 325 MG TAB PO SCH ×2 (08:47→20:42)
[2016-12-01] MEDS: CREON (24K-76K-120K) 1 CAP PO SCH ×3 (08:47→18:05)
[2016-12-01] MEDS: POTASSIUM CHLORIDE 20 MEQ POWDER FOR ORAL SOLN PO SCH (08:47)
[2016-12-01 08:54] LABS: POTASSIUM 4.2 mmol/L (3.5-5.1)
[2016-12-01 08:57] LABS: CREATININE 0.61 mg/dl (0.44-1.00)
[2016-12-01 08:58] LABS: CALCIUM 7.8 mg/dl (8.4-10.2)
[2016-12-01 09:12] LABS: BASOPHILS % 0.2 % (0.0-2.0); EOSINOPHILS % 0.4 % (0.0-7.0); HEMATOCRIT 26.3 % (37.0-47.0); HEMOGLOBIN 8.8 g/dl (12.0-16.0); LYMPHOCYTES # 0.5 10^3/ul (0.8-2.9); LYMPHOCYTES % 3.8 % (15.0-51.0); MEAN CORPUSCULAR HEMOGLOBIN 30.2 pg (29.0-33.0); MEAN CORPUSCULAR HGB CONC 33.5 g/dl (32.0-37.0); MEAN CORPUSCULAR VOLUME 90.1 fl (82.0-101.0); MEAN PLATELET VOLUME 7.8 fl (7.4-10.4); MONOCYTE # 0.8 10^3/ul (0.3-0.9); MONOCYTES % 6.6 % (0.0-11.0); NEUTROPHIL # 11.1 10^3/ul (1.6-7.5); PLATELET COUNT 216 10^3/UL (140-440); RED BLOOD COUNT 2.92 10^6/ul (4.20-5.40); RED CELL DISTRIBUTION WIDTH 17.1 % (11.5-14.5); UNCORRECTED WBC 12.5 10^3/ul (4.8-10.8); WHITE BLOOD COUNT 12.5 10^3/ul (4.8-10.8)
[2016-12-01 09:17] LABS: CONDITION 1; LH ANALYZER COMMENTS 1
[2016-12-01] MEDS: traMADol 50 MG TAB PO PRN (12:36)
[2016-12-01] MEDS ORDERED: HYDROmorphONE 1 MG/ML SYG IV PRN (13:00)
[2016-12-01] MEDS: BACLOFEN 10 MG TAB PO SCH ×3 (13:00→20:43)
--- NOTE | 2016-12-01 13:00 | PN ---
Date/Time of Note Date/Time of Note DATE: 12/01/16 TIME: 12:56 Assessment/Plan VTE Prophylaxis VTE Prophylaxis Intervention: SCD's Lines/Catheters IV Catheter Type (from Nrsg): PICC Line Central line still needed: Yes Urinary Cath still in place: Yes Reason Cath still needed: urinary retention Assessment/Plan Chief Complaint/Hosp Course ASSESSMENT AND PLAN: 65-year-old female coming in with weakness and altered mental status and possible lower GI bleeding over the last 2 days with a history of pancreatic cancer followed at [facility] and recent beta-lactamase Escherichia coli E. bacteremia and urinary tract infection. 1. Altered mental status, weakness. Slowly improved. HE -(NH3 = 88 -> 52 -> 22 ) with lactulose. Patient's prior sepsis from blood infection, as well as pt's worsening cancer could be contributing to the patient's overall weakness and mental status as well. Family states the patient has not had any further chemotherapy or radiation since Oct, this was indicated by the [facility] team, cannot be performed until the infections have cleared. - continue lactulose, lower freq today - monitor, check ammonia in AM 2. Anemia - H/H stable after pRBC transfusion. - per GI consult rec's, no plan for EGD for now, repeat EGD only recommended if precipitous drop in hemoglobin occurs or to evaluate patency of duodenal stent if symptoms do not improve - continue PPI twice daily 3. History of metastatic pancreatic cancer again, with prior abdominal distention. On EGD in May = large obstructing and friable malignant neoplasm in the second portion of the duodenum likely pancreatic carcinoma extension or invasion with imminent obstruction. Duodenal stent placed as well that time. - Continue to monitor for now, f/u GI consult rec's. - continue Creon and tramadol and continue patient's home Lasix and Megace for now, and potassium chloride. - continue aldactone BID. - f/u palliative care consult rec's, appreciate Heme Onc consult rec's - add baclofen low dose for better pain control 4. High cholesterol. Follow up lipid panel. Continue to monitor for now. 5. Hypothyroidism. Continue thyroid medicine, Synthroid. 6. GI, thrombosis prophylaxis, PPI and continue prophylactic SCDs. 7. Escherichia coli extended-spectrum beta-lactamase urinary tract infection with bacteremia. Completed 2 weeks of treatment with Invanz. - monitor off abx now Problems: Subjective 24 Hr Interval Summary Free Text/Dictation Pt seen by Heme Onc today, having some abd pain presently. Per nursing this AM, pt had some leakage around pleur-x site, replaced with tegaderm now. Exam/Review of Systems Vital Signs Vitals Vital Signs Date Time Temp Pulse Resp B/P Pulse Ox O2 Delivery O2 Flow Rate FiO2 12/01/16 08:00 99.4 97 16 110/61 100 11/30/16 20:00 Nasal Cannula 2.0 Intake and Output 11/30/16 11/30/16 12/01/16 15:00 23:00 07:00 Intake Total 100 ml 960 ml 200 ml Output Total 900 ml 600 ml Balance 100 ml 60 ml -400 ml Exam GENERAL: The patient is lying in bed, in mild distress HEENT: Pupils equal, round, react to light. There are some dry mucous membranes, but otherwise, extraocular muscles are intact. NECK: Supple, no thyromegaly. LUNGS: Clear to auscultation bilaterally. No wheezes. CARDIOVASCULAR: S1, S2 heard. No rubs or gallops. ABDOMEN: Soft. There is abdominal drain in the right portion of the abdomen, + tenderness to palpitation, soft with minimal distension otherwise. Normal bowel sounds. No rebound or guarding. MUSCULOSKELETAL: No lower extremity edema bilaterally. NEUROLOGIC: No focal deficits. Results Result Diagram: 12/01/16 0830 12/01/16 0830 Results 24 hrs Laboratory Tests Test 12/01/16 08:30 Anion Gap 15 Basophils # 0.0 Basophils % 0.2 Blood Morphology Comment Blood Urea Nitrogen 11 Calcium Level 7.8 L Carbon Dioxide Level 19 L Chloride Level 102 Creatinine 0.61 Eosinophils # 0.0 Eosinophils % 0.4 Glucose Level 102 Hematocrit 26.3 L Hemoglobin 8.8 L Lymphocytes # 0.5 L Lymphocytes % 3.8 L Mean Corpuscular Hemoglobin 30.2 Mean Corpuscular Hemoglobin Concent 33.5 Mean Corpuscular Volume 90.1 Mean Platelet Volume 7.8 Monocytes # 0.8 Monocytes % 6.6 Neutrophils # 11.1 H Neutrophils % 89.0 H Nucleated Red Blood Cells # 0.0 Nucleated Red Blood Cells % 0.0 Platelet Count 216 Potassium Level 4.2 Red Blood Count 2.92 L Red Cell Distribution Width 17.1 H Sodium Level 132 L White Blood Count 12.5 #H Medications Medications Current Medications Ondansetron HCl (Zofran Inj) 4 mg Q6H PRN IV NAUSEA AND/OR VOMITING; Start at 14:30 Acetaminophen (Tylenol Tab) 650 mg Q6H PRN PO PAIN LEVEL 1-3 OR FEVER; Start at 14:30 Acetaminophen/ Hydrocodone Bitart ([place] (5/325)) 1 tab Q6H PRN PO MODERATE PAIN LEVEL 4-6; Start 11/27/16 at 14:30 Morphine Sulfate (morphine) 2 mg Q4H PRN IV SEVERE PAIN LEVEL 7-10 Last administered on 11/29/16 00:06; Admin Dose 2 MG; Start 11/27/16 at 14:30 Docusate Sodium (Colace) 100 mg Q12H PRN PO CONSTIPATION; Start 11/27/16 at 14: 30 Magnesium Hydroxide (Milk Of Mag) 30 ml DAILY PRN PO CONSTIPATION; Start at 14:30 Sodium Biphosphate/ Sodium Phosphate (Fleet Enema) 133 ml DAILY PRN [place] CONSTIPATION; Start 11/27/16 at 14:30 Pantoprazole (Protonix Iv) 40 mg DAILY@06 IV Last administered on 12/01/16 06: 17; Admin Dose 40 MG; Start 11/28/16 at 06:00 Lorazepam (Ativan) 0.5 mg Q6H PRN IV ANXIETY; Start 11/27/16 at 14:30 Hydralazine HCl (Apresoline) 10 mg Q6H PRN IV ELEVATED BLOOD PRESSURE; Start at 14:30 Nitroglycerin (Nitroglycerin (Sl Tab) 0.4 Mg) 1 tab Q5M PRN SL ANGINA; Start at 14:30 Megestrol Acetate (Megace Susp) 800 mg DAILY PO Last administered on 12/01/16 08:47; Admin Dose 800 MG; Start 11/28/16 at 09:00 Tramadol HCl (Ultram) 50 mg Q4H PRN PO PAIN Last administered on 12/01/16 12: 36; Admin Dose 50 MG; Start 11/27/16 at 14:30 Metoclopramide HCl (Reglan) 10 mg Q6H PRN IV VOMITTING; Start 11/28/16 at 14:30 Potassium Chloride (Potassium Chloride Pwd/Soln) 20 meq DAILY PO Last administered on 12/01/16 08:47; Admin Dose 20 MEQ; Start 11/29/16 at 09:30 Ferrous Sulfate (Ferrous Sulfate (Ec)) 325 mg BID PO Last administered on 08:47; Admin Dose 325 MG; Start 11/30/16 at 21:00 Lactulose (Enulose) 30 gm Q12 PO ; Start 12/01/16 at 21:00 KENYON OROZCO Dec 01, 2016 13:00
--- NOTE | 2016-12-01 15:05 | PDOCDIS ---
Discharge Instructions CONDITION Patient Condition: Stable HOME CARE INSTRUCTIONS: Special Diet: KENYON KEENE Dec 01, 2016 15:05
--- NOTE | 2016-12-01 16:07 | DS ---
DATE OF ADMISSION: 11/27/2016 DATE OF DISCHARGE: 12/01/2016 HOSPITAL COURSE: This is a 65-year-old female originally admitted on 11/27/2016, being discharged t o nursing home facility on 12/01/2016. The patient came in with altered mental status and weakne ss. She was found with hepatic encephalopathy. She was given lactulose and admitted. She was also placed on antibiotics for continued ESBL Escherichia coli urinary tract infection. She had already been taking antibiotics as an outpatient with that. Infectious disease saw the patient. Hematolog y/oncology team also was consulted and GI team during this hospital stay. The patient did receive P RBC transfusion after being found with low hemoglobin as well. There were no plans for EGD by the G I team given the fact that the patient has a large obstructing and friable malignant neoplasm in the second portion of the duodenum, which is likely her pancreatic carcinoma extension, but there was n o significant obstruction noted. So the patient was continued on PPI b.i.d. Her ammonia levels imp roved after getting lactulose. Her altered mental status resolved. She was more alert. She had a head CT initially performed on the admission that showed no acute intracranial hemorrhages, no infar ctions or mass effect. The patient also underwent an upper GI series, but it was inconclusive findi ngs. In any event, the patient was on pureed diet, which she tolerated. Over the course of her hos pital stay, she worked with physical therapy. She was able to ambulate. Her vital signs were stabl e as well and she was able to tolerate the diet. Her white blood cell count was slightly elevated o n the day of discharge, but there were no fevers and again by infectious disease team, her urine cul ture on 11/27/2016 showed no growth after 48 hours and her UA was negative twice on this admission, so it was determined that the patient just continue off of antibiotics and continue to monitor for n ow. She will follow up with [facility] where she gets her care for her pancreatic cancer a nd see if there are any options for possible chemotherapy and radiation when she is clinically impro alfredo, But for now, she will go to a nursing home facility to continue physical therapy. She will be discharged there today in improved condition. DISCHARGE MEDICATIONS: She will go with: 1. Tylenol 650 q.6h. p.r.n. 2. DuoNeb inhaled q.4h. p.r.n. 3. Baclofen 5 mg b.i.d. 4. Colace 100 mg q.12h. 5. Ferrous sulfate 325 mg b.i.d. 6. Lasix 40 mg p.o. b.i.d. 7. Hydralazine 10 mg p.o. q.6h. p.r.n. 8. [place] 5/325 p.o. q.6h. p.r.n. 9. Dilaudid 0.5 mg p.o. q.4h. p.r.n. 10. Lactulose 30 grams p.o. q.12h. 11. Synthroid 112 mcg before breakfast. 12. Creon 1 capsule with meals. 13. Ativan 0.5 mg p.o. q.6h. p.r.n. 14. Milk of Magnesia 30 mL daily p.r.n. 15. Megace 800 mg daily. 16. Reglan 10 mg p.o. q.6h. p.r.n. 17. Nitroglycerin p.r.n. 18. Protonix 40 mg p.o. daily. 19. Zofran 4 mg p.o. q.6h. p.r.n. 20. Potassium chloride 20 mEq daily. 21. Spironolactone 100 mg b.i.d. 22. Tramadol 50 mg q.4h. p.r.n. FOLLOWUP: She will need followup with her regular doctor at [facility] as an outpatient i n the next 1 to 2 weeks. FINAL DIAGNOSES: 1. Altered mental status secondary to hepatic encephalopathy, now improved with lactulose treatment . 2. Anemia, most likely secondary to gastrointestinal bleeding from her pancreatic cancer, but stabl e hemoglobin and hematocrit after packed red blood cell transfusion. 3. History of metastatic pancreatic cancer with prominent abdominal distention now again with duode nal stent placed and on treatment with [facility] as an outpatient. 4. High cholesterol. 5. History of extended spectrum beta -lactamase Escherichia coli urinary tract infection with bacte remia, now improved after 2-1/2 weeks of IV antibiotic treatment. Time spent on discharging patient 45 minutes. Dictated By: KENYON TURNER Conf#: [id number] [facility]#: [id number]
--- NOTE | 2016-12-01 17:13 | CONS ---
Date/Time of Note Date/Time of Note DATE: 12/01/16 TIME: 17:12 Consult Date/Type/Reason Admit Date/Time Nov 27, 2016 at 13:19 Type of Consultation: id Subjective no acute changes, awake, nad, no fevers Objective Vital Signs Date Time Temp Pulse Resp B/P Pulse Ox O2 Delivery O2 Flow Rate FiO2 12/01/16 08:00 99.4 97 16 110/61 100 11/30/16 20:00 Nasal Cannula 2.0 Intake and Output 11/30/16 11/30/16 12/01/16 15:00 23:00 07:00 Intake Total 100 ml 960 ml 200 ml Output Total 900 ml 600 ml Balance 100 ml 60 ml -400 ml Results/Medications Result Diagram: 12/01/16 0830 12/01/16 0830 Results 24 hrs Laboratory Tests Test 12/01/16 08:30 Anion Gap 15 Basophils # 0.0 Basophils % 0.2 Blood Morphology Comment Blood Urea Nitrogen 11 Calcium Level 7.8 L Carbon Dioxide Level 19 L Chloride Level 102 Creatinine 0.61 Eosinophils # 0.0 Eosinophils % 0.4 Glucose Level 102 Hematocrit 26.3 L Hemoglobin 8.8 L Lymphocytes # 0.5 L Lymphocytes % 3.8 L Mean Corpuscular Hemoglobin 30.2 Mean Corpuscular Hemoglobin Concent 33.5 Mean Corpuscular Volume 90.1 Mean Platelet Volume 7.8 Monocytes # 0.8 Monocytes % 6.6 Neutrophils # 11.1 H Neutrophils % 89.0 H Nucleated Red Blood Cells # 0.0 Nucleated Red Blood Cells % 0.0 Platelet Count 216 Potassium Level 4.2 Red Blood Count 2.92 L Red Cell Distribution Width 17.1 H Sodium Level 132 L White Blood Count 12.5 #H Medications Current Medications Ondansetron HCl (Zofran Inj) 4 mg Q6H PRN IV NAUSEA AND/OR VOMITING; Start at 14:30 Acetaminophen (Tylenol Tab) 650 mg Q6H PRN PO PAIN LEVEL 1-3 OR FEVER Last administered on 12/01/16t 16:04; Admin Dose 650 MG; Start 11/27/16 at 14:30 Acetaminophen/ Hydrocodone Bitart ([place] (5/325)) 1 tab Q6H PRN PO MODERATE PAIN LEVEL 4-6; Start 11/27/16 at 14:30 Morphine Sulfate (morphine) 2 mg Q4H PRN IV SEVERE PAIN LEVEL 7-10 Last administered on 11/29/16 00:06; Admin Dose 2 MG; Start 11/27/16 at 14:30; Status Future Hold Docusate Sodium (Colace) 100 mg Q12H PRN PO CONSTIPATION; Start 11/27/16 at 14: 30 Magnesium Hydroxide (Milk Of Mag) 30 ml DAILY PRN PO CONSTIPATION; Start at 14:30 Sodium Biphosphate/ Sodium Phosphate (Fleet Enema) 133 ml DAILY PRN [place] CONSTIPATION; Start 11/27/16 at 14:30 Pantoprazole (Protonix Iv) 40 mg DAILY@06 IV Last administered on 12/01/16 06: 17; Admin Dose 40 MG; Start 11/28/16 at 06:00 Lorazepam (Ativan) 0.5 mg Q6H PRN IV ANXIETY; Start 11/27/16 at 14:30 Hydralazine HCl (Apresoline) 10 mg Q6H PRN IV ELEVATED BLOOD PRESSURE; Start at 14:30 Nitroglycerin (Nitroglycerin (Sl Tab) 0.4 Mg) 1 tab Q5M PRN SL ANGINA; Start at 14:30 Megestrol Acetate (Megace Susp) 800 mg DAILY PO Last administered on 12/01/16 08:47; Admin Dose 800 MG; Start 11/28/16 at 09:00 Tramadol HCl (Ultram) 50 mg Q4H PRN PO PAIN Last administered on 12/01/16 12: 36; Admin Dose 50 MG; Start 11/27/16 at 14:30 Metoclopramide HCl (Reglan) 10 mg Q6H PRN IV VOMITTING; Start 11/28/16 at 14:30 Potassium Chloride (Potassium Chloride Pwd/Soln) 20 meq DAILY PO Last administered on 12/01/16 08:47; Admin Dose 20 MEQ; Start 11/29/16 at 09:30 Ferrous Sulfate (Ferrous Sulfate (Ec)) 325 mg BID PO Last administered on 08:47; Admin Dose 325 MG; Start 11/30/16 at 21:00 Lactulose (Enulose) 30 gm Q12 PO ; Start 12/01/16 at 21:00 Baclofen (Lioresal) 5 mg BID PO Last administered on 12/01/16t 16:05; Admin Dose 5 MG; Start 12/01/16 at 13:00 Hydromorphone HCl (Dilaudid) 0.5 mg Q4H PRN IV PAIN; Start 12/01/16 at 13:00 Assessment/Plan Chief Complaint/Hosp Course PHYSICAL EXAMINATION: GENERAL: This is a cachectic, fragile, elderly woman, who is awake, in no distress. HEENT: Head atraumatic, normocephalic. Sclerae anicteric. Buccal mucosa dry. NECK: Supple. CHEST: Chest rise is symmetrical. Breath sounds clear. HEART: S1, S2. ABDOMEN: Soft, bowel tones present. EXTREMITIES: Without cyanosis. ASSESSMENT: 1. Status post acute encephalopathy, likely secondary to elevated ammonia level 2. Status post Escherichia coli extended-spectrum beta-lactamase urinary tract infection with bacteremia. Completed 2 weeks of treatment with Invanz. 3. Diabetes. 4. Pancreatic cancer. 5. Cachexia. PLAN: The patient remains stable, followed by multiple consultants. She is off abx. Continue the present care. Panculture p.r.n. LANE staff Problems: MIKE BRYSON NP Dec 01, 2016 17:13
[2016-12-01 18:14] VITALS: BP 95/63; PULSE 96; RESP 16
[2016-12-01 20:21] VITALS: BP 83/56; RESP 18
[2016-12-02 05:00] VITALS: BP 90/58; PULSE 87
[2016-12-02] MEDS: PANTOPRAZOLE 40 MG INJ IV SCH (05:02)
[2016-12-02] MEDS: SPIRONOLACTONE 50 MG TAB PO SCH (05:03)
[2016-12-02] MEDS: traMADol 50 MG TAB PO PRN (05:03)
[2016-12-02] MEDS: FUROSEMIDE 20 MG TAB PO SCH (05:05)
[2016-12-02] MEDS: LEVOTHYROXINE 112 MCG TAB PO SCH (06:41)
[2016-12-02 07:37] VITALS: BP 96/57; RESP 18
[2016-12-02 07:51] LABS: BASOPHILS % 0.2 % (0.0-2.0); EOSINOPHILS # 0.1 10^3/ul (0.0-0.5); EOSINOPHILS % 0.6 % (0.0-7.0); HEMATOCRIT 24.2 % (37.0-47.0); HEMOGLOBIN 8.3 g/dl (12.0-16.0); LYMPHOCYTES # 0.5 10^3/ul (0.8-2.9); LYMPHOCYTES % 4.9 % (15.0-51.0); MEAN CORPUSCULAR HGB CONC 34.2 g/dl (32.0-37.0); MEAN CORPUSCULAR VOLUME 90.7 fl (82.0-101.0); MEAN PLATELET VOLUME 7.6 fl (7.4-10.4); MONOCYTE # 0.8 10^3/ul (0.3-0.9); MONOCYTES % 7.5 % (0.0-11.0); NEUTROPHIL # 8.9 10^3/ul (1.6-7.5); NEUTROPHILS % 86.8 % (39.0-77.0); PLATELET COUNT 218 10^3/UL (140-440); RED BLOOD COUNT 2.67 10^6/ul (4.20-5.40); RED CELL DISTRIBUTION WIDTH 17.2 % (11.5-14.5); UNCORRECTED WBC 10.3 10^3/ul (4.8-10.8); WHITE BLOOD COUNT 10.3 10^3/ul (4.8-10.8)
[2016-12-02 07:54] LABS: CONDITION 1; LH ANALYZER COMMENTS 1; SUSPECT 1
[2016-12-02 08:11] LABS: POTASSIUM 4.4 mmol/L (3.5-5.1)
[2016-12-02 08:13] LABS: CREATININE 0.72 mg/dl (0.44-1.00)
[2016-12-02 08:14] LABS: CALCIUM 7.8 mg/dl (8.4-10.2)
--- NOTE | 2016-12-02 08:23 | CONS ---
Date/Time of Note Date/Time of Note DATE: 12/02/16 TIME: 08:20 Consult Date/Type/Reason Admit Date/Time Nov 27, 2016 at 13:19 Type of Consultation: id Subjective No overnight events. No f/c/ns. Eating ok. To be going to SNF. Objective Vital Signs Date Time Temp Pulse Resp B/P Pulse Ox O2 Delivery O2 Flow Rate FiO2 12/02/16 07:37 98.5 95 18 96/57 97 12/01/16 20:00 Nasal Cannula 2.0 Intake and Output 12/01/16 12/01/16 12/02/16 15:00 23:00 07:00 Intake Total 1000 ml 800 ml Output Total 1000 ml 1550 ml Balance 0 ml -750 ml NAD/A&Ox 3 Thin, Cachectic OP clear Anicteric CTA RRR no m/g/r Distended, positive fluid wave, peritoneal catheter in place- No leakage of ascitic fluid No c/c/e Results/Medications Result Diagram: 12/02/16 0712/02/16 0705 Results 24 hrs Laboratory Tests Test 12/01/16 08:30 12/02/16 07:05 Anion Gap 15 14 Basophils # 0.0 0.0 Basophils % 0.2 0.2 Blood Morphology Comment Blood Urea Nitrogen 11 12 Calcium Level 7.8 L 7.8 L Carbon Dioxide Level 19 L 20 L Chloride Level 102 98 Creatinine 0.61 0.72 Eosinophils # 0.0 0.1 Eosinophils % 0.4 0.6 Glucose Level 102 88 Hematocrit 26.3 L 24.2 L Hemoglobin 8.8 L 8.3 L Lymphocytes # 0.5 L 0.5 L Lymphocytes % 3.8 L 4.9 L Mean Corpuscular Hemoglobin 30.2 31.0 Mean Corpuscular Hemoglobin Concent 33.5 34.2 Mean Corpuscular Volume 90.1 90.7 Mean Platelet Volume 7.8 7.6 Monocytes # 0.8 0.8 Monocytes % 6.6 7.5 Neutrophils # 11.1 H 8.9 H Neutrophils % 89.0 H 86.8 H Nucleated Red Blood Cells # 0.0 0.0 Nucleated Red Blood Cells % 0.0 0.0 Platelet Count 216 218 Potassium Level 4.2 4.4 Red Blood Count 2.92 L 2.67 L Red Cell Distribution Width 17.1 H 17.2 H Sodium Level 132 L 128 L White Blood Count 12.5 #H 10.3 Medications Current Medications Ondansetron HCl (Zofran Inj) 4 mg Q6H PRN IV NAUSEA AND/OR VOMITING; Start at 14:30 Acetaminophen (Tylenol Tab) 650 mg Q6H PRN PO PAIN LEVEL 1-3 OR FEVER Last administered on 12/01/16 16:04; Admin Dose 650 MG; Start 11/27/16 at 14:30 Acetaminophen/ Hydrocodone Bitart ([place] (5/325)) 1 tab Q6H PRN PO MODERATE PAIN LEVEL 4-6; Start 11/27/16 at 14:30 Morphine Sulfate (morphine) 2 mg Q4H PRN IV SEVERE PAIN LEVEL 7-10 Last administered on 11/29/16 00:06; Admin Dose 2 MG; Start 11/27/16 at 14:30; Status Future Hold Docusate Sodium (Colace) 100 mg Q12H PRN PO CONSTIPATION; Start 11/27/16 at 14: 30 Magnesium Hydroxide (Milk Of Mag) 30 ml DAILY PRN PO CONSTIPATION; Start at 14:30 Sodium Biphosphate/ Sodium Phosphate (Fleet Enema) 133 ml DAILY PRN [place] CONSTIPATION; Start 11/27/16 at 14:30 Pantoprazole (Protonix Iv) 40 mg DAILY@06 IV Last administered on 12/02/16 05: 02; Admin Dose 40 MG; Start 11/28/16 at 06:00 Lorazepam (Ativan) 0.5 mg Q6H PRN IV ANXIETY; Start 11/27/16 at 14:30 Hydralazine HCl (Apresoline) 10 mg Q6H PRN IV ELEVATED BLOOD PRESSURE; Start at 14:30 Nitroglycerin (Nitroglycerin (Sl Tab) 0.4 Mg) 1 tab Q5M PRN SL ANGINA; Start at 14:30 Megestrol Acetate (Megace Susp) 800 mg DAILY PO Last administered on 12/01/16 08:47; Admin Dose 800 MG; Start 11/28/16 at 09:00 Tramadol HCl (Ultram) 50 mg Q4H PRN PO PAIN Last administered on 12/02/16 05: 03; Admin Dose 50 MG; Start 11/27/16 at 14:30 Metoclopramide HCl (Reglan) 10 mg Q6H PRN IV VOMITTING; Start 11/28/16 at 14:30 Potassium Chloride (Potassium Chloride Pwd/Soln) 20 meq DAILY PO Last administered on 12/01/16 08:47; Admin Dose 20 MEQ; Start 11/29/16 at 09:30 Ferrous Sulfate (Ferrous Sulfate (Ec)) 325 mg BID PO Last administered on 20:42; Admin Dose 325 MG; Start 11/30/16 at 21:00 Lactulose (Enulose) 30 gm Q12 PO Last administered on 12/01/16 20:42; Admin Dose 30 GM; Start 12/01/16 at 21:00 Baclofen (Lioresal) 5 mg BID PO Last administered on 12/01/16 20:43; Admin Dose 5 MG; Start 12/01/16 at 13:00 Hydromorphone HCl (Dilaudid) 0.5 mg Q4H PRN IV PAIN; Start 12/01/16 at 13:00 Assessment/Plan Problems: (1) Pancreatitis (2) Acute febrile illness (3) Anemia (4) Abdominal pain (5) Pancreatic cancer (6) Normocytic anemia (7) Upper GI bleed (8) Altered level of consciousness Additional Assessment/Plan 1. Met Pancreatic Cancer: F/u with tertiary center regarding potential further treatment options 2.Malignant ascites: drain prn for comfort 3. Anemia sec to chronic disease: no transfusion needed. Stable. 4. Dispo: ok for discharge from heme/onc standpoint DONY MONTIEL Dec 02, 2016 08:23
--- NOTE | 2016-12-02 08:43 | DS ---
Date/Time of Note Date/Time of Note DATE: 12/02/16 TIME: 08:40 Discharge Summary Admission/Discharge Info Admit Date/Time Nov 27, 2016 at 13:19 Discharge Date/Time Final Diagnosis FINAL DIAGNOSES: 1. Altered mental status secondary to hepatic encephalopathy, now improved with lactulose treatment. 2. Anemia, most likely secondary to gastrointestinal bleeding from her pancreatic cancer, but stable hemoglobin and hematocrit after packed red blood cell transfusion. 3. History of metastatic pancreatic cancer with prominent abdominal distention now again with duodenal stent placed and on treatment with [facility] as an outpatient. 4. High cholesterol. 5. History of extended spectrum beta -lactamase Escherichia coli urinary tract infection with bacteremia, now improved after 2-1/2 weeks of IV antibiotic treatment. 6. mild hyponatremia - asymptomatic Time spent on discharging patient 45 minutes. Hospital Course HOSPITAL COURSE: This is a 65-year-old female originally admitted on 11/27/2016 , being discharged to long-term facility on 12/02/2016. The patient came in with altered mental status and weakness. She was found with hepatic encephalopathy. She was given lactulose and admitted. She was also placed on antibiotics for continued ESBL Escherichia coli urinary tract infection. She had already been taking antibiotics as an outpatient with that. Infectious disease saw the patient. Hematology/oncology team also was consulted and GI team during this hospital stay. The patient did receive PRBC transfusion after being found with low hemoglobin as well. 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 So the patient was continued on PPI b.i.d. Her ammonia levels improved after getting lactulose. Her altered mental status resolved. She was more alert. She had a head CT initially performed on the admission that showed no acute intracranial hemorrhages, no infarctions or mass effect. The patient also underwent an upper GI series, but it was inconclusive findings. In any event, the patient was on pureed diet, which she tolerated. Over the course of her hospital stay, she worked with physical therapy. She was able to ambulate. Her vital signs were stable as well and she was able to tolerate the diet. Her white blood cell count was slightly elevated on the day of discharge, but there were no fevers and again by infectious disease team, her urine culture on 2016 showed no growth after 72 hours and her UA was negative twice on this admission, so it was determined that the patient just continue off of antibiotics and continue to monitor for now. There was some mild leaking around pleurx cath, but this was resolving after bedside readjustment by nurse. She will follow up with [facility] where she gets her care for her pancreatic cancer and see if there are any options for possible chemotherapy and radiation when she is clinically improved, But for now, she will go to a long-term facility to continue physical therapy. She will be discharged there today in improved condition. DISCHARGE MEDICATIONS: She will go with: 1. Tylenol 650 q.6h. p.r.n. 2. DuoNeb inhaled q.4h. p.r.n. 3. Baclofen 5 mg b.i.d. 4. Colace 100 mg q.12h. 5. Ferrous sulfate 325 mg b.i.d. 6. Lasix 40 mg p.o. b.i.d. 7. Hydralazine 10 mg p.o. q.6h. p.r.n. 8. [place] 5/325 p.o. q.6h. p.r.n. 9. Dilaudid 0.5 mg p.o. q.4h. p.r.n. 10. Lactulose 30 grams p.o. q.12h. 11. Synthroid 112 mcg before breakfast. 12. Creon 1 capsule with meals. 13. Ativan 0.5 mg p.o. q.6h. p.r.n. 14. Milk of Magnesia 30 mL daily p.r.n. 15. Megace 800 mg daily. 16. Reglan 10 mg p.o. q.6h. p.r.n. 17. Nitroglycerin p.r.n. 18. Protonix 40 mg p.o. daily. 19. Zofran 4 mg p.o. q.6h. p.r.n. 20. Potassium chloride 20 mEq daily. 21. Spironolactone 100 mg b.i.d. 22. Tramadol 50 mg q.4h. p.r.n. 23. sodium chloride tab 1 gm PO TID x 24 hrs Home Meds Discontinued Reported Medications Potassium Chloride* (Potassium Chloride*) 20 Meq Tablet.er, 20 MEQ PO DAILY, TAB.SA 11/27/16 Megestrol Acetate* (Megestrol Acetate*) 800 Mg/20 Ml Oral.susp, 800 MG PO DAILY , ML 11/27/16 Furosemide* (Lasix*) 20 Mg Tablet, 40 MG PO BID, TAB 11/27/16 Levothyroxine Sodium* (Levoxyl*) 112 Mcg Tablet, 112 MCG PO BEFORE BREAKFAST, # 30 TAB 11/27/16 Esomeprazole Mag Trihydrate (Nexium) 20 Mg Capsule.dr, 20 MG PO DAILY, #30 CAP 11/01/16 Ranitidine Hcl* (Ranitidine Hcl*) 150 Mg Tablet, 150 MG PO HS, #30 TAB 11/01/16 Levothyroxine Sodium* (Synthroid*) 100 Mcg Tablet, 100 MCG PO BEFORE BREAKFAST, #30 TAB 11/01/16 Discontinued Scripts Ertapenem Sodium (Invanz) 1 Gm Vial.port, 1 GM IV Q24H for 8 Days Prov:NARAYAN GOLDMAN 11/20/16 Tramadol HCl (Tramadol HCl) 50 Mg Tablet, 50 MG PO Q4H Y for PAIN, #60 TAB 1 Refill Prov:NARAYAN GOLDMAN 11/20/16 Vhjzvi-Jpdvkaxr-Udkxhsy* (Bridget PINO* 24,000) 24,000 L-76,000-120,000 Unit Capsule.dr, 1 CAP PO WITH MEALS for 30 Days, CAP 1 Refill Prov:NARAYAN GOLDMAN 11/20/16 Docusate Sodium* (Colace*) 100 Mg Capsule, 100 MG PO Q12H for 30 Days, CAP DON'T TAKE IF YOU'RE HAVING WATERY STOOLS Prov:NARAYAN GOLDMAN. 11/20/16 Spironolactone* (Aldactone*) 25 Mg Tablet, 12.5 MG PO BID, #60 TAB DON'T TAKE IF YOUR SYSTOLIC BLOOD PRESSURE IS 100mmhG OR LESS Prov:NARAYAN GOLDMAN 11/20/16 Furosemide* (Furosemide*) 40 Mg Tablet, 20 MG PO DAILY for 30 Days, TAB 0 Refills Prov:NARAYAN GOLDMAN 11/20/16 Pending Labs Laboratory Tests Test 12/02/16 07:05 Anion Gap 14 (8-16) Basophils # 0.010^3/ul (0.0-0.1) Basophils % 0.2% (0.0-2.0) Blood Morphology Comment Blood Urea Nitrogen 12mg/dl (7-20) Calcium Level 7.8mg/dl (8.4-10.2) Carbon Dioxide Level 20mmol/L (21-31) Chloride Level 98mmol/L (97-110) Creatinine 0.72mg/dl (0.44-1.00) Eosinophils # 0.110^3/ul (0.0-0.5) Eosinophils % 0.6% (0.0-7.0) Glucose Level 88mg/dl (70-220) Hematocrit 24.2% (37.0-47.0) Hemoglobin 8.3g/dl (12.0-16.0) Lymphocytes # 0.510^3/ul (0.8-2.9) Lymphocytes % 4.9% (15.0-51.0) Mean Corpuscular Hemoglobin 31.0pg (29.0-33.0) Mean Corpuscular Hemoglobin Concent 34.2g/dl (32.0-37.0) Mean Corpuscular Volume 90.7fl (82.0-101.0) Mean Platelet Volume 7.6fl (7.4-10.4) Monocytes # 0.810^3/ul (0.3-0.9) Monocytes % 7.5% (0.0-11.0) Neutrophils # 8.910^3/ul (1.6-7.5) Neutrophils % 86.8% (39.0-77.0) Nucleated Red Blood Cells # 0.010^3/ul (0.0-0.0) Nucleated Red Blood Cells % 0.0/100WBC (0.0-0.0) Platelet Count 70717^3/UL (140-440) Potassium Level 4.4mmol/L (3.5-5.1) Red Blood Count 2.6710^6/ul (4.20-5.40) Red Cell Distribution Width 17.2% (11.5-14.5) Sodium Level 128mmol/L (135-144) White Blood Count 10.310^3/ul (4.8-10.8) KENYON OROZCO Dec 02, 2016 08:43
[2016-12-02] MEDS: LACTULOSE 30ML CUP PO SCH (09:13)
[2016-12-02] MEDS: POTASSIUM CHLORIDE 20 MEQ POWDER FOR ORAL SOLN PO SCH (09:14)
[2016-12-02] MEDS: MEGESTROL (40 MG/ML) 10ML CUP PO SCH (09:14)
[2016-12-02] MEDS: CREON (24K-76K-120K) 1 CAP PO SCH ×2 (09:14→13:11)
[2016-12-02] MEDS: BACLOFEN 10 MG TAB PO SCH (09:15)
[2016-12-02] MEDS: FERROUS SULFATE (EC) 325 MG TAB PO SCH (09:15)
[2016-12-02] MEDS: SODIUM CHLORIDE 1 GM TAB PO SCH ×2 (09:19→13:11)
--- NOTE | 2016-12-02 14:34 | CONS ---
Date/Time of Note Date/Time of Note DATE: 12/02/16 TIME: 14:33 Consult Date/Type/Reason Admit Date/Time Nov 27, 2016 at 13:19 Type of Consultation: id Subjective awake, looks comfortable, no fevers, nad Objective Vital Signs Date Time Temp Pulse Resp B/P Pulse Ox O2 Delivery O2 Flow Rate FiO2 12/02/16 07:37 98.5 95 18 96/57 97 12/01/16 20:00 Nasal Cannula 2.0 Intake and Output 12/01/16 12/01/16 12/02/16 14:59 22:59 06:59 Intake Total 1000 ml 800 ml Output Total 1000 ml 1550 ml Balance 0 ml -750 ml Results/Medications Result Diagram: 12/02/16 0705 12/02/16 0705 Results 24 hrs Laboratory Tests Test 12/02/16 07:05 Anion Gap 14 Basophils # 0.0 Basophils % 0.2 Blood Morphology Comment Blood Urea Nitrogen 12 Calcium Level 7.8 L Carbon Dioxide Level 20 L Chloride Level 98 Creatinine 0.72 Eosinophils # 0.1 Eosinophils % 0.6 Glucose Level 88 Hematocrit 24.2 L Hemoglobin 8.3 L Lymphocytes # 0.5 L Lymphocytes % 4.9 L Mean Corpuscular Hemoglobin 31.0 Mean Corpuscular Hemoglobin Concent 34.2 Mean Corpuscular Volume 90.7 Mean Platelet Volume 7.6 Monocytes # 0.8 Monocytes % 7.5 Neutrophils # 8.9 H Neutrophils % 86.8 H Nucleated Red Blood Cells # 0.0 Nucleated Red Blood Cells % 0.0 Platelet Count 218 Potassium Level 4.4 Red Blood Count 2.67 L Red Cell Distribution Width 17.2 H Sodium Level 128 L White Blood Count 10.3 Medications Current Medications Ondansetron HCl (Zofran Inj) 4 mg Q6H PRN IV NAUSEA AND/OR VOMITING; Start at 14:30 Acetaminophen (Tylenol Tab) 650 mg Q6H PRN PO PAIN LEVEL 1-3 OR FEVER Last administered on 12/01/16t 16:04; Admin Dose 650 MG; Start 11/27/16 at 14:30 Acetaminophen/ Hydrocodone Bitart ([place] (5/325)) 1 tab Q6H PRN PO MODERATE PAIN LEVEL 4-6; Start 11/27/16 at 14:30 Morphine Sulfate (morphine) 2 mg Q4H PRN IV SEVERE PAIN LEVEL 7-10 Last administered on 11/29/16 00:06; Admin Dose 2 MG; Start 11/27/16 at 14:30; Status Future Hold Docusate Sodium (Colace) 100 mg Q12H PRN PO CONSTIPATION; Start 11/27/16 at 14: 30 Magnesium Hydroxide (Milk Of Mag) 30 ml DAILY PRN PO CONSTIPATION; Start at 14:30 Sodium Biphosphate/ Sodium Phosphate (Fleet Enema) 133 ml DAILY PRN [place] CONSTIPATION; Start 11/27/16 at 14:30 Pantoprazole (Protonix Iv) 40 mg DAILY@06 IV Last administered on 12/02/16 05: 02; Admin Dose 40 MG; Start 11/28/16 at 06:00 Lorazepam (Ativan) 0.5 mg Q6H PRN IV ANXIETY; Start 11/27/16 at 14:30 Hydralazine HCl (Apresoline) 10 mg Q6H PRN IV ELEVATED BLOOD PRESSURE; Start at 14:30 Nitroglycerin (Nitroglycerin (Sl Tab) 0.4 Mg) 1 tab Q5M PRN SL ANGINA; Start at 14:30 Megestrol Acetate (Megace Susp) 800 mg DAILY PO Last administered on 12/02/16 09:14; Admin Dose 800 MG; Start 11/28/16 at 09:00 Tramadol HCl (Ultram) 50 mg Q4H PRN PO PAIN Last administered on 12/02/16 05: 03; Admin Dose 50 MG; Start 11/27/16 at 14:30 Metoclopramide HCl (Reglan) 10 mg Q6H PRN IV VOMITTING; Start 11/28/16 at 14:30 Potassium Chloride (Potassium Chloride Pwd/Soln) 20 meq DAILY PO Last administered on 12/02/16 09:14; Admin Dose 20 MEQ; Start 11/29/16 at 09:30 Ferrous Sulfate (Ferrous Sulfate (Ec)) 325 mg BID PO Last administered on 09:15; Admin Dose 325 MG; Start 11/30/16 at 21:00 Lactulose (Enulose) 30 gm Q12 PO Last administered on 12/02/16 09:13; Admin Dose 30 GM; Start 12/01/16 at 21:00 Baclofen (Lioresal) 5 mg BID PO Last administered on 12/02/16 09:15; Admin Dose 5 MG; Start 12/01/16 at 13:00 Hydromorphone HCl (Dilaudid) 0.5 mg Q4H PRN IV PAIN; Start 12/01/16 at 13:00 Sodium Chloride (Nacl) 1 gm TID PO Last administered on 12/02/16 13:11; Admin Dose 1 GM; Start 12/02/16 at 09:30; Stop 12/03/16 at 09:29 Assessment/Plan Chief Complaint/Hosp Course PHYSICAL EXAMINATION: GENERAL: This is a cachectic, fragile, elderly woman, who is awake, in no distress. HEENT: Head atraumatic, normocephalic. Sclerae anicteric. Buccal mucosa dry. NECK: Supple. CHEST: Chest rise is symmetrical. Breath sounds clear. HEART: S1, S2. ABDOMEN: Soft, bowel tones present. EXTREMITIES: Without cyanosis. ASSESSMENT: 1. Status post acute encephalopathy, likely secondary to elevated ammonia level 2. Status post Escherichia coli extended-spectrum beta-lactamase urinary tract infection with bacteremia. Completed 2 weeks of treatment with Invanz. 3. Diabetes. 4. Pancreatic cancer. 5. Cachexia. PLAN: The patient remains stable, no fevers She is off abx. Pending dc planning DW staff Problems: MIKE BRYSON NP Dec 02, 2016 14:34
[2016-12-02 14:48] VITALS: BP 110/57; PULSE 89; RESP 18
== END 2016-12-02 14:47 | DRG 441 ==
LOC: E/R 11:19 → MS2 13:19
PROVIDERS: ADMIT Family Medicine; ATTEND Family Medicine
PROC: 30233N1 Transfusion of Nonautologous Red Blood Cells into Peripheral Vein, Percutaneous Approach (ICD-10-PCS; principal; 2016-11-27)
DX: K72.90 Hepatic failure, unspecified without coma (principal); G92 Toxic encephalopathy; R64 Cachexia; K85.90 Acute pancreatitis without necrosis or infection, unspecified; E11.21 Type 2 diabetes mellitus with diabetic nephropathy; C78.4 Secondary malignant neoplasm of small intestine; C25.9 Malignant neoplasm of pancreas, unspecified; K92.2 Gastrointestinal hemorrhage, unspecified; N39.0 Urinary tract infection, site not specified; Z68.1 Body mass index [BMI] 19.9 or less, adult; B96.20 Unspecified Escherichia coli [E. coli] as the cause of diseases classified elsewhere; E03.9 Hypothyroidism, unspecified; E78.5 Hyperlipidemia, unspecified; R11.2 Nausea with vomiting, unspecified; D63.0 Anemia in neoplastic disease; D63.8 Anemia in other chronic diseases classified elsewhere; Z79.4 Long term (current) use of insulin
CPT/HCPCS: 36415; 36430; 70450; 71010; 74177; 74240; 80048; 80053; 80061; 81003; 82140; 82728; 83036; 83540; 83605; 83735; 84100; 84439; 84443; 84450; 84460; 84484; 85014; 85018; 85025; 85610; 85730; 86301; 86850; 86900; 86901; 86920; 87040; 87081; 87086; 92526; 92610; 93005; 97116; 97162; 97166; 97530; C9113; J1335; J2270; J2916; J7030; J7040; P9016; Q9967

== ENCOUNTER 2016-12-06 14:40 | Inpatient (IN) | payer MEDICARE, OTHER ==
[~2016-12-06] VITALS: Ht 160 cm; Wt 41.3 kg
[2016-12-06 15:04] VITALS: Ht 160 cm; Wt 41.3 kg
[2016-12-06] MEDS ORDERED: LACTULOSE 30ML CUP NGT STA (15:21)
[2016-12-06] MEDS ORDERED: BACL10TA PO (15:43)
[2016-12-06] MEDS ORDERED: ACET325T45 PO (15:43)
[2016-12-06] MEDS ORDERED: LIPA1CAP6 PO (15:44)
[2016-12-06] MEDS ORDERED: DOCU-159 PO (15:45)
[2016-12-06] MEDS ORDERED: FER325 PO (15:45)
[2016-12-06] MEDS ORDERED: FURO20TA3 PO (15:55)
[2016-12-06 15:56] LABS: BASOPHILS % 0.1 % (0.0-2.0); EOSINOPHILS % 0.1 % (0.0-7.0); HEMATOCRIT 26.5 % (37.0-47.0); HEMOGLOBIN 9.1 g/dl (12.0-16.0); LYMPHOCYTES # 0.7 10^3/ul (0.8-2.9); LYMPHOCYTES % 6.3 % (15.0-51.0); MEAN CORPUSCULAR HEMOGLOBIN 31.9 pg (29.0-33.0); MEAN CORPUSCULAR HGB CONC 34.3 g/dl (32.0-37.0); MEAN PLATELET VOLUME 7.1 fl (7.4-10.4); MONOCYTE # 1.1 10^3/ul (0.3-0.9); MONOCYTES % 10.1 % (0.0-11.0); NEUTROPHIL # 9.5 10^3/ul (1.6-7.5); NEUTROPHILS % 83.4 % (39.0-77.0); PLATELET COUNT 458 10^3/UL (140-440); RED BLOOD COUNT 2.85 10^6/ul (4.20-5.40); RED CELL DISTRIBUTION WIDTH 22.7 % (11.5-14.5); UNCORRECTED WBC 11.4 10^3/ul (4.8-10.8); WHITE BLOOD COUNT 11.4 10^3/ul (4.8-10.8)
[2016-12-06] MEDS ORDERED: HYDR-3670 PO (15:56)
[2016-12-06] MEDS ORDERED: HYDR-3498 PO (15:59)
[2016-12-06] MEDS ORDERED: IPRA3AMP INHALATION (16:00)
[2016-12-06] MEDS ORDERED: HYDR2TAB3 PO (16:00)
[2016-12-06] MEDS ORDERED: LACT10SO5 PO (16:01)
[2016-12-06] MEDS ORDERED: SYN112 PO (16:02)
[2016-12-06] MEDS ORDERED: LORA0.5T PO (16:02)
[2016-12-06 16:04] LABS: ALBUMIN 2.8 g/dl (3.3-4.9); CHLORIDE 96 mmol/L (97-110); SODIUM 127 mmol/L (135-144)
[2016-12-06] MEDS ORDERED: MEG40/1 PO (16:04)
[2016-12-06 16:05] LABS: POTASSIUM 5.5 mmol/L (3.5-5.1)
[2016-12-06 16:06] LABS: CREATININE 0.99 mg/dl (0.44-1.00)
[2016-12-06] MEDS ORDERED: MAGN400O4 PO (16:06)
[2016-12-06] MEDS ORDERED: NITR0.4T6 SL (16:06)
[2016-12-06 16:07] LABS: ALANINE AMINOTRANSFERASE 43 IU/L (13-69); ALKALINE PHOSPHATASE 202 IU/L (42-121); ANION GAP 19 (8-16); ASPARTATE AMINO TRANSFERASE 44 IU/L (15-46); BILIRUBIN,INDIRECT 0.1 mg/dl (0-1.1); BILIRUBIN,TOTAL 0.1 mg/dl (0.2-1.3); BLOOD UREA NITROGEN 23 mg/dl (7-20); CALCIUM 8.7 mg/dl (8.4-10.2); CARBON DIOXIDE 18 mmol/L (21-31); GLUCOSE 100 mg/dl (70-220); TOTAL PROTEIN 6.8 g/dl (6.1-8.1)
[2016-12-06] MEDS ORDERED: PANT40TA4 PO (16:07)
[2016-12-06 16:08] LABS: ACETAMINOPHEN < 10.0 ug/ml (10.0-30.0); ETHANOL < 10.0 mg/dl; SALICYLATE < 1.0 mg/dl (5.0-30.0)
[2016-12-06] MEDS ORDERED: POTA20LI5 PO (16:08)
[2016-12-06] MEDS ORDERED: METO10TA96 PO (16:09)
[2016-12-06] MEDS ORDERED: PROT946L PO (16:09)
[2016-12-06] MEDS ORDERED: SPIR100T31 PO (16:10)
[2016-12-06 16:11] LABS: CONDITION 1; LH ANALYZER COMMENTS 1
[2016-12-06] MEDS ORDERED: TRAM-40 PO (16:11)
[2016-12-06] MEDS ORDERED: TUBE5VIA3 ID (16:12)
[2016-12-06] MEDS ORDERED: ASCO500C7 PO (16:12)
[2016-12-06] MEDS ORDERED: ONDA-43 PO (16:13)
[2016-12-06] MEDS ORDERED: [UNRECOGNIZED DRUG - OTHER] RECTAL (16:14)
[2016-12-06] MEDS ORDERED: SODIUM CHLORIDE 0.9% 1L BAG IV* STA (16:21)
[2016-12-06 16:22] LABS: TROPONIN-I < 0.012 ng/ml (0.00-0.12)
[2016-12-06] MEDS ORDERED: CEFTRIAXONE 1 GM/50 ML (PMX) 50 ML IVPB ONE (16:30)
[2016-12-06] MEDS ORDERED: ACETAMINOPHEN 325 MG TAB PO PRN ×2 (17:00→18:30)
[2016-12-06] MEDS ORDERED: ONDANSETRON 4 MG INJ IV PRN ×2 (17:00→18:30)
--- NOTE | 2016-12-06 17:03 | ERA ---
ER Documentation Chief Complaint Date/Time DATE: 12/06/16 TIME: 16:59 Chief Complaint BIB RA FOR EVAL OF ALOC. HX OF LIVER CA HPI Patient is a 65-year-old female with pancreatic cancer who presents altered. Please note her history and physical exam is limited secondary to the patient's mental status at this time. The patient was brought in by ambulance. She was recently admitted on November 27 for a GI bleed and was discharged on December 02. Upon review of old medical records this is her 10th visit to the ER since 2014. Her primary doctor is Dr. Stephens. ROS All systems reviewed and are negative except as per history of present illness. Medications Home Meds Reported Medications [Fleet Enema Enema ] No Conflict Check, 118 ML RECTAL Q24H 12/06/16 Ondansetron Hcl* (Zofran*) 4 Mg Tab, 4 MG PO Q6H Y for NAUSEA AND OR VOMITING, TAB 12/06/16 Ascorbic Acid* (Vitamin C*) 500 Mg Capsule.sa, 500 MG PO DAILY, CAP 12/06/16 Tuberculin,Purif.prot.deriv. (Tubersol) 5 Tub Unit/0.1 Ml Vial, 5 TUB ID QHS, VIAL 12/06/16 Tramadol Hcl* (Ultram*) 50 Mg Tablet, 50 MG PO Q4 Y for PAIN LEVEL 6-7/10, TAB 12/06/16 Spironolactone* (Spironolactone*) 100 Mg Tablet, 100 MG PO BID, TAB HOLD IF SBP<110 12/06/16 Metoclopramide Hcl* (Metoclopramide Hcl*) 10 Mg Tablet, 10 MG PO Q6H Y for NAUSEA AND OR VOMITING, TAB 12/06/16 Protein Supplement (Promod) 946 Ml Liquid, 30 ML PO BID 12/06/16 Potassium Chloride* (Potassium Chloride*) 20 Meq/15 Ml Liquid, 20 MEQ PO DAILY, ML 12/06/16 Pantoprazole* (Pantoprazole*) 40 Mg Tablet.dr, 40 MG PO AC BREAKFAST, TAB 12/06/16 Nitroglycerin* (Nitroglycerin* SL) 0.4 Mg Tab.subl, 0.4 MG SL Q5MIN Y for CHEST PAIN, BOTTLE 12/06/16 Magnesium Hydroxide* (Milk Of Magnesia*) 400 Mg/5 Ml Oral.susp, 30 ML PO Q24H for CONSTIPATION, ML 12/06/16 Megestrol Acetate* (Megestrol Acetate*) 400 Mg/10 Ml Susp, 800 MG PO DAILY, ML 12/06/16 Lorazepam* (Lorazepam*) 0.5 Mg Tablet, 0.5 MG PO Q6 Y for ANXIETY, TAB 12/06/16 Levothyroxine Sodium* (Levothyroxine Sodium*) 112 Mcg Tablet, 112 MCG PO BEFORE BREAKFAST, #30 TAB 12/06/16 Lactulose* (Lactulose*) 10 Gm/15 Ml Solution, 30 ML PO Q12, ML 12/06/16 Ipratropium-Albuterol (Ipratropium-Albuterol) 0.5-3 Mg/3 Ml Ampul.neb, 3 ML INHALATION Q4, #30 VIAL 12/06/16 Hydromorphone Hcl* (Hydromorphone Hcl*) 2 Mg Tablet, 0.5 MG PO Q4H Y for PAIN LEVEL 4-5/10, TAB 12/06/16 Hydrocodone Bit-Acetaminophen (Hydrocodone Bit-APAP) 5-325MG Tablet, 1 TAB PO Q6H Y for PAIN LEVEL 8-10/10, TAB 12/06/16 Hydralazine Hcl* (Hydralazine Hcl*) 10 Mg Tablet, 10 MG PO Q6H, #60 TAB GIVE IF SBP<160 AND CALL MD 12/06/16 Furosemide* (Furosemide*) 20 Mg Tablet, 20 MG PO BID, #30 TAB HOLD IS SBP<110 12/06/16 Ferrous Sulfate* (Ferrous Sulfate*) 325 Mg Tabec, 325 MG PO BID, TAB 12/06/16 Docusate Sodium* (Docusate Sodium*) 100 Mg Capsule, 100 MG PO Q12, #60 CAP 12/06/16 Frtidd-Ztprabaz-Kesqrlm* (Bridget PINO* 24,000) 24,000 L-76,000-120,000 Unit Capsule.dr, 1 CAP PO WITH MEALS, CAP 12/06/16 Baclofen* (Baclofen*) 10 Mg Tablet, 10 MG PO BID, TAB 12/06/16 Acetaminophen* (Acetaminophen*) 325 Mg Tablet, 650 MG PO Q6H Y for PAIN LEVEL 1- 310, #30 TAB 12/06/16 Discontinued Reported Medications Potassium Chloride* (Potassium Chloride*) 20 Meq Tablet.er, 20 MEQ PO DAILY, TAB.SA 11/27/16 Megestrol Acetate* (Megestrol Acetate*) 800 Mg/20 Ml Oral.susp, 800 MG PO DAILY , ML 11/27/16 Furosemide* (Lasix*) 20 Mg Tablet, 40 MG PO BID, TAB 11/27/16 Levothyroxine Sodium* (Levoxyl*) 112 Mcg Tablet, 112 MCG PO BEFORE BREAKFAST, # 30 TAB 11/27/16 Discontinued Scripts Ertapenem Sodium (Invanz) 1 Gm Vial.port, 1 GM IV Q24H for 8 Days Prov:MARION GOLDMANHoward RadhaAbraham 11/20/16 Tramadol HCl (Tramadol HCl) 50 Mg Tablet, 50 MG PO Q4H Y for PAIN, #60 TAB 1 Refill Prov:MARION GOLDMANHoward RadhaAbraham 11/20/16 Njjdzc-Wltzohfj-Jixuslc* (Creon DR* 24,000) 24,000 L-76,000-120,000 Unit Capsule.dr, 1 CAP PO WITH MEALS for 30 Days, CAP 1 Refill Prov:MARION GOLDMANHoward Pineda 11/20/16 Allergies Allergies: Coded Allergies: methylisothiazolinone (Verified Allergy, Unknown, 12/06/16) PMhx/Soc History of Surgery: No (BILARY DUCT STENT PLCMT, STENT IN DUODEUM, CHOLECESTECTOMY ) Anesthesia Reaction: No Hx Neurological Disorder: No Hx Respiratory Disorders: No Hx Cardiac Disorders: Yes (HX OF HTN) Hx Psychiatric Problems: No Hx Miscellaneous Medical Probl: Yes (Pancreatic ca advanced, anemia, peritoneal cath, frequent UTI, DM2) Hx Alcohol Use: No Hx Substance Use: No Hx Tobacco Use: No Smoking Status: Unknown if ever smoked FmHx Unable to obtain Physical Exam Vitals Vital Signs Date Time Temp Pulse Resp B/P Pulse Ox O2 Delivery O2 Flow Rate FiO2 12/06/16 15:04 88 15 99/52 99 Physical Exam Const: Cachectic and altered Head: Atraumatic Eyes: Normal Conjunctiva ENT: Normal External Ears, Nose and Mouth. Neck: Full range of motion..~ No meningismus. Resp: Clear to auscultation bilaterally Cardio: Regular rate and rhythm, no murmurs Abd: Soft, non tender, non distended. Normal bowel sounds Skin: Pale Back: No midline or flank tenderness Ext: No cyanosis, or edema Neur: Awake but nonresponsive to commands Result Diagram: 12/06/16 1539 12/06/16 1539 Results 24 hrs Laboratory Tests Test 12/06/16 15:39 Acetaminophen Level < 10.0ug/ml Alanine Aminotransferase (ALT/SGPT) 43IU/L Albumin 2.8g/dl Albumin/Globulin Ratio 0.70 Alkaline Phosphatase 202IU/L Ammonia 25umol/l Anion Gap 19 Aspartate Amino Transf (AST/SGOT) 44IU/L Basophils # 0.010^3/ul Basophils % 0.1% Blood Morphology Comment Blood Urea Nitrogen 23mg/dl Calcium Level 8.7mg/dl Carbon Dioxide Level 18mmol/L Chloride Level 96mmol/L Creatinine 0.99mg/dl Direct Bilirubin 0.00mg/dl Eosinophils # 0.010^3/ul Eosinophils % 0.1% Ethyl Alcohol Level < 10.0mg/dl Globulin 4.00g/dl Glucose Level 100mg/dl Hematocrit 26.5% Hemoglobin 9.1g/dl Indirect Bilirubin 0.1mg/dl Lactic Acid Level 2.7mmol/L Lymphocytes # 0.710^3/ul Lymphocytes % 6.3% Mean Corpuscular Hemoglobin 31.9pg Mean Corpuscular Hemoglobin Concent 34.3g/dl Mean Corpuscular Volume 93.0fl Mean Platelet Volume 7.1fl Monocytes # 1.110^3/ul Monocytes % 10.1% Neutrophils # 9.510^3/ul Neutrophils % 83.4% Nucleated Red Blood Cells # 0.010^3/ul Nucleated Red Blood Cells % 0.0/100WBC Platelet Count 16988^3/UL Potassium Level 5.5mmol/L Red Blood Count 2.8510^6/ul Red Cell Distribution Width 22.7% Salicylates Level < 1.0mg/dl Sodium Level 127mmol/L Total Bilirubin 0.1mg/dl Total Protein 6.8g/dl Troponin I < 0.012ng/ml White Blood Count 11.410^3/ul Current Medications Medications (Trade) Dose Ordered Sig/Gabe Route PRN Reason Start Time Stop Time Status Last Admin Dose Admin Lactulose 30 gm 30 gm ONCE STAT NGT 12/06/16 15:21 12/06/16 15:23 DC Ceftriaxone Sodium (Rocephin) 50 ml @ 100 mls/hr ONCE ONCE IVPB 12/06/16 16:30 12/06/16 16:59 Sodium Chloride (NS) 1,400 ml BOLUS OVER 2 HOURS STAT IV* 12/06/16 16:21 12/06/16 16:26 DC Ondansetron HCl (Zofran Inj) 4 mg BRIDGE ORDER PRN IV NAUSEA AND/OR VOMITING 12/06/16 17:00 12/07/16 16:59 Acetaminophen (Tylenol Tab) 650 mg ER BRIDGE PRN PO MILD PAIN/FEVER 12/06/16 17:00 12/07/16 16:59 Procedures/MDM CT head pending at this time. Patient is a 65-year-old female who presents with altered mental status. Her ammonia level is normal and at this point I doubt hepatic encephalopathy. I am concerned for acute sepsis with severe sepsis. Admit MDM: Patient's infectious symptoms have not stabilized and the patient is at risk of rapid decompensation. The patient will be admitted for careful hydration, antibiotic therapy, and infectious source control. Severe Sepsis criteria: Infectious source: Likely cystitis End organ damage indicated by: Lactate greater than 2 Sepsis Management: Time of recognition of sepsis: 15:39 Within 3 hours of recognition: Blood cultures x 2 before broad-spectrum antibiotics: Yes 30 ml/kg NS bolus Completed Initial lactate 2.7 Repeat lactate pending Time of recognition of septic shock: No septic shock Septic Shock Assessment: Any lactic acid > 4.0 No Persistent hypotension (SBP < 90 or 40 mmHg drop, MAP < 65) despite 30 mL/kg IV fluid bolus No Volume Re-assessment for Septic Shock (post 30 ml/kg bolus): No septic shock at this time Persistent Hypotension Treatment: Comfort care No Central line Not Required Vasopressor started Not required I considered further perfusion assessment with CVP measurement, SCVO2, bedside ultrasound volume assessment, passive leg raise, trial of further fluid bolus. And proceeded with 30 ml/kg fluid bolus of NSS, broad spectrum antibiotics, and admission. Accepting Care Team Current data and ongoing care discussed. Admitting Physician: Dr. López as the patient was recently admitted to Dr. López and the primary doctor is Dr. Stephens Weigh And Charge Worker(s): None Outstanding Data: Culture results and repeat lactic acid Critical Care: Critical care time 35 minutes excluding all billable procedures Emergent fluid management while maintaining close respiratory support. Provision of immediate and broad-spectrum antibiotic therapy. Simultaneous assessment for possible sources in order to direct targeted therapy. Consideration for invasive and chemical support to prevent cardiopulmonary collapse. Prognosis is very poor. I believe a discussion with family regarding goals of care would be appropriate. Departure Diagnosis: Primary Impression: Severe sepsis Additional Impressions: Altered level of consciousness Anemia Qualified Code: D64.9 - Anemia, unspecified type Hyponatremia Dehydration Hyperkalemia Condition: Serious DARREN VARGAS MD Dec 06, 2016 17:02
[2016-12-06 17:07] LABS: ADD UMIC NO; URINE BILIRUBIN (Dip) NEGATIVE (NEGATIVE); URINE BLOOD (Dip) NEGATIVE (NEGATIVE); URINE COLOR LT. YELLOW (YELLOW); URINE GLUCOSE (Dip) NEGATIVE (NEGATIVE); URINE KETONES (Dip) NEGATIVE (NEGATIVE); URINE LEUKOCYTE ESTERASE (Dip) NEGATIVE (NEGATIVE); URINE NITRITE (Dip) NEGATIVE (NEGATIVE); URINE TOTAL PROTEIN (Dip) NEGATIVE (NEGATIVE); URINE UROBILINOGEN (Dip) 0.2 E.U./dL (0.1-1.0)
--- NOTE | 2016-12-06 17:13 | RADRPT ---
PROCEDURE: CT Brain without contrast. CLINICAL INDICATION: Altered mental status TECHNIQUE: A CT of the brain was performed on a multidetector CT scanner utilizing axial sections from the skull base through the vertex without contrast. Images were reviewed on a high-resolution [employer] workstation. Exam CTDI = 44.73 mGy and the DLP = 630.20 mGy-cm. One or more of the following dose reduction techniques were used: Automated exposure control Adjustment of the mA and/or kV according to patient size. Use of iterative reconstruction technique. COMPARISON: CT head 11/27/2016 FINDINGS: Mild diffuse cerebral and cerebellar atrophy is present. There is proportionate dilatation of the v entricular system and sulci in a symmetric fashion. There is prominence of the extraaxial spaces sec ondary to atrophy. There is no evidence of intracranial hemorrhage, mass effect or midline shift. N o abnormal intra-axial or extra-axial fluid collections are seen. The density of the brain is isrrael l and the tran/white matter differentiation is well preserved. Mild patchy diffuse deep white matte r microangiopathic ischemic change is seen. The osseous structures and visualized paranasal sinus es are unremarkable. IMPRESSION: 1. No intracranial hemorrhage, mass effect or midline shift. 2. Mild generalized atrophy. Mild microangiopathic ischemic change. RPTAT: BB .Mj Hook MD, Date Time Electronically viewed and signed by .Mj Hook MD, on 12/06/2016 17:13 .O/
[2016-12-06 17:22] LABS: OPIATES Negative (NEGATIVE)
[2016-12-06 17:24] LABS: BARBITURATES Negative (NEGATIVE); BENZODIAZEPINES Negative (NEGATIVE); CANNABINOIDS Negative (NEGATIVE); COCAINE Negative (NEGATIVE)
[2016-12-06 17:41] VITALS: TEMP 97.3
[2016-12-06] MEDS ORDERED: METOCLOPRAMIDE 10 MG TAB PO PRN (18:30)
[2016-12-06] MEDS ORDERED: NACL 0.9% 3 ML SYG IV SCH (18:30)
[2016-12-06] MEDS ORDERED: ONDANSETRON 4 MG TAB PO PRN (18:30)
[2016-12-06] MEDS ORDERED: traMADol 50 MG TAB PO PRN (18:30)
[2016-12-06] MEDS ORDERED: LORAZEPAM 0.5 MG TAB PO PRN (18:30)
[2016-12-06] MEDS ORDERED: NITROGLYCERIN (SL) 0.4 MG TAB SL PRN (18:30)
[2016-12-06] MEDS ORDERED: HYDROmorphONE 2 MG TAB PO PRN (18:30)
[2016-12-06] MEDS: FUROSEMIDE 20 MG TAB PO SCH (19:05)
--- NOTE | 2016-12-06 19:14 | RADRPT ---
PROCEDURE: XR Chest AP portable CLINICAL INDICATION: Sepsis TECHNIQUE: An AP portable radiograph of the chest was submitted. COMPARISON: 11/27/2016 FINDINGS: Support Hardware: A right-sided Port-A-Cath remains in place with the tip projecting through the atr ial caval junction. Cardiovascular: The cardiovascular silhouette appears unremarkable. Lung Sunshine: A suboptimal inspiration compresses the lung narrowing, at the lung bases but no infilt rate is evident Pleural Spaces: No pneumothorax or pleural effusion is identified. Osseous Structures: Mild degenerative spine changes are evident. Soft Tissues: The stomach is now mildly distended with gas. IMPRESSION: 1. Right-sided Port-A-Cath stable in positioning. 2. Suboptimal inspiration compresses lung parenchyma. 3. There is no mild gaseous distension of the stomach. Physician [place] Date Time Electronically viewed and signed by Barrie Randall Physician on 12/06/2016 19:14 /
[2016-12-06 19:30] VITALS: BP 115/58; RESP 18
[2016-12-06] MEDS ORDERED: VANCOMYCIN IV PER PHARMACY XX SCH (20:00)
[2016-12-06] MEDS: DOCUSATE SODIUM 100 MG CAP PO SCH (21:00)
[2016-12-06] MEDS ORDERED: NON-FORMULARY/PATIENT OWN MED (Protein Supplement (Promod) 30 ML) PO SCH (21:00)
[2016-12-06] MEDS: LACTULOSE 30ML CUP PO SCH (21:00)
[2016-12-06] MEDS: BACLOFEN 10 MG TAB PO SCH (21:00)
[2016-12-06] MEDS: SPIRONOLACTONE 50 MG TAB PO SCH (21:00)
--- NOTE | 2016-12-06 21:12 | HP ---
DATE OF ADMISSION: 12/06/2016 CONSULTANTS: 1. Nephrology. 2. Infectious diseases. HISTORY OF PRESENT ILLNESS: This is an unfortunate 65-year-old female with past medical history of pancreatic cancer status post chemotherapy, which has been discontinued since 10/2016 as per hematol ogy/oncology recommendations, ascites, anemia, dyslipidemia, history of urinary tract infection, hyp ernatremia, history of Whipple procedure, cholecystectomy, tubal ligation, duodenal stent, pigtail l ine secondary to ascites, whom was residing at a care home facility, although at this time the patient lives at home, and was brought into the emergency room by the patient's daughter secondary to patient having decreased response and being altered. At time of admission, the patient's blood p ressure was 96/57, temperature 98.5, pulse 95, respirations 18, blood pressure 97%. WBC was found t o be 11.4, hemoglobin 9.1, hematocrit 26.5, platelets 458,000. Her lactic acid was found to be elev ated at 2.7. Sodium 127, potassium 5.5, chloride 96, BUN of 23. Patient looks very cachectic. The patient was treated with Rocephin, normal saline, and lactulose in the course of the emergency room , and at this time the patient is arousable with pain. Does not respond to verbal stimuli. PAST MEDICAL AND SURGICAL HISTORY: As above per HPI. MEDICATIONS: 1. Tylenol. 2. Addis. 3. Combivent. 4. Creon. 5. Vitamin C. 6. Baclofen. 7. Colace. 8. Ferrous sulfate. 9. Lasix. 10. Hydralazine. 11. Dilaudid. 12. Lactulose. 13. Levothyroxine. 14. Lorazepam. 15. Milk of magnesia. 16. Megace. 17. Reglan. 18. Nitroglycerin. 19. Zofran. 20. Protonix. 21. Potassium chloride. 22. . 23. Aldactone. 24. Ultram. 25. . 26. Fleet's enema. ALLERGIES: METAL, LISTETIZENOLONE. FAMILY HISTORY: Noncontributory. SOCIAL HISTORY: Negative for smoking, alcohol, illicit drugs. REVIEW OF SYSTEMS: As per HPI. The patient denies any fever. No chills. Decreased oral intake, d ecreased appetite, decreased activity. Cachectic. Difficulty with ambulation. No change in the co anel of stool. No chest pain, no shortness of breath. Difficulty with ambulation, as stated above. No heat and cold intolerance. No recent travel history. No sick contact. PHYSICAL EXAMINATION VITAL SIGNS: Temperature 97.3, pulse 90, respirations 12, blood pressure 108/66, oxygen saturation 100%. GENERAL APPEARANCE: The patient is very cachectic and underweight with BMI of 17.6. Difficult to a rouse, although she does respond to touch stimuli. EYES AND ENT: Conjunctivae and lids are normal. Pupils are normal. Extraocular normal. Oral muco sa is dry. NECK: Supple. Trachea is midline. No lymphadenopathy. RESPIRATORY: Effort is normal. Clear to auscultation bilaterally. CARDIOVASCULAR: Normal S1, S2. Regular rhythm and rate. No murmur, no bruits, no edema. Peripher al pulses and radial pulses palpable. Cap refill is normal. CHEST: Normal expansion of thorax during inspiration. GASTROINTESTINAL: Abdomen is distended. There is a pigtail line in the right lower abdominal regio n. Bowel sounds are distant secondary to abdominal distention. No guarding, no rebound. GENITOURINARY: Deferred. MUSCULOSKELETAL: Both upper and lower extremities are very cachectic with severe muscle wasting. NEUROLOGIC: The patient is awake. Cranial nerves have not been able to be assessed at this time. LABORATORY WORK AND IMAGING: WBC 11.4, hemoglobin 9.1, hematocrit 26.5, platelets 458,000. Sodium 127, potassium 4.5, chloride 96, bicarbonate 18, BUN 23, creatinine 0.99, glucose 100, lactic acid 2 .7. Alkaline phosphatase 2.6. Toxicology: Negative urine drug screen. Urinalysis negative. ASSESSMENT AND PLAN: 1. Altered mental status likely secondary to sepsis. 2. Sepsis. 3. Severe hyponatremia. The patient has been started on IV fluid, normal saline, and Nephrology cuevas s been consulted. 4. Hyperkalemia, likely secondary to Aldactone. Decrease the dosage. Nephrology has been consulte d. 5. Dehydration secondary to decreased oral intake. Patient has been started on IV fluid. 6. History of pancreatic cancer with mets. As stated above, patient has been seen and evaluated by obiee obia solution architect/oncologist. Patient at this time is not a candidate for chemotherapy anymore at this time as per obiee obia solution architect/oncologist as outpatient. 7. Sepsis. The patient has been started on broad-spectrum IV antibiotics. Infectious diseases doc tor has been consulted. 8. Deep venous thrombosis prophylaxis. On sequential compression devices. 9. Gastrointestinal prophylaxis. On proton pump inhibitor. PROGNOSIS: Poor. CODE STATUS: DNR, as per patient's daughter's request. They are contemplating and making decision regarding discussing her case with hospice. Hospice care has been consulted. We will continue to m onitor patient closely. Further recommendations, management, and treatment as per clinical course. Total amount of time was spent for evaluation of patient and admission workup, 45 minutes. Dictated By: KATHLEEN CARDONA MD PN/NTS Conf#: [id number] DID#: [id number]
--- NOTE | 2016-12-06 21:50 | CONS ---
DATE OF ADMISSION: 12/06/2016 DATE OF CONSULTATION: 12/06/2016 TYPE OF CONSULTATION: Infectious Diseases. REASON FOR CONSULTATION: Antibiotic management. HISTORY OF PRESENT ILLNESS: Kiki Sanchez is an unfortunate 65-year-old female with noble creatic cancer, who was brought in for evaluation of acute loss of consciousness. Patient was broug ht in by ambulance. She was recently admitted on 11/27/2016 for GI bleed and discharged on 12/02/19. Her primary doctor is Dr. Stephens. PAST MEDICAL HISTORY: Problems include: 1. Pancreatic carcinoma. 2. Biliary duct stent placement. 3. Stent in the duodenum. 4. Cholecystectomy. 5. Hypertension. 6. Anemia. 7. Peritoneal catheter. 8. Frequent UTIs. 9. Diabetes mellitus. PAST SURGICAL HISTORY: Operations as outlined. FAMILY HISTORY: Noncontributory. SOCIAL HISTORY: She does not smoke, drink, or abuse drugs. ALLERGIES: NONE TO PENICILLIN, SULFA, OR FOODS. MEDICATIONS: Per chart. REVIEW OF SYSTEMS: Noncontributory. PHYSICAL EXAMINATION: GENERAL: The patient is a cachectic-appearing female, who is altered, in no apparent distress. VITAL SIGNS: Stable. Blood pressure 99/52. SKIN: Without generalized rash, pale. HEENT: Within normal limits. NECK: Supple. LYMPH NODES: None palpable. CHEST: Decreased breath sounds at the bases. HEART: Without murmur or gallop. ABDOMEN: Soft, nontender, nondistended, without organosplenomegaly or masses. EXTREMITIES: Without cyanosis, clubbing, or edema. RECTAL AND GENITAL: Deferred. NEUROLOGIC: Unresponsive to commands, but awake. ANCILLARY LABORATORY DATA: White count 11.4, H and H of 9.1 and 26.5, platelet count 458,000. BUN and creatinine 23/0.99, glucose of [address] scan pending. IMPRESSION AND PLAN: Patient comes in with altered levels of consciousness. Her ammonia level is n ormal with concern for sepsis. She is being hydrated. She was started on Zosyn. She received some ceftriaxone, but now is on Zosyn. I will add vancomycin to her regimen until we are sure about wha t is going on. I will dictate my findings to the hospitalist. Dictated By: FAB MEYER MD, JD/NILSA Conf#: [id number] [facility]#: [id number]
[2016-12-06] MEDS: SOD CHLORIDE 0.9% 1,000 ML IV SCH (21:57)
[2016-12-06] MEDS: metroNIDAZOLE 500 MG/NS (PMX) 100 ML IVPB SCH (21:57)
[2016-12-06] MEDS: FERROUS SULFATE (EC) 325 MG TAB PO SCH (22:00)
[2016-12-06] MEDS: ALBUTEROL/IPRATROPIUM (NEB) 3 ML AMP HHN SCH (22:15)
[2016-12-06] MEDS ORDERED: VANCOMYCIN 750 MG in SOD CHLORIDE 0.9% 150 ML IVPB ONE (23:00)
[2016-12-07] MEDS: ALBUTEROL/IPRATROPIUM (NEB) 3 ML AMP HHN SCH ×6 (01:44→21:22)
[2016-12-07] MEDS: PIPER-TAZO 3.375 GM IV (PMX) 100 ML IVPB SCH ×3 (02:15→18:14)
[2016-12-07] MEDS: FUROSEMIDE 20 MG TAB PO SCH (06:00)
[2016-12-07 06:03] LABS: BASOPHILS % 0.1 % (0.0-2.0); EOSINOPHILS % 0.1 % (0.0-7.0); HEMATOCRIT 23.9 % (37.0-47.0); HEMOGLOBIN 8.4 g/dl (12.0-16.0); LYMPHOCYTES # 0.5 10^3/ul (0.8-2.9); LYMPHOCYTES % 5.9 % (15.0-51.0); MEAN CORPUSCULAR HEMOGLOBIN 32.6 pg (29.0-33.0); MEAN CORPUSCULAR HGB CONC 34.9 g/dl (32.0-37.0); MEAN CORPUSCULAR VOLUME 93.2 fl (82.0-101.0); MEAN PLATELET VOLUME 7.3 fl (7.4-10.4); MONOCYTE # 0.8 10^3/ul (0.3-0.9); MONOCYTES % 8.7 % (0.0-11.0); NEUTROPHIL # 7.9 10^3/ul (1.6-7.5); NEUTROPHILS % 85.2 % (39.0-77.0); PLATELET COUNT 411 10^3/UL (140-440); RED BLOOD COUNT 2.56 10^6/ul (4.20-5.40); RED CELL DISTRIBUTION WIDTH 22.9 % (11.5-14.5); UNCORRECTED WBC 9.2 10^3/ul (4.8-10.8); WHITE BLOOD COUNT 9.2 10^3/ul (4.8-10.8)
[2016-12-07 06:04] LABS: ALBUMIN 2.5 g/dl (3.3-4.9); POTASSIUM 4.4 mmol/L (3.5-5.1)
[2016-12-07 06:06] LABS: CREATININE 0.85 mg/dl (0.44-1.00)
[2016-12-07 06:07] LABS: ALBUMIN/GLOBULIN RATIO 0.65; CALCIUM 8.2 mg/dl (8.4-10.2); TOTAL PROTEIN 6.3 g/dl (6.1-8.1)
[2016-12-07 06:08] LABS: MAGNESIUM 2.1 mg/dl (1.7-2.5)
[2016-12-07] MEDS: metroNIDAZOLE 500 MG/NS (PMX) 100 ML IVPB SCH ×3 (06:15→21:32)
[2016-12-07 06:24] LABS: CONDITION 1; LH ANALYZER COMMENTS 1; SUSPECT 1
[2016-12-07] MEDS: LEVOTHYROXINE 112 MCG TAB PO SCH (06:32)
[2016-12-07] MEDS: PANTOPRAZOLE (EC) 40 MG TAB PO SCH (08:00)
[2016-12-07 08:14] VITALS: BP 87/52; RESP 18
[2016-12-07] MEDS: CREON (24K-76K-120K) 1 CAP PO SCH ×3 (08:15→18:00)
[2016-12-07] MEDS: ASCORBIC ACID 500 MG TAB PO SCH (09:00)
[2016-12-07] MEDS: FERROUS SULFATE (EC) 325 MG TAB PO SCH ×2 (09:00→21:32)
[2016-12-07] MEDS: LACTULOSE 30ML CUP PO SCH ×2 (09:00→21:31)
[2016-12-07] MEDS: MEGESTROL (40 MG/ML) 10ML CUP PO SCH (09:00)
[2016-12-07] MEDS: BACLOFEN 10 MG TAB PO SCH ×2 (09:00→21:32)
[2016-12-07] MEDS: DOCUSATE SODIUM 100 MG CAP PO SCH (09:00)
[2016-12-07] MEDS: SPIRONOLACTONE 50 MG TAB PO SCH ×2 (09:00→21:36)
--- NOTE | 2016-12-07 10:07 | CONS ---
DATE OF ADMISSION: 12/06/2016 DATE OF CONSULTATION: 12/07/2016 TYPE OF CONSULTATION: Nephrology. REASON FOR CONSULTATION: Acute kidney injury, hyperkalemia and hyponatremia. REQUESTING PHYSICIAN: Dr. López HISTORY OF PRESENT ILLNESS: This is a 65-year-old female with a past medical history of pancreatic cancer, status post chemotherapy, which was discontinued in October of 2016, per hematology recomme ndations. The patient also has a history of dyslipidemia and anemia. The patient has a history of Whipple's procedure and cholecystectomy, who presented to [facility] from a [facility] nursing facility. The patient had been noted to have decreased mental status at her [facility] facility. As a result, she came into the emergency room for evaluation. Upon arrival the patien t had laboratory data drawn, which showed a white count of 11.4. The patient was also hyponatremic, with a sodium of 127 and potassium 5.5. The patient in the emergency room had a CT scan of the bra in, which showed no acute findings. Chest x-ray showed a right-sided Port-A-Cath. The patient in [facility] emergency room was given IV fluids, IV antibiotics and admitted to med/surg for evaluation. In terms of the patient's renal history, the patient has underlying hyponatremia, with sodium levels fluctuating between 125 and 127. The patient has had normal renal function, with previous creatini jean between 0.6 to 0.8 mg/dL. The patient has had decreased p.o. intake over the last several days, but there have been no reports of NSAID use, positive diuretic use, no rashes, no hemoptysis or hem atochezia, no frothy urine. PAST MEDICAL HISTORY: As stated above. History of pancreatic CA, a history of ascites, anemia, dys lipidemia, hyponatremia. PAST SURGICAL HISTORY: Status post cholecystectomy, status post Whipple's procedure. MEDICATIONS: The patient's medications have been reviewed. ALLERGIES: Have been reviewed. FAMILY HISTORY: Noncontributory. SOCIAL HISTORY: The patient resides at a skilled nurse facility. REVIEW OF SYSTEMS: Unable to do adequate review of systems as the patient is obtunded. Pertinent po sitives obtained by reviewing medical records, speaking to hospital staff, as stated in the HPI, oth erwise negative. PHYSICAL EXAMINATION: VITAL SIGNS: Blood pressure is 87/52, respirations 18, pulse 102, temperature 98.5. GENERAL: The patient is frail, weak, cachectic. HEENT: There is bilateral temporal wasting. NECK: Supple. HEART: Tachycardic. LUNGS: Showed diminished breath sounds at the base. ABDOMEN: Soft, nontender to palpation. No rebound or guarding. EXTREMITIES: Negative for clubbing or cyanosis. No edema. DERMATOLOGIC: No rashes. MUSCULOSKELETAL: Have no joint effusion. NEUROLOGIC: Limited exam due to lack of patient cooperation. LABORATORY DATA: Shows sodium 130, potassium 4.4, chloride 100, bicarbonate 17, BUN 22, creatinine 0.84. White count 9.2, hemoglobin 8.4, hematocrit 23.9, platelet count 411. ASSESSMENT AND PLAN: This is a 65-year-old female who presents with: 1. Nonoliguric acute kidney injury, with a previous baseline creatinine around 0.7 mg/dL. Etiology of acute kidney injury is secondary to volume depletion, diuretic use and Aldactone effect. The pa tete's renal function has been improving with IV hydration. The patient's urinalysis shows nonacti ve sediment. Plan at this point is to continue the current treatment plan. Will continue IV fluids . Will repeat a urinalysis. Will check urine electrolytes, calculate a FENa (fractional excretion of urea). Will continue to monitor closely. 2. Hyponatremia. Etiology is multifactorial secondary to volume depletion, with possible underlyin g SIADH, given history of pancreatic cancer. The patient's sodium levels have been improving with I V fluids. At this point will do a full workup. Will check urine sodium, urine osmolarity, serum os molarity. Will check a calculated FENa. Will continue gentle IV hydration and monitor serial sodiu m levels closely. 3. Hyperkalemia. Etiology is multifactorial secondary to volume depletion and Aldactone effect. T he patient is currently normokalemic. Will continue IV fluids. Will discontinue Aldactone. 4. Hypotension, likely due to volume depletion. Continue IV hydration. Discontinue diuretic thera py. 5. Possible sepsis. Underlying source is unclear. The patient is on empiric antibiotic therapy. Will continue. Follow up cultures. 6. Acute encephalopathy. Etiology is likely multifactorial due to toxic metabolic and electrolyte abnormality. Will continue the current treatment plan. Continue to monitor mental status closely. 7. History of pancreatic cancer with metastasis. Will continue supportive care. Consider hospice. 8. Metabolic acidosis. Etiology is multifactorial secondary to acute kidney injury and possible co mpensatory response. Will continue to observe bicarbonate levels. Defer bicarbonate therapy at thi s time. May consider ABG. 9. Anemia of chronic disease. Continue to monitor hemoglobin and hematocrit levels. Thank you, Dr. López, for this interesting consult. It will be a pleasure to follow the patient with you throughout the hospital course. Dictated By: MIESHA WAY/NILSA Conf#: [id number] DID#: [id number]
--- NOTE | 2016-12-07 14:07 | PN ---
DATE: 12/07/2016 INFECTIOUS DISEASE PROGRESS NOTE SUBJECTIVE: Patient is lethargic, lying comfortably in bed, family at bedside. GENERAL: No fevers. WBC today 9.2, platelet 411, neutrophils 85.2. BUN 22, creatinine 0.85. MICROBIOLOGY: Cultures are pending. DIAGNOSTICS: CT of the brain revealed no acute abnormalities. Chest x-ray showed suboptimal inspir ation. INDWELLINGS: 1. Right chest Port-A-Cath. 2. Ivory catheter. ANTIMICROBIALS: 1. Vancomycin. 2. Zosyn. 3. Flagyl. PHYSICAL EXAMINATION: GENERAL: This is a chronically ill-appearing, cachectic, elderly woman who is lying comfortably in bed. HEENT: Head atraumatic, normocephalic. Sclerae anicteric. Buccal mucosa dry. CHEST: Rise symmetrical. Breath sounds clear, diminished to bases. HEART: S1, S2. ABDOMEN: Soft. Bowel tones present. ASSESSMENT: 1. Acute encephalopathy, likely toxic metabolic. 2. Cachexia. 3. Pancreatic cancer. 4. History of Escherichia coli extended-spectrum beta-lactamase urinary tract infection with bacter emia. 5. Right chest Port-A-Cath. PLAN: The patient remains clinically unchanged. Cultures are pending. Ammonia level on this admis andrey was 25. Continue present care. Follow recommendations of specialists. Await for final cultures . consider hospice evaluation. Dictated By: MIKE BRYSON GOODYEAR WELTER for FAB STOUT/NTS Conf#: [id number] DID#: [id number]
[2016-12-07] MEDS: SOD CHLORIDE 0.9% 1,000 ML IV SCH (14:11)
--- NOTE | 2016-12-07 15:38 | PN ---
Date/Time of Note Date/Time of Note DATE: 12/07/16 TIME: 15:35 Assessment/Plan VTE Prophylaxis VTE Prophylaxis Intervention: SCD's Lines/Catheters IV Catheter Type (from Rust): Peripheral IV Urinary Cath still in place: Yes Reason Cath still needed: other (indicate) Assessment/Plan Chief Complaint/Hosp Course ASSESSMENT AND PLAN: 1. Altered mental status likely secondary to sepsis versus malnutrition. 2. Sepsis. Resolved status post IV fluid 3. Severe hyponatremia. Improving, the patient has been started on IV fluid, normal saline, and Nephrology has been consulted. 4. Hyperkalemia, likely secondary to Aldactone. Resolved, nephrology has been consulted. 5. Dehydration secondary to decreased oral intake. Improving, on IV fluid. 6. History of pancreatic cancer with mets. As stated above, patient has been seen and evaluated by oil heater installer/oncologist. Patient at this time is not a candidate for chemotherapy anymore at this time as per oil heater installer/oncologist as outpatient. 7. Nutrition, patient family had decided to proceed with a NG tube feeding at this time Deep venous thrombosis prophylaxis. On sequential compression devices. Gastrointestinal prophylaxis. On proton pump inhibitor. PROGNOSIS: Poor. Problems: Subjective 24 Hr Interval Summary Free Text/Dictation Patient continues to be unresponsive Has not been able to tolerate oral intake secondary to decreased response Exam/Review of Systems Vital Signs Vitals Vital Signs Date Time Temp Pulse Resp B/P Pulse Ox O2 Delivery O2 Flow Rate FiO2 12/07/16 13:30 102 16 100 21 12/07/16 08:14 98.5 87/52 12/06/16 18:30 Nasal Cannula 2.0 Intake and Output 12/06/16 12/06/16 12/07/16 15:00 23:00 07:00 Intake Total 1400 ml 250 ml Output Total 1200 ml Balance 200 ml 250 ml Exam General: The patient is cachectic HEENT: Atraumatic, normocephalic. The pupils are equal and round . Neck: Supple Chest: Normal expansion of the thorax during inspiration Lungs: Clear to auscultation bilaterally Heart: Normal S1-S2, Regular rhythm and rate. Abdomen: Soft , nontender, nondistended , bowel sounds are present. Extremities: Severe muscle wasting, no edema no cyanosis Neurologic: Decreased response Results Result Diagram: 12/07/16 0450 12/07/16 0450 Results 24 hrs Laboratory Tests Test 12/06/16 15:39 12/06/16 19:25 12/07/16 04:50 Acetaminophen Level < 10.0 L Alanine Aminotransferase (ALT/SGPT) 43 40 Albumin 2.8 L 2.5 L Albumin/Globulin Ratio 0.70 0.65 Alkaline Phosphatase 202 H 191 H Ammonia 25 Anion Gap 19 H 17 H Aspartate Amino Transf (AST/SGOT) 44 34 Basophils # 0.0 0.0 Basophils % 0.1 0.1 Blood Morphology Comment Blood Urea Nitrogen 23 H 22 H Calcium Level 8.7 8.2 L Carbon Dioxide Level 18 L 17 L Chloride Level 96 L 100 Creatinine 0.99 0.85 Direct Bilirubin 0.00 0.00 Eosinophils # 0.0 0.0 Eosinophils % 0.1 0.1 Ethyl Alcohol Level < 10.0 Globulin 4.00 H 3.80 H Glucose Level 100 99 Hematocrit 26.5 L 23.9 L Hemoglobin 9.1 L 8.4 L Indirect Bilirubin 0.1 0.0 Lactic Acid Level 2.7 H 2.0 Lymphocytes # 0.7 L 0.5 L Lymphocytes % 6.3 L 5.9 L Mean Corpuscular Hemoglobin 31.9 32.6 Mean Corpuscular Hemoglobin Concent 34.3 34.9 Mean Corpuscular Volume 93.0 93.2 Mean Platelet Volume 7.1 L 7.3 L Monocytes # 1.1 H 0.8 Monocytes % 10.1 8.7 Neutrophils # 9.5 H 7.9 H Neutrophils % 83.4 H 85.2 H Nucleated Red Blood Cells # 0.0 0.0 Nucleated Red Blood Cells % 0.0 0.0 Platelet Count 458 #H 411 Potassium Level 5.5 H 4.4 Red Blood Count 2.85 L 2.56 L Red Cell Distribution Width 22.7 #H 22.9 H Salicylates Level < 1.0 L Sodium Level 127 L 130 L Total Bilirubin 0.1 L 0.0 L Total Protein 6.8 6.3 Troponin I < 0.012 White Blood Count 11.4 H 9.2 Magnesium Level 2.1 Medications Medications Current Medications Acetaminophen (Tylenol Tab) 650 mg Q6H PRN PO PAIN LEVEL 1-310; Start at 18:30 Ascorbic Acid (Vitamin C) 500 mg DAILY PO ; Start 12/07/16 at 09:00 Baclofen (Lioresal) 10 mg BID PO ; Start 12/06/16 at 21:00 Docusate Sodium (Colace) 100 mg Q12 PO ; Start 12/06/16 at 21:00 Ferrous Sulfate (Ferrous Sulfate (Ec)) 325 mg BID PO ; Start 12/06/16 at 21:00 Hydralazine HCl (Apresoline) 10 mg Q6H PO ; Start 12/06/16 at 18:30 Hydromorphone HCl (Dilaudid) 0.5 mg Q4H PRN PO PAIN LEVEL 4-5/10; Start at 18:30 Lactulose (Enulose) 20 gm Q12 PO ; Start 12/06/16 at 21:00 Lorazepam (Ativan) 0.5 mg Q6 PRN PO ANXIETY; Start 12/06/16 at 18:30 Megestrol Acetate (Megace Susp) 800 mg DAILY PO ; Start 12/07/16 at 09:00 Metoclopramide HCl (Reglan) 10 mg Q6H PRN PO NAUSEA AND/OR VOMITING; Start at 18:30 Nitroglycerin (Nitroglycerin (Sl Tab) 0.4 Mg) 1 tab [id number] PRN SL CHEST PAIN ; Start 12/06/16 at 18:30 Ondansetron HCl (Zofran Tab) 4 mg Q6H PRN PO NAUSEA AND/OR VOMITING; Start at 18:30 Spironolactone (Aldactone) 25 mg BID PO ; Start 12/06/16 at 21:00 Tramadol HCl 50 mg 50 mg Q4 PRN PO PAIN LEVEL 6-7/10; Start 12/06/16 at 18:30 Sodium Chloride (NS) 1,000 ml @ 50 mls/hr Q20H IV Last administered on 14:11; Admin Dose 50 MLS/HR; Start 12/06/16 at 18:03 Ondansetron HCl (Zofran Inj) 4 mg Q6H PRN IV NAUSEA AND/OR VOMITING; Start at 18:30 Morphine Sulfate 2 mg 2 mg Q4H PRN IV PAIN LEVEL 7-10; Start 12/06/16 at 18:30 Metronidazole 100 ml @ 100 mls/hr Q8 IVPB Last administered on 12/07/16 14:11 ; Admin Dose 100 MLS/HR; Start 12/06/16 at 22:00 Piperacillin Sod/ Tazobactam Sod 100 ml @ 25 mls/hr TID@,,18 IVPB Last administered on 12/07/16 11:13; Admin Dose 25 MLS/HR; Start 12/07/16 at 02:00 Vancomycin HCl (Vancocin) 100 ml @ 100 mls/hr Q24H IVPB ; Start 12/07/16 at 23: 00 KATHLEEN CARDONA MD Dec 07, 2016 15:38
[2016-12-07 20:36] VITALS: BP 101/53; RESP 16
--- NOTE | 2016-12-07 20:46 | RADRPT ---
PROCEDURE: XR Chest. CLINICAL INDICATION: NG tube placement. TECHNIQUE: Single frontal chest x-ray. COMPARISON: 12/06/2016 FINDINGS: NG tube is in place with the tip in the gas-distended stomach. Right internal jugular central line with the tip at the junction of SVC and right atrium is unchanged.. There is no CHF.. There is decr eased bibasilar atelectasis.. There is no pleural effusion. There is no pneumothorax. Bones are u nchanged.. IMPRESSION: NG tube with tip in the stomach. Decreased bibasilar atelectasis. RPTAT: HMVK .Magdaleno Barclay MD, MD Date Time Electronically viewed and signed by .Magdaleno Barclay MD, on 12/07/2016 20:46 .K/
[2016-12-07] MEDS: DOCUSATE SODIUM 10 MG/ML (10ML CUP) PO SCH (21:36)
[2016-12-07 21:37] VITALS: BP 116/65; PULSE 120
[2016-12-07] MEDS: VITAMIN A & D 5 GM OINT PACKET TOP SCH (22:36)
[2016-12-07] MEDS ORDERED: VANCOMYCIN 500MG/NS (PMX) 100 ML IVPB SCH (23:00)
[2016-12-08] MEDS: PIPER-TAZO 3.375 GM IV (PMX) 100 ML IVPB SCH ×3 (02:01→18:23)
[2016-12-08] MEDS: ALBUTEROL/IPRATROPIUM (NEB) 3 ML AMP HHN SCH ×6 (02:11→21:57)
[2016-12-08 03:10] LABS: ADD UMIC YES; URINE BILIRUBIN (Dip) NEGATIVE (NEGATIVE); URINE BLOOD (Dip) NEGATIVE (NEGATIVE); URINE COLOR LT. YELLOW (YELLOW); URINE GLUCOSE (Dip) NEGATIVE (NEGATIVE); URINE KETONES (Dip) NEGATIVE (NEGATIVE); URINE LEUKOCYTE ESTERASE (Dip) 1+ (NEGATIVE); URINE NITRITE (Dip) NEGATIVE (NEGATIVE); URINE TOTAL PROTEIN (Dip) NEGATIVE (NEGATIVE); URINE UROBILINOGEN (Dip) 0.2 E.U./dL (0.1-1.0)
[2016-12-08 03:18] LABS: BACTERIA,URINE RARE; SQUAMOUS EPITHELIAL CELL,UR FEW; URINE RBCS 0-2 /HPF (0)
[2016-12-08 05:57] LABS: BASOPHILS % 0.1 % (0.0-2.0); HEMATOCRIT 22.4 % (37.0-47.0); LYMPHOCYTES # 0.4 10^3/ul (0.8-2.9); LYMPHOCYTES % 3.1 % (15.0-51.0); MEAN CORPUSCULAR HGB CONC 35.8 g/dl (32.0-37.0); MONOCYTE # 1.2 10^3/ul (0.3-0.9); MONOCYTES % 9.5 % (0.0-11.0); NEUTROPHIL # 10.7 10^3/ul (1.6-7.5); NEUTROPHILS % 87.3 % (39.0-77.0); PLATELET COUNT 419 10^3/UL (140-440); RED BLOOD COUNT 2.44 10^6/ul (4.20-5.40); RED CELL DISTRIBUTION WIDTH 24.7 % (11.5-14.5); UNCORRECTED WBC 12.2 10^3/ul (4.8-10.8); WHITE BLOOD COUNT 12.2 10^3/ul (4.8-10.8)
[2016-12-08 05:58] LABS: CONDITION 1; LH ANALYZER COMMENTS 1
[2016-12-08] MEDS: metroNIDAZOLE 500 MG/NS (PMX) 100 ML IVPB SCH ×3 (06:10→22:01)
[2016-12-08] MEDS: LEVOTHYROXINE 112 MCG TAB PO SCH (06:10)
[2016-12-08] MEDS: PANTOPRAZOLE (EC) 40 MG TAB PO SCH (06:10)
[2016-12-08] MEDS: SOD CHLORIDE 0.9% 1,000 ML IV SCH ×2 (06:18→10:03)
[2016-12-08 06:25] LABS: POTASSIUM 3.5 mmol/L (3.5-5.1)
[2016-12-08 06:28] LABS: CREATININE 1.2 mg/dl (0.44-1.00)
[2016-12-08 06:29] LABS: MAGNESIUM 2.1 mg/dl (1.7-2.5); PHOSPHORUS 4.6 mg/dl (2.5-4.9)
[2016-12-08 08:06] VITALS: BP 103/64; RESP 20
[2016-12-08] MEDS: FERROUS SULFATE (EC) 325 MG TAB PO SCH ×2 (09:09→22:01)
[2016-12-08] MEDS: CREON (24K-76K-120K) 1 CAP PO SCH ×3 (09:09→18:23)
[2016-12-08] MEDS: ASCORBIC ACID 500 MG TAB PO SCH (09:09)
[2016-12-08] MEDS: DOCUSATE SODIUM 10 MG/ML (10ML CUP) PO SCH ×2 (09:09→22:01)
[2016-12-08] MEDS: BACLOFEN 10 MG TAB PO SCH ×2 (09:09→22:01)
[2016-12-08] MEDS: LACTULOSE 30ML CUP PO SCH ×2 (09:09→22:01)
[2016-12-08] MEDS: MEGESTROL (40 MG/ML) 10ML CUP PO SCH (09:09)
[2016-12-08] MEDS: SPIRONOLACTONE 50 MG TAB PO SCH ×2 (09:11→21:00)
--- NOTE | 2016-12-08 10:32 | CONS ---
Date/Time of Note Date/Time of Note DATE: 12/08/16 TIME: 10:31 Assessment/Plan Assessment/Plan Chief Complaint/Hosp Course D PROGRESS NOTE TOTAL ABX DAY #2 => VAnco IV + Zosyn + Flagyl 24H INTERVAL SUMMARY * Frail appearing F -> cachetic -> NGT w/green bile, lethargic, multiple family members present reporting she is "more interactive today" * No fevers, NGT inserted for gas distended stomach * Vanco DC'd = rising serum creatinine PHYSICAL EXAMINATION: GENERAL: 65 yo F with severe debility HEENT: Temporal wasting, NGT-> secure w/green bile NECK: Supple, trachea midline. CHEST: Equal chest rise bilaterally, without dyspnea on observation HEART: Pulse RRR ABDOMEN: Soft EXTREMITIES: Warm SKIN: See photos ID ASSESSMENT: 65 yo F w/PMHx Metastatic Pancreatic CA-> Right chest Por-A-Cath, cachexia admit with: 1. Possible sepsis on admission with hypotension (+hypothermia TMax 97.3-97.5, w/leukocytosis, (+Lactic Acidosis => vs non-toxic hypovolemia + metabolic acidosis * All micro (-) to date * ?Concern peritonitis vs pancreatitis ? 2. Acute encephalopathy, likely toxic metabolic. 3. Acute renal insufficiency => dehydration on admission 4. Dehydration w/hypokalemia + hyperkalemia on aldactone 5. ABD pain w/Gaseous distension -> NGT placed 6. History of Escherichia coli extended-spectrum beta-lactamase urinary tract infection with bacteremia. ( )MRSA Nares ->pending INVASIVES: ABX ALLERGY: KNDA CURRENT ABX: TOTAL ABX DAY #2 => Zosyn + Flagyl VAnco IV +=> DC today ID RECOMMENDATIONS: 1. Concur with DC Vanco IV 2. F/u final micro pending -> noted DNR Status, if all micro (-) unclear benefit of empiric ABX without ABD imaging . Problems: Consultation Date/Type/Reason Admit Date/Time Dec 06, 2016 at 16:57 Initial Consult Date Exam/Review of Systems Vital Signs Vitals Vital Signs Date Time Temp Pulse Resp B/P Pulse Ox O2 Delivery O2 Flow Rate FiO2 12/08/16 09:05 102 22 100 21 12/08/16 08:06 98.1 103/64 12/06/16 18:30 Nasal Cannula 2.0 Intake and Output 12/07/16 12/07/16 12/08/16 15:00 23:00 07:00 Intake Total 100 ml 400 ml 1610 ml Output Total 2250 ml 400 ml Balance -2150 ml 400 ml 1210 ml Results Result Diagram: 12/08/16 0450 12/08/16 0450 Results 24 hrs Laboratory Tests Test 12/08/16 01:50 12/08/16 04:50 Urine Bacteria RARE Urine Bilirubin NEGATIVE Urine Calcium Oxalate Crystals MODERATE Urine Clarity SL HAZY Urine Color LT. YELLOW Urine Glucose NEGATIVE Urine Hemoglobin NEGATIVE Urine Ketones NEGATIVE Urine Leukocyte Esterase 1+ H Urine Microscopic RBC 0-2 Urine Microscopic WBC 5-10 Urine Nitrite NEGATIVE Urine Random Creatinine 49.30 Urine Random Sodium 108 H Urine Specific [place] 1.020 Urine Squamous Epithelial Cells FEW Urine Total Protein Urine Urobilinogen 0.2 E.U./dL Urine pH 5.5 Anion Gap 21 H Basophils # 0.0 Basophils % 0.1 Blood Morphology Comment Blood Urea Nitrogen 23 H Calcium Level 8.0 L Carbon Dioxide Level 13 L Chloride Level 107 Creatinine 1.20 H Eosinophils # 0.0 Eosinophils % 0.0 Glucose Level 126 Hematocrit 22.4 L Hemoglobin 8.0 L Lymphocytes # 0.4 L Lymphocytes % 3.1 L Magnesium Level 2.1 Mean Corpuscular Hemoglobin 33.0 Mean Corpuscular Hemoglobin Concent 35.8 Mean Corpuscular Volume 92.0 Mean Platelet Volume 7.0 L Monocytes # 1.2 H Monocytes % 9.5 Neutrophils # 10.7 H Neutrophils % 87.3 H Nucleated Red Blood Cells # 0.0 Nucleated Red Blood Cells % 0.0 Phosphorus Level 4.6 Platelet Count 419 Potassium Level 3.5 Red Blood Count 2.44 L Red Cell Distribution Width 24.7 H Sodium Level 137 White Blood Count 12.2 #H Medications Medications Current Medications Acetaminophen (Tylenol Tab) 650 mg Q6H PRN PO PAIN LEVEL 1-3/10; Start at 18:30 Ascorbic Acid (Vitamin C) 500 mg DAILY PO Last administered on 12/08/16 09:09 ; Admin Dose 500 MG; Start 12/07/16 at 09:00 Baclofen (Lioresal) 10 mg BID PO Last administered on 12/08/16 09:09; Admin Dose 10 MG; Start 12/06/16 at 21:00 Ferrous Sulfate (Ferrous Sulfate (Ec)) 325 mg BID PO Last administered on 09:09; Admin Dose 325 MG; Start 12/06/16 at 21:00 Hydralazine HCl (Apresoline) 10 mg Q6H PO ; Start 12/06/16 at 18:30 Hydromorphone HCl (Dilaudid) 0.5 mg Q4H PRN PO PAIN LEVEL 4-5/10; Start at 18:30 Lactulose (Enulose) 20 gm Q12 PO Last administered on 12/08/16 09:09; Admin Dose 20 GM; Start 12/06/16 at 21:00 Lorazepam (Ativan) 0.5 mg Q6 PRN PO ANXIETY; Start 12/06/16 at 18:30 Megestrol Acetate (Megace Susp) 800 mg DAILY PO Last administered on 12/08/16 09:09; Admin Dose 800 MG; Start 12/07/16 at 09:00 Metoclopramide HCl (Reglan) 10 mg Q6H PRN PO NAUSEA AND/OR VOMITING; Start at 18:30 Nitroglycerin (Nitroglycerin (Sl Tab) 0.4 Mg) 1 tab [id number] PRN SL CHEST PAIN ; Start 12/06/16 at 18:30 Ondansetron HCl (Zofran Tab) 4 mg Q6H PRN PO NAUSEA AND/OR VOMITING; Start at 18:30 Spironolactone (Aldactone) 25 mg BID PO Last administered on 12/08/16 09:11; Admin Dose 25 MG; Start 12/06/16 at 21:00 Tramadol HCl 50 mg 50 mg Q4 PRN PO PAIN LEVEL 6-7/10; Start 12/06/16 at 18:30 Sodium Chloride (NS) 1,000 ml @ 50 mls/hr Q20H IV Last administered on 06:18; Admin Dose 50 MLS/HR; Start 12/06/16 at 18:03 Ondansetron HCl (Zofran Inj) 4 mg Q6H PRN IV NAUSEA AND/OR VOMITING; Start at 18:30 Morphine Sulfate 2 mg 2 mg Q4H PRN IV PAIN LEVEL 7-10; Start 12/06/16 at 18:30 Metronidazole 100 ml @ 100 mls/hr Q8 IVPB Last administered on 12/08/16 06:10 ; Admin Dose 100 MLS/HR; Start 12/06/16 at 22:00 Piperacillin Sod/ Tazobactam Sod (Zosyn 3.375gm/ 100 ml (Pmx)) 100 ml @ 25 mls/ hr TID@02,10,18 IVPB Last administered on 12/08/16 02:01; Admin Dose 25 MLS/HR ; Start 12/07/16 at 02:00 Docusate Sodium (Colace Liquid Cup) 100 mg Q12 PO Last administered on 09:09; Admin Dose 100 MG; Start 12/07/16 at 21:19 Vitamin A/Vitamin D (Vitamin A & D Oint) 1 applic DAILY TOP Last administered on 12/07/16 22:36; Admin Dose 1 APPLIC; Start 12/07/16 at 22:30 RAVI MOREIRA NP Dec 08, 2016 10:32
--- NOTE | 2016-12-08 11:06 | PN ---
DATE: 12/08/2016 SUBJECTIVE: The patient remains critically ill. The patient is minimally responsive. She has been receiving IV fluids. No other events noted. No hemoptysis, hematemesis. OBJECTIVE: VITAL SIGNS: Blood pressure 103/64, respirations 20, pulse 103, temperature 98.1. INTAKE AND OUTPUT: The patient I's and O's is 2 liters in, 2.6 liters out. HEENT: Head is normocephalic. NECK: Supple. HEART: Regular rate. LUNGS: Show diminished breath sounds at the base. ABDOMEN: Soft, nontender to palpation. No rebound or guarding. EXTREMITIES: Negative for clubbing, cyanosis. No edema. DERMATOLOGIC: No rashes. MUSCULOSKELETAL: No joint effusions. NEUROLOGIC: No change in exam. MEDICATIONS: The patient's medications have been reviewed. LABORATORY DATA: Shows a sodium 137, potassium 3.5, chloride 107, BUN 23, creatinine 1.20. White c ount is 12.2, hemoglobin 9.0, hematocrit 22.4, platelet count is 419. The patient's cultures have b een reviewed and negative. ASSESSMENT AND PLAN: 1. Nonoliguric acute kidney injury with previous baseline creatinine of 0.7 mg/dL. Etiology of acu te kidney injury secondary to volume depletion with questionable tubular injury. The patient's carlos l function has not yet stabilized despite receiving IV fluids, as creatinine increased to 1.20 mg/dL . Urinalysis does not show any evidence of active sediment and FENa greater than 1%, which can be s een in the findings of tubular injury. At this point, would continue current treatment plan. Yassine nue IV fluids, continue supportive care, renally dose all medications, avoid nephrotoxins. 2. Hyponatremia secondary to volume depletion with possible underlying SIADH from pancreatic cance r. The patient's sodium levels have improved with IV fluids. At this point, will continue current treatment plan and monitor closely. 3. Hyperkalemia. Likely secondary to acute kidney injury and Aldactone effect. The patient's pota ssium levels have normalized. Continue to monitor. 4. Hypertension. Continue IV hydration. 5. Possible sepsis. Underlying source unclear. Continue empiric antibiotic therapy. 6. Acute encephalopathy. Etiology is multifactorial. Continue to monitor. 7. History of pancreatic cancer with metastasis. Continue supportive care. Hospice evaluation is pending. 8. Metabolic acidosis secondary to acute kidney injury and possible compensatory response. The pat ient's bicarbonate levels have significantly declined. Will check an ABG to see if the patient is a ppropriately compensated. If there are significant findings of acidemia will start patient on bicar bonate drip. 9. Anemia of chronic disease. Continue to monitor hemoglobin and hematocrit levels. Dictated By: MIESHA JAY DO NR/NTS Conf#: [id number] DID#: [id number]
[2016-12-08] MEDS: VITAMIN A & D 5 GM OINT PACKET TOP SCH (11:33)
[2016-12-08 11:48] LABS: AADO2 Arterial 14.8 mmHg (7.0-24.0); Arterial Base Excess -6.9 mmol/L (-3.0-3); Arterial COHb 0.3 % (0.0-3.0); Arterial Fraction of Oxyhgb 97.8 % (93.0-99.0); Arterial HCO3 13.6 mmol/L (22.0-26.0); Arterial MetHb 0.2 % (0.0-1.5); Arterial Total Hemglobin 8.7 g/dl (12.0-18.0); MODE ROOM AIR
--- NOTE | 2016-12-08 12:20 | PN ---
Date/Time of Note Date/Time of Note DATE: 12/08/16 TIME: 12:18 Assessment/Plan VTE Prophylaxis VTE Prophylaxis Intervention: SCD's Lines/Catheters IV [facility] Saline Lock Urinary Cath still in place: Yes Reason Cath still needed: urinary retention Assessment/Plan Chief Complaint/Hosp Course ASSESSMENT AND PLAN: 1. Altered mental status likely secondary malnutrition. 2. Sepsis. Resolved status post IV fluid and abx 3. Severe hyponatremia. Improving, the patient has been started on IV fluid, normal saline, and Nephrology has been consulted. 4. Hyperkalemia, likely secondary to Aldactone. Resolved, nephrology has been consulted. 5. Dehydration secondary to decreased oral intake. Improving, on IV fluid. 6. History of pancreatic cancer with mets. As stated above, patient has been seen and evaluated by assembly hand/oncologist. Patient at this time is not a candidate for chemotherapy anymore at this time as per assembly hand/oncologist as outpatient. 7. Nutrition, continue NG tube feeding at this time Deep venous thrombosis prophylaxis. On sequential compression devices. Gastrointestinal prophylaxis. On proton pump inhibitor. PROGNOSIS: Poor. Plan to Discharge home with hospice tomorrow Problems: Subjective 24 Hr Interval Summary Free Text/Dictation Status post NG tube feeding No acute changes Patient continues to have minimal response to pain or verbal stimuli Exam/Review of Systems Vital Signs Vitals Vital Signs Date Time Temp Pulse Resp B/P Pulse Ox O2 Delivery O2 Flow Rate FiO2 12/08/16 09:05 102 22 100 21 12/08/16 08:06 98.1 103/64 12/06/16 18:30 Nasal Cannula 2.0 Intake and Output 12/07/16 12/07/16 12/08/16 15:00 23:00 07:00 Intake Total 100 ml 400 ml 1610 ml Output Total 2250 ml 400 ml Balance -2150 ml 400 ml 1210 ml Exam General: The patient is severely cachectic HEENT: Atraumatic, normocephalic. The pupils are equal Neck: Supple Chest: Normal Lungs: Clear to auscultation bilaterally Heart: Normal S1-S2, Regular rhythm and rate. Abdomen: Soft , nontender, nondistended , bowel sounds are present. Extremities: Severe muscle wasting bilateral upper and lower extremity, no edema no cyanosis Neurologic: Awake but minimal response to pain or verbal stimuli Results Result Diagram: 12/08/16 0450 12/08/16 0450 Results 24 hrs Laboratory Tests Test 12/08/16 01:50 12/08/16 04:50 12/08/16 08:30 12/08/16 11:53 Urine Bacteria RARE Urine Bilirubin NEGATIVE Urine Calcium Oxalate Crystals MODERATE Urine Clarity SL HAZY Urine Color LT. YELLOW Urine Glucose NEGATIVE Urine Hemoglobin NEGATIVE Urine Ketones NEGATIVE Urine Leukocyte Esterase 1+ H Urine Microscopic RBC 0-2 Urine Microscopic WBC 5-10 Urine Nitrite NEGATIVE Urine Random Creatinine 49.30 Urine Random Sodium 108 H Urine Specific [place] 1.020 Urine Squamous Epithelial Cells FEW Urine Total Protein Urine Urobilinogen 0.2 E.U./dL Urine pH 5.5 Anion Gap 21 H Basophils # 0.0 Basophils % 0.1 Blood Morphology Comment Blood Urea Nitrogen 23 H Calcium Level 8.0 L Carbon Dioxide Level 13 L Chloride Level 107 Creatinine 1.20 H Eosinophils # 0.0 Eosinophils % 0.0 Glucose Level 126 Hematocrit 22.4 L Hemoglobin 8.0 L Lymphocytes # 0.4 L Lymphocytes % 3.1 L Magnesium Level 2.1 Mean Corpuscular Hemoglobin 33.0 Mean Corpuscular Hemoglobin Concent 35.8 Mean Corpuscular Volume 92.0 Mean Platelet Volume 7.0 L Monocytes # 1.2 H Monocytes % 9.5 Neutrophils # 10.7 H Neutrophils % 87.3 H Nucleated Red Blood Cells # 0.0 Nucleated Red Blood Cells % 0.0 Phosphorus Level 4.6 Platelet Count 419 Potassium Level 3.5 Red Blood Count 2.44 L Red Cell Distribution Width 24.7 H Sodium Level 137 White Blood Count 12.2 #H Arterial Blood HCO3 13.6 L Arterial Blood Base Excess -6.9 L Arterial Blood Oxygen Saturation 98.3 H Moustapha Test N/A Arterial Blood Gas Puncture Site Right Brachial Arterial Blood Carboxyhemoglobin 0.3 Arterial Blood Date Drawn 12/08/2016 11:33:19 AM Arterial Blood Methemoglobin 0.2 Arterial Blood pCO2 (Temp correct) 15.3 L Arterial Blood pH (Temp corrected) 7.566 *H Arterial Blood pO2 (Temp corrected) 116.6 H Blood Gas A-a O2 Differential 14.8 Blood Gas Critical Value Read Back L.POOL RN Blood Gas Modality ROOM AIR Blood Gas Notified Time 12/08/2016 11:48:22 AM Blood Gas Notified Whom LS Blood Gas Specimen Source Blood arterial Blood Gas Temperature 37.0 FiO2 21.0 Oxyhemoglobin Percent 97.8 Total Hemoglobin 8.7 L Bedside Glucose 238 H Medications Medications Current Medications Acetaminophen (Tylenol Tab) 650 mg Q6H PRN PO PAIN LEVEL 1-3/10; Start at 18:30 Ascorbic Acid (Vitamin C) 500 mg DAILY PO Last administered on 12/08/16 09:09 ; Admin Dose 500 MG; Start 12/07/16 at 09:00 Baclofen (Lioresal) 10 mg BID PO Last administered on 12/08/16 09:09; Admin Dose 10 MG; Start 12/06/16 at 21:00 Ferrous Sulfate (Ferrous Sulfate (Ec)) 325 mg BID PO Last administered on 09:09; Admin Dose 325 MG; Start 12/06/16 at 21:00 Hydralazine HCl (Apresoline) 10 mg Q6H PO ; Start 12/06/16 at 18:30 Hydromorphone HCl (Dilaudid) 0.5 mg Q4H PRN PO PAIN LEVEL 4-5/10; Start at 18:30 Lactulose (Enulose) 20 gm Q12 PO Last administered on 12/08/16 09:09; Admin Dose 20 GM; Start 12/06/16 at 21:00 Lorazepam (Ativan) 0.5 mg Q6 PRN PO ANXIETY; Start 12/06/16 at 18:30 Megestrol Acetate (Megace Susp) 800 mg DAILY PO Last administered on 12/08/16 09:09; Admin Dose 800 MG; Start 12/07/16 at 09:00 Metoclopramide HCl (Reglan) 10 mg Q6H PRN PO NAUSEA AND/OR VOMITING; Start at 18:30 Nitroglycerin (Nitroglycerin (Sl Tab) 0.4 Mg) 1 tab [id number] PRN SL CHEST PAIN ; Start 12/06/16 at 18:30 Ondansetron HCl (Zofran Tab) 4 mg Q6H PRN PO NAUSEA AND/OR VOMITING; Start at 18:30 Spironolactone (Aldactone) 25 mg BID PO Last administered on 12/08/16 09:11; Admin Dose 25 MG; Start 12/06/16 at 21:00 Tramadol HCl 50 mg 50 mg Q4 PRN PO PAIN LEVEL 6-7/10; Start 12/06/16 at 18:30 Sodium Chloride (NS) 1,000 ml @ 50 mls/hr Q20H IV Last administered on 06:18; Admin Dose 50 MLS/HR; Start 12/06/16 at 18:03 Ondansetron HCl (Zofran Inj) 4 mg Q6H PRN IV NAUSEA AND/OR VOMITING; Start at 18:30 Morphine Sulfate 2 mg 2 mg Q4H PRN IV PAIN LEVEL 7-10; Start 12/06/16 at 18:30 Metronidazole 100 ml @ 100 mls/hr Q8 IVPB Last administered on 12/08/16 06:10 ; Admin Dose 100 MLS/HR; Start 12/06/16 at 22:00 Piperacillin Sod/ Tazobactam Sod (Zosyn 3.375gm/ 100 ml (Pmx)) 100 ml @ 25 mls/ hr TID@02,10,18 IVPB Last administered on 12/08/16 11:31; Admin Dose 25 MLS/HR ; Start 12/07/16 at 02:00 Docusate Sodium (Colace Liquid Cup) 100 mg Q12 PO Last administered on 09:09; Admin Dose 100 MG; Start 12/07/16 at 21:19 Vitamin A/Vitamin D (Vitamin A & D Oint) 1 applic DAILY TOP Last administered on 12/08/16 11:33; Admin Dose 1 APPLIC; Start 12/07/16 at 22:30 KATHLEEN CARDONA MD Dec 08, 2016 12:20
[2016-12-08 18:26] VITALS: BP 95/54; PULSE 106
[2016-12-08 20:00] VITALS: BP 84/63; RESP 20
[2016-12-08 20:32] VITALS: BP 92/61; PULSE 101
[2016-12-08 21:59] VITALS: BP 109/59; PULSE 100
[2016-12-09] MEDS: ALBUTEROL/IPRATROPIUM (NEB) 3 ML AMP HHN SCH ×6 (00:39→20:15)
[2016-12-09] MEDS: PIPER-TAZO 3.375 GM IV (PMX) 100 ML IVPB SCH ×3 (01:39→18:45)
[2016-12-09] MEDS: SOD CHLORIDE 0.9% 1,000 ML IV SCH ×2 (06:03→18:49)
[2016-12-09] MEDS: LEVOTHYROXINE 112 MCG TAB PO SCH (06:41)
[2016-12-09] MEDS: metroNIDAZOLE 500 MG/NS (PMX) 100 ML IVPB SCH ×3 (06:41→21:56)
[2016-12-09] MEDS: PANTOPRAZOLE (EC) 40 MG TAB PO SCH (06:41)
[2016-12-09 08:01] VITALS: BP 87/59; RESP 18
[2016-12-09] MEDS: FERROUS SULFATE (EC) 325 MG TAB PO SCH ×2 (08:45→21:56)
[2016-12-09] MEDS: CREON (24K-76K-120K) 1 CAP PO SCH ×3 (08:45→18:45)
[2016-12-09] MEDS: ASCORBIC ACID 500 MG TAB PO SCH (08:45)
[2016-12-09] MEDS: BACLOFEN 10 MG TAB PO SCH ×2 (08:45→21:56)
[2016-12-09] MEDS: SPIRONOLACTONE 50 MG TAB PO SCH ×2 (08:46→21:56)
[2016-12-09] MEDS: MEGESTROL (40 MG/ML) 10ML CUP PO SCH (08:46)
[2016-12-09] MEDS: LACTULOSE 30ML CUP PO SCH ×2 (08:46→21:55)
[2016-12-09] MEDS: DOCUSATE SODIUM 10 MG/ML (10ML CUP) PO SCH ×2 (08:46→21:55)
[2016-12-09] MEDS: VITAMIN A & D 5 GM OINT PACKET TOP SCH (08:46)
[2016-12-09 08:47] VITALS: BP 91/60; PULSE 101
--- NOTE | 2016-12-09 11:23 | PDOCDIS ---
Discharge Instructions CONDITION Patient Condition: Good HOME CARE INSTRUCTIONS: Special Diet: soft as tolerated KATHLEEN CARDONA MD Dec 09, 2016 11:23
--- NOTE | 2016-12-09 11:31 | DS ---
Date/Time of Note Date/Time of Note DATE: 12/09/16 TIME: 11:26 Discharge Summary Admission/Discharge Info Admit Date/Time Dec 06, 2016 at 16:57 Discharge Date/Time 12/09/16 Final Diagnosis 1. Altered mental status 2. Sepsis. 3. Severe hyponatremia. 4. Hyperkalemia, 5. Dehydration secondary to decreased oral intake. 6. pancreatic cancer with mets. 7. Cachectic 8. Debility 9. Dysphagia 10. Severe malnutrition Patient Condition: Guarded Hospital Course D PROGRESS NOTE TOTAL ABX DAY #2 => VAnco IV + Zosyn + Flagyl This is an unfortunate 65-year-old female with past medical history of pancreatic cancer status post chemotherapy, which has been discontinued since as per hematology/oncology recommendations, ascites, anemia, dyslipidemia , history of urinary tract infection, hypernatremia, history of Whipple procedure, cholecystectomy, tubal ligation, duodenal stent, pigtail line secondary to ascites, whom was residing at a [facility] facility, although at this time the patient lives at home, and was brought into the emergency room by the patient's daughter secondary to patient having decreased response and being altered. At time of admission, the patient's blood pressure was 96/57, temperature 98.5, pulse 95, respirations 18, blood pressure 97%. WBC was found to be 11.4, hemoglobin 9.1, hematocrit 26.5, platelets 458,000. Her lactic acid was found to be elevated at 2.7. Sodium 127, potassium 5.5, chloride 96, BUN of 23. Patient looks very cachectic. The patient was treated with Rocephin , normal saline, and lactulose in the course of the emergency room, and at this time the patient is arousable with pain. Does not respond to verbal stimuli. Patient was placed on aggressive IV fluid, NG tube feeding, IV antibiotics. As per patient's daughter request patient CODE STATUS was changed to DNR at the time of admission. Patient was continued on NG tube feeding and as per request the family they have met with the hospice for home hospice. Despite of aggressive medical management, IV fluid and IV antibiotics and tube feeding patient condition did not improve and today the family has decided to proceed with the hospice care Condition at the time of discharge guarded . Home Meds Reported Medications [Fleet Enema Enema ] No Conflict Check, 118 ML RECTAL Q24H 1/26/17 Ondansetron Hcl* (Zofran*) 4 Mg Tab, 4 MG PO Q6H Y for NAUSEA AND OR VOMITING, TAB 12/06/16 Ascorbic Acid* (Vitamin C*) 500 Mg Capsule.sa, 500 MG PO DAILY, CAP 12/06/16 Tramadol Hcl* (Ultram*) 50 Mg Tablet, 50 MG PO Q4 Y for PAIN LEVEL 6-7/10, TAB 12/06/16 Protein Supplement (Promod) 946 Ml Liquid, 30 ML PO BID 12/06/16 Pantoprazole* (Pantoprazole*) 40 Mg Tablet.dr, 40 MG PO AC BREAKFAST, TAB 12/06/16 Megestrol Acetate* (Megestrol Acetate*) 400 Mg/10 Ml Susp, 800 MG PO DAILY, ML 12/06/16 Lorazepam* (Lorazepam*) 0.5 Mg Tablet, 0.5 MG PO Q6 Y for ANXIETY, TAB 12/06/16 Levothyroxine Sodium* (Levothyroxine Sodium*) 112 Mcg Tablet, 112 MCG PO BEFORE BREAKFAST, #30 TAB 12/06/16 Ipratropium-Albuterol (Ipratropium-Albuterol) 0.5-3 Mg/3 Ml Ampul.neb, 3 ML INHALATION Q4, #30 VIAL 12/06/16 Hydromorphone Hcl* (Hydromorphone Hcl*) 2 Mg Tablet, 0.5 MG PO Q4H Y for PAIN LEVEL 4-5/10, TAB 12/06/16 Hydrocodone Bit-Acetaminophen (Hydrocodone Bit-APAP) 5-325MG Tablet, 1 TAB PO Q6H Y for PAIN LEVEL 8-10/10, TAB 12/06/16 Furosemide* (Furosemide*) 20 Mg Tablet, 20 MG PO BID, #30 TAB HOLD IS SBP<110 12/06/16 Ferrous Sulfate* (Ferrous Sulfate*) 325 Mg Tabec, 325 MG PO BID, TAB 12/06/16 Docusate Sodium* (Docusate Sodium*) 100 Mg Capsule, 100 MG PO Q12, #60 CAP 12/06/16 Voghbk-Arvajnrj-Yrprhaw* (Bridget PINO* 24,000) 24,000 L-76,000-120,000 Unit Capsule.dr, 1 CAP PO WITH MEALS, CAP 12/06/16 Acetaminophen* (Acetaminophen*) 325 Mg Tablet, 650 MG PO Q6H Y for PAIN LEVEL 1- 01/18, #30 TAB 12/06/16 Discontinued Reported Medications Tuberculin,Purif.prot.deriv. (Tubersol) 5 Tub Unit/0.1 Ml Vial, 5 TUB ID QHS, VIAL 12/06/16 Spironolactone* (Spironolactone*) 100 Mg Tablet, 100 MG PO BID, TAB HOLD IF SBP<110 12/06/16 Metoclopramide Hcl* (Metoclopramide Hcl*) 10 Mg Tablet, 10 MG PO Q6H Y for NAUSEA AND OR VOMITING, TAB 12/06/16 Potassium Chloride* (Potassium Chloride*) 20 Meq/15 Ml Liquid, 20 MEQ PO DAILY, ML 12/06/16 Nitroglycerin* (Nitroglycerin* SL) 0.4 Mg Tab.subl, 0.4 MG SL Q5MIN Y for CHEST PAIN, BOTTLE 12/06/16 Magnesium Hydroxide* (Milk Of Magnesia*) 400 Mg/5 Ml Oral.susp, 30 ML PO Q24H for CONSTIPATION, ML 12/06/16 Lactulose* (Lactulose*) 10 Gm/15 Ml Solution, 30 ML PO Q12, ML 12/06/16 Hydralazine Hcl* (Hydralazine Hcl*) 10 Mg Tablet, 10 MG PO Q6H, #60 TAB GIVE IF SBP<160 AND CALL 12/06/16 Baclofen* (Baclofen*) 10 Mg Tablet, 10 MG PO BID, TAB 12/06/16 Pending Labs Laboratory Tests Test 12/08/16 11:53 Bedside Glucose 238mg/dL (70-220) KATHLEEN CARDONA MD Dec 09, 2016 11:31
[2016-12-09 12:39] VITALS: BP 99/66; PULSE 103
[2016-12-09] MEDS: morphine 2 MG INJ IV PRN ×2 (12:48→17:44)
[2016-12-09 14:54] LABS: POTASSIUM 3.3 mmol/L (3.5-5.1)
[2016-12-09 14:56] LABS: CREATININE 0.82 mg/dl (0.44-1.00)
[2016-12-09 14:57] LABS: CALCIUM 8.1 mg/dl (8.4-10.2); MAGNESIUM 2.6 mg/dl (1.7-2.5); PHOSPHORUS 3.2 mg/dl (2.5-4.9)
--- NOTE | 2016-12-09 15:04 | PN ---
DATE: 12/09/2016 SUBJECTIVE: The patient is critically ill. The patient has been accepted to hospice care. No othe r acute events noted. OBJECTIVE: VITAL SIGNS: Pressures are 87/59, respiration 18, pulse 75, temperature 95.1. HEENT: Head is normocephalic. NECK: Supple. HEART: Regular rate. LUNGS: Show diminished breath sounds at base. ABDOMEN: Soft, nontender to palpation without rebound or guarding. EXTREMITIES: Negative for clubbing, cyanosis. Positive edema. DERMATOLOGIC: No rashes. MUSCULOSKELETAL: No joint effusions. NEUROLOGIC: No change in exam. MEDICATIONS: The patient's medications have been reviewed. LABORATORY DATA: Has been reviewed. ABG has been reviewed. ASSESSMENT AND PLAN: 1. Nonoliguric acute kidney injury, etiology secondary to tubular injury, volume depletion. The pa tete is currently on IV fluids. Will continue to monitor. 2. Hyponatremia secondary to , improved. Continue to monitor. 3. Hyperkalemia hypertension. The patient remains on IV fluids. 4. Possible sepsis. The patient is on empiric antibiotics. Will continue. 5. Acute encephalopathy, multifactorial. No change. 7. History of pancreatic cancer with metastasis. The patient is accepted in hospice care, possible transfer to hospice today. 8. Respiratory alkalosis with metabolic compensation. 9. Anemia of chronic disease. Continue to monitor hemoglobin and hematocrit. Dictated By: MIESHA WAY/NILSA Conf#: [id number] DID#: [id number]
[2016-12-09] MEDS ORDERED: morphine 2 MG INJ IV ONE (16:00)
--- NOTE | 2016-12-09 16:57 | CONS ---
Date/Time of Note Date/Time of Note DATE: 12/09/16 TIME: 16:56 Assessment/Plan Assessment/Plan Chief Complaint/Hosp Course D PROGRESS NOTE TOTAL ABX DAY #3 => VAnco IV + Zosyn + Flagyl 24H INTERVAL SUMMARY * CHART REVIEWED: Family opted for HOSPICE -> TNS pending * Frail appearing F -> cachetic -> NGT wremoved PHYSICAL EXAMINATION: GENERAL: 65 yo F with severe debility HEENT: Temporal wasting, NGT-> secure w/green bile NECK: Supple, trachea midline. CHEST: Equal chest rise bilaterally, without dyspnea on observation HEART: Pulse RRR ABDOMEN: Soft EXTREMITIES: Warm SKIN: See photos ID ASSESSMENT: 65 yo F w/PMHx Metastatic Pancreatic CA-> Right chest Por-A-Cath, cachexia admit with: 1. Possible sepsis on admission with hypotension (+hypothermia TMax 97.3-97.5, w/leukocytosis, (+Lactic Acidosis => vs non-toxic hypovolemia + metabolic acidosis * All micro (-) to date * ?Concern peritonitis vs pancreatitis ? 2. Acute encephalopathy, likely toxic metabolic. 3. Acute renal insufficiency => dehydration on admission 4. Dehydration w/hypokalemia + hyperkalemia on aldactone 5. ABD pain w/Gaseous distension -> NGT placed 6. History of Escherichia coli extended-spectrum beta-lactamase urinary tract infection with bacteremia. ( )MRSA Nares ->pending INVASIVES: ABX ALLERGY: KNDA CURRENT ABX: TOTAL ABX DAY #2 => Zosyn + Flagyl VAnco IV +=> DC today ID RECOMMENDATIONS: 1. Concur with Family decision for Hospice 2. CHART REVIEWED: Family opted for HOSPICE -> TNS pending . Will sign off, thank you . Problems: Consultation Date/Type/Reason Admit Date/Time Dec 06, 2016 at 16:57 Exam/Review of Systems Vital Signs Vitals Vital Signs Date Time Temp Pulse Resp B/P Pulse Ox O2 Delivery O2 Flow Rate FiO2 12/09/16 14:24 99 18 100 21 12/09/16 12:39 99/66 12/09/16 08:01 95.1 12/06/16 18:30 Nasal Cannula 2.0 Intake and Output 12/08/16 12/08/16 12/09/16 15:00 23:00 07:00 Intake Total 200 ml 1060 ml 1480 ml Output Total 325 ml Balance 200 ml 1060 ml 1155 ml Results Result Diagram: 12/08/16 0450 12/09/16 1405 Results 24 hrs Laboratory Tests Test 12/09/16 14:05 Anion Gap 21 H Blood Urea Nitrogen 20 Calcium Level 8.1 L Carbon Dioxide Level 14 L Chloride Level 113 H Creatinine 0.82 Glucose Level 165 Magnesium Level 2.6 H Phosphorus Level 3.2 Potassium Level 3.3 L Sodium Level 145 H Medications Medications Current Medications Acetaminophen (Tylenol Tab) 650 mg Q6H PRN PO PAIN LEVEL 1-3/10; Start at 18:30 Ascorbic Acid (Vitamin C) 500 mg DAILY PO Last administered on 12/09/16 08:45 ; Admin Dose 500 MG; Start 12/07/16 at 09:00 Baclofen (Lioresal) 10 mg BID PO Last administered on 12/09/16 08:45; Admin Dose 10 MG; Start 12/06/16 at 21:00 Ferrous Sulfate (Ferrous Sulfate (Ec)) 325 mg BID PO Last administered on 08:45; Admin Dose 325 MG; Start 12/06/16 at 21:00 Hydralazine HCl (Apresoline) 10 mg Q6H PO Last administered on 12/08/16 12:54 ; Admin Dose 10 MG; Start 12/06/16 at 18:30 Hydromorphone HCl (Dilaudid) 0.5 mg Q4H PRN PO PAIN LEVEL 4-5/10; Start at 18:30 Lactulose (Enulose) 20 gm Q12 PO Last administered on 12/09/16 08:46; Admin Dose 20 GM; Start 12/06/16 at 21:00 Lorazepam (Ativan) 0.5 mg Q6 PRN PO ANXIETY; Start 12/06/16 at 18:30 Megestrol Acetate (Megace Susp) 800 mg DAILY PO Last administered on 12/09/16 08:46; Admin Dose 800 MG; Start 12/07/16 at 09:00 Metoclopramide HCl (Reglan) 10 mg Q6H PRN PO NAUSEA AND/OR VOMITING; Start at 18:30 Nitroglycerin (Nitroglycerin (Sl Tab) 0.4 Mg) 1 tab [id number] PRN SL CHEST PAIN ; Start 12/06/16 at 18:30 Ondansetron HCl (Zofran Tab) 4 mg Q6H PRN PO NAUSEA AND/OR VOMITING; Start at 18:30 Spironolactone (Aldactone) 25 mg BID PO Last administered on 12/09/16 08:46; Admin Dose 25 MG; Start 12/06/16 at 21:00 Tramadol HCl 50 mg 50 mg Q4 PRN PO PAIN LEVEL 6-7/10; Start 12/06/16 at 18:30 Sodium Chloride (NS) 1,000 ml @ 50 mls/hr Q20H IV Last administered on 06:18; Admin Dose 50 MLS/HR; Start 12/06/16 at 18:03 Ondansetron HCl (Zofran Inj) 4 mg Q6H PRN IV NAUSEA AND/OR VOMITING; Start at 18:30 Morphine Sulfate 2 mg 2 mg Q4H PRN IV PAIN LEVEL 7-10 Last administered on 12/09 12:48; Admin Dose 2 MG; Start 12/06/16 at 18:30 Metronidazole 100 ml @ 100 mls/hr Q8 IVPB Last administered on 12/09/16 16:14 ; Admin Dose 100 MLS/HR; Start 12/06/16 at 22:00 Piperacillin Sod/ Tazobactam Sod (Zosyn 3.375gm/ 100 ml (Pmx)) 100 ml @ 25 mls/ hr TID@02,10,18 IVPB Last administered on 12/09/16 10:42; Admin Dose 25 MLS/HR ; Start 12/07/16 at 02:00 Docusate Sodium (Colace Liquid Cup) 100 mg Q12 PO Last administered on 08:46; Admin Dose 100 MG; Start 12/07/16 at 21:19 Vitamin A/Vitamin D (Vitamin A & D Oint) 1 applic DAILY TOP Last administered on 12/09/16 08:46; Admin Dose 1 APPLIC; Start 12/07/16 at 22:30 RAVI MOREIRA NP Dec 09, 2016 16:57
[2016-12-09 18:51] VITALS: BP 103/74; PULSE 106; RESP 16
[2016-12-09 19:25] VITALS: BP 100/64; RESP 22
[2016-12-10] MEDS: ALBUTEROL/IPRATROPIUM (NEB) 3 ML AMP HHN SCH ×4 (00:32→13:54)
[2016-12-10] MEDS: SOD CHLORIDE 0.9% 1,000 ML IV SCH (02:03)
[2016-12-10] MEDS: PIPER-TAZO 3.375 GM IV (PMX) 100 ML IVPB SCH ×2 (02:29→09:10)
[2016-12-10] MEDS: morphine 2 MG INJ IV PRN (04:43)
[2016-12-10] MEDS: PANTOPRAZOLE (EC) 40 MG TAB PO SCH (06:37)
[2016-12-10] MEDS: metroNIDAZOLE 500 MG/NS (PMX) 100 ML IVPB SCH ×2 (06:37→14:00)
[2016-12-10] MEDS: LEVOTHYROXINE 112 MCG TAB PO SCH (06:37)
[2016-12-10 08:17] VITALS: BP 101/71; RESP 16
[2016-12-10] MEDS ORDERED: POTASSIUM CHLORIDE 20 MEQ POWDER FOR ORAL SOLN NGT ONE (08:30)
[2016-12-10] MEDS ORDERED: DEXTROSE 5% 1,000 ML IV SCH (08:30)
[2016-12-10] MEDS: LACTULOSE 30ML CUP PO SCH (09:08)
[2016-12-10] MEDS: CREON (24K-76K-120K) 1 CAP PO SCH ×2 (09:08→11:55)
[2016-12-10] MEDS: DOCUSATE SODIUM 10 MG/ML (10ML CUP) PO SCH (09:08)
[2016-12-10] MEDS: MEGESTROL (40 MG/ML) 10ML CUP PO SCH (09:08)
[2016-12-10] MEDS: SPIRONOLACTONE 50 MG TAB PO SCH (09:09)
[2016-12-10] MEDS: FERROUS SULFATE (EC) 325 MG TAB PO SCH (09:09)
[2016-12-10] MEDS: BACLOFEN 10 MG TAB PO SCH (09:09)
[2016-12-10] MEDS: ASCORBIC ACID 500 MG TAB PO SCH (09:09)
[2016-12-10] MEDS ORDERED: POTASSIUM CHLORIDE 20 MEQ POWDER FOR ORAL SOLN NGT SCH (10:00)
--- NOTE | 2016-12-10 10:15 | PN ---
DATE: 12/10/2016 SUBJECTIVE: The patient remains critically ill, obtunded. Retracts to painful stimuli. The patien t is pending hospice evaluation. No other events noted. OBJECTIVE: VITAL SIGNS: Blood pressure is 100/64, respiration 22, pulse 103, temperature 97.5. HEENT: Head is normocephalic. NECK: Supple. HEART: Regular rate. LUNGS: Show diminished breath sounds at base. ABDOMEN: Soft, nontender to palpation without rebound or guarding. EXTREMITIES: Negative for clubbing, cyanosis, edema. DERMATOLOGIC: No rashes. MUSCULOSKELETAL: No joint effusions. NEUROLOGIC: No change in exam. MEDICATIONS: The patient's medications reviewed. LABORATORY DATA: Shows sodium 145, potassium 3, chloride 113, BUN 20, creatinine 0.82. White count 10.2, hemoglobin 8.9, and hematocrit 32.4, platelet count is 119. ASSESSMENT AND PLAN: 1. Nonoliguric acute kidney injury, etiology secondary to acute tubular necrosis and hemodynamics. Renal function has improved with IV fluids. 2. Hypernatremia. The patient will be started on D5W at 50 mL an hour. 3. Hypokalemia, the patient received potassium chloride supplementation. Continue to monitor. 4. Possible sepsis. Continue empiric antibiotics. 5. Acute encephalopathy. No change. 6. History of metastatic pancreatic cancer. The patient is pending hospice evaluation. 7. Respiratory alkalosis with metabolic compensation. 8. Anemia of chronic disease. Continue to monitor hemoglobin and hematocrit levels. Dictated By: MIESHA WAY/NILSA Conf#: [id number] DID#: [id number]
[2016-12-10] MEDS: VITAMIN A & D 5 GM OINT PACKET TOP SCH (11:58)
--- NOTE | 2016-12-10 13:28 | DS ---
Date/Time of Note Date/Time of Note DATE: 12/10/16 TIME: 13:24 Discharge Summary Admission/Discharge Info Admit Date/Time Dec 06, 2016 at 16:57 Discharge Date/Time Final Diagnosis 1. Altered mental status due to metabolic encephalopathy 2. Sepsis. 3. Hypernatremia. 4. Hyperkalemia, 5. Dehydration secondary to decreased oral intake. 6. pancreatic cancer with mets. 7. Cachectic 8. Debility 9. Dysphagia 10. Severe malnutrition 11. Urinary tract infection 12. High AG metabolic acidosis Patient Condition: Guarded Hospital Course This is an unfortunate 65-year-old female with past medical history of pancreatic cancer status post chemotherapy, which has been discontinued since as per hematology/oncology recommendations, ascites, anemia, dyslipidemia , history of urinary tract infection, hypernatremia, history of Whipple procedure, cholecystectomy, tubal ligation, duodenal stent, pigtail line secondary to ascites, whom was residing at a correction facility, although at this time the patient lives at home, and was brought into the emergency room by the patient's daughter secondary to patient having decreased response and being altered. At time of admission, the patient's blood pressure was 96/57, temperature 98.5, pulse 95, respirations 18, blood pressure 97%. WBC was found to be 11.4, hemoglobin 9.1, hematocrit 26.5, platelets 458,000. Her lactic acid was found to be elevated at 2.7. Sodium 127, potassium 5.5, chloride 96, BUN of 23. Patient looks very cachectic. The patient was treated with Rocephin , normal saline, and lactulose in the course of the emergency room, and at this time the patient is arousable with pain. Does not respond to verbal stimuli. Patient was placed on aggressive IV fluid, NG tube feeding, IV antibiotics. As per patient's daughter request patient CODE STATUS was changed to DNR at the time of admission. Patient was continued on NG tube feeding and as per request the family they have met with the hospice for home hospice. Despite of aggressive medical management, IV fluid and IV antibiotics and tube feeding patient condition did not improve. The family has decided to proceed with the hospice care Family is at bedside. Home Meds Reported Medications [Fleet Enema Enema ] No Conflict Check, 118 ML RECTAL Q24H 12/06/16 Ondansetron Hcl* (Zofran*) 4 Mg Tab, 4 MG PO Q6H Y for NAUSEA AND OR VOMITING, TAB 12/06/16 Ascorbic Acid* (Vitamin C*) 500 Mg Capsule.sa, 500 MG PO DAILY, CAP 12/06/16 Tramadol Hcl* (Ultram*) 50 Mg Tablet, 50 MG PO Q4 Y for PAIN LEVEL 6-7/10, TAB 12/06/16 Protein Supplement (Promod) 946 Ml Liquid, 30 ML PO BID 12/06/16 Pantoprazole* (Pantoprazole*) 40 Mg Tablet.dr, 40 MG PO AC BREAKFAST, TAB 12/06/16 Megestrol Acetate* (Megestrol Acetate*) 400 Mg/10 Ml Susp, 800 MG PO DAILY, ML 12/06/16 Lorazepam* (Lorazepam*) 0.5 Mg Tablet, 0.5 MG PO Q6 Y for ANXIETY, TAB 12/06/16 Levothyroxine Sodium* (Levothyroxine Sodium*) 112 Mcg Tablet, 112 MCG PO BEFORE BREAKFAST, #30 TAB 12/06/16 Ipratropium-Albuterol (Ipratropium-Albuterol) 0.5-3 Mg/3 Ml Ampul.neb, 3 ML INHALATION Q4, #30 VIAL 12/06/16 Hydromorphone Hcl* (Hydromorphone Hcl*) 2 Mg Tablet, 0.5 MG PO Q4H Y for PAIN LEVEL 4-5/10, TAB 12/06/16 Hydrocodone Bit-Acetaminophen (Hydrocodone Bit-APAP) 5-325MG Tablet, 1 TAB PO Q6H Y for PAIN LEVEL 8-10/10, TAB 12/06/16 Furosemide* (Furosemide*) 20 Mg Tablet, 20 MG PO BID, #30 TAB HOLD IS SBP<110 12/06/16 Ferrous Sulfate* (Ferrous Sulfate*) 325 Mg Tabec, 325 MG PO BID, TAB 12/06/16 Docusate Sodium* (Docusate Sodium*) 100 Mg Capsule, 100 MG PO Q12, #60 CAP 12/06/16 Kqbqqr-Mbtlyyys-Hqqszsw* (Bridget PINO* 24,000) 24,000 L-76,000-120,000 Unit Capsule.dr, 1 CAP PO WITH MEALS, CAP 12/06/16 Acetaminophen* (Acetaminophen*) 325 Mg Tablet, 650 MG PO Q6H Y for PAIN LEVEL 1- 01/18, #30 TAB 12/06/16 Discontinued Reported Medications Tuberculin,Purif.prot.deriv. (Tubersol) 5 Tub Unit/0.1 Ml Vial, 5 TUB ID QHS, VIAL 12/06/16 Spironolactone* (Spironolactone*) 100 Mg Tablet, 100 MG PO BID, TAB HOLD IF SBP<110 12/06/16 Metoclopramide Hcl* (Metoclopramide Hcl*) 10 Mg Tablet, 10 MG PO Q6H Y for NAUSEA AND OR VOMITING, TAB 12/06/16 Potassium Chloride* (Potassium Chloride*) 20 Meq/15 Ml Liquid, 20 MEQ PO DAILY, ML 12/06/16 Nitroglycerin* (Nitroglycerin* SL) 0.4 Mg Tab.subl, 0.4 MG SL Q5MIN Y for CHEST PAIN, BOTTLE 12/06/16 Magnesium Hydroxide* (Milk Of Magnesia*) 400 Mg/5 Ml Oral.susp, 30 ML PO Q24H for CONSTIPATION, ML 12/06/16 Lactulose* (Lactulose*) 10 Gm/15 Ml Solution, 30 ML PO Q12, ML 12/06/16 Hydralazine Hcl* (Hydralazine Hcl*) 10 Mg Tablet, 10 MG PO Q6H, #60 TAB GIVE IF SBP<160 AND CALL 12/06/16 Baclofen* (Baclofen*) 10 Mg Tablet, 10 MG PO BID, TAB 12/06/16 Follow-up Plan hospice care Pending Labs Laboratory Tests Test 12/09/16 14:05 Anion Gap 21 (8-16) Blood Urea Nitrogen 20mg/dl (7-20) Calcium Level 8.1mg/dl (8.4-10.2) Carbon Dioxide Level 14mmol/L (21-31) Chloride Level 113mmol/L (97-110) Creatinine 0.82mg/dl (0.44-1.00) Glucose Level 165mg/dl (70-220) Magnesium Level 2.6mg/dl (1.7-2.5) Phosphorus Level 3.2mg/dl (2.5-4.9) Potassium Level 3.3mmol/L (3.5-5.1) Sodium Level 145mmol/L (135-144) JUAN FRANCISCO ESQUIVEL MD Dec 10, 2016 13:28
[2016-12-10 18:20] LABS: MICROALBUMIN 1.6 mg/dL
== END 2016-12-10 14:55 | disposition hospice, home (50) | DRG 871 ==
LOC: E/R 14:40 → MS2 16:57
PROVIDERS: ADMIT Family Medicine; ATTEND Family Medicine
DX: A41.9 Sepsis, unspecified organism (principal); G92 Toxic encephalopathy; N17.0 Acute kidney failure with tubular necrosis; E43 Unspecified severe protein-calorie malnutrition; E87.0 Hyperosmolality and hypernatremia; C79.9 Secondary malignant neoplasm of unspecified site; C25.9 Malignant neoplasm of pancreas, unspecified; R13.10 Dysphagia, unspecified; E86.0 Dehydration; N17.9 Acute kidney failure, unspecified; E87.1 Hypo-osmolality and hyponatremia; Z68.1 Body mass index [BMI] 19.9 or less, adult; N39.0 Urinary tract infection, site not specified; E87.2 Acidosis; E87.5 Hyperkalemia; Z66 Do not resuscitate
CPT/HCPCS: 36415; 36600; 70450; 71010; 80048; 80053; 80306; 80307; 81001; 81003; 82043; 82140; 82803; 82962; 83605; 83735; 84100; 84155; 84300; 84484; 85025; 86850; 86900; 86901; 87040; 87081; 87086; 93005; 94640; 96374; J0696; J2270; J2543; J3370; J7030; J7070